=== PATIENT | male | born 1965 | race Caucasian/White ===

== ENCOUNTER → 2016-12-17 | Outpatient (CLI) | payer OTHER, SELFPAY | PROVIDERS: Visit Provider Nurse Practitioner Family | DX: E11.9 Type 2 diabetes mellitus without complications (principal); E66.3 Overweight | CPT/HCPCS: 80053; 80061; 83036; 84439; 84443; 85025 ==

== ENCOUNTER 2016-12-28 11:37 | Emergency (ER) | payer OTHER, SELFPAY | END 2016-12-28 12:24 | disposition home or self-care (01) | PROVIDERS: Emergency Provider Nurse Practitioner Family; Visit Provider Nurse Practitioner Family | DX: H57.8 Other specified disorders of eye and adnexa (principal); H57.12 Ocular pain, left eye; Z87.891 Personal history of nicotine dependence; I10 Essential (primary) hypertension; E78.5 Hyperlipidemia, unspecified; Z79.84 Long term (current) use of oral hypoglycemic drugs; Z79.02 Long term (current) use of antithrombotics/antiplatelets; Z79.82 Long term (current) use of aspirin; Z79.899 Other long term (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 therapy; K21.9 Gastro-esophageal reflux disease without esophagitis | CPT/HCPCS: 99201 ==

== ENCOUNTER 2016-12-30 14:53 | Outpatient (POV) | payer OTHER, SELFPAY | END 2016-12-30 17:11 | disposition home or self-care (01) | PROVIDERS: Visit Provider Podiatrist | DX: M72.2 Plantar fascial fibromatosis (principal); E11.42 Type 2 diabetes mellitus with diabetic polyneuropathy | CPT/HCPCS: 99202; G0127 ==

== ENCOUNTER 2017-03-14 09:24 | Outpatient (POV) | payer OTHER, SELFPAY | END 2017-03-14 16:24 | disposition home or self-care (01) | PROVIDERS: Visit Provider Podiatrist | DX: M72.2 Plantar fascial fibromatosis (principal); E11.42 Type 2 diabetes mellitus with diabetic polyneuropathy | CPT/HCPCS: 20550; 99213; G0127; J1100; J3301 ==

== ENCOUNTER 2017-06-03 11:09 | Emergency (ER) | payer OTHER, SELFPAY ==
[2017-06-03 11:31] VITALS: BP 123/77; PULSE 106; RESP 18; TEMP 36.9; O2SAT 96; BMI 31.4
--- NOTE | 2017-06-03 11:59 | HMH.EDUTC ---
[facility] [place] Clinical Impression: Acute bronchitis Qualifiers: Bronchitis organism: unspecified organism Qualified Code(s): J20.9 - Acute bronchitis, unspecified Disposition: Home, Self-Care Condition on Discharge: Good Instructions: DI for Acute Bronchitis Additional Instructions: * No sign of a bacterial infection. Most bronchitis is due to viruses. Viruses can take 7-14 days to run their course and with bronchitis, the cough can linger longer even though other symptoms should be gone. * Monitor Temp. Follow up if fever develops * humidifier/vaporizer/hot steamy shower * Rescue (albuterol) Inhaler every 4-6 hours as needed like we discussed. Should help open airways and improve cough, wheezing, shortness of breath. * Mucinex during the day for your cough and cough suppressant only at night. Be sure to drink lots of water. Insurance may not cover a prescription of mucinex. Might be cheaper to get 400mg tablets and take 2 tablets morning, midday and evening all with lots of water. * Tessalon Perles will not cause drowsiness but use at bedtime to help stop cough so that you can get some rest * no steroid today due to diabetes. if symptoms don't improve or get worse, be sure to follow up as you might have to start them. Prescriptions: Albuterol Sulfate [Albuterol HFA Inhaler] 1 - 2 puffs IH Q4-6H PRN #1 inh PRN Reason: Shortness Of Breath Or Wheezing Benzonatate [Benzonatate 200mg Cap] 200 mg PO HS PRN #14 cap PRN Reason: Cough guaiFENesin [Mucinex 600mg tablet] 600 mg PO BID PRN #28 tab.er.12h PRN Reason: Cough Referrals: Glenna Ayala APRN [Primary Care Provider] - ( Follow up IMMEDIATELY for new or worsening symptoms OR no noticeable improvement over the next 48-72 hours. 911 for difficulty breathing.) Time of Disposition: 13:32 Medical Decision Making Vital Signs: 06/03/17 11:31 06/03/17 12:36 Temperature 98.4 F Temperature Source Temporal Artery Scan Pulse Rate 108 H Pulse Rate [Radial] 106 H Respiratory Rate 18 Blood Pressure [Right Arm] 123/77 Blood Pressure Mean [Right Arm] 92 Blood Pressure Source [Right Arm] Automatic Cuff Blood Pressure Position [Right Arm] Sitting 02 Sat by Pulse Oximetry 96 Oxygen Delivery Method Room Air - Lab Data Lab results reviewed: Yes: I reviewed the patient's lab results. flu a neg flu b neg Orders (Tests/Meds): ED MEDICATIONS Discontinued Medications Generic Name Dose Route Start Last Admin Trade Name Verenice PRN Reason Stop Dose Admin Albuterol Sulfate 2.5 mg 06/03/17 12:03 06/03/17 12:34 Albuterol 0.083% 2.5mg/3ml Neb IH 06/03/17 12:04 2.5 mg ONCE ONE Administration ORDERS Category Date Time Status XR chest 2V Stat Exams 06/03/17 12:03 Taken - Radiology Data #1 Image(s): Chest Image Reviewed: Yes I reviewed the patient's radiology image w/the ED provider Preliminary Findings: Normal/NAD Rvwd by Dr. Johnson, ER - Juan Inquiry Pt receiving controlled substance: No - Reevaluation(s) Reevaluation #1: Cough and wheezing improved after albuterol treatment. Minimal cough since. Pt reports feeling better. [facility] [place] General Stated complaint: chills achey runny nose cough Time Seen by Provider: 06/03/17 11:59 Mode of Arrival: Ambulatory Source of Information: Patient Limitations: No Limitations Description of Symptoms (Recalled from Triage Doc. by RN): C/O COUGH, RUNNY NOSE, HEADACHE, CHILLS AND BODY ACHES X2 DAYS HEENT Symptoms (Recalled from RN notes): No Resp Symptoms (Recalled from RN notes): No Skin Symptoms (Recalled from RN notes): No MS Symptoms (Recalled from RN notes): No Functional Status (Recalled from RN notes): NA - History of Present Illness Provider Complaint: c/o nonprod cough, aches, chills, drainage x 2-3 days. Father w/ bronchitis. Hx of asthma and needed rescue inhaler this morning for a little shortness of breath . Denies wheezing, fever. Cough drops not helping.
--- NOTE | 2017-06-03 12:03 | ED_ITS ---
[facility] [place] Clinical Impression: Acute bronchitis Qualifiers: Bronchitis organism: unspecified organism Qualified Code(s): J20.9 - Acute bronchitis, unspecified Disposition: Home, Self-Care Condition on Discharge: Good Instructions: DI for Acute Bronchitis Additional Instructions: * No sign of a bacterial infection. Most bronchitis is due to viruses. Viruses can take 7-14 days to run their course and with bronchitis, the cough can linger longer even though other symptoms should be gone. * Monitor Temp. Follow up if fever develops * humidifier/vaporizer/hot steamy shower * Rescue (albuterol) Inhaler every 4-6 hours as needed like we discussed. Should help open airways and improve cough, wheezing, shortness of breath. * Mucinex during the day for your cough and cough suppressant only at night. Be sure to drink lots of water. Insurance may not cover a prescription of mucinex. Might be cheaper to get 400mg tablets and take 2 tablets morning, midday and evening all with lots of water. * Tessalon Perles will not cause drowsiness but use at bedtime to help stop cough so that you can get some rest * no steroid today due to diabetes. if symptoms don't improve or get worse, be sure to follow up as you might have to start them. Prescriptions: Albuterol Sulfate [Albuterol HFA Inhaler] 1 - 2 puffs IH Q4-6H PRN #1 inh PRN Reason: Shortness Of Breath Or Wheezing Benzonatate [Benzonatate 200mg Cap] 200 mg PO HS PRN #14 cap PRN Reason: Cough guaiFENesin [Mucinex 600mg tablet] 600 mg PO BID PRN #28 tab.er.12h PRN Reason: Cough Referrals: Glenna Ayala APRN [Primary Care Provider] - ( Follow up IMMEDIATELY for new or worsening symptoms OR no noticeable improvement over the next 48-72 hours. 911 for difficulty breathing.) Time of Disposition: 13:32 Medical Decision Making Vital Signs: 06/03/17 11:31 06/03/17 12:36 Temperature 98.4 F Temperature Source Temporal Artery Scan Pulse Rate 108 H Pulse Rate [Radial] 106 H Respiratory Rate 18 Blood Pressure [Right Arm] 123/77 Blood Pressure Mean [Right Arm] 92 Blood Pressure Source [Right Arm] Automatic Cuff Blood Pressure Position [Right Arm] Sitting 02 Sat by Pulse Oximetry 96 Oxygen Delivery Method Room Air - Lab Data Lab results reviewed: Yes: I reviewed the patient's lab results. flu a neg flu b neg Orders (Tests/Meds): ED MEDICATIONS Discontinued Medications Generic Name Dose Route Start Last Admin Trade Name Freq PRN Reason Stop Dose Admin Albuterol Sulfate 2.5 mg 06/03/17 12:03 06/03/17 12:34 Albuterol 0.083% 2.5mg/3ml Neb IH 06/03/17 12:04 2.5 mg ONCE ONE Administration ORDERS Category Date Time Status XR chest 2V Stat Exams 06/03/17 12:03 Taken - Radiology Data #1 Image(s): Chest Image Reviewed: Yes I reviewed the patient's radiology image w/the ED provider Preliminary Findings: Normal/NAD Rvwd by Dr. Johnson, ER - Juan Inquiry Pt receiving controlled substance: No - Reevaluation(s) Reevaluation #1: Cough and wheezing improved after albuterol treatment. Minimal cough since. Pt reports feeling better. [facility] [place] H[place] - General Stated complaint: chills achey runny nose cough Time Seen by Provider: 06/03/17 11:59 Mode of Arrival: Ambulatory Source of Information: Patient Limitations: No Li
--- NOTE | 2017-06-03 12:03 | XR_ITS ---
XR chest 2V HISTORY: ITS.REASON: cough, fatigue, wheezing, hx asthma, nonsmoker ORDERING PHYSICIAN: Kaveh Coles PATIENT AGE: 51 years COMPARISON: 04/16/2015 FINDINGS: The cardiomediastinal silhouette and pulmonary vascularity are within normal limits. The lungs are clear without infiltrates, suspicious nodules, or pleural effusions. There is calcified granuloma in the right lower lobe. Increased density is noted over the left heart border probably related to summation artifact and may be confirmed with follow-up. No acute bony abnormalities. IMPRESSION: No acute finding, see above for detail
[2017-06-03 12:36] VITALS: PULSE 105; PULSE 108
[2017-06-03 13:42] VITALS: BP 177/89; PULSE 77; RESP 20; TEMP 37.1; O2SAT 99
[2017-06-06 10:17] LABS: UTC Influenza A Antigen Negative (Negative); UTC Influenza B Antigen Negative (Negative)
== END 2017-06-03 13:45 | disposition home or self-care (01) ==
PROVIDERS: Emergency Provider Nurse Practitioner Family; PCP Nurse Practitioner Family
DX: J20.9 Acute bronchitis, unspecified (principal); J45.909 Unspecified asthma, uncomplicated; E11.9 Type 2 diabetes mellitus without complications; Z79.84 Long term (current) use of oral hypoglycemic drugs; K21.9 Gastro-esophageal reflux disease without esophagitis; E78.5 Hyperlipidemia, unspecified; I10 Essential (primary) hypertension; Z87.891 Personal history of nicotine dependence; Z79.899 Other long term (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 therapy
CPT/HCPCS: 71046; 87804; 99202

== ENCOUNTER → 2017-09-23 10:58 | Outpatient (CLI) | payer MEDICARE, SELFPAY ==
[2017-09-23 14:24] LABS: Chol/HDL Ratio 5.7 (1-3.5); Cholesterol 210 mg/dL (140-200); HDL Cholesterol 37 mg/dL (27-67)
[2017-09-23 14:28] LABS: Triglycerides 508 mg/dL (30-200)
[2017-09-23 16:28] LABS: Hemoglobin A1C 7.5 % (0.0-7.0)
== END ==
PROVIDERS: Visit Provider Nurse Practitioner Family
DX: R07.9 Chest pain, unspecified (principal); E11.69 Type 2 diabetes mellitus with other specified complication
CPT/HCPCS: 80061; 83036

== ENCOUNTER → 2017-12-28 10:37 | Outpatient (CLI) | payer MEDICARE, SELFPAY ==
[2017-12-28 12:46] LABS: Alanine Aminotransferase 26 U/L (12-78); Albumin Level 3.8 gm/dL (3.4-5.0); Alkaline Phosphatase 85 U/L (46-116); Aspartate Amino Transferase 14 U/L (15-37); Bilirubin,Direct 0.1 mg/dL (0.0-0.2); Bilirubin,Indirect 0.1 mg/dL (0.0-0.9); Bilirubin,Total 0.2 mg/dL (0.2-1.0); Chol/HDL Ratio 4.6 (1-3.5); Cholesterol 236 mg/dL (140-200); HDL Cholesterol 51 mg/dL (27-67); LDL Cholesterol 145 mg/dL (0-130); Total Protein,Serum 7.5 gm/dL (6.4-8.2); Triglycerides 198 mg/dL (30-200); VLDL Cholesterol 40 mg/dL (0-40)
== END ==
PROVIDERS: PCP Nurse Practitioner Family; Visit Provider Physician Assistant
DX: E11.69 Type 2 diabetes mellitus with other specified complication (principal); E78.5 Hyperlipidemia, unspecified; R07.9 Chest pain, unspecified
CPT/HCPCS: 36415; 80061; 80076

== ENCOUNTER → 2017-12-29 11:36 | Outpatient (CLI) | payer MEDICARE, SELFPAY ==
[2017-12-29 12:31] LABS: Hemoglobin A1C 7.7 % (0.0-7.0)
== END ==
PROVIDERS: PCP Nurse Practitioner Family; Visit Provider Nurse Practitioner Family
DX: E11.9 Type 2 diabetes mellitus without complications (principal)
CPT/HCPCS: 36415; 83036

== ENCOUNTER → 2018-01-27 10:49 | Outpatient (POV) | payer MEDICARE, SELFPAY | PROVIDERS: PCP Nurse Practitioner Family; Visit Provider Podiatrist | DX: Z00.00 Encounter for general adult medical examination without abnormal findings (principal) ==

== ENCOUNTER → 2018-03-22 13:16 | Outpatient (CLI) | payer MEDICARE, SELFPAY ==
[2018-03-22 13:28] LABS: Basophils # 0.1 K/mm3 (0-0.2); Basophils % 1.2 % (0.1-2.0); Eosinophils # 0.3 K/mm3 (0.0-0.4); Eosinophils % 6.6 % (0.1-12.0); Hematocrit 33.2 % (42.0-52.0); Hemoglobin 9.6 g/dL (14.1-18.0); Lymphocytes # 1.4 K/mm3 (0.7-4.5); Lymphocytes % 29.5 % (10-50); Mean Corpuscular HGB Conc 28.9 g/dL (31.8-35.4); Mean Corpuscular Hemoglobin 21.3 pg (27.0-31.2); Mean Corpuscular Volume 73.5 fl (80-94); Mean Platelet Volume 9.6 fl (7.4-10.4); Monocytes # 0.3 K/mm3 (0.1-1.0); Monocytes % 6.2 % (1.7-9.3); Neutrophils # 2.6 K/mm3 (1.8-7.8); Neutrophils % 56.5 % (37.0-80.0); Platelet Count 282 K/mm3 (142-424); Red Blood Count 4.52 M/mm3 (4.60-6.20); White Blood Count 4.6 K/mm3 (4.8-10.8)
[2018-03-22 14:50] LABS: Alanine Aminotransferase 28 U/L (12-78); Albumin Level 3.8 gm/dL (3.4-5.0); Alkaline Phosphatase 99 U/L (46-116); Anion Gap 17.8 mEq/L (5-15); Aspartate Amino Transferase 19 U/L (15-37); Bilirubin,Total 0.3 mg/dL (0.2-1.0); Blood Urea Nitrogen 9 mg/dL (7-18); Carbon Dioxide 23 mmol/L (21.0-32.0); Chloride 102 mmol/L (98-107); Chol/HDL Ratio 3.4 (1-3.5); Cholesterol 202 mg/dL (140-200); Creatinine,Serum 0.92 mg/dL (0.70-1.30); Estimated Glomerular Filt Rate 86 ml/min (>60); Free Thyroxine Index 1.6 ug/dL (5.93-13.13); GFR (African American) 104 ML/MIN (>60); Globulin 3.8 gm/dl (1.3-3.2); Glucose 126 mg/dL (74-106); HDL Cholesterol 59 mg/dL (27-67); LDL Cholesterol 108 mg/dL (0-130); Potassium 4.8 mmoL/L (3.5-5.1); Sodium 138 mmol/L (136-145); Thyroid Stimulating Hormone 1.18 uIU/ml (0.358-3.740); Total Protein,Serum 7.6 gm/dL (6.4-8.2); Triglycerides 177 mg/dL (30-200); Triiodothryronine (T3) Uptake 32 % (31-39); VLDL Cholesterol 35 mg/dL (0-40)
[2018-03-22 19:07] LABS: Hemoglobin A1C 7.2 % (0.0-7.0)
[2018-03-23 09:44] LABS: Vitamin D 25 Hydroxy 19.8 ng/mL (30.0-100.0)
[2018-03-24 06:55] LABS: Microalbumin, Urine 6.7 ug/mL (Not Estab.)
[2018-03-27 13:18] LABS: Barbiturates Screen,Urine Negative ng/mL (<200); Opiate Screen,Urine Positive ng/mL (<300)
[2018-03-27 13:19] LABS: Amphetamine/Metha Screen,Urine Negative ng/mL (<1000); Benzodiazepines Screen,Urine Negative ng/mL (<200); Cannabinoid Screen,Urine Negative ng/mL (<50); Cocaine Screen,Urine Negative ng/mL (<300); Methadone Screen,Urine Negative ng/mL (<300); Phencyclidine Screen,Urine Negative ng/mL (<25)
== END ==
PROVIDERS: Visit Provider Nurse Practitioner Family
DX: E11.9 Type 2 diabetes mellitus without complications (principal); E11.69 Type 2 diabetes mellitus with other specified complication; E78.5 Hyperlipidemia, unspecified; F11.90 Opioid use, unspecified, uncomplicated; Z79.899 Other long term (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 therapy; Z79.84 Long term (current) use of oral hypoglycemic drugs
CPT/HCPCS: 80053; 80061; 80305; 82043; 82652; 83036; 84436; 84443; 84479; 85025

== ENCOUNTER → 2018-03-24 13:20 | Outpatient (CLI) | payer MEDICARE, SELFPAY ==
[2018-03-24 13:55] LABS: Basophils # 0.1 K/mm3 (0-0.2); Basophils % 1.1 % (0.1-2.0); Eosinophils # 0.3 K/mm3 (0.0-0.4); Eosinophils % 7.3 % (0.1-12.0); Hematocrit 33.3 % (42.0-52.0); Hemoglobin 9.5 g/dL (14.1-18.0); Lymphocytes # 1.6 K/mm3 (0.7-4.5); Lymphocytes % 34.8 % (10-50); Mean Corpuscular HGB Conc 28.4 g/dL (31.8-35.4); Mean Corpuscular Hemoglobin 21.4 pg (27.0-31.2); Mean Corpuscular Volume 75.5 fl (80-94); Mean Platelet Volume 8.1 fl (7.4-10.4); Monocytes # 0.3 K/mm3 (0.1-1.0); Monocytes % 6.2 % (1.7-9.3); Neutrophils # 2.3 K/mm3 (1.8-7.8); Neutrophils % 50.7 % (37.0-80.0); Platelet Count 209 K/mm3 (142-424); Red Blood Count 4.41 M/mm3 (4.60-6.20); Red Cell Distribution Width 18.8 % (11.5-17.5); White Blood Count 4.6 K/mm3 (4.8-10.8)
== END ==
PROVIDERS: Visit Provider Nurse Practitioner Family
DX: J20.9 Acute bronchitis, unspecified (principal); R79.89 Other specified abnormal findings of blood chemistry
CPT/HCPCS: 85025

== ENCOUNTER → 2018-03-29 11:30 | Outpatient (CLI) | payer MEDICARE, SELFPAY ==
[2018-03-31 16:08] LABS: Occult Blood,Stool Negative (Negative)
== END ==
PROVIDERS: Visit Provider Nurse Practitioner Family
DX: D64.9 Anemia, unspecified (principal)
CPT/HCPCS: 82272; G0328

== ENCOUNTER → 2018-03-30 13:00 | Outpatient (CLI) | payer MEDICARE, SELFPAY ==
[2018-03-31 16:08] LABS: Occult Blood,Stool Negative (Negative)
== END ==
PROVIDERS: Visit Provider Nurse Practitioner Family
DX: D64.9 Anemia, unspecified (principal)
CPT/HCPCS: 82272; G0328

== ENCOUNTER → 2018-04-07 14:13 | Outpatient (CLI) | payer MEDICARE, SELFPAY ==
[2018-04-07 14:18] LABS: Adenovirus F 40/41, stool Not Detected (NotDetected); Astrovirus Not Detected (NotDetected); Campylobacter Not Detected (NotDetected); Clostridium Difficile A/B, PCR Not Detected (NotDetected); Cryptosporidium Not Detected (NotDetected); Cyclospora Cayetanesis Not Detected (NotDetected); Entamoeba histolytica Not Detected (NotDetected); Enteroaggregative E coli Not Detected (NotDetected); Enteropathogenic E coli Not Detected (NotDetected); Enterotoxigenic E coli Not Detected (NotDetected); Giardia lamblia Not Detected (NotDetected); Norovirus Not Detected (NotDetected); Plesimonas Shigalloides, PCR Not Detected (NotDetected); Rotavirus A Not Detected (NotDetected); Salmonella, PCR Not Detected (NotDetected); Sapovirus Not Detected (NotDetected); Shiga-like toxin E coli Not Detected (NotDetected); Shigella Enterovasive E coli Not Detected (NotDetected); Vibrio Cholerae Not Detected (NotDetected); Vibrio, PCR Not Detected (NotDetected); Yersinia Entercolitica, PCR Not Detected (NotDetected)
== END ==
PROVIDERS: PCP Nurse Practitioner Family; Visit Provider Nurse Practitioner Family
DX: R19.7 Diarrhea, unspecified (principal)
CPT/HCPCS: 87507

== ENCOUNTER → 2018-04-20 14:20 | Outpatient (CLI) | payer MEDICARE, SELFPAY ==
[2018-04-20 14:47] LABS: Basophils # 0.1 K/mm3 (0-0.2); Basophils % 0.8 % (0.1-2.0); Eosinophils # 0.4 K/mm3 (0.0-0.4); Eosinophils % 6.9 % (0.1-12.0); Hematocrit 34.6 % (42.0-52.0); Hemoglobin 9.8 g/dL (14.1-18.0); Lymphocytes # 1.5 K/mm3 (0.7-4.5); Lymphocytes % 27.3 % (10-50); Mean Corpuscular HGB Conc 28.4 g/dL (31.8-35.4); Mean Corpuscular Hemoglobin 21.7 pg (27.0-31.2); Mean Corpuscular Volume 76.3 fl (80-94); Mean Platelet Volume 10.5 fl (7.4-10.4); Monocytes # 0.3 K/mm3 (0.1-1.0); Monocytes % 6.2 % (1.7-9.3); Neutrophils # 3.3 K/mm3 (1.8-7.8); Neutrophils % 58.7 % (37.0-80.0); Platelet Count 283 K/mm3 (142-424); Red Blood Count 4.54 M/mm3 (4.60-6.20); Red Cell Distribution Width 18.7 % (11.5-17.5); White Blood Count 5.5 K/mm3 (4.8-10.8)
[2018-04-20 16:11] LABS: Alanine Aminotransferase 27 U/L (12-78); Albumin Level 3.6 gm/dL (3.4-5.0); Albumin/Globulin Ratio 1.1 (1.1-1.8); Alkaline Phosphatase 93 U/L (46-116); Anion Gap 12.4 mEq/L (5-15); Aspartate Amino Transferase 21 U/L (15-37); Bilirubin,Total 0.3 mg/dL (0.2-1.0); Blood Urea Nitrogen 12 mg/dL (7-18); Calcium 8.8 mg/dL (8.5-10.1); Carbon Dioxide 27 mmol/L (21.0-32.0); Chloride 105 mmol/L (98-107); Creatinine,Serum 1.13 mg/dL (0.70-1.30); Estimated Glomerular Filt Rate 68 ml/min (>60); Ferritin 15 ng/mL (8-388); GFR (African American) 82 ML/MIN (>60); Globulin 3.4 gm/dl (1.3-3.2); Glucose 150 mg/dL (74-106); Potassium 5.4 mmoL/L (3.5-5.1); Sodium 139 mmol/L (136-145); Thyroid Stimulating Hormone 1.05 uIU/ml (0.358-3.740)
[2018-04-22 08:25] LABS: Iron 20 ug/dL (38-169); Iron Saturation 4 % (15-55); UIBC 480 ug/dL (111-343)
[2018-04-22 14:14] LABS: Free Kappa Lt Chains 15.7 mg/L (3.3-19.4); Free Lambda Lt Chains 11.8 mg/L (5.7-26.3)
[2018-04-22 21:50] LABS: Haptoglobin 216 mg/dL (34-200)
[2018-04-24 13:14] LABS: Albumin 4.2 g/dL (2.9-4.4); Alpha-1-Globulin 0.2 g/dL (0.0-0.4); Alpha-2-Globulin 0.8 g/dL (0.4-1.0); Gamma Globulin 0.8 g/dL (0.4-1.8); Immunoglobulin A, Qn 172 mg/dL (90-386); Immunoglobulin G, Qn 871 mg/dL (700-1600); Protein, Total 7.1 g/dL (6.0-8.5)
[2018-04-24 15:31] LABS: Immunoglobulin M, Qn 69 mg/dL (20-172)
== END ==
PROVIDERS: Visit Provider Internal Medicine Medical Oncology
DX: D64.9 Anemia, unspecified (principal); E03.9 Hypothyroidism, unspecified
CPT/HCPCS: 36415; 80053; 82728; 82784; 83010; 83540; 83550; 83883; 84155; 84165; 84443; 85025; 86334

== ENCOUNTER → 2018-04-25 15:05 | Outpatient (CLI) | payer MEDICARE, SELFPAY ==
--- NOTE | 2018-04-25 15:11 | CT_ITS ---
CT lung screening EXAM: CT LUNG LOW DOSE WO CONTRAST HISTORY: 120 pack year smoking history asymptomatic for lung cancer ITS.REASON: H/O NICOTINE DEPENDENCE ORDERING PHYSICIAN: Vanda Griffith MD PATIENT AGE: 52 years COMPARISON: None TECHNIQUE: The exam was performed on a GE Light Speed [address] scanner using 2.90 mGy CTDI. A low dose helical CT CHEST was performed on a multi-detector scanner. All CT scans at the facility use one or more dose reduction, viz: automated exposure control, ma/kV adjustment per patient size (including targeted exams where dose is matched to indication, i.e. head), or iterative reconstruction technique. The LDCT was performed in a facility that meets the criteria for the screening program. Data regarding this exam was submitted to ACR which is an approved registry. The order for this exam indicates that it came as a result of a lung cancer screening counseling shard decision-making visit that included all the elements required of such a visit including smoking cessation. The radiologist interpreting this exam meets the CMS criteria for the LDCT lung cancer screening program. The exam is reported using the Lung-RADS classification scale and reported to the ACR registry. NOTE: This study was performed for the specific purposes of lung cancer screening and is not an alternative to diagnostic chest CT. RADIATION DOSE: CTDI vol(CT dose Index-volume) = 2.90mG DLP (Dose Length Product) = 96.27 mGcm FINDINGS: Nodules: 3 mm noncalcified nodule right middle lobe image #49. Calcified granuloma right lower lobe Incidental note made of coronary artery calcifications. Mild diffuse bronchial thickening. IMPRESSION: 1. Lung RADS Category: 2, benign 2. Other findings: Coronary artery calcifications RECOMMENDATIONS: 12 month LDCT follow-up
== END ==
PROVIDERS: PCP Nurse Practitioner Family; Visit Provider Internal Medicine Medical Oncology
DX: Z87.891 Personal history of nicotine dependence (principal); Z12.2 Encounter for screening for malignant neoplasm of respiratory organs

== ENCOUNTER → 2018-05-01 14:01 | Outpatient (CLI) | payer MEDICARE, SELFPAY ==
[2018-05-01 14:22] LABS: Occult Blood,Stool Positive (Negative)
== END ==
PROVIDERS: Visit Provider Nurse Practitioner Family
DX: K92.1 Melena (principal)
CPT/HCPCS: 82272; G0328

== ENCOUNTER → 2018-05-16 13:10 | Outpatient (CLI) | payer MEDICARE, SELFPAY ==
[2018-05-16 13:15] LABS: Adenovirus F 40/41, stool Not Detected (NotDetected); Astrovirus Not Detected (NotDetected); Campylobacter Not Detected (NotDetected); Clostridium Difficile A/B, PCR Not Detected (NotDetected); Cryptosporidium Not Detected (NotDetected); Cyclospora Cayetanesis Not Detected (NotDetected); Entamoeba histolytica Not Detected (NotDetected); Enteroaggregative E coli Not Detected (NotDetected); Enteropathogenic E coli Not Detected (NotDetected); Enterotoxigenic E coli Not Detected (NotDetected); Giardia lamblia Not Detected (NotDetected); Norovirus Not Detected (NotDetected); Plesimonas Shigalloides, PCR Not Detected (NotDetected); Rotavirus A Not Detected (NotDetected); Salmonella, PCR Not Detected (NotDetected); Sapovirus Not Detected (NotDetected); Shiga-like toxin E coli Not Detected (NotDetected); Shigella Enterovasive E coli Not Detected (NotDetected); Vibrio Cholerae Not Detected (NotDetected); Vibrio, PCR Not Detected (NotDetected); Yersinia Entercolitica, PCR Not Detected (NotDetected)
== END ==
PROVIDERS: Visit Provider Surgery
DX: R19.7 Diarrhea, unspecified (principal)
CPT/HCPCS: 87507

== ENCOUNTER → 2018-07-18 10:29 | Outpatient (CLI) | payer MEDICARE, SELFPAY ==
[2018-07-18 12:22] LABS: Alanine Aminotransferase 21 U/L (12-78); Albumin Level 3.7 gm/dL (3.4-5.0); Alkaline Phosphatase 85 U/L (46-116); Aspartate Amino Transferase 15 U/L (15-37); Bilirubin,Direct 0.1 mg/dL (0.0-0.2); Bilirubin,Indirect 0.2 mg/dL (0.0-0.9); Bilirubin,Total 0.3 mg/dL (0.2-1.0); Cholesterol 233 mg/dL (140-200); HDL Cholesterol 47 mg/dL (27-67); LDL Cholesterol 131 mg/dL (0-130); Total Protein,Serum 7.4 gm/dL (6.4-8.2); Triglycerides 274 mg/dL (30-200); VLDL Cholesterol 55 mg/dL (0-40)
== END ==
PROVIDERS: Visit Provider Physician Assistant
DX: E11.69 Type 2 diabetes mellitus with other specified complication (principal); E78.5 Hyperlipidemia, unspecified; I10 Essential (primary) hypertension; I25.10 Atherosclerotic heart disease of native coronary artery without angina pectoris; I73.9 Peripheral vascular disease, unspecified; R06.09 Other forms of dyspnea; Z79.84 Long term (current) use of oral hypoglycemic drugs
CPT/HCPCS: 36415; 80061; 80076

== ENCOUNTER → 2018-08-03 10:51 | Outpatient (CLI) | payer MEDICARE, SELFPAY ==
[2018-08-03 11:22] LABS: Basophils # 0.1 K/mm3 (0-0.2); Basophils % 0.8 % (0.1-2.0); Eosinophils # 0.3 K/mm3 (0.0-0.4); Eosinophils % 5.2 % (0.1-12.0); Hemoglobin 10.6 g/dL (14.1-18.0); Lymphocytes # 1.6 K/mm3 (0.7-4.5); Lymphocytes % 26.1 % (10-50); Mean Corpuscular HGB Conc 30.2 g/dL (31.8-35.4); Mean Corpuscular Hemoglobin 22.3 pg (27.0-31.2); Mean Corpuscular Volume 73.8 fl (80-94); Mean Platelet Volume 10.1 fl (7.4-10.4); Monocytes # 0.4 K/mm3 (0.1-1.0); Neutrophils # 3.8 K/mm3 (1.8-7.8); Neutrophils % 61.9 % (37.0-80.0); Platelet Count 267 K/mm3 (142-424); Red Blood Count 4.74 M/mm3 (4.60-6.20); Red Cell Distribution Width 18.9 % (11.5-17.5); White Blood Count 6.1 K/mm3 (4.8-10.8)
[2018-08-03 13:58] LABS: Alanine Aminotransferase 27 U/L (12-78); Albumin Level 3.9 gm/dL (3.4-5.0); Chloride 103 mmol/L (98-107); Potassium 4.5 mmoL/L (3.5-5.1)
[2018-08-03 14:48] LABS: Albumin/Globulin Ratio 1.1 (1.1-1.8); Alkaline Phosphatase 90 U/L (46-116); Anion Gap 16.5 mEq/L (5-15); Aspartate Amino Transferase 13 U/L (15-37); Bilirubin,Total 0.3 mg/dL (0.2-1.0); Blood Urea Nitrogen 11 mg/dL (7-18); Calcium 9.4 mg/dL (8.5-10.1); Carbon Dioxide 21 mmol/L (21.0-32.0); Chol/HDL Ratio 5.1 (1-3.5); Cholesterol 214 mg/dL (140-200); Creatinine,Serum 1.08 mg/dL (0.70-1.30); Estimated Glomerular Filt Rate 71 ml/min (>60); GFR (African American) 86 ML/MIN (>60); Globulin 3.7 gm/dl (1.3-3.2); Glucose 141 mg/dL (74-106); HDL Cholesterol 42 mg/dL (27-67); LDL Cholesterol 136 mg/dL (0-130); Sodium 136 mmol/L (136-145); T4 (Thyroxine) 4.5 ug/dl (4.7-13.3); Total Protein,Serum 7.6 gm/dL (6.4-8.2); Triglycerides 181 mg/dL (30-200); VLDL Cholesterol 36 mg/dL (0-40)
[2018-08-03 15:24] LABS: Hemoglobin A1C 7.1 % (0.0-7.0)
[2018-08-04 23:13] LABS: Microalbumin, Urine 15.2 ug/mL (Not Estab.); Vitamin D 25 Hydroxy 21.7 ng/mL (30.0-100.0)
== END ==
PROVIDERS: Visit Provider Nurse Practitioner Family
DX: E11.9 Type 2 diabetes mellitus without complications (principal); G62.9 Polyneuropathy, unspecified; R53.1 Weakness; E78.5 Hyperlipidemia, unspecified
CPT/HCPCS: 36415; 80053; 80061; 82043; 82652; 83036; 84436; 84443; 85025

== ENCOUNTER → 2018-08-17 07:33 | Outpatient (CLI) | payer MEDICARE, SELFPAY ==
--- NOTE | 2018-08-17 07:33 | US_ITS ---
US gallbladder HISTORY: ITS.REASON: abd pain ORDERING PHYSICIAN: Glenna Ayala APRN PATIENT AGE: 53 years Comparison: None FINDINGS: PANCREAS: Unremarkable. No obvious mass or abnormal fluid collection. No ductal dilatation LIVER: No focal liver lesions demonstrated. Homogeneous echogenicity. No intrahepatic biliary ductal dilatation evident RIGHT KIDNEY: Unremarkable. Normal size and echogenicity. No hydronephrosis GALLBLADDER: The gallbladder appears contracted with minimal thickening of the wall which may be due to the contracted state. No gallstones, pericholecystic fluid, or biliary dilatation is evident. IMPRESSION: Mildly thickened gallbladder with mild prominence of the gallbladder wall which may be due to the contracted state. No stones or other significant anomalies
== END ==
PROVIDERS: PCP Nurse Practitioner Family; Visit Provider Nurse Practitioner Family
DX: R10.9 Unspecified abdominal pain (principal)
CPT/HCPCS: 76705

== ENCOUNTER → 2018-08-30 12:06 | Outpatient (CLI) | payer MEDICARE, SELFPAY ==
--- NOTE | 2018-08-30 12:07 | NM_ITS ---
CARDIOLITE SPECT MYOCARDIAL PERFUSION LEXISCAN, REST AND STRESS: History: Coronary artery disease, hypertension, diabetes, hyperlipidemia, family history, chest pain, shortness of breath Procedure: Patient received a 0.4 mg of intravenous Lexiscan, resting heart rate was 65 bpm resting blood pressure 124/65, with Lexiscan maximum heart rate achieved was 95 bpm is less than 85% of the maximum predicted heart rate and a blood pressure was 98/49. With Lexiscan patient complained of shortness of breath and malaise. Chest pressure was also noted. Electrocardiogram: Resting electrocardiogram showed sinus rhythm, with Lexiscan there is less than 1.[address] segment depression from the baseline EKG. The EKG portion of the Lexiscan Myoview is nondiagnostic. Cardiac stress and resting SPECT images: Cardiac stress and resting SPECT images were obtained using technetium 99 Myoview 30.9 mCi stress and 10.2 mCi at rest. Gated SPECT further analysis of segmental wall motion and calculation of the ejection fraction also done. Cardiac stress and resting SPECT images show uniform myocardial activity without segmental perfusion abnormality, computer derived ejection fraction is over 65% with no regional wall motion abnormality, right ventricle is normal size and contractility. Conclusion: 1. The EKG portion of the Lexiscan Myoview is nondiagnostic. 2. No scintigraphic evidence of reversible ischemia seen, computer derived ejection fraction is over 65% with no regional wall motion abnormality, right ventricle is normal size and contractility. 3. Normal Lexiscan Myoview study.
--- NOTE | 2018-08-30 14:39 | HMH.ITSHM ---
Current Home Medications as stated by this patient Parish Hernandez or guest experience representative. []ATORVASTATIN NORCO NEURONTIN METFORMIN GEMFIBROZIL OMEPRAZOLE PIOGLITAZONE ATENOLOL ASPIRIN RANEXA lisinopril clopidogrel albuterol fluticasone
== END ==
PROVIDERS: PCP Nurse Practitioner Family; Visit Provider Urology
DX: I10 Essential (primary) hypertension (principal); I25.10 Atherosclerotic heart disease of native coronary artery without angina pectoris; R06.02 Shortness of breath; R07.9 Chest pain, unspecified
CPT/HCPCS: 78452; 93017; A9502; J2785

== ENCOUNTER → 2018-09-27 08:42 | Outpatient (CLI) | payer MEDICARE, SELFPAY ==
--- NOTE | 2018-09-27 08:45 | FL_ITS ---
FL upper GI small bowel HISTORY: Bloody diarrhea, anemia ITS.REASON: anemia ORDERING PHYSICIAN: Leonides Caballero MD PATIENT AGE: 53 years Comparison: None FINDINGS: External Auditor exam is unremarkable. Air contrast exam performed. The esophagus stomach and duodenum have an unremarkable appearance. No ulcer or mass. No hernia. Images obtained of the small bowel following the course of transit of contrast in the small bowel are unremarkable. No obstructing lesions. No mucosal abnormalities or masses. Spot views of the terminal ileum are unremarkable. The appendix was visualized. FLUOROSCOPY TIME : 1 minute and 55 seconds. IMPRESSION: Unremarkable upper GI with unremarkable small bowel follow-through
== END ==
PROVIDERS: PCP Nurse Practitioner Family; Visit Provider Surgery
DX: D64.9 Anemia, unspecified (principal)
CPT/HCPCS: 74245

== ENCOUNTER → 2018-10-26 13:45 | Outpatient (CLI) | payer MEDICARE, SELFPAY ==
[2018-10-27 11:18] LABS: Basophils # 0.1 K/mm3 (0-0.2); Basophils % 0.7 % (0.1-2.0); Eosinophils # 0.5 K/mm3 (0.0-0.4); Eosinophils % 7.6 % (0.1-12.0); Hematocrit 37.1 % (42.0-52.0); Hemoglobin 10.1 g/dL (14.1-18.0); Lymphocytes # 1.6 K/mm3 (0.7-4.5); Lymphocytes % 24.8 % (10-50); Mean Corpuscular HGB Conc 27.4 g/dL (31.8-35.4); Mean Corpuscular Hemoglobin 21.6 pg (27.0-31.2); Mean Platelet Volume 9.7 fl (7.4-10.4); Monocytes # 0.3 K/mm3 (0.1-1.0); Monocytes % 4.9 % (1.7-9.3); Platelet Count 326 K/mm3 (142-424); Red Blood Count 4.69 M/mm3 (4.60-6.20); Red Cell Distribution Width 18.7 % (11.5-17.5); White Blood Count 6.5 K/mm3 (4.8-10.8)
[2018-10-27 12:16] LABS: Alanine Aminotransferase 26 U/L (12-78); Albumin Level 3.7 gm/dL (3.4-5.0); Alkaline Phosphatase 103 U/L (46-116); Anion Gap 16.4 mEq/L (5-15); Aspartate Amino Transferase 17 U/L (15-37); Bilirubin,Total 0.4 mg/dL (0.2-1.0); Blood Urea Nitrogen 12 mg/dL (7-18); Calcium 9.5 mg/dL (8.5-10.1); Carbon Dioxide 24 mmol/L (21.0-32.0); Chloride 102 mmol/L (98-107); Chol/HDL Ratio 4.5 (1-3.5); Cholesterol 224 mg/dL (140-200); Creatinine,Serum 1.26 mg/dL (0.70-1.30); Estimated Glomerular Filt Rate 59 ml/min (>60); GFR (African American) 72 ML/MIN (>60); Globulin 3.8 gm/dl (1.3-3.2); Glucose 142 mg/dL (74-106); HDL Cholesterol 50 mg/dL (27-67); LDL Cholesterol 110 mg/dL (0-130); Potassium 5.4 mmoL/L (3.5-5.1); Sodium 137 mmol/L (136-145); Total Protein,Serum 7.5 gm/dL (6.4-8.2); Triglycerides 319 mg/dL (30-200); VLDL Cholesterol 64 mg/dL (0-40)
[2018-10-29 22:50] LABS: Microalbumin, Urine 11.7 ug/mL (Not Estab.); Vitamin D 25 Hydroxy 36.1 ng/mL (30.0-100.0)
== END ==
PROVIDERS: Visit Provider Nurse Practitioner Family
DX: E11.9 Type 2 diabetes mellitus without complications (principal); G62.9 Polyneuropathy, unspecified; Z79.84 Long term (current) use of oral hypoglycemic drugs
CPT/HCPCS: 80053; 80061; 82043; 82652; 83036; 85025

== ENCOUNTER → 2018-11-09 13:07 | Outpatient (CLI) | payer MEDICARE, SELFPAY ==
[2018-11-09 13:09] LABS: MANUAL DIFFERENTIAL MANUAL DIFFERENTIAL (MANUAL DIFF)
[2018-11-09 14:36] LABS: Basophils % 0.8 % (0.1-2.0); Eosinophils # 0.5 K/mm3 (0.0-0.4); Eosinophils % 9.8 % (0.1-12.0); Hematocrit 33.4 % (42.0-52.0); Hemoglobin 9.6 g/dL (14.1-18.0); Lymphocytes # 1.5 K/mm3 (0.7-4.5); Lymphocytes % 32.5 % (10-50); Mean Corpuscular HGB Conc 28.7 g/dL (31.8-35.4); Mean Corpuscular Hemoglobin 22.1 pg (27.0-31.2); Monocytes # 0.3 K/mm3 (0.1-1.0); Monocytes % 5.4 % (1.7-9.3); Neutrophils # 2.5 K/mm3 (1.8-7.8); Neutrophils % 51.5 % (37.0-80.0); Platelet Count 280 K/mm3 (142-424); Red Blood Count 4.33 M/mm3 (4.60-6.20); Red Cell Distribution Width 18.6 % (11.5-17.5); White Blood Count 4.8 K/mm3 (4.8-10.8)
[2018-11-09 15:01] LABS: Anion Gap 14.8 mEq/L (5-15); Blood Urea Nitrogen 12 mg/dL (7-18); Calcium 9.3 mg/dL (8.5-10.1); Carbon Dioxide 25 mmol/L (21.0-32.0); Chloride 103 mmol/L (98-107); Creatinine,Serum 1.08 mg/dL (0.70-1.30); Estimated Glomerular Filt Rate 71 ml/min (>60); GFR (African American) 86 ML/MIN (>60); Glucose 115 mg/dL (74-106); Potassium 5.8 mmoL/L (3.5-5.1); Sodium 137 mmol/L (136-145)
[2018-11-09 15:10] LABS: Ferritin 15 ng/mL (8-388)
[2018-11-09 16:15] LABS: Eosinophils % 6 % (0-3); Lymphocytes % 26 % (10-50); Monocytes % 5 % (2-9); Neutrophils % 61 % (42-76); Total Cells Counted 100
[2018-11-09 16:16] LABS: Anisocytosis 1+; Hypochromasia 2+; Microcytosis 2+; Platelet Estimate Normal; Poikilocytosis 1+; Tear Drop Cells 1+
[2018-11-09 16:19] LABS: Burr Cells 1+
[2018-11-10 08:13] LABS: Iron 31 ug/dL (38-169); UIBC 503 ug/dL (111-343)
[2018-11-10 15:04] LABS: Iron Saturation 6 % (15-55)
== END ==
PROVIDERS: Internal Medicine Hematology & Oncology; Visit Provider Nurse Practitioner Family
DX: D64.9 Anemia, unspecified (principal); E87.6 Hypokalemia
CPT/HCPCS: 36415; 80048; 82728; 83540; 83550; 85007; 85014; 85018; 85048; 85049

== ENCOUNTER → 2019-01-11 11:32 | Outpatient (CLI) | payer MEDICARE, SELFPAY ==
[2019-01-11 12:36] LABS: Basophils % 0.7 % (0.1-2.0); Eosinophils # 0.3 K/mm3 (0.0-0.4); Eosinophils % 5.9 % (0.1-12.0); Hematocrit 40.4 % (42.0-52.0); Hemoglobin 12.3 g/dL (14.1-18.0); Lymphocytes # 1.9 K/mm3 (0.7-4.5); Lymphocytes % 35.6 % (10-50); Mean Corpuscular HGB Conc 30.4 g/dL (31.8-35.4); Mean Corpuscular Hemoglobin 27.4 pg (27.0-31.2); Mean Corpuscular Volume 90.3 fl (80-94); Mean Platelet Volume 10.1 fl (7.4-10.4); Monocytes # 0.3 K/mm3 (0.1-1.0); Monocytes % 6.3 % (1.7-9.3); Neutrophils # 2.7 K/mm3 (1.8-7.8); Neutrophils % 51.5 % (37.0-80.0); Platelet Count 235 K/mm3 (142-424); Red Blood Count 4.47 M/mm3 (4.60-6.20); Red Cell Distribution Width 23.1 % (11.5-17.5); White Blood Count 5.3 K/mm3 (4.8-10.8)
[2019-01-11 15:25] LABS: Alanine Aminotransferase 24 U/L (12-78); Albumin Level 3.7 gm/dL (3.4-5.0); Albumin/Globulin Ratio 1.1 (1.1-1.8); Alkaline Phosphatase 76 U/L (46-116); Anion Gap 17.4 mEq/L (5-15); Aspartate Amino Transferase 14 U/L (15-37); Bilirubin,Total 0.3 mg/dL (0.2-1.0); Blood Urea Nitrogen 11 mg/dL (7-18); Calcium 9.5 mg/dL (8.5-10.1); Carbon Dioxide 24 mmol/L (21.0-32.0); Chloride 102 mmol/L (98-107); Creatinine,Serum 0.92 mg/dL (0.70-1.30); Estimated Glomerular Filt Rate 85 ml/min (>60); Ferritin 41 ng/mL (8-388); GFR (African American) 103 ML/MIN (>60); Globulin 3.3 gm/dl (1.3-3.2); Glucose 105 mg/dL (74-106); Potassium 5.4 mmoL/L (3.5-5.1); Sodium 138 mmol/L (136-145)
[2019-01-12 08:20] LABS: Iron 94 ug/dL (38-169); UIBC 301 ug/dL (111-343)
[2019-01-13 13:47] LABS: Iron Saturation 24 % (15-55)
== END ==
PROVIDERS: Visit Provider Internal Medicine Medical Oncology
DX: Z79.899 Other long term (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 therapy (principal); D64.9 Anemia, unspecified
CPT/HCPCS: 36415; 80053; 82728; 83540; 83550; 85025

== ENCOUNTER → 2019-03-20 14:19 | Outpatient (CLI) | payer MEDICARE, SELFPAY ==
--- NOTE | 2019-03-20 14:23 | XR_ITS ---
PROCEDURE: XR LUMBAR SPINE 2-3V CLINICAL INDICATION: pain Low back pain COMPARISON: No exams were available for comparison FINDINGS: There is degenerative disc disease at L5-S1. There is normal alignment with no acute fracture or dislocation. There is minimal lumbar curvature convex right. Left iliac artery stent is present with vascular calcification noted. No lytic or blastic change. IMPRESSION: Degenerative disc disease L5-S1 Dictated by: Reyes Wolf MD 03/20/2019 15:17 Electronically signed by Reyes Wolf MD in [place] 03/20/2019 15:17
--- NOTE | 2019-03-20 14:23 | XR_ITS ---
PROCEDURE: XR THORACIC SPINE 3V CLINICAL INDICATION: pain Back pain COMPARISON: No exams were available for comparison FINDINGS: There is mild degenerative disc disease in the midthoracic spine with minimal upper thoracic curvature convex right. No fracture or dislocation. No lytic or blastic change. IMPRESSION: Mild degenerative changes, no acute finding Dictated by: Reyes Wolf MD 03/20/2019 15:20 Electronically signed by Reyes Wolf MD in [place] 03/20/2019 15:20
--- NOTE | 2019-03-20 14:23 | XR_ITS ---
PROCEDURE: XR CERVICAL SPINE 3V CLINICAL INDICATION: pain Low back pain, pain throughout the COMPARISON: No exams were available for comparison FINDINGS: There is normal alignment. No fracture or dislocation. No lytic or blastic change. No significant degenerative change. No cervical rib. IMPRESSION: Negative cervical spine Dictated by: Reyes Wolf MD 03/20/2019 15:19 Electronically signed by Reyes Wolf MD in [place] 03/20/2019 15:19
== END ==
PROVIDERS: PCP Nurse Practitioner Family; Visit Provider Nurse Practitioner Family
DX: R69 Illness, unspecified (principal); M54.2 Cervicalgia; M54.6 Pain in thoracic spine; M54.5 Low back pain
CPT/HCPCS: 72040; 72072; 72100

== ENCOUNTER → 2019-03-30 10:44 | Outpatient (CLI) | payer MEDICARE, SELFPAY ==
--- NOTE | 2019-03-30 10:46 | US_ITS ---
APPROVED REPORT Exam Type: Lower Extremity Segmental Pressures Media Relations Specialist: Rachelle Daniel RVT Indications Claudication: Bilaterally Rest Pain: Bilaterally PAD CAD PT HAS HAD FEMORAL-FEMORAL BYPASS 2014 PT HAS ALSO HAD STENTS PUT IN LEGS UNSURE DATE Risk Factors Hypertension CAD Hyperlipidemia Cardiac Disease Pressures/Indices Right Indices Left Indices Brachial 121.00 mmHg Brachial 130.00 mmHg Low Thigh 107.00 mmHg 0.82 Low Thigh 110.00 mmHg 0.85 Calf 114.00 mmHg 0.88 Calf 109.00 mmHg 0.84 Ankle(PT) 109.00 mmHg 0.84 Ankle(PT) 121.00 mmHg 0.93 Ankle(DP) 92.00 mmHg 0.71 Ankle(DP) 115.00 mmHg 0.88 Digit 127.00 mmHg 0.98 Digit 93.00 mmHg 0.72 Findings RT MARY:0.84 LT MARY:0.93 RT TBI:0.98 LT TBI:0.72 NORMAL PULSES BILATERAL. NORMAL WAVEFORMS BILATERAL. Conclusion NORMAL PULSES BILATERAL. NORMAL WAVEFORMS BILATERAL. Slightly low right MARY suggesting mild arterial disease Electronically signed by : Reyes Wolf MD 03/30/2019 15:41:13
== END ==
PROVIDERS: PCP Nurse Practitioner Family; Visit Provider Physician Assistant
DX: I73.9 Peripheral vascular disease, unspecified (principal)
CPT/HCPCS: 93923

== ENCOUNTER → 2019-04-09 11:17 | Outpatient (CLI) | payer MEDICARE, SELFPAY | PROVIDERS: PCP Nurse Practitioner Family; Visit Provider Urology | DX: R00.2 Palpitations (principal) | CPT/HCPCS: 93270 ==

== ENCOUNTER → 2019-04-12 10:13 | Outpatient (CLI) | payer MEDICARE, SELFPAY | PROVIDERS: PCP Nurse Practitioner Family; Visit Provider Urology | DX: E11.69 Type 2 diabetes mellitus with other specified complication (principal); E78.2 Mixed hyperlipidemia; E78.5 Hyperlipidemia, unspecified; G62.9 Polyneuropathy, unspecified; I10 Essential (primary) hypertension; I25.10 Atherosclerotic heart disease of native coronary artery without angina pectoris; I73.9 Peripheral vascular disease, unspecified; M54.5 Low back pain; R00.2 Palpitations; R06.09 Other forms of dyspnea; R07.9 Chest pain, unspecified; Z79.84 Long term (current) use of oral hypoglycemic drugs | CPT/HCPCS: 93306 ==

== ENCOUNTER → 2019-05-02 11:33 | Outpatient (CLI) | payer MEDICARE, SELFPAY ==
[2019-05-02 12:07] LABS: Basophils % 0.5 % (0.1-2.0); Eosinophils # 0.3 K/mm3 (0.0-0.4); Hematocrit 42.7 % (42.0-52.0); Hemoglobin 13.9 g/dL (14.1-18.0); Lymphocytes # 1.6 K/mm3 (0.7-4.5); Lymphocytes % 25.6 % (10-50); Mean Corpuscular HGB Conc 32.5 g/dL (31.8-35.4); Mean Corpuscular Hemoglobin 32.1 pg (27.0-31.2); Mean Corpuscular Volume 98.6 fl (80-94); Monocytes # 0.4 K/mm3 (0.1-1.0); Monocytes % 6.1 % (1.7-9.3); Neutrophils # 3.9 K/mm3 (1.8-7.8); Neutrophils % 62.8 % (37.0-80.0); Platelet Count 248 K/mm3 (142-424); Red Blood Count 4.33 M/mm3 (4.60-6.20); Red Cell Distribution Width 13.4 % (11.5-17.5); White Blood Count 6.2 K/mm3 (4.8-10.8)
[2019-05-02 12:20] LABS: Alanine Aminotransferase 25 U/L (12-78); Albumin Level 3.3 gm/dL (3.4-5.0); Alkaline Phosphatase 81 U/L (46-116); Anion Gap 12.1 mEq/L (5-15); Aspartate Amino Transferase 15 U/L (15-37); Bilirubin,Total 0.2 mg/dL (0.2-1.0); Blood Urea Nitrogen 12 mg/dL (7-18); Carbon Dioxide 28 mmol/L (21.0-32.0); Chloride 107 mmol/L (98-107); Chol/HDL Ratio 2.3 (1-3.5); Cholesterol 118 mg/dL (140-200); Creatinine,Serum 1.01 mg/dL (0.70-1.30); Estimated Glomerular Filt Rate 77 ml/min (>60); GFR (African American) 93 ML/MIN (>60); Globulin 3.4 gm/dl (1.3-3.2); Glucose 125 mg/dL (74-106); HDL Cholesterol 51 mg/dL (27-67); LDL Cholesterol 26 mg/dL (0-130); Potassium 5.1 mmoL/L (3.5-5.1); Sodium 142 mmol/L (136-145); T4 (Thyroxine) 5.6 ug/dl (4.7-13.3); Thyroid Stimulating Hormone 1.41 uIU/ml (0.358-3.740); Total Protein,Serum 6.7 gm/dL (6.4-8.2); Triglycerides 203 mg/dL (30-200); VLDL Cholesterol 41 mg/dL (0-40)
[2019-05-02 12:24] LABS: Hemoglobin A1C 6.7 % (0.0-7.0)
[2019-05-03 15:41] LABS: Microalbumin, Urine 12.9 ug/mL (Not Estab.)
== END ==
PROVIDERS: Visit Provider Nurse Practitioner Family
DX: E78.5 Hyperlipidemia, unspecified; R00.2 Palpitations; I10 Essential (primary) hypertension; Z79.84 Long term (current) use of oral hypoglycemic drugs; E55.9 Vitamin D deficiency, unspecified; Z87.891 Personal history of nicotine dependence; E11.40 Type 2 diabetes mellitus with diabetic neuropathy, unspecified
CPT/HCPCS: 36415; 80053; 80061; 82043; 82652; 83036; 84436; 84443; 85025

== ENCOUNTER → 2019-11-13 12:29 | Outpatient (CLI) | payer MEDICARE, SELFPAY ==
[2019-11-13 12:54] LABS: Basophils # 0.1 K/mm3 (0-0.2); Eosinophils # 0.3 K/mm3 (0.0-0.4); Eosinophils % 5.5 % (0.1-12.0); Hematocrit 40.5 % (42.0-52.0); Hemoglobin 14.1 g/dL (14.1-18.0); Lymphocytes # 1.9 K/mm3 (0.7-4.5); Lymphocytes % 35.1 % (10-50); Mean Corpuscular HGB Conc 34.7 g/dL (31.8-35.4); Mean Corpuscular Hemoglobin 33.1 pg (27.0-31.2); Mean Corpuscular Volume 95.3 fl (80-94); Mean Platelet Volume 10.4 fl (7.4-10.4); Monocytes # 0.3 K/mm3 (0.1-1.0); Neutrophils # 2.8 K/mm3 (1.8-7.8); Neutrophils % 53.4 % (37.0-80.0); Platelet Count 199 K/mm3 (142-424); Red Blood Count 4.25 M/mm3 (4.60-6.20); Red Cell Distribution Width 13.4 % (11.5-17.5); White Blood Count 5.3 K/mm3 (4.8-10.8)
[2019-11-13 22:30] LABS: Iron 141 ug/dL (49-181)
[2019-11-13 23:30] LABS: Total Iron Binding Capacity 415 ug/dL (261-462)
[2019-11-13 23:57] LABS: Ferritin 73.5 ng/ml (17.9-464)
== END ==
PROVIDERS: Visit Provider Internal Medicine Medical Oncology
DX: D64.9 Anemia, unspecified (principal)
CPT/HCPCS: 36415; 82728; 83540; 83550; 85025

== ENCOUNTER → 2019-11-15 17:03 | Outpatient (CLI) | payer MEDICARE, SELFPAY ==
[2019-11-15 18:05] LABS: Chloride 102 mmol/L (98-107); Potassium 5.3 mmoL/L (3.5-5.1); Sodium 137 mmol/L (136-145)
[2019-11-15 18:08] LABS: Alanine Aminotransferase 36 U/L (12-78); Albumin Level 4.2 g/dl (3.5-5.0); Albumin/Globulin Ratio 1.7 (1.1-1.8); Alkaline Phosphatase 82 U/L (38-126); Anion Gap 18.3 mEq/L (5-15); Aspartate Amino Transferase 32 U/L (17-59); Bilirubin,Total 0.4 mg/dl (0.2-1.3); Blood Urea Nitrogen 15 mg/dl (9-20); Carbon Dioxide 22 mmol/L (22.0-30.0); Cholesterol 91 mg/dl (140-200); Estimated Glomerular Filt Rate 77 ml/min (>60); GFR (African American) 94 ML/MIN (>60); Globulin 2.5 g/dL (1.3-3.2); Total Protein,Serum 6.7 g/dl (6.3-8.2); Triglycerides 339 mg/dl (30-150); VLDL Cholesterol 68 mg/dL (0-40)
[2019-11-15 18:09] LABS: Calcium 9.4 mg/dl (8.4-10.2); Chol/HDL Ratio 2.1 (1-3.5); Glucose 158 mg/dl (74-100); HDL Cholesterol 43 mg/dl (40-60)
[2019-11-15 18:21] LABS: Direct LDL Cholesterol < 30.00 mg/dL (100-129)
[2019-11-15 19:34] LABS: Hemoglobin A1C 6.9 % (4.0-6.0)
== END ==
PROVIDERS: Visit Provider Nurse Practitioner Family
DX: E11.9 Type 2 diabetes mellitus without complications (principal); R53.83 Other fatigue; Z79.84 Long term (current) use of oral hypoglycemic drugs
CPT/HCPCS: 80053; 80061; 83036; 84436; 84443

== ENCOUNTER → 2019-11-20 11:33 | Outpatient (CLI) | payer MEDICARE, SELFPAY ==
[2019-11-20 12:25] LABS: Potassium 5.4 mmoL/L (3.5-5.1)
== END ==
PROVIDERS: Visit Provider Nurse Practitioner Family
DX: E87.5 Hyperkalemia (principal)
CPT/HCPCS: 36415; 84132

== ENCOUNTER → 2020-01-16 07:59 | Outpatient (CLI) | payer MEDICARE, SELFPAY ==
[2020-01-16 12:21] LABS: Chloride 100 mmol/L (98-107)
[2020-01-16 12:22] LABS: Potassium 5.4 mmoL/L (3.5-5.1); Sodium 140 mmol/L (136-145)
[2020-01-16 12:25] LABS: Anion Gap 13.4 mEq/L (5-15); Blood Urea Nitrogen 17 mg/dl (9-20); Carbon Dioxide 32 mmol/L (22.0-30.0); Estimated Glomerular Filt Rate 63 ml/min (>60); GFR (African American) 76 ML/MIN (>60); Glucose 141 mg/dl (74-100)
== END ==
PROVIDERS: Visit Provider Physician Assistant
DX: I10 Essential (primary) hypertension (principal)
CPT/HCPCS: 36415; 80048

== ENCOUNTER → 2020-02-14 15:30 | Outpatient (CLI) | payer MEDICARE, SELFPAY ==
[2020-02-14 18:27] LABS: Creatinine,Urine Random 75 mg/dL (Not Estab.); Microalbumin < 6.000 mg/L (0-16.7)
== END ==
PROVIDERS: Visit Provider Nurse Practitioner Family
DX: E11.9 Type 2 diabetes mellitus without complications (principal); Z79.84 Long term (current) use of oral hypoglycemic drugs
CPT/HCPCS: 82043; 82570

== ENCOUNTER → 2020-05-26 06:12 | Outpatient (CLI) | payer MEDICARE, SELFPAY ==
--- NOTE | 2020-05-26 06:14 | NM_ITS ---
APPROVED REPORT Exam: Nuclear Stress Test Indication: Chest pain, SOB, CAD, HTN, DM, High cholesterol, Family history Patient Location: Outpatient Stress Tech: Yolanda Colon [place] Tech:Juanis Pulido, ARRT, RT (R)(N) Ht: 5 ft 4 in Wt: 180 lbs HR: 64 bpm BP: 122/61 mmHg BSA: 1.87 m2 BMI: 30.8 History: Chest pain, SOB, CAD, HTN, DM, High cholesterol, Family history Procedure: Patient received a 0.4 mg of intravenous Lexiscan, resting heart rate 64 bpm, resting blood pressure 122/61 mmHg, with Lexiscan maximum heart rate achived was 93 bpm which is Less than 85 % of the maximum predicted heart rate and blood pressure was 113/72 mmHg. With Lexiscan, patient denied any complaint of chest pain. Electrocardiogram Resting electrocardiogram showed sinus rhythm, with Lexiscan there is less than 1.[address] segment depression noted from the baseline EKG. The EKG portion of the Lexiscan is nondiagnostic. Cardiac Stress and Resting SPECT Images: Cardiac Stress and Resting SPECT images were obtained using technetium 99m Myoview 30.9 mCi stress and 9.66 mCi at rest. Gated SPECT for analysis of segmental wall motion and calculation of the ejection fraction also done. Cardiac stress and rest SPECT images show uniform myocardial activity without segmental perfusion abnormality, computer derived ejection fraction is 65% with no regional wall motion abnormality, right ventricle is mildly enlarged with normal contractility. Conclusion: 1. The EKG portion of the Lexiscan is nondiagnostic. 2. No scintigraphic evidence of reversible ischemia seen, computer derived ejection fraction 65% with no regional wall motion abnormality, right ventricle is mildly enlarged with normal contractility. 3. Normal Lexiscan Myoview study. Electronically signed by : Jose Thurman, 05/26/2020 22:17:27
--- NOTE | 2020-05-26 06:14 | CA_ITS ---
APPROVED REPORT EXAM: Comprehensive 2D, Doppler, and color-flow Echocardiogram [place] Supervisor: Rachelle Daniel RVT Ht: 5 ft 4 in Wt: 186lbs BSA: 1.90 BP: 132/74 mmHg Indications: CP,CAD,HTN,HLD,SOA,BLANCHARD,DM TDS 2D Dimensions IVSd 1.60 cm M: 0.6-1.2 LVEF (Visual) 79.50 % PWd 1.30 cm M: 0.6 - 1.2 LVDd 3.40 cm M: 4.2 - 5.9 LVDs 1.80 cm M: 2.5 - 4.0 LVOT 1.80 cm (M/F) 1.5-2.5 M-Mode Dimensions LA Diam 3.30 cm (1.9-4.0) Ao Diam 2.60 cm (2.0-3.7) AV Cusp 1.40 cm (1.5-2.6) LV Diastology E/A Ratio 1.2 MED E' 6.82 (< 7 cm/sec) E'/MED E' Ratio 16.30 (>14) LAT E' 10.60 (<10 cm/sec) E/LAT E' Ratio 10.50 (>14) Mitral Valve MV E Max Toro. 111.00 (40-130 cm/s) MV A Velocity 94.80 (40-130 cm/s) E/A Ratio 1.20 Pulmonary Valve PV Peak Velocity 91.80 (50-150 cm/s) Left Ventricle Technically difficult study because of the patient factors and poor acoustic windows. Left atrium is normal size, left ventricle is normal size, there is preserved left ventricular systolic function, visually estimated ejection fraction 55% with no regional wall motion abnormality, diastolic parameters are inconclusive. Right Ventricle Right atrium and right ventricle are normal size and contractility. Aortic Valve Aortic valve is minimally thickened and fibrosed, there is no aortic stenosis or aortic insufficiency. Mitral Valve Mitral valve is grossly normal, there is trace mitral regurgitation. Tricuspid Valve Tricuspid valve is grossly normal, there is trace tricuspid regurgitation, tricuspid regurgitation jet velocity is inadequate for calculation of the right ventricular systolic pressure. Pulmonic Valve Pulmonic valve is poorly visualized. Great Vessels Aortic root is normal size. Pericardium No significant pericardial effusion noted. Conclusion 1. Normal left ventricular size, preserved left ventricular systolic function, visually estimated ejection fraction 55% with no regional wall motion abnormality, diastolic parameters are inconclusive. 2. Trace mitral and tricuspid regurgitation. 3. No significant pericardial effusion noted. Electronically signed by : Jose Thurman, 05/26/2020 21:41:35
--- NOTE | 2020-05-26 06:14 | CA_ITS ---
APPROVED REPORT Exam: Pharmacologic Technologist: Yolanda Colon Ht: 5 ft 4 in Wt: 186 lbs BSA: 1.90 m2 HR: 64 bpm BP: 122/61 mmHg Indications: Chest pain, Shortness of Air Medical History Medications: Lisinopril,,,,, Omeprazole,,,,, Aspirin,,,,, Atenolol,,,,, Metformin,,,,, Cephalexin,,,,, Gabapentin,,,,, Atorvastatin,,,,, HCTZ,,,,, Pioglitazone,,,,, Albuterol,,,,, MeLOXICAM,,,,, Stress Test Details Test: LEXISCAN HR Resting HR: 72 bpm Max Heart Rate (APMHR): 164 bpm Max HR Achieved: 95 bpm Target HR (85% APMHR): 139 bpm % of APMHR: 57 Recovery HR: 87 bpm BP Resting BP: 122.0/61.0 mmHg Max BP: 123.0/66.0 mmHg Recovery BP: 119.0/63.0 mmHg ECG Resting ECG: Sinus rhythm Clinical Exercise duration: 04:05 min Highest Stage Achieved: Exercise capacity: 1.0 METs Stress ECG Conclusion Lexiscan portion completed. Patient complained of shortness of breath during peak infusion. Symptoms: Shortness of breath during peak infusion, resolved in recovery. No chest pain. Arrhythmias/Ectopy: No ectopy ST-T Changes: Less than 1.[address] depression noted. Conclusion: Images to follow. Test Summary RECOVERY 03:00 . . 86 . 119/ 63 . . REST 40:11 . . 72 . 122/ 61 . . Stage 1 . . . . . . . Myoview Injected Stage 1 01:00 . . 93 . . . . Stage 2 01:00 . . 94 . 113/ 72 . . Stage 3 01:00 . . 88 . 123/ 66 . . Stage 4 01:00 . . 82 . 107/ 70 . . Stage 4 01:05 . . 85 . 107/ 70 . Stop exercise at 04:05 RECOVERY 01:00 . . 84 . 123/ 69 . . RECOVERY 02:00 . . 86 . 123/ 69 . . RECOVERY 03:00 . . 86 . 119/ 63 . . RECOVERY 03:31 . . 84 . 119/ 63 . . Electronically signed by : Jose Thurman, 05/26/2020 22:08:33
--- NOTE | 2020-05-26 08:44 | HMH.ITSHM ---
Current Home Medications as stated by this patient Parish Hernandez or petroleum products sales representative. []FLUTICASON EVOLOCUMAB VITAMIN D2 CLOPIDOGREL ATORVASTATIN RANOBIZINE PIOGLITAZONE OMEPRAZOLE MULTIVITAMIN METFORMIN MELOXICAM LISNOPRIL LEVOCETERIZINE HYDROCODONE HCTZ GEMFIBROZIL GABAPENTIN ASA ALBUTEROL
== END ==
PROVIDERS: PCP Nurse Practitioner Family; Visit Provider Nurse Practitioner Family
DX: R06.09 Other forms of dyspnea; I20.9 Angina pectoris, unspecified; E78.2 Mixed hyperlipidemia; I10 Essential (primary) hypertension
CPT/HCPCS: 78452; 93017; 93306; A9502; J2785

== ENCOUNTER → 2020-09-11 15:17 | Outpatient (CLI) | payer MEDICARE, MEDICAID, SELFPAY ==
[2020-09-11 15:31] LABS: Basophils # 0.1 K/mm3 (0-0.2); Basophils % 1.1 % (0.1-2.0); Eosinophils # 0.4 K/mm3 (0.0-0.4); Eosinophils % 7.9 % (0.1-12.0); Hematocrit 38.5 % (42.0-52.0); Hemoglobin 12.9 g/dL (14.1-18.0); Lymphocytes # 1.5 K/mm3 (0.7-4.5); Lymphocytes % 32.3 % (10-50); Mean Corpuscular HGB Conc 33.5 g/dL (31.8-35.4); Mean Corpuscular Hemoglobin 31.7 pg (27.0-31.2); Mean Corpuscular Volume 94.7 fl (80-94); Monocytes # 0.3 K/mm3 (0.1-1.0); Monocytes % 6.2 % (1.7-9.3); Neutrophils # 2.4 K/mm3 (1.8-7.8); Neutrophils % 52.5 % (37.0-80.0); Platelet Count 230 K/mm3 (142-424); Red Blood Count 4.06 M/mm3 (4.60-6.20); Red Cell Distribution Width 13.9 % (11.5-17.5); White Blood Count 4.6 K/mm3 (4.8-10.8)
[2020-09-11 15:36] LABS: Alanine Aminotransferase 25 U/L (12-78); Albumin Level 4.1 g/dl (3.5-5.0); Albumin/Globulin Ratio 1.7 (1.1-1.8); Alkaline Phosphatase 72 U/L (38-126); Anion Gap 13.3 mEq/L (5-15); Aspartate Amino Transferase 24 U/L (17-59); Bilirubin,Total 0.5 mg/dl (0.2-1.3); Blood Urea Nitrogen 17 mg/dl (9-20); Calcium 9.3 mg/dl (8.4-10.2); Carbon Dioxide 24 mmol/L (22.0-30.0); Chloride 106 mmol/L (98-107); Chol/HDL Ratio 2.6 (1-3.5); Cholesterol 113 mg/dl (140-200); Estimated Glomerular Filt Rate 77 ml/min (>60); GFR (African American) 93 ML/MIN (>60); Globulin 2.4 g/dL (1.3-3.2); Glucose 136 mg/dl (74-100); HDL Cholesterol 44 mg/dl (40-60); Potassium 5.3 mmoL/L (3.5-5.1); Sodium 138 mmol/L (136-145); Total Protein,Serum 6.5 g/dl (6.3-8.2); Triglycerides 373 mg/dl (30-150); VLDL Cholesterol 75 mg/dL (0-40)
[2020-09-11 15:41] LABS: Hemoglobin A1C 6.3 % (4.0-6.0)
[2020-09-11 15:51] LABS: Direct LDL Cholesterol < 30.00 mg/dL (100-129)
[2020-09-11 16:07] LABS: Prostate Specific Ag Screen 0.4 ng/ml (0.0-4.0); Thyroid Stimulating Hormone 2.32 uIU/mL (0.465-4.68)
== END ==
PROVIDERS: Visit Provider Nurse Practitioner Family
DX: E11.8 Type 2 diabetes mellitus with unspecified complications (principal); Z12.5 Encounter for screening for malignant neoplasm of prostate; L60.0 Ingrowing nail; I10 Essential (primary) hypertension; E78.5 Hyperlipidemia, unspecified; Z79.84 Long term (current) use of oral hypoglycemic drugs
CPT/HCPCS: 80053; 80061; 83036; 84436; 84443; 85025; G0103

== ENCOUNTER → 2020-09-19 16:59 | Outpatient (CLI) | payer MEDICARE, MEDICAID, SELFPAY ==
[2020-09-19 17:56] LABS: Chloride 102 mmol/L (98-107); Potassium 5.9 mmoL/L (3.5-5.1); Sodium 140 mmol/L (136-145)
[2020-09-19 17:59] LABS: Anion Gap 20.9 mEq/L (5-15); Blood Urea Nitrogen 23 mg/dl (9-20); Calcium 9.5 mg/dl (8.4-10.2); Carbon Dioxide 23 mmol/L (22.0-30.0); Estimated Glomerular Filt Rate 52 ml/min (>60); GFR (African American) 63 ML/MIN (>60); Glucose 107 mg/dl (74-100)
== END ==
PROVIDERS: Visit Provider Nurse Practitioner Family
DX: E87.5 Hyperkalemia (principal)
CPT/HCPCS: 80048

== ENCOUNTER → 2020-09-23 15:46 | Outpatient (CLI) | payer MEDICARE, MEDICAID, SELFPAY ==
[2020-09-23 15:56] LABS: Chloride 105 mmol/L (98-107); Potassium 5.6 mmoL/L (3.5-5.1)
[2020-09-23 15:57] LABS: Sodium 138 mmol/L (136-145)
[2020-09-23 15:59] LABS: Blood Urea Nitrogen 17 mg/dl (9-20); Estimated Glomerular Filt Rate 62 ml/min (>60); GFR (African American) 76 ML/MIN (>60)
[2020-09-23 16:00] LABS: Anion Gap 14.6 mEq/L (5-15); Calcium 9.7 mg/dl (8.4-10.2); Carbon Dioxide 24 mmol/L (22.0-30.0); Glucose 113 mg/dl (74-100)
== END ==
PROVIDERS: Visit Provider Nurse Practitioner Family
DX: E87.5 Hyperkalemia (principal)
CPT/HCPCS: 80048

== ENCOUNTER → 2020-09-29 11:15 | Outpatient (CLI) | payer MEDICARE, MEDICAID, SELFPAY ==
[2020-09-29 13:04] LABS: Chloride 100 mmol/L (98-107); Potassium 5.2 mmoL/L (3.5-5.1); Sodium 139 mmol/L (136-145)
[2020-09-29 13:07] LABS: Anion Gap 16.2 mEq/L (5-15); Blood Urea Nitrogen 19 mg/dl (9-20); Carbon Dioxide 28 mmol/L (22.0-30.0); Estimated Glomerular Filt Rate 62 ml/min (>60); GFR (African American) 76 ML/MIN (>60)
[2020-09-29 13:08] LABS: Calcium 9.5 mg/dl (8.4-10.2); Glucose 118 mg/dl (74-100)
== END ==
PROVIDERS: Visit Provider Nurse Practitioner Family
DX: E87.5 Hyperkalemia (principal)
CPT/HCPCS: 36415; 80048

== ENCOUNTER → 2020-10-03 11:11 | Outpatient (CLI) | payer MEDICARE, MEDICAID, SELFPAY ==
[2020-10-03 12:09] LABS: Chloride 100 mmol/L (98-107); Sodium 139 mmol/L (136-145)
[2020-10-03 12:10] LABS: Potassium 4.9 mmoL/L (3.5-5.1)
[2020-10-03 12:12] LABS: Blood Urea Nitrogen 15 mg/dl (9-20); Estimated Glomerular Filt Rate 77 ml/min (>60); GFR (African American) 93 ML/MIN (>60)
[2020-10-03 12:13] LABS: Anion Gap 16.9 mEq/L (5-15); Calcium 9.3 mg/dl (8.4-10.2); Carbon Dioxide 27 mmol/L (22.0-30.0); Glucose 121 mg/dl (74-100)
== END ==
PROVIDERS: Visit Provider Nurse Practitioner Family
DX: E87.5 Hyperkalemia (principal)
CPT/HCPCS: 36415; 80048

== ENCOUNTER → 2020-12-25 14:33 | Outpatient (CLI) | payer MEDICARE, MEDICAID, SELFPAY ==
[2020-12-25 14:39] LABS: Microscopic, Urine URINE MICROSCOPIC (MICROSCOPIC)
[2020-12-25 15:19] LABS: Basophils # 0.1 K/mm3 (0-0.2); Eosinophils # 0.4 K/mm3 (0.0-0.4); Eosinophils % 7.8 % (0.1-12.0); Hematocrit 38.1 % (42.0-52.0); Hemoglobin 12.5 g/dL (14.1-18.0); Lymphocytes # 1.2 K/mm3 (0.7-4.5); Lymphocytes % 26.1 % (10-50); Mean Corpuscular HGB Conc 32.9 g/dL (31.8-35.4); Mean Corpuscular Hemoglobin 32.3 pg (27.0-31.2); Mean Corpuscular Volume 98.2 fl (80-94); Mean Platelet Volume 10.5 fl (7.4-10.4); Monocytes # 0.3 K/mm3 (0.1-1.0); Monocytes % 6.4 % (1.7-9.3); Neutrophils # 2.8 K/mm3 (1.8-7.8); Neutrophils % 58.6 % (37.0-80.0); Platelet Count 226 K/mm3 (142-424); Red Blood Count 3.88 M/mm3 (4.60-6.20); Red Cell Distribution Width 13.6 % (11.5-17.5); White Blood Count 4.8 K/mm3 (4.8-10.8)
[2020-12-25 15:26] LABS: Creatinine,Urine Random 141 mg/dL (Not Estab.)
[2020-12-25 15:43] LABS: Albumin Level 3.8 g/dl (3.5-5.0); Anion Gap 13.5 mEq/L (5-15); Blood Urea Nitrogen 13 mg/dl (9-20); Calcium 8.7 mg/dl (8.4-10.2); Carbon Dioxide 29 mmol/L (22.0-30.0); Chloride 101 mmol/L (98-107); Estimated Glomerular Filt Rate 69 ml/min (>60); GFR (African American) 83 ML/MIN (>60); Glucose 194 mg/dl (74-100); Phosphorous 3.4 mg/dl (2.5-4.5); Potassium 4.5 mmoL/L (3.5-5.1); Sodium 139 mmol/L (136-145)
[2020-12-25 15:58] LABS: Intact Parathyroid Hormone 84.5 pg/mL (7.5-53.5)
[2020-12-25 16:00] LABS: 25-OH Vitamin D, Total 45.6 ng/mL (30-100)
[2020-12-25 17:23] LABS: Chloride 103 mmol/L (98-107)
[2020-12-25 17:24] LABS: Potassium 4.4 mmoL/L (3.5-5.1); Sodium 140 mmol/L (136-145)
[2020-12-25 17:27] LABS: Anion Gap 13.4 mEq/L (5-15); Blood Urea Nitrogen 13 mg/dl (9-20); Calcium 8.6 mg/dl (8.4-10.2); Carbon Dioxide 28 mmol/L (22.0-30.0); Estimated Glomerular Filt Rate 69 ml/min (>60); GFR (African American) 83 ML/MIN (>60); Glucose 198 mg/dl (74-100)
[2020-12-26 00:11] LABS: Appearance,Urine CLEAR (Clear); Blood, Urine Negative (Negative); Color,Urine YELLOW (Yellow); Glucose,Urine (UA) Negative (Negative); Ketones,Urine Negative (Negative); Leukocyte Esterase,Urine TRACE (Negative); Nitrate,Urine Negative (Negative); Protein,Urine Negative (Negative); Specific Gravity, Urine 1.025 (1.005-1.030); Urobilinogen,Urine 0.2 EU/dl (0.2)
[2020-12-26 00:17] LABS: Bilirubin,Urine 1+ (Negative)
[2020-12-26 00:19] LABS: Bacteria,Urine Trace /lpf; RBC,Urine Occasional #/hpf (0-3)
== END ==
PROVIDERS: Nurse Practitioner Family; Visit Provider Internal Medicine Nephrology
DX: E87.5 Hyperkalemia (principal); E55.9 Vitamin D deficiency, unspecified
CPT/HCPCS: 36415; 80048; 80069; 81001; 82306; 82570; 83970; 84155; 85025

== ENCOUNTER → 2020-12-29 14:21 | Outpatient (POV) | payer MEDICARE, MEDICAID, SELFPAY | PROVIDERS: Visit Provider Internal Medicine Nephrology | DX: Z00.00 Encounter for general adult medical examination without abnormal findings (principal) ==

== ENCOUNTER → 2021-02-11 10:46 | Outpatient (CLI) | payer MEDICARE, MEDICAID, SELFPAY ==
--- NOTE | 2021-02-11 10:49 | XR_ITS ---
PROCEDURE: XR HIP RT 2-3V W/PELVIS CLINICAL INDICATION: hip pain COMPARISON: No exams were available for comparison FINDINGS: No fracture or dislocation is evident. No significant degenerative change. No lytic or blastic change. Unremarkable soft tissues. Surgical clips are seen just inferior to the femoral head of both hips. The SI joints and symphysis pubis appear normal. IMPRESSION: No acute findings. Dictated by: Dr. Boy Pa MD 02/11/2021 12:22 Dr. Boy Pa MD in [place] 02/11/2021 12:22
== END ==
PROVIDERS: PCP Nurse Practitioner Family; Visit Provider Nurse Practitioner Family
DX: M25.551 Pain in right hip (principal)
CPT/HCPCS: 73502

== ENCOUNTER → 2021-02-17 13:28 | Outpatient (CLI) | payer MEDICARE, MEDICAID, SELFPAY ==
--- NOTE | 2021-02-17 13:32 | XR_ITS ---
PROCEDURE: XR LUMBAR SPINE 2-3V CLINICAL INDICATION: back pain COMPARISON: CR XR LUMBAR SPINE 2-3V from 03/20/2019 FINDINGS: Degenerative disc disease is present at L5-S1 with endplate osteophytes. There is normal alignment. No fracture or dislocation. Iliac artery stent is present on the left within the common iliac artery region. IMPRESSION: Degenerative disc disease L5-S1 Dictated by: Reyes Wolf MD 02/17/2021 16:56 Reyes Wolf MD in [place] 02/17/2021 16:56
== END ==
PROVIDERS: PCP Nurse Practitioner Family; Visit Provider Nurse Practitioner Family
DX: M54.9 Dorsalgia, unspecified (principal)
CPT/HCPCS: 72100

== ENCOUNTER → 2021-04-30 13:44 | Outpatient (CLI) | payer MEDICARE, MEDICAID, SELFPAY | PROVIDERS: PCP Nurse Practitioner Family; Visit Provider Nurse Practitioner | DX: U07.1 COVID-19 (principal) | CPT/HCPCS: C9803; U0003; U0005 ==

== ENCOUNTER → 2021-06-15 11:28 | Outpatient (CLI) | payer MEDICARE, MEDICAID, SELFPAY ==
[2021-06-15 11:52] LABS: Microscopic, Urine URINE MICROSCOPIC (MICROSCOPIC)
[2021-06-15 12:28] LABS: Basophils # 0.1 K/mm3 (0-0.2); Basophils % 1.3 % (0.1-2.0); Eosinophils # 0.3 K/mm3 (0.0-0.4); Eosinophils % 5.8 % (0.1-12.0); Hematocrit 41.4 % (42.0-52.0); Hemoglobin 14.1 g/dL (14.1-18.0); Lymphocytes # 1.8 K/mm3 (0.7-4.5); Lymphocytes % 31.9 % (10-50); Mean Corpuscular Hemoglobin 31.6 pg (27.0-31.2); Mean Corpuscular Volume 92.9 fl (80-94); Monocytes # 0.3 K/mm3 (0.1-1.0); Monocytes % 5.7 % (1.7-9.3); Neutrophils # 3.1 K/mm3 (1.8-7.8); Neutrophils % 55.2 % (37.0-80.0); Platelet Count 270 K/mm3 (142-424); Red Blood Count 4.46 M/mm3 (4.60-6.20); Red Cell Distribution Width 13.3 % (11.5-17.5); White Blood Count 5.6 K/mm3 (4.8-10.8)
[2021-06-15 13:05] LABS: Appearance,Urine CLEAR (Clear); Bilirubin,Urine Negative (Negative); Blood, Urine Negative (Negative); Color,Urine YELLOW (Yellow); Glucose,Urine (UA) Negative (Negative); Ketones,Urine Negative (Negative); Leukocyte Esterase,Urine Negative (Negative); Nitrate,Urine Negative (Negative); Protein,Urine Negative (Negative); Urobilinogen,Urine 0.2 EU/dl (0.2)
[2021-06-15 13:09] LABS: Hemoglobin A1C 6.5 % (4.0-6.0)
[2021-06-15 13:17] LABS: Chloride 97 mmol/L (98-107); Sodium 133 mmol/L (136-145)
[2021-06-15 13:18] LABS: Chloride 98 mmol/L (98-107); Potassium 5.3 mmoL/L (3.5-5.1); Sodium 134 mmol/L (136-145)
[2021-06-15 13:19] LABS: Blood Urea Nitrogen 10 mg/dl (9-20); Estimated Glomerular Filt Rate 69 ml/min (>60); GFR (African American) 83 ML/MIN (>60)
[2021-06-15 13:19] LABS: Albumin Level 4.3 g/dl (3.5-5.0); Bacteria,Urine Trace /lpf; Squamous Epithelial Cell,Urine Occasional #/hpf (0-5)
[2021-06-15 13:20] LABS: Alanine Aminotransferase 32 U/L (12-78); Albumin Level 4.2 g/dl (3.5-5.0); Albumin/Globulin Ratio 1.8 (1.1-1.8); Alkaline Phosphatase 92 U/L (38-126); Aspartate Amino Transferase 29 U/L (17-59); Bilirubin,Total 0.4 mg/dl (0.2-1.3); Calcium 9.2 mg/dl (8.4-10.2); Carbon Dioxide 29 mmol/L (22.0-30.0); Chol/HDL Ratio 2.2 (1-3.5); Cholesterol 74 mg/dl (140-200); Globulin 2.4 g/dL (1.3-3.2); Glucose 128 mg/dl (74-100); HDL Cholesterol 34 mg/dl (40-60); Total Protein,Serum 6.6 g/dl (6.3-8.2)
[2021-06-15 13:21] LABS: Anion Gap 13.3 mEq/L (5-15); Blood Urea Nitrogen 10 mg/dl (9-20); Carbon Dioxide 28 mmol/L (22.0-30.0); Estimated Glomerular Filt Rate 69 ml/min (>60); GFR (African American) 83 ML/MIN (>60); Phosphorous 4.3 mg/dl (2.5-4.5)
[2021-06-15 13:22] LABS: Calcium 9.2 mg/dl (8.4-10.2); Glucose 128 mg/dl (74-100)
[2021-06-15 13:23] LABS: Creatinine,Urine Random 61 mg/dL (Not Estab.)
[2021-06-15 13:26] LABS: Microalbumin < 6.000 mg/L (0-16.7)
[2021-06-15 13:27] LABS: Triglycerides 450 mg/dl (30-150)
[2021-06-15 13:33] LABS: Direct LDL Cholesterol < 30.00 mg/dL (100-129)
[2021-06-15 13:38] LABS: T4 (Thyroxine) 6.6 ug/dl (5.53-11.0)
== END ==
PROVIDERS: Nurse Practitioner Family; Visit Provider Internal Medicine Nephrology
DX: E11.9 Type 2 diabetes mellitus without complications (principal); N18.2 Chronic kidney disease, stage 2 (mild); Z79.84 Long term (current) use of oral hypoglycemic drugs
CPT/HCPCS: 36415; 80053; 80061; 80069; 81001; 82043; 82570; 83036; 84155; 84436; 84443; 85025

== ENCOUNTER → 2021-06-18 13:33 | Outpatient (POV) | payer MEDICARE, MEDICAID, SELFPAY | PROVIDERS: Visit Provider Internal Medicine Nephrology | DX: Z00.00 Encounter for general adult medical examination without abnormal findings (principal) ==

== ENCOUNTER → 2021-10-10 11:05 | Outpatient (CLI) | payer MEDICARE, MEDICAID, SELFPAY ==
--- NOTE | 2021-10-10 | XR_ITS ---
PROCEDURE INFORMATION: Exam: XR Thoracic Spine Exam date and time: 10/10/2021 11:18 AM Age: 56 years old Clinical indication: Pain in thoracic spine; With myelopathy; Additional info: Spondylosis TECHNIQUE: Imaging protocol: Radiologic exam of the thoracic spine. Views: 3 views. COMPARISON: CR XR THORACIC SPINE 3V 03/20/2019 2:27 PM FINDINGS: Bones/joints: Lumbar spondylosis most pronounced at T9-10. Multilevel disc degeneration. Findings not significantly changed. Soft tissues: Unremarkable. IMPRESSION: Lumbar spondylosis most pronounced at T9-10. Multilevel disc degeneration. Findings not significantly changed.
--- NOTE | 2021-10-10 | XR_ITS ---
PROCEDURE INFORMATION: Exam: XR Lumbosacral Spine Exam date and time: 10/10/2021 11:18 AM Age: 56 years old Clinical indication: Low back pain; Additional info: Lumbar pain TECHNIQUE: Imaging protocol: Radiologic exam of the lumbosacral spine. Views: 4 or 5 views. COMPARISON: CR XR LUMBAR SPINE 2-3V 02/17/2021 1:44 PM FINDINGS: Bones/joints: Lumbar spondylosis with moderate to marked changes of disc degeneration at L5-S1. Multilevel hypertrophic facet changes most pronounced at L5-S1. Soft tissues: Unremarkable. Vasculature: Aortoiliac stent again visualized. IMPRESSION: Advanced changes of disc degeneration at L5-S1. Findings accounting for differences in technique not significantly changed.
== END ==
PROVIDERS: PCP Nurse Practitioner Family; Visit Provider Pain Medicine Interventional Pain Medicine
DX: M47.816 Spondylosis without myelopathy or radiculopathy, lumbar region (principal); M47.814 Spondylosis without myelopathy or radiculopathy, thoracic region
CPT/HCPCS: 72072; 72110

== ENCOUNTER 2021-12-06 20:26 | Emergency (ER) | payer MEDICARE, MEDICAID, SELFPAY ==
[2021-12-06 20:26] VITALS: BP 192/108; PULSE 85; RESP 18; TEMP 36.7; O2SAT 98; BMI 30.9
--- NOTE | 2021-12-06 20:27 | XR_ITS ---
PROCEDURE INFORMATION: Exam: XR Chest Exam date and time: 12/06/2021 8:53 PM Age: 56 years old Clinical indication: Sternal or substernal pain; Additional info: Chest pain TECHNIQUE: Imaging protocol: Radiologic exam of the chest. Views: 2 views. COMPARISON: CR CXR2V XR chest 2V 08/23/2017 11:37 AM FINDINGS: Lungs: The lungs are adequately inflated. No focal consolidation. Pulmonary granulomas. Pleural spaces: No pneumothorax or pleural effusion. Heart/Mediastinum: The cardiomediastinal silhouette has normal size and contour. Bones/joints: No displaced fracture. Intraperitoneal space: The visualized abdomen is unremarkable. IMPRESSION: No acute cardiopulmonary disease.
--- NOTE | 2021-12-06 20:27 | ECG_ITS ---
APPROVED REPORT Exam: Resting ECG HR:81 bpm ECG Measurements Heart Rate 81 AXES DC 150 P 61 QRSd 90 QRS 65 QT 390 T 63 QTc 428 Conclusion SINUS RHYTHM NORMAL ECG UNCONFIRMED REPORT Electronically signed by : Dereck Beach MD 12/08/2021 21:29:37
[2021-12-06 20:41] LABS: Basophils # 0.1 K/mm3 (0-0.2); Basophils % 1.5 % (0.1-2.0); Eosinophils # 0.3 K/mm3 (0.0-0.4); Eosinophils % 4.2 % (0.1-12.0); Hematocrit 44.6 % (42.0-52.0); Lymphocytes # 1.9 K/mm3 (0.7-4.5); Lymphocytes % 31.9 % (10-50); Mean Corpuscular HGB Conc 31.5 g/dL (31.8-35.4); Mean Corpuscular Hemoglobin 31.5 pg (27.0-31.2); Mean Corpuscular Volume 99.8 fl (80-94); Mean Platelet Volume 9.6 fl (7.4-10.4); Monocytes # 0.4 K/mm3 (0.1-1.0); Monocytes % 6.1 % (1.7-9.3); Neutrophils # 3.3 K/mm3 (1.8-7.8); Neutrophils % 56.3 % (37.0-80.0); Platelet Count 268 K/mm3 (142-424); Red Blood Count 4.47 M/mm3 (4.60-6.20); Red Cell Distribution Width 13.6 % (11.5-17.5); White Blood Count 5.9 K/mm3 (4.8-10.8)
[2021-12-06 20:49] LABS: Alanine Aminotransferase 35 U/L (12-78); Albumin Level 4.3 g/dl (3.5-5.0); Alkaline Phosphatase 87 U/L (38-126); Anion Gap 14.4 mEq/L (5-15); Aspartate Amino Transferase 35 U/L (17-59); Bilirubin,Direct 0.2 mg/dl (0.0-0.4); Bilirubin,Total 0.2 mg/dl (0.2-1.3); Blood Urea Nitrogen 12 mg/dl (9-20); Calcium 9.2 mg/dl (8.4-10.2); Carbon Dioxide 29 mmol/L (22.0-30.0); Chloride 100 mmol/L (98-107); Creatinine Clearance Estimated 77 mL/min (50-200); Estimated Glomerular Filt Rate 62 ml/min (>60); GFR (African American) 75 ML/MIN (>60); Glucose 129 mg/dl (74-100); Potassium 4.4 mmoL/L (3.5-5.1); Sodium 139 mmol/L (136-145); Total Protein,Serum 6.9 g/dl (6.3-8.2)
[2021-12-06 21:05] VITALS: BP 144/84; PULSE 87; O2SAT 97
[2021-12-06 21:15] VITALS: BP 148/78; PULSE 82; O2SAT 98
[2021-12-06 21:18] VITALS: BP 141/81; BP 144/84; BP 148/78; PULSE 80; PULSE 82; PULSE 85
[2021-12-06 21:20] LABS: Troponin I < 0.01 ng/ml (0.00-0.034)
[2021-12-06 21:20] LABS: Coronavirus 19, PCR Not Detected (NotDetected); Influenza A, PCR Not Detected (NotDetected); Influenza B, PCR Not Detected (NotDetected)
--- NOTE | 2021-12-06 21:26 | HMH.EDCP ---
ED Disposition Clinical Impression: Chest pain due to coronary artery disease Disposition: Home, Self-Care Condition on Discharge: Good Instructions: DI for Chest Pain Additional Instructions: see pcp for follow up and card in am Referrals: Jose Mccarty MD [Primary Care Provider] - - Critical Care Critical Care Time: No Attestation: On 12/06/21, the high probability of a clinically significant, sudden or life threatening deterioration of the following system(s) required my full and direct attention, intervention and personal management. The time I documented below is in addition to time spent performing reported procedures but includes the following listed in this critical care notation. Medical Decision Making - Medical Records Medical records reviewed: Yes: I reviewed the patient's medical records. - Juan Inquiry Pt receiving controlled substance: No Vital Signs: 12/06/21 20:26 12/06/21 21:05 12/06/21 21:15 Temperature 98.0 F Temperature Source Oral Pulse Rate 87 82 Pulse Rate [Orthostatic Lying] Pulse Rate [Orthostatic Sitting] Pulse Rate [Orthostatic Standing] Pulse Rate [Right] 85 Respiratory Rate 18 Blood Pressure 144/84 H 148/78 H Blood Pressure [Orthostatic Lying] Blood Pressure [Orthostatic Sitting] Blood Pressure [Orthostatic Standing] Blood Pressure [Right Arm] 192/108 H Blood Pressure Mean Blood Pressure Mean [Right Arm] 136 02 Sat by Pulse Oximetry 98 97 98 Oxygen Delivery Method Room Air Room Air 12/06/21 21:18 12/06/21 21:30 12/06/21 23:32 Temperature 98 F Temperature Source Pulse Rate 79 72 Pulse Rate [Orthostatic Lying] 82 Pulse Rate [Orthostatic Sitting] 80 Pulse Rate [Orthostatic Standing] 85 Pulse Rate [Right] Respiratory Rate 18 Blood Pressure 139/82 145/78 H Blood Pressure [Orthostatic Lying] 144/84 H Blood Pressure [Orthostatic Sitting] 141/81 H Blood Pressure [Orthostatic Standing] 148/78 H Blood Pressure [Right Arm] Blood Pressure Mean 91 Blood Pressure Mean [Right Arm] 02 Sat by Pulse Oximetry 98 Oxygen Delivery Method Room Air - Lab Data Lab results reviewed: Yes: I reviewed the patient's lab results. Lab Results 12/06/21 20:30: WBC 5.9, RBC 4.47 L, Hgb 14.0 L, Hct 44.6, MCV 99.8 H, MCH 31.5 H, MCHC 31.5 L, RDW 13.6, Plt Count 268, MPV 9.6, Neut % (Auto) 56.3, Lymph % (Auto) 31.9, Young % (Auto) 6.1, Eos % (Auto) 4.2, Baso % (Auto) 1.5, Neut # (Auto) 3.3, Lymph # (Auto) 1.9, Young # (Auto) 0.4, Eos # (Auto) 0.3, Baso # (Auto) 0.1 12/06/21 20:30: Sodium 139, Potassium 4.4, Chloride 100, Carbon Dioxide 29, Anion Gap 14.4, BUN 12, Creatinine 1.20, Estimated Creat Clear 77, Estimated GFR 62, Est GFR ( Amer) 75, Glucose 129 H, Calcium 9.2, Total Bilirubin 0.2, Direct Bilirubin 0.2, Conjugated Bilirubin 0.0, Indirect Bilirubin 0.0, Unconjugated Bilirubin 0.0, AST 35, ALT 35, Alkaline Phosphatase 87, Troponin I < 0.01, Total Protein 6.9, Albumin 4.3 12/06/21 21:12: SARS-CoV-2 (PCR) Not detected, Influenza A Untype (PCR) Not detected, Influenza Type B (PCR) Not detected 12/06/21 22:55: Troponin I < 0.01 Result diagrams: 12/06/21 20:30 12/06/21 20:30 Orders (Tests/Meds): ED MEDICATIONS Generic Name Dose Route Start Last Admin Trade Name Freq PRN Reason Stop Dose Admin Sodium Chloride 1,000 mls @ 999 mls/hr 12/06/21 20:30 12/06/21 20:41 Sod Chlor 0.9% 1000ml Bag IV 12/06/21 21:30 999 mls/hr .Q1H1M ELIZABETH Administration Discontinued Medications Generic Name Dose Route Start Last Admin Trade Name Freq PRN Reason Stop Dose Admin Aspirin 324 mg 12/06/21 20:28 12/06/21 20:42 Aspirin 81mg Chewable Tablet PO 12/06/21 20:29 324 mg ONCE ONE Administration Nitroglycerin 0.4 mg 12/06/21 20:28 12/06/21 20:42 Nitroglycerin 0.4mg Sl Tablet SL 12/06/21 20:29 0.4 mg ONCE ONE Administration ORDERS Category Date Time Status Troponin I Q3H Lab 12/07
[2021-12-06 21:30] VITALS: BP 139/82; PULSE 79; O2SAT 98
[2021-12-06 23:23] LABS: Troponin I < 0.01 ng/ml (0.00-0.034)
[2021-12-06 23:32] VITALS: BP 145/78; PULSE 72; RESP 18; TEMP 36.6; O2SAT 97
== END 2021-12-06 23:49 | disposition home or self-care (01) ==
PROVIDERS: Emergency Provider Emergency Medicine; PCP Emergency Medicine
DX: I25.10 Atherosclerotic heart disease of native coronary artery without angina pectoris (principal); R07.9 Chest pain, unspecified; Z79.82 Long term (current) use of aspirin; Z79.899 Other long term (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 therapy; Z79.84 Long term (current) use of oral hypoglycemic drugs; E11.9 Type 2 diabetes mellitus without complications; E78.5 Hyperlipidemia, unspecified; I10 Essential (primary) hypertension; I73.9 Peripheral vascular disease, unspecified; J84.9 Interstitial pulmonary disease, unspecified; Z85.9 Personal history of malignant neoplasm, unspecified; Z86.14 Personal history of Methicillin resistant Staphylococcus aureus infection
CPT/HCPCS: 71046; 80048; 80076; 84484; 85025; 93005; 96365; 99284; C9803; U0003; U0005

== ENCOUNTER → 2021-12-16 06:54 | Outpatient (CLI) | payer MEDICARE, MEDICAID, SELFPAY ==
--- NOTE | 2021-12-16 06:55 | CA_ITS ---
APPROVED REPORT Exam: Pharmacologic Technologist: Yolanda Colon Ht: 5 ft 4 in Wt: 179 lbs BSA: 1.87 m2 HR: 72 bpm BP: 127/69 mmHg Indications: AP and Syncope (R55) Medical History Medications: Lisinopril,,,,, Omeprazole,,,,, Aspirin,,,,, Atenolol,,,,, Metformin,,,,, Gabapentin,,,,, HCTZ,,,,, Pioglitazone,,,,, Albuterol,,,,, Vitamin D2,,,,, Levocetirizine,,,,, AORVASTATIN,,,,, Stress Test Details Test: LEXISCAN HR Resting HR: 74 bpm Max Heart Rate (APMHR): 162.360543 bpm Max HR Achieved: 90 bpm Target HR (85% APMHR): 137.367537 bpm % of APMHR: 55.56 Recovery HR: 82 bpm BP Resting BP: 127.0/69.0 mmHg Max BP: 127.0/69.0 mmHg Recovery BP: 118.0/66.0 mmHg ECG Resting ECG: Normal sinus rhythm, NS ST abnormalities inferiorly Clinical Exercise duration: 04:00 min Highest Stage Achieved: Stress ECG Conclusion Symptoms: Shortness of air, head discomfort. Arrhythmias/Ectopy: None ST-T Changes: No significant changes. Conclusion: Unremarkable Lexiscan stress. Myoview images reported separately. Electronically signed by : Jose Thurman MD 12/16/2021 09:16:52
--- NOTE | 2021-12-16 06:55 | CA_ITS ---
APPROVED REPORT EXAM: Comprehensive 2D, Doppler, and color-flow Echocardiogram Tuckpointer: Jackie Flores CRT Ht: 5 ft 4 in Wt: 179lbs BSA: 1.87 BP: 136/72 mmHg Indications: Chest Pain, Shortness of Breath, Diabetes, CAD, Hyperlipidemia, Hypertension/HDD 2D Dimensions LVOT 1.94 cm (M/F) 1.5-2.5 LA Volume 18.00 mL LA Volume Index 9.60 mL/m2 (M/F) 16-34 M-Mode Dimensions RVDd 1.90 cm (0.9-2.6) LA Diam 3.40 cm (1.9-4.0) LVDd 3.66 cm (3.5-5.7) Ao Diam 3.45 cm (2.0-3.7) LVDs 2.44 cm (3.5-5.7) IVSd 1.97 cm (0.6-1.1) PWd 0.61 cm (0.6-1.1) EF (Teich) 62.90% FS 33.30% EDV (Teich) 56.60 mL TAPSE 1.82 (<1.7) ESV (Teich) 21.00 mL LV Diastology E Decel Time 170.00 (160-240 msec) E/A Ratio 1.28 MED E' 5.70 (< 7 cm/sec) MED A' 8.70 cm/s E'/MED E' Ratio 18.09 (>14) LAT E' 5.80 (<10 cm/sec) LAT A' 8.10 cm/s E/LAT E' Ratio 17.78 (>14) Aortic Valve AO Peak GR. 3.50 mmHg Mitral Valve MV A Velocity 80.00 (40-130 cm/s) E/A Ratio 1.28 MV Decel. Time 170.00 (160-240 ms) Pulmonary Valve PV Peak Velocity 106.00 (50-150 cm/s) Tricuspid Valve TR P. Velocity 150.00 cm/s RAP Estimate 10.00 mmHg RVSP 19.00 mmHg Left Ventricle Left atrium is mildly enlarged, left ventricle is normal size mild concentric left ventricular hypertrophy, estimated ejection fraction 55% with no regional wall motion abnormality, diastolic parameters are inconclusive. Right Ventricle Right atrium and right ventricle are normal size and contractility. Aortic Valve Aortic valve is minimally thickened and fibrosed there is no aortic stenosis or aortic insufficiency. Mitral Valve Mitral valve grossly normal, there is trace mitral regurgitation. Tricuspid Valve Tricuspid valve grossly normal, there is trace tricuspid regurgitation, tricuspid regurgitation request is inadequate for calculation right ventricular systolic pressure. Pulmonic Valve Pulmonic valve is poorly visualized. Great Vessels Aortic root is normal size. Inferior vena cava normal 7 normal inspiratory collapse. Pericardium No significant pericardial effusion noted. Conclusion 1. Normal left ventricular size preserved left ventricular systolic function, estimated ejection fraction 55% with no regional wall motion abnormality, diastolic parameters are inconclusive. 2. Trace mitral and tricuspid regurgitation. 3. No significant pericardial effusion noted. 4. Inferior vena cava is normal size with normal inspiratory collapse. Electronically signed by : Jose Thurman MD 12/17/2021 06:26:35
--- NOTE | 2021-12-16 06:55 | NM_ITS ---
APPROVED REPORT Exam: Nuclear Stress Test Indication: HTN, D.M., HYPERLIPIDEMIA, FM HX, C.P., SOB Patient Location: Outpatient Stress Tech: Yolanda Colon IN Tech:Jazmyne Wade ARRT RT (R)(N)(M) Ht: 5 ft 4 in Wt: 186 lbs HR: 72 bpm BP: 127/69 mmHg BSA: 1.90 m2 TID: 1.35 BMI: 31.9 History: HTN, D.M., HYPERLIPIDEMIA, FM HX, C.P., SOB Procedure: Patient received a 0.4 mg of intravenous Lexiscan, resting heart rate 72 bpm, resting blood pressure 127/69 mmHg, with Lexiscan maximum heart rate achived was 90 bpm which is Less than 85 % of the maximum predicted heart rate and blood pressure was 119/66 mmHg. With Lexiscan, patient denied any complaint of chest pain. Electrocardiogram Resting electrocardiogram showed sinus rhythm, with Lexiscan there is less than 1.[address] segment depression noted from the baseline EKG. The EKG portion of the Lexiscan is nondiagnostic. Cardiac Stress and Resting SPECT Images: Cardiac Stress and Resting SPECT images were obtained using technetium 99m Myoview 31.0 mCi stress and 10.78 mCi at rest. Gated SPECT analysis of segmental wall motion and calculation of the ejection fraction also done. Prone images were also obtained. Cardiac stress and rest SPECT images uniform myocardial activity without segmental perfusion abnormality, computer derived ejection fraction is 59% with no regional wall motion abnormality, right ventricle is normal size and contractility. Conclusion: 1. The EKG portion of the Lexiscan is nondiagnostic. 2. No scintigraphic evidence of reversible ischemia seen, computer derived ejection fraction 59% with no regional wall motion abnormality, right ventricle is normal size and contractility. 3. Normal Lexiscan Myoview study. Electronically signed by : Jose Thurman MD 12/16/2021 17:53:52
== END ==
PROVIDERS: PCP Emergency Medicine; Visit Provider Nurse Practitioner
DX: E78.2 Mixed hyperlipidemia (principal); I10 Essential (primary) hypertension; I25.118 Atherosclerotic heart disease of native coronary artery with other forms of angina pectoris; R06.09 Other forms of dyspnea; R55 Syncope and collapse
CPT/HCPCS: 78452; 93017; 93306; A9502; J2785

== ENCOUNTER → 2022-02-15 12:43 | Outpatient (CLI) | payer MEDICARE, MEDICAID, SELFPAY ==
--- NOTE | 2022-02-15 12:49 | XR_ITS ---
FINAL REPORT CLINICAL HISTORY: foot pain..pt had hang nails cut out wed and now has pain FINDINGS: LEFT FOOT: Three views of the left foot were obtained. There is no acute fracture or dislocation. The joint spaces are intact. There is no soft tissue abnormality. IMPRESSION: No acute bony abnormality. Reviewed, Interpreted and Dictated by Leonides Mccartney III, MD Transcribed by Toshia Ledesma Authenticated and [facility]
--- NOTE | 2022-02-15 12:49 | XR_ITS ---
FINAL REPORT CLINICAL HISTORY: foot pain..hang nail cut on tue, pt now has pain FINDINGS: RIGHT FOOT: Three views of the right foot were obtained. There is no acute fracture or dislocation. The joint spaces are intact. There are calcifications in the region of the posterior plantar aponeurosis. IMPRESSION: No acute bony abnormality. Reviewed, Interpreted and Dictated by Leonides Mccartney III, MD Transcribed by Toshia Ledesma Authenticated and [facility]
[2022-02-15 13:24] LABS: Basophils # 0.1 K/mm3 (0-0.2); Basophils % 1.2 % (0.1-2.0); Eosinophils # 0.3 K/mm3 (0.0-0.4); Eosinophils % 5.1 % (0.1-12.0); Hematocrit 39.4 % (42.0-52.0); Hemoglobin 13.1 g/dL (14.1-18.0); Lymphocytes # 1.7 K/mm3 (0.7-4.5); Lymphocytes % 33.1 % (10-50); Mean Corpuscular HGB Conc 33.1 g/dL (31.8-35.4); Mean Corpuscular Hemoglobin 32.4 pg (27.0-31.2); Mean Corpuscular Volume 97.8 fl (80-94); Mean Platelet Volume 9.9 fl (7.4-10.4); Monocytes # 0.4 K/mm3 (0.1-1.0); Monocytes % 7.1 % (1.7-9.3); Neutrophils # 2.7 K/mm3 (1.8-7.8); Neutrophils % 53.5 % (37.0-80.0); Platelet Count 290 K/mm3 (142-424); Red Blood Count 4.03 M/mm3 (4.60-6.20); Red Cell Distribution Width 13.9 % (11.5-17.5)
[2022-02-15 13:53] LABS: Erythrocyte Sedimentation Rate 21 mm/hr (0-20)
[2022-02-15 15:07] LABS: Alanine Aminotransferase 23 U/L (12-78); Albumin Level 4.2 g/dl (3.5-5.0); Albumin/Globulin Ratio 1.9 (1.1-1.8); Alkaline Phosphatase 94 U/L (38-126); Anion Gap 13.1 mEq/L (5-15); Aspartate Amino Transferase 22 U/L (17-59); Bilirubin,Total 0.4 mg/dl (0.2-1.3); Blood Urea Nitrogen 14 mg/dl (9-20); Carbon Dioxide 31 mmol/L (22.0-30.0); Chloride 96 mmol/L (98-107); Estimated Glomerular Filt Rate 69 ml/min (>60); GFR (African American) 83 ML/MIN (>60); Globulin 2.2 g/dL (1.3-3.2); Glucose 126 mg/dl (74-100); Potassium 5.1 mmoL/L (3.5-5.1); Sodium 135 mmol/L (136-145); Total Protein,Serum 6.4 g/dl (6.3-8.2)
[2022-02-15 16:11] LABS: C-Reactive Protein 6.8 mg/L (0-4)
== END ==
PROVIDERS: PCP Emergency Medicine; Visit Provider Nurse Practitioner Family
DX: L60.0 Ingrowing nail; M79.672 Pain in left foot; M79.671 Pain in right foot
CPT/HCPCS: 36415; 73630; 80053; 85025; 85651; 86140; 87070; 87077; 87186; 87205

== ENCOUNTER → 2022-07-31 10:28 | Outpatient (CLI) | payer MEDICARE, MEDICAID, SELFPAY ==
--- NOTE | 2022-07-31 10:29 | MR_ITS ---
PROCEDURE INFORMATION: Exam: MR Lumbar Spine Without Contrast Exam date and time: 07/31/2022 10:38 AM Age: 57 years old Clinical indication: Low back pain; Additional info: Low back pain x years. Pain down bilateral legs. TECHNIQUE: Imaging protocol: Magnetic resonance imaging of the lumbar spine without contrast. COMPARISON: CERTIFIED BREASTFEEDING EDUCATOR/O MRI-L-SPINE W/O 09/09/2015 7:52 AM FINDINGS: Bones/joints: There is preservation of vertebral alignment. There is preservation of vertebral body heights. No marrow replacing process. There is mild bilateral neural foraminal narrowing. Spinal cord: Conus medullaris and cauda equina nerve roots are unremarkable L1-L2: No significant spinal canal stenosis. There is no significant neural foraminal narrowing. L2-L3: No significant spinal canal stenosis. There is no significant neural foraminal narrowing. L3-L4: No significant spinal canal stenosis. There is no significant neural foraminal narrowing. L4-L5: Diffuse disc bulge noted. No significant spinal canal stenosis. There is no significant neural foraminal narrowing. L5-S1: Diffuse disc bulge and facet arthropathy noted. The bulging disc is in close proximity to traversing S1 nerve roots bilaterally. Thecal sac is tapered. Soft tissues: Unremarkable. IMPRESSION: At L5-S1, bulging disc in close proximity to traversing S1 nerve roots bilaterally. No significant spinal canal or neural foraminal narrowing at any level.
== END ==
PROVIDERS: PCP Emergency Medicine; Visit Provider Emergency Medicine
DX: M54.50 Low back pain, unspecified (principal)
CPT/HCPCS: 72148; 76376

== ENCOUNTER → 2022-08-18 11:19 | Outpatient (CLI) | payer MEDICARE, MEDICAID, SELFPAY ==
[2022-08-18 11:55] LABS: Basophils % 0.9 % (0.1-2.0); Eosinophils # 0.3 K/mm3 (0.0-0.4); Eosinophils % 6.4 % (0.1-12.0); Hematocrit 40.3 % (42.0-52.0); Hemoglobin 13.1 g/dL (14.1-18.0); Lymphocytes # 1.7 K/mm3 (0.7-4.5); Lymphocytes % 35.1 % (10-50); Mean Corpuscular HGB Conc 32.5 g/dL (31.8-35.4); Mean Corpuscular Hemoglobin 31.7 pg (27.0-31.2); Mean Corpuscular Volume 97.7 fl (80-94); Mean Platelet Volume 10.3 fl (7.4-10.4); Monocytes # 0.3 K/mm3 (0.1-1.0); Monocytes % 6.1 % (1.7-9.3); Neutrophils # 2.4 K/mm3 (1.8-7.8); Neutrophils % 51.5 % (37.0-80.0); Platelet Count 239 K/mm3 (142-424); Red Blood Count 4.13 M/mm3 (4.60-6.20); Red Cell Distribution Width 13.6 % (11.5-17.5); White Blood Count 4.7 K/mm3 (4.8-10.8)
[2022-08-18 12:25] LABS: Chloride 97 mmol/L (98-107); Potassium 4.8 mmoL/L (3.5-5.1); Sodium 137 mmol/L (136-145)
[2022-08-18 12:27] LABS: Alanine Aminotransferase 35 U/L (12-78); Albumin Level 3.7 g/dl (3.5-5.0); Alkaline Phosphatase 75 U/L (38-126); Aspartate Amino Transferase 27 U/L (17-59); Bilirubin,Direct 0.1 mg/dl (0.0-0.4); Bilirubin,Indirect 0.2 mg/dL (0.0-0.9); Bilirubin,Total 0.3 mg/dl (0.2-1.3); Bilirubin,Unconjugated 0.3 mg/dL (0.0-1.1); Chol/HDL Ratio 1.7 (1-3.5); Cholesterol 93 mg/dl (140-200); HDL Cholesterol 55 mg/dl (40-60); Total Protein,Serum 5.9 g/dl (6.3-8.2); Triglycerides 239 mg/dl (30-150); VLDL Cholesterol 48 mg/dL (0-40)
[2022-08-18 12:28] LABS: Anion Gap 15.8 mEq/L (5-15); Blood Urea Nitrogen 11 mg/dl (9-20); Carbon Dioxide 29 mmol/L (22.0-30.0); Estimated Glomerular Filt Rate 69 ml/min (>60); GFR (African American) 83 ML/MIN (>60)
[2022-08-18 12:29] LABS: Glucose 146 mg/dl (74-100)
[2022-08-18 12:41] LABS: Intact Parathyroid Hormone 78.7 pg/mL (7.5-53.5)
[2022-08-18 12:41] LABS: Direct LDL Cholesterol < 30.00 mg/dL (100-129)
[2022-08-18 12:45] LABS: 25-OH Vitamin D, Total 43.3 ng/mL (30-100)
[2022-08-18 13:31] LABS: Microscopic, Urine URINE MICROSCOPIC (MICROSCOPIC)
[2022-08-18 14:31] LABS: Appearance,Urine CLEAR (Clear); Bilirubin,Urine Negative (Negative); Blood, Urine Negative (Negative); Color,Urine YELLOW (Yellow); Glucose,Urine (UA) Negative (Negative); Ketones,Urine Negative (Negative); Leukocyte Esterase,Urine TRACE (Negative); Nitrate,Urine Negative (Negative); Protein,Urine Negative (Negative); Specific Gravity, Urine 1.025 (1.005-1.030); Urobilinogen,Urine 0.2 EU/dl (0.2)
[2022-08-18 14:44] LABS: Creatinine,Urine Random 69 mg/dL (Not Estab.)
[2022-08-18 14:47] LABS: Squamous Epithelial Cell,Urine Occasional #/hpf (0-5); WBC,Urine Occasional #/hpf (0-3)
== END ==
PROVIDERS: Nurse Practitioner; PCP Emergency Medicine; Visit Provider Internal Medicine Nephrology
DX: E11.9 Type 2 diabetes mellitus without complications (principal); E78.2 Mixed hyperlipidemia; I10 Essential (primary) hypertension; I25.118 Atherosclerotic heart disease of native coronary artery with other forms of angina pectoris; I73.9 Peripheral vascular disease, unspecified; R06.09 Other forms of dyspnea; R60.9 Edema, unspecified; E66.9 Obesity, unspecified; Z68.33 Body mass index [BMI] 33.0-33.9, adult; Z79.84 Long term (current) use of oral hypoglycemic drugs
CPT/HCPCS: 36415; 80048; 80061; 80069; 80076; 81001; 82306; 82570; 83970; 84100; 84155; 85025

== ENCOUNTER 2022-08-23 09:14 | Day surgery (SDC) | payer MEDICARE, MEDICAID, SELFPAY ==
[2022-08-23] VITALS (11 sets, daily range): BP systolic 87–137; BP diastolic 59–80; PULSE 67–75; RESP 14–18; TEMP 37; O2SAT 90–98; BMI 33.5; BMI 33.0
--- NOTE | 2022-08-23 07:07 | IR_ITS ---
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 COMPLICATIONS None Estimated Blood Loss: Less than 10 mls TECHNIQUE 1% lidocaine used anesthetize the right groin the right femoral artery was accessed via the Salinger technique and a wire was passed. Under fluoroscopy the wire was going through the femorofemoral graft therefore the wire was removed and pressure was held achieve good hemostasis. 1% lidocaine was then used to anesthetize the left groin and the left femoral artery was accessed via Salinger technique. Likewise the wire entered the femorofemoral graft therefore the wire was pulled and good hemostasis achieved using manual pressure. 1% lidocaine was used anesthetize the right anterior aspect of the right radial artery and the right radial was accessed via the Salinger technique. A 6 Barbadian hydrophilic sheath was placed in the right radial artery and an arterial cocktail using heparin lidocaine nitroglycerin and magnesium sulfate was administered. A PV multi curve was placed into the left external iliac artery under fluoroscopic guidance and antegrade angiography was performed with bilateral iliofemoral runoff. The catheter was then pulled back to the abdominal aorta where distal abdominal aortic gram was performed. The catheter was then advanced to the left common femoral artery and recorded where a 40 mm [place]m stenotic gradient through the common and external iliac arteries were identified. At this point therapeutic heparin was administered giving a therapeutic ACT and an exchange length wire was placed into the left common femoral artery. The short sheath was removed for a long 7 Barbadian sheath. A 8 mm x 57 mm balloon mounted stent was deployed at 12 harris reducing the left external iliac artery stenosis to 0%. An additional 9 mm x 57 mm balloon mounted stent was then placed proximal to this back into the left common iliac artery yet still overlapping the first stent and then deployed at 14 harris. Repeat angiography demonstrated wide patency of the left common internal and external iliac artery. At this point the apparatus was removed the sheath was removed and hemostasis was achieved using TR banding patient was transferred to the postop putting in stable condition ANGIOGRAPHIC RESULTS Distal abdominal aorta is mildly hypoplastic with diffuse 40% stenoses with no demonstrable gradient upon pullback from the left common iliac artery into the suprarenal abdominal aorta Right common and external iliac artery is 100% occluded Left common iliac artery has a stent which has a 30% stenosis followed by the distal 60% stenosis which extends into the left external iliac artery. There is an additional long tubular 40% stenosis. Left internal iliac artery is widely patent Bilateral common femoral arteries are widely patent Widely patent femorofemoral gr
[2022-08-23 09:51] LABS: Basophils % 0.8 % (0.1-2.0); Eosinophils # 0.3 K/mm3 (0.0-0.4); Eosinophils % 6.3 % (0.1-12.0); Hematocrit 40.2 % (42.0-52.0); Hemoglobin 13.1 g/dL (14.1-18.0); Lymphocytes # 1.7 K/mm3 (0.7-4.5); Mean Corpuscular HGB Conc 32.5 g/dL (31.8-35.4); Mean Corpuscular Hemoglobin 31.2 pg (27.0-31.2); Mean Corpuscular Volume 96.1 fl (80-94); Monocytes # 0.3 K/mm3 (0.1-1.0); Monocytes % 6.4 % (1.7-9.3); Neutrophils # 2.2 K/mm3 (1.8-7.8); Neutrophils % 49.5 % (37.0-80.0); Platelet Count 255 K/mm3 (142-424); Red Blood Count 4.19 M/mm3 (4.60-6.20); Red Cell Distribution Width 13.5 % (11.5-17.5); White Blood Count 4.5 K/mm3 (4.8-10.8)
[2022-08-23 09:52] LABS: Chloride 100 mmol/L (98-107); Potassium 4.4 mmoL/L (3.5-5.1); Sodium 138 mmol/L (136-145)
[2022-08-23 09:55] LABS: Anion Gap 15.4 mEq/L (5-15); Blood Urea Nitrogen 14 mg/dl (9-20); Calcium 8.6 mg/dl (8.4-10.2); Carbon Dioxide 27 mmol/L (22.0-30.0); Creatinine Clearance Estimated 98 mL/min (50-200); Estimated Glomerular Filt Rate 76 ml/min (>60); GFR (African American) 93 ML/MIN (>60); Glucose 150 mg/dl (74-100)
[2022-08-23 13:16] LABS: CATHL Activated Clotting Time 247 SEC (74-125)
--- NOTE | 2022-08-23 15:22 | HMH.PHACL ---
PHA District Manager Major Accounts Sales Discharge Med Crotch Breaker: Parish Hernandez has received discharge medication counseling on the following medications: PLAVIX 75 MG DAILY ASPIRIN 81 MG DAILY ATENOLOL 75 MG DAILY ATORVASTATIN 80 MG HS LISINOPRIL 2.5 MG DAILY
== END 2022-08-23 15:17 | disposition home or self-care (01) ==
PROVIDERS: PCP Emergency Medicine; Visit Provider Internal Medicine
DX: I70.213 Atherosclerosis of native arteries of extremities with intermittent claudication, bilateral legs (principal); I77.1 Stricture of artery; I74.5 Embolism and thrombosis of iliac artery; Z79.01 Long term (current) use of anticoagulants; Z79.899 Other long term (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 therapy; Z79.84 Long term (current) use of oral hypoglycemic drugs
CPT/HCPCS: 37221; 37223; 80048; 85025; 85347; 99152; 99153; C1725; C1769; C1876; C1894; J1644; Q9966

== ENCOUNTER → 2022-09-02 10:20 | Outpatient (CLI) | payer MEDICARE, MEDICAID, SELFPAY ==
[2022-09-02 11:01] LABS: Basophils # 0.1 K/mm3 (0-0.2); Eosinophils # 0.2 K/mm3 (0.0-0.4); Eosinophils % 4.8 % (0.1-12.0); Hematocrit 37.2 % (42.0-52.0); Hemoglobin 12.7 g/dL (14.1-18.0); Lymphocytes # 1.7 K/mm3 (0.7-4.5); Lymphocytes % 35.9 % (10-50); Mean Corpuscular HGB Conc 34.1 g/dL (31.8-35.4); Mean Corpuscular Hemoglobin 32.4 pg (27.0-31.2); Mean Corpuscular Volume 95.2 fl (80-94); Mean Platelet Volume 9.4 fl (7.4-10.4); Monocytes # 0.3 K/mm3 (0.1-1.0); Neutrophils # 2.4 K/mm3 (1.8-7.8); Neutrophils % 51.3 % (37.0-80.0); Platelet Count 254 K/mm3 (142-424); Red Cell Distribution Width 13.6 % (11.5-17.5); White Blood Count 4.7 K/mm3 (4.8-10.8)
[2022-09-02 11:38] LABS: Anion Gap 18.4 mEq/L (5-15); Blood Urea Nitrogen 10 mg/dl (9-20); Calcium 8.8 mg/dl (8.4-10.2); Carbon Dioxide 27 mmol/L (22.0-30.0); Chloride 96 mmol/L (98-107); Estimated Glomerular Filt Rate 76 ml/min (>60); GFR (African American) 93 ML/MIN (>60); Glucose 98 mg/dl (74-100); Potassium 4.4 mmoL/L (3.5-5.1); Sodium 137 mmol/L (136-145)
== END ==
PROVIDERS: PCP Emergency Medicine; Visit Provider Internal Medicine
DX: I77.9 Disorder of arteries and arterioles, unspecified (principal); Z48.89 Encounter for other specified surgical aftercare
CPT/HCPCS: 36415; 80048; 85025

== ENCOUNTER → 2022-11-29 15:41 | Outpatient (POV) | payer MEDICARE, MEDICAID, SELFPAY | PROVIDERS: Visit Provider Internal Medicine Nephrology | DX: Z00.00 Encounter for general adult medical examination without abnormal findings (principal) ==

== ENCOUNTER → 2022-12-07 13:18 | Outpatient (POV) | payer MEDICARE, MEDICAID, SELFPAY | PROVIDERS: Visit Provider Specialist/Technologist | DX: Z00.00 Encounter for general adult medical examination without abnormal findings (principal) ==

== ENCOUNTER → 2023-02-11 13:12 | Outpatient (CLI) | payer MEDICARE, MEDICAID, SELFPAY ==
[2023-02-11 16:18] LABS: Amphetamine/Metha Screen,Urine Negative ng/ml (<1000); Barbiturates Screen,Urine Negative ng/ml (<200)
[2023-02-11 16:19] LABS: Benzodiazepines Screen,Urine Negative ng/ml (<200)
[2023-02-11 16:20] LABS: Cannabinoid Screen,Urine Negative ng/ml (<50)
[2023-02-11 16:21] LABS: Cocaine Screen,Urine Negative ng/ml (<300)
[2023-02-11 16:22] LABS: Methadone Screen,Urine Negative ng/ml (<300); Opiate Screen,Urine Positive ng/ml (<300)
[2023-02-11 16:23] LABS: Phencyclidine Screen,Urine Negative ng/ml (<25)
== END ==
PROVIDERS: PCP Emergency Medicine; Visit Provider Emergency Medicine
DX: M51.36 Other intervertebral disc degeneration, lumbar region (principal)
CPT/HCPCS: 80305

== ENCOUNTER 2023-03-26 06:30 | Emergency (ER) | payer MEDICARE, MEDICAID, SELFPAY ==
[2023-03-26] VITALS (8 sets, daily range): BP systolic 113–195; BP diastolic 55–96; PULSE 81–96; RESP 14–18; TEMP 36.6–36.7; O2SAT 92–100; BMI 35.0
--- NOTE | 2023-03-26 06:26 | XR_ITS ---
PROCEDURE INFORMATION: Exam: XR Chest Exam date and time: 03/26/2023 6:57 AM Age: 57 years old Clinical indication: Pain; Chest pressure; Additional info: Cp TECHNIQUE: Imaging protocol: Radiologic exam of the chest. Views: 1 view. COMPARISON: CR XR CHEST 2V 12/06/2021 8:53 PM FINDINGS: Lungs: Unremarkable. No consolidation. Pleural spaces: Unremarkable. No pleural effusion. No pneumothorax. Heart/Mediastinum: Unremarkable. No cardiomegaly. Bones/joints: Unremarkable. IMPRESSION: No acute findings.
--- NOTE | 2023-03-26 06:31 | ECG_ITS ---
APPROVED REPORT Exam: Resting ECG HR:82 bpm ECG Measurements Heart Rate 82 AXES PA 150 P 56 QRSd 86 QRS 57 QT 374 T 58 QTc 413 Conclusion SINUS RHYTHM NORMAL ECG UNCONFIRMED REPORT Electronically signed by : Dereck Beach MD 03/27/2023 14:18:32
--- NOTE | 2023-03-26 06:31 | HMH.EDGENADL ---
Discharge Plan Disposition Patient Disposition: Home, Self-Care Condition: Good Prescriptions Prescriptions: New doxycycline monohydrate 100 mg capsule 100 mg PO BID 7 Days Qty: 14 0RF prednisone 20 mg tablet 20 mg PO BID 5 Days Qty: 10 0RF No Action multivitamin with iron [Daily Vitamin with Iron] Tablet 1 tab PO DAILY cetirizine [Allergy Relief (cetirizine)] 5 mg tablet 5 mg PO DAILY PRN hydrocodone-acetaminophen 7.5-325 mg tablet 1 tab PO BID PRN montelukast 10 mg tablet 10 mg PO DAILY Patient Comments: TAKE ONE TABLET BY MOUTH EVERY DAY IN THE EVENING hydrocortisone 1 % ointment topical Patient Comments: APPLY TOPICALLY TO THE AFFECTED AREA(S) THREE TIMES DAILY tobramycin-dexamethasone [TobraDex] 0.3-0.1 % drops,suspension 2 drp ophthalmic (eye) BID 10 Days Qty: 5 0RF Rx Instructions: Patient to use and right EAR (unable to change the route above from eye to ear) gabapentin 300 mg capsule 300 mg PO TID Qty: 90 2RF Repatha SureClick 140 mg/mL pen injector 140 mg SQ Q2W Patient Comments: INJECT 1 ML (140 MG) SUBCUTANEOUSLY EVERY two WEEKS budesonide-formoterol 160-4.5 mcg/actuation HFA aerosol inhaler inhalation BID hydrocortisone 1 % cream 1 applic topical TID Qty: 28.35 0RF furosemide 20 mg tablet See Rx Instructions .ROUTE .COMPLEX Qty: 30 5RF Dose Instruction: TAKE ONE TABLET BY MOUTH EVERY DAY NEEDED FOR EDEMA Rx Instructions: TAKE ONE TABLET BY MOUTH EVERY DAY NEEDED FOR EDEMA (DME) lancets [OneTouch Delica Plus Lancet] 30 gauge misc See Rx Instructions .ROUTE .COMPLEX Qty: 100 2RF Dose Instruction: USE TO test blood sugar THREE TIMES DAILY DIRECTED Rx Instructions: USE TO test blood sugar THREE TIMES DAILY DIRECTED Xarelto 2.5 mg tablet See Rx Instructions .ROUTE .COMPLEX Qty: 180 1RF Dose Instruction: TAKE ONE TABLET BY MOUTH TWICE DAILY Rx Instructions: TAKE ONE TABLET BY MOUTH TWICE DAILY albuterol sulfate 90 mcg/actuation HFA aerosol inhaler 2 puff IH Q6H Qty: 18 2RF Tradjenta 5 mg tablet See Rx Instructions .ROUTE .COMPLEX Qty: 90 1RF Dose Instruction: TAKE ONE TABLET BY MOUTH EVERY DAY Rx Instructions: TAKE ONE TABLET BY MOUTH EVERY DAY cholecalciferol (vitamin D3) 1,250 mcg (50,000 unit) capsule See Rx Instructions .ROUTE .COMPLEX Qty: 8 0RF Dose Instruction: Take 1 capsule by mouth once a week Rx Instructions: Take 1 capsule by mouth once a week fluticasone propionate 50 mcg/actuation spray,suspension See Rx Instructions .ROUTE .COMPLEX Qty: 16 12RF Dose Instruction: INSTILL ONE SPRAY IN EACH NOSTRIL TWICE DAILY DIRECTED Rx Instructions: INSTILL ONE SPRAY IN EACH NOSTRIL TWICE DAILY DIRECTED lisinopril 2.5 mg tablet 2.5 mg PO DAILY Qty: 90 3RF ranolazine 1,000 mg tablet extended release 12 hr 1,000 mg PO BID Qty: 60 5RF gemfibrozil 600 mg tablet 600 mg PO BID Qty: 180 3RF atenolol 50 mg tablet See Rx Instructions .ROUTE .COMPLEX Qty: 45 2RF Dose Instruction: TAKE 1 AND 1/2 TABLET BY MOUTH EVERY DAY Rx Instructions: TAKE 1 AND 1/2 TABLET BY MOUTH EVERY DAY metformin 500 mg tablet extended release 24 hr See Rx Instructions .ROUTE .COMPLEX Qty: 120 1RF Dose Instruction: TAKE TWO TABLETS BY MOUTH TWICE DAILY Rx Instructions: TAKE TWO TABLETS BY MOUTH TWICE DAILY omeprazole 20 mg capsule,delayed release(DR/EC) See Rx Instructions .ROUTE .COMPLEX Qty: 90 0RF Dose Instruction: TAKE ONE CAPSULE BY MOUTH EVERY DAY FOR gerd Rx Instructions: TAKE ONE CAPSULE BY MOUTH EVERY DAY FOR gerd atorvastatin 80 mg tablet See Rx Instructions .ROUTE .COMPLEX Qty: 90 0RF Dose Instruction: TAKE ONE TABLET BY MOUTH EVERY DAY Rx Instructions: TAKE ONE TABLET BY MOUTH EVERY DAY pioglitazone
[2023-03-26 06:54] LABS: Basophils % 0.7 % (0.1-2.0); Eosinophils # 0.3 K/mm3 (0.0-0.4); Eosinophils % 4.4 % (0.1-12.0); Hematocrit 38.1 % (42.0-52.0); Hemoglobin 12.5 g/dL (14.1-18.0); Lymphocytes # 1.9 K/mm3 (0.7-4.5); Lymphocytes % 31.2 % (10-50); Mean Corpuscular HGB Conc 32.8 g/dL (31.8-35.4); Mean Corpuscular Hemoglobin 32.5 pg (27.0-31.2); Mean Corpuscular Volume 99.1 fl (80-94); Mean Platelet Volume 9.6 fl (7.4-10.4); Monocytes # 0.5 K/mm3 (0.1-1.0); Monocytes % 7.8 % (1.7-9.3); Neutrophils # 3.4 K/mm3 (1.8-7.8); Neutrophils % 55.8 % (37.0-80.0); Platelet Count 203 K/mm3 (142-424); Red Blood Count 3.84 M/mm3 (4.60-6.20); Red Cell Distribution Width 13.2 % (11.5-17.5); White Blood Count 6.1 K/mm3 (4.8-10.8)
[2023-03-26 06:55] LABS: Chloride 100 mmol/L (98-107)
[2023-03-26 06:56] LABS: Sodium 134 mmol/L (136-145)
[2023-03-26 06:58] LABS: Alanine Aminotransferase 31 U/L (12-78); Aspartate Amino Transferase 28 U/L (17-59); Blood Urea Nitrogen 17 mg/dl (9-20); Creatinine Clearance Estimated 78 mL/min (50-200); Estimated Glomerular Filt Rate 57 ml/min (>60); GFR (African American) 68 ML/MIN (>60)
[2023-03-26 06:59] LABS: Albumin Level 4.2 g/dl (3.5-5.0); Albumin/Globulin Ratio 1.6 (1.1-1.8); Alkaline Phosphatase 81 U/L (38-126); Bilirubin,Total 0.4 mg/dl (0.2-1.3); Calcium 8.7 mg/dl (8.4-10.2); Carbon Dioxide 25 mmol/L (22.0-30.0); Globulin 2.7 g/dL (1.3-3.2); Glucose 123 mg/dl (74-100); Total Protein,Serum 6.9 g/dl (6.3-8.2)
[2023-03-26 06:59] LABS: VBG Base Excess -5.6 mmol/L (-2.4-2.3); VBG Oxygen Saturation 88.6 % (50-70); VBG PCO2 44.7 mmol/L (35-51); VBG PH 7.29 mmol/L (7.31-7.41); VBG Total CO2 22.4 mmol/L (23-27)
[2023-03-26 07:07] LABS: Coronavirus 19, PCR Not Detected (NotDetected); Influenza A, PCR Not Detected (NotDetected); Influenza B, PCR Not Detected (NotDetected)
[2023-03-26 07:08] LABS: NT Pro Brain Natriuretic Pep. 54.3 pg/mL (0-125)
[2023-03-26 07:14] LABS: Lactic Acid 2.3 mmol/L (0.7-2.1)
[2023-03-26 07:14] LABS: Troponin I < 0.01 ng/ml (0.00-0.034)
[2023-03-26 09:11] LABS: Troponin I < 0.01 ng/ml (0.00-0.034)
[2023-03-26 11:05] LABS: Reflex Lactic Add Lactic Reflex
== END 2023-03-26 09:27 | disposition home or self-care (01) ==
PROVIDERS: Emergency Medicine; Emergency Provider Emergency Medicine; PCP Physician Assistant
DX: J44.1 Chronic obstructive pulmonary disease with (acute) exacerbation (principal); R07.9 Chest pain, unspecified; R06.02 Shortness of breath; I11.9 Hypertensive heart disease without heart failure; I25.10 Atherosclerotic heart disease of native coronary artery without angina pectoris; E78.5 Hyperlipidemia, unspecified; I73.9 Peripheral vascular disease, unspecified; E11.40 Type 2 diabetes mellitus with diabetic neuropathy, unspecified; Z79.01 Long term (current) use of anticoagulants; Z79.84 Long term (current) use of oral hypoglycemic drugs; Z87.891 Personal history of nicotine dependence; Z95.5 Presence of coronary angioplasty implant and graft
CPT/HCPCS: 71045; 80053; 82803; 83605; 83880; 84484; 85025; 87636; 93005; 96361; 96374; 99285

== ENCOUNTER 2023-05-12 21:43 | Outpatient (CLI) | payer MEDICARE, MEDICAID, SELFPAY ==
[2023-05-12 18:56] LABS: Basophils % 0.6 % (0.1-2.0); Eosinophils # 0.2 K/mm3 (0.0-0.4); Eosinophils % 3.4 % (0.1-12.0); Hematocrit 40.7 % (42.0-52.0); Hemoglobin 13.6 g/dL (14.1-18.0); Lymphocytes # 1.4 K/mm3 (0.7-4.5); Lymphocytes % 24.6 % (10-50); Mean Corpuscular HGB Conc 33.5 g/dL (31.8-35.4); Mean Corpuscular Hemoglobin 32.9 pg (27.0-31.2); Mean Corpuscular Volume 98.4 fl (80-94); Mean Platelet Volume 11.7 fl (7.4-10.4); Monocytes # 0.4 K/mm3 (0.1-1.0); Monocytes % 7.1 % (1.7-9.3); Neutrophils # 3.7 K/mm3 (1.8-7.8); Neutrophils % 64.3 % (37.0-80.0); Platelet Count 236 K/mm3 (142-424); Red Blood Count 4.13 M/mm3 (4.60-6.20); Red Cell Distribution Width 13.4 % (11.5-17.5); White Blood Count 5.8 K/mm3 (4.8-10.8)
[2023-05-12 19:16] LABS: Chloride 100 mmol/L (98-107); Sodium 136 mmol/L (136-145)
[2023-05-12 19:19] LABS: Alanine Aminotransferase 40 U/L (12-78); Alkaline Phosphatase 91 U/L (38-126); Aspartate Amino Transferase 35 U/L (17-59); Bilirubin,Total 0.5 mg/dl (0.2-1.3); Blood Urea Nitrogen 13 mg/dl (9-20); Carbon Dioxide 28 mmol/L (22.0-30.0); Cholesterol 107 mg/dl (140-200); Estimated Glomerular Filt Rate 69 ml/min (>60); GFR (African American) 83 ML/MIN (>60); Triglycerides 294 mg/dl (30-150); VLDL Cholesterol 59 mg/dL (0-40)
[2023-05-12 19:20] LABS: Albumin/Globulin Ratio 1.7 (1.1-1.8); Calcium 9.4 mg/dl (8.4-10.2); Chol/HDL Ratio 2.6 (1-3.5); Globulin 2.4 g/dL (1.3-3.2); Glucose 122 mg/dl (74-100); HDL Cholesterol 41 mg/dl (40-60); Total Protein,Serum 6.4 g/dl (6.3-8.2)
[2023-05-12 19:31] LABS: Direct LDL Cholesterol 42.25 mg/dL (100-129)
[2023-05-12 19:51] LABS: Hemoglobin A1C 6.5 % (4.0-6.0)
[2023-05-12 19:54] LABS: Prostate Specific Ag Screen 0.7 ng/ml (0.0-4.0)
[2023-05-12 19:55] LABS: Thyroid Stimulating Hormone 1.81 uIU/mL (0.465-4.68)
[2023-05-12 23:00] LABS: Amphetamine/Metha Screen,Urine Negative ng/ml (<1000)
[2023-05-12 23:06] LABS: Barbiturates Screen,Urine Negative ng/ml (<200); Benzodiazepines Screen,Urine Negative ng/ml (<200)
[2023-05-12 23:07] LABS: Cannabinoid Screen,Urine Negative ng/ml (<50); Cocaine Screen,Urine Negative ng/ml (<300)
[2023-05-12 23:08] LABS: Methadone Screen,Urine Negative ng/ml (<300)
[2023-05-12 23:09] LABS: Opiate Screen,Urine Negative ng/ml (<300); Phencyclidine Screen,Urine Negative ng/ml (<25)
[2023-05-12 23:16] LABS: Creatinine,Urine Random 42 mg/dL (Not Estab.); Microalbumin < 6.000 mg/L (0-16.7)
== END 2023-05-12 23:59 ==
LOC: LAB.DROPOF 21:43
PROVIDERS: PCP Physician Assistant; Visit Provider Physician Assistant
DX: E11.9 Type 2 diabetes mellitus without complications (principal); E55.9 Vitamin D deficiency, unspecified; Z12.5 Encounter for screening for malignant neoplasm of prostate; Z79.899 Other long term (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 therapy; Z79.84 Long term (current) use of oral hypoglycemic drugs
CPT/HCPCS: 80053; 80061; 80307; 82043; 82306; 82570; 83036; 84443; 85025; G0103

== ENCOUNTER 2023-06-17 14:05 | Outpatient (CLI) | payer MEDICARE, MEDICAID, SELFPAY ==
--- NOTE | 2023-06-17 14:06 | CT_ITS ---
FINAL REPORT CLINICAL HISTORY: lung cancer screening former smoker, quit 10 years ago. 3 PPD, 40 years total COMPARISON: No prior FINDINGS: Axial images were obtained from the lung apex to the mid abdomen by computed tomography. Low-dose protocol was utilized. CTDl vol(mGy): 2.90 DLP (mGy-cm): 96.38 FINDINGS: There is no axillary adenopathy. There is no hilar or mediastinal adenopathy. Vascular calcifications are noted. The heart size is normal. There is no pericardial or pleural effusion. There is evidence of old calcified granulomatous disease. Lung window images demonstrate a 3 mm nodule in the right lower lobe. There are subcentimeter groundglass opacities in the right lung. Limited images of the upper abdomen demonstrate a left adrenal adenoma. IMPRESSION: Subcentimeter nodules and groundglass opacities. Lung RADS category 2. Recommend 12 month follow-up low-dose chest CT. Reviewed, Interpreted and Dictated by Manisha Stokes MD Transcribed by Sarah Wolff Authenticated and . [facility]
== END 2023-06-17 23:59 ==
LOC: RAD 14:06
PROVIDERS: PCP Physician Assistant; Visit Provider Physician Assistant
DX: Z87.891 Personal history of nicotine dependence (principal); Z12.2 Encounter for screening for malignant neoplasm of respiratory organs
CPT/HCPCS: 71271

== ENCOUNTER 2023-09-21 09:23 | Outpatient (CLI) | payer MEDICARE, MEDICAID, SELFPAY ==
[2023-09-21 18:26] LABS: Basophils # 0.1 K/mm3 (0-0.2); Basophils % 1.2 % (0.1-2.0); Eosinophils # 0.2 K/mm3 (0.0-0.4); Eosinophils % 4.2 % (0.1-12.0); Hemoglobin 13.1 g/dL (14.1-18.0); Lymphocytes # 1.5 K/mm3 (0.7-4.5); Lymphocytes % 33.3 % (10-50); Mean Corpuscular HGB Conc 32.8 g/dL (31.8-35.4); Mean Corpuscular Hemoglobin 32.4 pg (27.0-31.2); Mean Corpuscular Volume 98.9 fl (80-94); Mean Platelet Volume 9.2 fl (7.4-10.4); Monocytes # 0.3 K/mm3 (0.1-1.0); Neutrophils # 2.4 K/mm3 (1.8-7.8); Neutrophils % 54.2 % (37.0-80.0); Platelet Count 229 K/mm3 (142-424); Red Blood Count 4.04 M/mm3 (4.60-6.20); Red Cell Distribution Width 14.2 % (11.5-17.5); White Blood Count 4.3 K/mm3 (4.8-10.8)
[2023-09-21 19:14] LABS: Alanine Aminotransferase 24 U/L (12-78); Albumin Level 4.2 g/dl (3.5-5.0); Albumin/Globulin Ratio 1.6 (1.1-1.8); Alkaline Phosphatase 95 U/L (38-126); Anion Gap 14.2 mEq/L (5-15); Aspartate Amino Transferase 28 U/L (17-59); Bilirubin,Total 0.4 mg/dl (0.2-1.3); Blood Urea Nitrogen 22 mg/dl (9-20); Calcium 9.4 mg/dl (8.4-10.2); Carbon Dioxide 30 mmol/L (22.0-30.0); Chloride 98 mmol/L (98-107); Estimated Glomerular Filt Rate 39 ml/min (>60); GFR (African American) 47 ML/MIN (>60); Globulin 2.6 g/dL (1.3-3.2); Glucose 126 mg/dl (74-100); Potassium 5.2 mmoL/L (3.5-5.1); Sodium 137 mmol/L (136-145); Total Protein,Serum 6.8 g/dl (6.3-8.2)
[2023-09-21 20:06] LABS: Vitamin B12 165 pg/mL (239-931)
== END 2023-09-21 23:59 | disposition home or self-care (01) ==
LOC: LAB.DROPOF 09-22 09:24
PROVIDERS: Visit Provider Family Medicine
DX: I73.9 Peripheral vascular disease, unspecified (principal); E78.5 Hyperlipidemia, unspecified; Z68.34 Body mass index [BMI] 34.0-34.9, adult
CPT/HCPCS: 80053; 82607; 85025

== ENCOUNTER 2023-10-26 14:34 | Outpatient (CLI) | payer MEDICARE, MEDICAID, SELFPAY ==
[2023-10-26 15:31] LABS: Blood Urea Nitrogen 21 mg/dl (9-20); Estimated Glomerular Filt Rate 44 ml/min (>60); GFR (African American) 54 ML/MIN (>60)
[2023-10-28 18:11] LABS: PSA, Free 0.09 ng/mL; Prostate Specific Ag 0.5 ng/mL (0.0-4.0)
== END 2023-10-26 23:59 | disposition home or self-care (01) ==
LOC: LAB 14:36
PROVIDERS: PCP Physician Assistant; Visit Provider Urology
DX: N52.9 Male erectile dysfunction, unspecified (principal); N40.0 Benign prostatic hyperplasia without lower urinary tract symptoms
CPT/HCPCS: 36415; 82565; 84153; 84154; 84520

== ENCOUNTER 2023-11-06 14:41 | Emergency (ER) | payer MEDICARE, MEDICAID, SELFPAY ==
[2023-11-06] VITALS (8 sets, daily range): BP systolic 111–136; BP diastolic 57–72; PULSE 60–75; RESP 12–17; TEMP 36.6; O2SAT 97–98; BMI 34.3
--- NOTE | 2023-11-06 14:43 | ECG_ITS ---
APPROVED REPORT Exam: Resting ECG HR:73 bpm ECG Measurements Heart Rate 73 AXES IA 154 P 61 QRSd 85 QRS 58 QT 375 T 64 QTc 400 Conclusion SINUS RHYTHM NORMAL ECG UNCONFIRMED REPORT Electronically signed by : LESLIE MINOR, 11/07/2023 00:36:57
--- NOTE | 2023-11-06 14:45 | ED_ITS ---
<Statement entered by Ricky Reardon MD - 11/07/23 00:09> I was consulted by the MENG, and we discussed the complexity of the problems being addressed. I approved the treatment and management plan for this patient's care in the emergency department, thus performing a substantive portion of the medical decision making. Ricky Reardon MD Discharge Plan Disposition Patient Disposition: Home, Self-Care Condition: Good Prescriptions Prescriptions: No Action multivitamin with iron [Daily Vitamin with Iron] Tablet 1 tab PO DAILY hydrocodone-acetaminophen 7.5-325 mg tablet 1 tab PO BID PRN hydrocortisone 1 % ointment topical Patient Comments: APPLY TOPICALLY TO THE AFFECTED AREA(S) THREE TIMES DAILY pioglitazone [Actos] 30 mg tablet 30 mg PO DAILY Qty: 30 2RF albuterol sulfate 90 mcg/actuation HFA aerosol inhaler See Rx Instructions .ROUTE .COMPLEX Qty: 17 0RF Dose Instruction: INHALE TWO PUFFS BY MOUTH EVERY 6 HOURS NEEDED FOR breathing problems Rx Instructions: INHALE TWO PUFFS BY MOUTH EVERY 6 HOURS NEEDED FOR breathing problems oxybutynin chloride 10 mg tablet extended release 24hr 10 mg PO DAILY Qty: 90 3RF tamsulosin [Flomax] 0.4 mg capsule 0.4 mg PO DAILY Qty: 30 3RF budesonide-formoterol 160-4.5 mcg/actuation HFA aerosol inhaler inhalation BID Trelegy Ellipta 200-62.5-25 mcg blister with device 1 inh inhalation DAILY Patient Comments: INHALE 1 PUFF BY MOUTH EVERY DAY DIRECTED cholecalciferol (vitamin D3) 1,250 mcg (50,000 unit) capsule See Rx Instructions .ROUTE .COMPLEX Qty: 14 3RF Dose Instruction: Take 1 capsule by mouth once a week Rx Instructions: Take 1 capsule by mouth once a week gabapentin 400 mg capsule 400 mg PO TID Qty: 90 2RF fluticasone propionate 50 mcg/actuation spray,suspension See Rx Instructions .ROUTE .COMPLEX Qty: 16 12RF Dose Instruction: INSTILL ONE SPRAY IN EACH NOSTRIL TWICE DAILY DIRECTED Rx Instructions: INSTILL ONE SPRAY IN EACH NOSTRIL TWICE DAILY DIRECTED lisinopril 2.5 mg tablet 2.5 mg PO DAILY Qty: 90 3RF gemfibrozil 600 mg tablet 600 mg PO BID Qty: 180 3RF montelukast 10 mg tablet 10 mg PO DAILY Qty: 90 0RF econazole 1 % cream 1 applic topical BID PRN (Reason: Tinea Pedis) 28 Days Qty: 85 2RF Xarelto 2.5 mg tablet See Rx Instructions .ROUTE .COMPLEX Qty: 180 3RF Dose Instruction: TAKE ONE TABLET BY MOUTH TWICE DAILY Rx Instructions: TAKE ONE TABLET BY MOUTH TWICE DAILY Tradjenta 5 mg tablet See Rx Instructions .ROUTE .COMPLEX Qty: 90 1RF Dose Instruction: TAKE ONE TABLET BY MOUTH EVERY DAY Rx Instructions: TAKE ONE TABLET BY MOUTH EVERY DAY cetirizine 10 mg tablet See Rx Instructions .ROUTE .COMPLEX Qty: 90 1RF Dose Instruction: TAKE ONE TABLET BY MOUTH EVERY DAY Rx Instructions: TAKE ONE TABLET BY MOUTH EVERY DAY ranolazine 1,000 mg tablet extended release 12 hr See Rx Instructions .ROUTE .COMPLEX Qty: 60 5RF Dose Instruction: TAKE ONE TABLET BY MOUTH TWICE DAILY Rx Instructions: TAKE ONE TABLET BY MOUTH TWICE DAILY Repatha SureClick 140 mg/mL pen injector See Rx Instructions .ROUTE .COMPLEX Qty: 2 6RF Dose Instruction: INJECT 1 ML (140 MG) SUBCUTANEOUSLY EVERY two WEEKS Rx Instructions: INJECT 1 ML (140 MG) SUBCUTANEOUSLY EVERY two WEEKS omeprazole 20 mg capsule,delayed release(DR/EC) See Rx Instructions .ROUTE .COMPLEX Qty: 90 0RF Dose Instruction: TAKE ONE CAPSULE BY MOUTH EVERY DAY FOR gerd Rx Instructions: TAKE ONE CAPSULE BY MOUTH EVERY DAY FOR gerd atorvastatin 80 mg tablet See Rx Instructions .ROUTE .COMPLEX Qty: 90 0RF Dose Instruction: TAKE ONE TABLET BY MOUTH EVERY DAY Rx Instructions: TAKE ONE TABLET BY MOUTH EVERY DAY (DME) blood-glucose meter Kit See Rx Instructions .ROUTE .MEDSUPPLY Qty: 1 0RF Rx Instructions: As directed or bid One touch ultra 2 Meter ,test stripes and lancets furosemide 20 mg tablet See Rx Instructions .ROUTE .COMPLEX Qty: 30 5RF Dose Instruction: TAKE ONE TABLET BY MOUTH EVERY DAY NEEDED FOR EDEMA Rx Instructions: TAKE ONE TABLET BY MOUTH EVERY DAY NEEDED FOR EDEMA mecobalamin (vitamin B12) [B12 Active] 1,000 mcg tablet,chewable 1,000 mcg PO DAILY Qty: 90 2RF (DME) lancets [OneTouch Delica Plus Lancet] 30 gauge misc See Rx Instructions .ROUTE .COMPLEX Qty: 200 2RF Dose Instruction: USE TO test blood sugar THREE TIMES DAILY DIRECTED Rx Instructions: USE TO test blood sugar THREE TIMES DAILY DIRECTED (DME) OneTouch Ultra Test Strip See Rx Instructions .ROUTE .COMPLEX Qty: 100 9RF Dose Instruction: USE TO test blood sugar DIRECTED THREE TIMES DAILY Rx Instructions: USE TO test blood sugar DIRECTED THREE TIMES DAILY atenolol 50 mg tablet See Rx Instructions .ROUTE .COMPLEX Qty: 45 0RF Dose Instruction: TAKE 1 AND 1/2 TABLET BY MOUTH EVERY DAY Rx Instructions: TAKE 1 AND 1/2 TABLET BY MOUTH EVERY DAY levocetirizine 5 MG tablet See Rx Instructions .Route .COMPLEX Rx Instructions: TAKE ONE TABLET BY MOUTH EVERY DAY AT BEDTIME aspirin 81 mg tablet,delayed release (DR/EC) See Rx Instructions .ROUTE .COMPLEX Rx Instructions: TAKE ONE TABLET BY MOUTH EVERY DAY ergocalciferol (vitamin D2) 1,250 mcg (50,000 unit) capsule See Rx Instructions .ROUTE .COMPLEX MDD . Rx Instructions: TAKE ONE CAPSULE BY MOUTH WEEKLY Referrals Follow up/Referrals: Provider,Referral, MD [Primary Care Provider] - See instructions Activity Restrictions/Add. 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 Please call and schedule follow-up with your PCP to recheck your creatinine. Please keep your scheduled nephrology appointment. Return to ER for any worsening signs or symptoms as needed. Clinical Impressions Clinical Impression: Chest pressure, Hypotension Instructions Patient Instructions: DI for Atypical Chest Pain Discharge ED Provider: Ricky Reardon HPI <HIRA Diaz - Last Filed: 11/06/23 17:16> General Chief Complaint: Chest Pain Stated Complaint: chest pain Time Seen by Provider: 11/06/23 14:45 History of Present Illness HPI narrative: Patient presents for evaluation of chest pain. Patient states that he awoke this morning with chest pressure that is uncomfortable. It has persisted all day. Additionally patient reports that he is checked his blood pressure twice today and is both times been in the 80s systolic. Patient does have a past medical history of hypertension on, peripheral vascular disease, diabetic neuropathy hyperlipidemia.. Patient currently denies shortness of breath fever chills hemoptysis hematochezia melena nausea vomiting diarrhea. Atenolol, atorvastatin Lasix lisinopril, and a history of COPD GERD type 2 diabetes mellitus, ASCVD on Xarelto aspirin Related Data Home Medications Medication Instructions Recorded Confirmed multivitamin with iron (Daily 1 tab PO DAILY Supplement 12/12/18 11/04/23 Vitamin with Iron tablet) levocetirizine 5 mg tablet See Rx Instructions .Route 12/06/21 11/04/23 .COMPLEX . aspirin 81 mg tablet,delayed See Rx Instructions .Route 08/23/22 11/04/23 release .COMPLEX . ergocalciferol (vitamin D2) 1,250 See Rx Instructions .Route 08/23/22 11/04/23 mcg (50,000 unit) capsule .COMPLEX . hydrocodone 7.5 mg-acetaminophen 1 tab PO BID PRN 11/04/22 11/04/23 325 mg tablet budesonide-formoterol HFA 160 inhalation BID 02/02/23 11/04/23 mcg-4.5 mcg/actuation aerosol inhaler hydrocortisone 1 % topical ointment topical 02/24/23 11/04/23 fluticasone fur. 200 mcg-umeclid 1 inh inhalation DAILY 06/22/23 11/04/23 62.5 mcg-vilant 25 mcg inhalat.powder (Trelegy Ellipta) Previous Rx's Medication Instructions Recorded fluticasone propionate 50 See Rx Instructions .Route 01/03/23 mcg/actuation nasal .COMPLEX #16 grams spray,suspension lisinopril 2.5 mg tablet 2.5 mg PO DAILY High blood 01/26/23 pressure #90 tabs gemfibrozil 600 mg tablet 600 mg PO BID . #180 tabs 02/16/23 montelukast 10 mg tablet 10 mg PO DAILY #90 tabs 04/04/23 econazole 1 % topical cream 1 applic topical BID PRN Tinea 04/21/23 Pedis 4 weeks #85 grams rivaroxaban 2.5 mg tablet (Xarelto) See Rx Instructions .Route 05/23/23 .COMPLEX #180 tabs linagliptin 5 mg tablet (Tradjenta) See Rx Instructions .Route 06/27/23 .COMPLEX #90 tabs cetirizine 10 mg tablet See Rx Instructions .Route 07/05/23 .COMPLEX #90 tabs ranolazine 1,000 mg See Rx Instructions .Route 07/20/23 tablet,extended release,12 hr .COMPLEX #60 tabs evolocumab 140 mg/mL subcutaneous See Rx Instructions .Route 07/26/23 pen injector (Repatha SureClick) .COMPLEX #2 mL albuterol sulfate 90 mcg/actuation See Rx Instructions .Route 08/08/23 aerosol inhaler .COMPLEX #17 grams pioglitazone 30 mg tablet (Actos) 30 mg PO DAILY #30 tabs 08/08/23 atorvastatin 80 mg tablet See Rx Instructions .Route 08/19/23 .COMPLEX #90 tabs omeprazole 20 mg capsule,delayed See Rx Instructions .Route 08/19/23 release .COMPLEX #90 caps blood-glucose meter #1 ea 09/20/23 furosemide 20 mg tablet See Rx Instructions .Route 09/23/23 .COMPLEX #30 tabs blood sugar diagnostic (OneTouch #100 strips 09/26/23 Ultra Test strips) lancets 30 gauge (OneTouch Delica #200 ea 09/26/23 Plus Lancet) mecobalamin (vitamin B12) 1,000 1,000 mcg PO DAILY #90 tabs 09/26/23 mcg chewable tablet (B12 Active) atenolol 50 mg tablet See Rx Instructions .Route 10/24/23 .COMPLEX #45 tabs oxybutynin chloride 10 mg 10 mg PO DAILY #90 tabs 10/24/23 tablet,extended release 24 hr tamsulosin 0.4 mg capsule (Flomax) 0.4 mg PO DAILY #30 caps 10/24/23 cholecalciferol (vitamin D3) 1,250 See Rx Instructions .Route 11/04/23 mcg (50,000 unit) capsule .COMPLEX #14 caps gabapentin 400 mg capsule 400 mg PO TID #90 caps 11/04/23 Allergies Allergy/AdvReac Type Severity Reaction Status Date / Time No Known Allergies Allergy Verified 11/06/23 15:08 [facility] <HIRA Diaz - Last Filed: 11/06/23 17:16> [facility] Disclaimer: The information contained in this section may have been updated after the patient was seen, as this information can be updated by other users. Medical History (Updated 11/06/23 @ 17:15 by HIRA Diaz) Impacted cerumen Snoring Impacted cerumen, right ear Tympanosclerosis, right ear Bilateral impacted cerumen Otalgia, right ear Impacted cerumen of left ear Lesion of right external ear Right facial numbness Acute serous otitis media Otitis externa of right ear Hearing Loss Claudication PAD (peripheral artery disease) Palpitations SOB (shortness of breath) Neuropathy Stable angina Surgical History History of external ear surgery Social History Smoking Status: Former smoker tobacco type: cigarettes alcohol intake: never counseling provided: other substance use type: denies use current occupational status: employed Travel in the last 8 weeks: [employer] Organization States household members: spouse housing: house current occupation: [employer] current occupational exposures/hazards: No caffeine: Yes <HIRA Diaz - Last Filed: 11/06/23 17:16> ROS Obtained: Yes Systems reviewed as appropriate & no additional complaints except as documented Physical Exam <HIRA Diaz - Last Filed: 11/06/23 17:16> General General appearance: alert and in no apparent distress Eye Eye exam: Present normal appearance ENT ENT exam: Present normal exam Neck Neck exam: Present normal inspection Chest Chest inspection: Present normal inspection and symmetric chest wall rise; Absent tenderness Respiratory Respiratory exam: Present normal lung sounds bilaterally Cardiovascular Cardiovascular exam: Present regular rate and normal rhythm Neurological Exam Neurological exam: Present alert, oriented X3 and CN II-XII intact Skin Skin exam: Present warm, dry and normal color HEART Score <HIRA Diaz Last Filed: 11/06/23 17:16> HEART Score HEART Score assessment performed?: Yes History (anamnesis): Slightly suspicious ECG: Normal Age: 45-65 years Risk factors: Atherosclerosis history Troponin: </= normal limit HEART Score: 3 Critical Care <HIRA Diaz Last Filed: 11/06/23 17:16> Critical Care Time Critical Care Time: No Medical Decision Making <HIRA Diaz Last Filed: 11/06/23 17:16> Medical Records Medical records reviewed: Yes I reviewed the patient's medical records. Juan Inquiry Pt receiving controlled substance: No Vital Signs Vital Signs: 11/06/23 14:47 11/06/23 15:00 11/06/23 15:30 Temperature 98 F Temperature Source Oral Pulse Rate 72 71 Pulse Rate [Left] 75 Respiratory Rate 12 15 17 Blood Pressure 115/57 L 131/67 Blood Pressure [Right Arm] 111/57 L Blood Pressure Mean Blood Pressure Mean [Right Arm] 75 Blood Pressure Source [Right Arm] Automatic Cuff Blood Pressure Position [Right Arm] Sitting 02 Sat by Pulse Oximetry 98 97 97 Oxygen Delivery Method Room Air Room Air 11/06/23 16:01 11/06/23 16:10 11/06/23 16:31 Temperature Temperature Source Pulse Rate 68 61 62 Pulse Rate [Left] Respiratory Rate 14 14 Blood Pressure 113/60 136/72 112/62 Blood Pressure [Right Arm] Blood Pressure Mean 78 Blood Pressure Mean [Right Arm] Blood Pressure Source [Right Arm] Blood Pressure Position [Right Arm] 02 Sat by Pulse Oximetry 97 98 98 Oxygen Delivery Method Room Air Room Air Room Air 11/06/23 17:00 Temperature Temperature Source Pulse Rate 60 Pulse Rate [Left] Respiratory Rate 13 Blood Pressure 112/59 L Blood Pressure [Right Arm] Blood Pressure Mean Blood Pressure Mean [Right Arm] Blood Pressure Source [Right Arm] Blood Pressure Position [Right Arm] 02 Sat by Pulse Oximetry 97 Oxygen Delivery Method Room Air Lab Data Lab results reviewed: Yes I reviewed the patient's lab results. Labs: Lab Results 11/06/23 14:45: WBC 4.3 L, RBC 3.64 L, Hgb 11.9 L, Hct 35.3 L, MCV 97.0 H, MCH 32.6 H, MCHC 33.7, RDW 14.7, Plt Count 196, MPV 9.9, Neut % (Auto) 52.7, Lymph % (Auto) 35.7, Bucks % (Auto) 6.6, Eos % (Auto) 3.8, Baso % (Auto) 1.2, Neut # (Auto) 2.2, Lymph # (Auto) 1.5, Bucks # (Auto) 0.3, Eos # (Auto) 0.2, Baso # (Auto) 0.1, Sodium 135 L, Potassium 5.1, Chloride 105, Carbon Dioxide 26, BUN 22 H, Creatinine 2.00 H, Glucose 150 H, Calcium 9.1, Total Bilirubin 0.5, AST 28, ALT 26, Alkaline Phosphatase 88, Troponin I < 0.01, NT-Pro-B Natriuret Pep 335 H , Total Protein 6.3, Albumin 3.6 11/06/23 16:22: Troponin I < 0.01 11/06/23 14:45 11/06/23 14:45 Response Orders (Tests/Meds): ED MEDICATIONS Discontinued Medications Generic Name Dose Route Start Last Admin Trade Name Verenice PRN Reason Stop Dose Admin Acetaminophen 1,000 mg 11/06/23 14:46 11/06/23 15:24 Acetaminophen 1,000mg/100ml Vial IV 11/06/23 14:47 1,000 mg ONCE ONE Administration Belladonna Alkaloids 60 ml 11/06/23 15:29 11/06/23 16:11 Belladonna Alkaloids 60 Ml Ml PO 11/06/23 15:30 Not Given ONCE ONE Lactated Ringer's 1,000 mls @ 999 mls/hr 11/06/23 14:46 11/06/23 15:24 Lactated Ringer's 1000 Ml Bag IV 11/06/23 15:46 999 mls/hr .Q1H1M ONE Administration Ketorolac Tromethamine 15 mg 11/06/23 14:46 11/06/23 15:24 Ketorolac 30mg/Ml Vial IV 11/06/23 14:47 15 mg ONCE ONE Administration ORDERS Category Date Time Status Chest XR -- portable [XR chest portable] Stat Exams 11/06/23 14:46 Completed BNP [NT Pro Brain Natriuretic Pep.] Stat Lab 11/06/23 14:45 Results CBC w/Auto Diff [Complete Blood Count Auto Diff] Stat Lab 11/06/23 14:45 Completed CMP [Comprehensive Metabolic Panel] Stat Lab 11/06/23 14:45 Results Trop I [Troponin I] Stat Lab 11/06/23 14:45 Results Troponin I Q3H Lab 11/06/23 16:22 Completed Troponin I Q3H Lab 11/06/23 21:00 Ordered MDM Narrative Medical Decision Narrative: In summary patient is a 58-year-old male who presents to the emergency department for evaluation of low blood pressure and chest pressure. Patient is hemodynamically stable currently with a systolic of 111 at the time of my exam upon arrival, afebrile. Physical exam is unremarkable and nonfocal including normal breath sounds reproducible chest pressure on palpation normal heart sounds no epigastric pain no abdominal pain. Chest pressure is present at the time of my exam and is in the center of her chest and does not radiate and has not radiated.. Differential diagnosis includes ACS versus esophagitis versus GERD versus gastritis etc. Initial workup will be conducted with hematologic labs plain film chest x-ray twelve-lead EKG. Initial interventions include crystalloid bolus Toradol Tylenol GI cocktail. Initial workup reviewed by me and his troponins are undetectable x 2 however patient does have an elevated creatinine which he is aware of and is due to undergo renal ultrasound that is already scheduled. The remainder of his hematologic labs are nonactionable. Upon repeat evaluation patient has had resolution of his chest pressure after crystalloid bolus and acetaminophen. Given this patient is appropriate for discharge with instructions to set up a sooner follow-up appointment with cardiology to review his blood pressure regimen along with instructions to take blood pressure at least twice a day and take a log to the cardiology appointment. Patient to follow-up with his PCP this week as well for recheck of his creatinine. <Ricky Reardon MD - Last Filed: 11/06/23 15:30> Vital Signs Vital Signs: 11/06/23 14:47 11/06/23 15:00 11/06/23 15:30 Temperature 98 F Temperature Source Oral Pulse Rate 72 71 Pulse Rate [Left] 75 Respiratory Rate 12 15 17 Blood Pressure 115/57 L 131/67 Blood Pressure [Right Arm] 111/57 L Blood Pressure Mean Blood Pressure Mean [Right Arm] 75 Blood Pressure Source [Right Arm] Automatic Cuff Blood Pressure Position [Right Arm] Sitting 02 Sat by Pulse Oximetry 98 97 97 Oxygen Delivery Method Room Air Room Air 11/06/23 16:01 11/06/23 16:10 11/06/23 16:31 Temperature Temperature Source Pulse Rate 68 61 62 Pulse Rate [Left] Respiratory Rate 14 14 Blood Pressure 113/60 136/72 112/62 Blood Pressure [Right Arm] Blood Pressure Mean 78 Blood Pressure Mean [Right Arm] Blood Pressure Source [Right Arm] Blood Pressure Position [Right Arm] 02 Sat by Pulse Oximetry 97 98 98 Oxygen Delivery Method Room Air Room Air Room Air 11/06/23 17:00 Temperature Temperature Source Pulse Rate 60 Pulse Rate [Left] Respiratory Rate 13 Blood Pressure 112/59 L Blood Pressure [Right Arm] Blood Pressure Mean Blood Pressure Mean [Right Arm] Blood Pressure Source [Right Arm] Blood Pressure Position [Right Arm] 02 Sat by Pulse Oximetry 97 Oxygen Delivery Method Room Air Lab Data Labs: Lab Results 11/06/23 14:45: WBC 4.3 L, RBC 3.64 L, Hgb 11.9 L, Hct 35.3 L, MCV 97.0 H, MCH 32.6 H, MCHC 33.7, RDW 14.7, Plt Count 196, MPV 9.9, Neut % (Auto) 52.7, Lymph % (Auto) 35.7, Bucks % (Auto) 6.6, Eos % (Auto) 3.8, Baso % (Auto) 1.2, Neut # (Auto) 2.2, Lymph # (Auto) 1.5, Bucks # (Auto) 0.3, Eos # (Auto) 0.2, Baso # (Auto) 0.1, Sodium 135 L, Potassium 5.1, Chloride 105, Carbon Dioxide 26, BUN 22 H, Creatinine 2.00 H, Glucose 150 H, Calcium 9.1, Total Bilirubin 0.5, AST 28, ALT 26, Alkaline Phosphatase 88, Troponin I < 0.01, NT-Pro-B Natriuret Pep 335 H , Total Protein 6.3, Albumin 3.6 11/06/23 16:22: Troponin I < 0.01 Response Orders (Tests/Meds): ED MEDICATIONS Discontinued Medications Generic Name Dose Route Start Last Admin Trade Name Freq PRN Reason Stop Dose Admin Acetaminophen 1,000 mg 11/06/23 14:46 11/06/23 15:24 Acetaminophen 1,000mg/100ml Vial IV 11/06/23 14:47 1,000 mg ONCE ONE Administration Belladonna Alkaloids 60 ml 11/06/23 15:29 11/06/23 16:11 Belladonna Alkaloids 60 Ml Ml PO 11/06/23 15:30 Not Given ONCE ONE Lactated Ringer's 1,000 mls @ 999 mls/hr 11/06/23 14:46 11/06/23 15:24 Lactated Ringer's 1000 Ml Bag IV 11/06/23 15:46 999 mls/hr .Q1H1M ONE Administration Ketorolac Tromethamine 15 mg 11/06/23 14:46 11/06/23 15:24 Ketorolac 30mg/Ml Vial IV 11/06/23 14:47 15 mg ONCE ONE Administration ORDERS Category Date Time Status Chest XR -- portable [XR chest portable] Stat Exams 11/06/23 14:46 Completed BNP [NT Pro Brain Natriuretic Pep.] Stat Lab 11/06/23 14:45 Results CBC w/Auto Diff [Complete Blood Count Auto Diff] Stat Lab 11/06/23 14:45 Completed CMP [Comprehensive Metabolic Panel] Stat Lab 11/06/23 14:45 Results Trop I [Troponin I] Stat Lab 11/06/23 14:45 Results Troponin I Q3H Lab 11/06/23 16:22 Completed Troponin I Q3H Lab 11/06/23 21:00 Ordered ECG Data Tracing #1: ECG Narrative: Independently interpreted by me rate 73, rhythm is regular, axis is normal, no ST elevation in anatomical contiguous leads, QTc 400.
--- NOTE | 2023-11-06 14:46 | XR_ITS ---
PROCEDURE INFORMATION: Exam: XR Chest Exam date and time: 11/06/2023 2:49 PM Age: 58 years old Clinical indication: Pain; Chest pressure; Additional info: Chest pain TECHNIQUE: Imaging protocol: Radiologic exam of the chest. Views: 1 view. COMPARISON: CT LUNG SCREENING 06/17/2023 2:20 PM FINDINGS: Lungs: Stable right lower lobe granuloma. Pleural spaces: Unremarkable. No pleural effusion. No pneumothorax. Heart/Mediastinum: Unremarkable. No cardiomegaly. Bones/joints: Scattered degenerative change of the visualized osseous structures. IMPRESSION: No acute findings.
[2023-11-06 14:55] LABS: Basophils # 0.1 K/mm3 (0-0.2); Basophils % 1.2 % (0.1-2.0); Chloride 105 mmol/L (98-107); Eosinophils # 0.2 K/mm3 (0.0-0.4); Eosinophils % 3.8 % (0.1-12.0); Hematocrit 35.3 % (42.0-52.0); Hemoglobin 11.9 g/dL (14.1-18.0); Lymphocytes # 1.5 K/mm3 (0.7-4.5); Lymphocytes % 35.7 % (10-50); Mean Corpuscular HGB Conc 33.7 g/dL (31.8-35.4); Mean Corpuscular Hemoglobin 32.6 pg (27.0-31.2); Mean Platelet Volume 9.9 fl (7.4-10.4); Monocytes # 0.3 K/mm3 (0.1-1.0); Monocytes % 6.6 % (1.7-9.3); Neutrophils # 2.2 K/mm3 (1.8-7.8); Neutrophils % 52.7 % (37.0-80.0); Platelet Count 196 K/mm3 (142-424); Red Blood Count 3.64 M/mm3 (4.60-6.20); Red Cell Distribution Width 14.7 % (11.5-17.5); White Blood Count 4.3 K/mm3 (4.8-10.8)
[2023-11-06 14:56] LABS: Potassium 5.1 mmoL/L (3.5-5.1); Sodium 135 mmol/L (136-145)
[2023-11-06 14:58] LABS: Alanine Aminotransferase 26 U/L (12-78); Aspartate Amino Transferase 28 U/L (17-59); Blood Urea Nitrogen 22 mg/dl (9-20); Creatinine Clearance Estimated 50 mL/min (50-200); Estimated Glomerular Filt Rate 34 ml/min (>60); GFR (African American) 41 ML/MIN (>60)
[2023-11-06 14:59] LABS: Albumin Level 3.6 g/dl (3.5-5.0); Albumin/Globulin Ratio 1.3 (1.1-1.8); Alkaline Phosphatase 88 U/L (38-126); Anion Gap 9.1 mEq/L (5-15); Bilirubin,Total 0.5 mg/dl (0.2-1.3); Calcium 9.1 mg/dl (8.4-10.2); Carbon Dioxide 26 mmol/L (22.0-30.0); Globulin 2.7 g/dL (1.3-3.2); Glucose 150 mg/dl (74-100); Total Protein,Serum 6.3 g/dl (6.3-8.2)
[2023-11-06 15:08] LABS: NT Pro Brain Natriuretic Pep. 335 pg/mL (0-125)
[2023-11-06 15:22] LABS: Troponin I < 0.01 ng/ml (0.00-0.034)
[2023-11-06] MEDS: ACETAMINOPHEN 1,000MG/100ML VIAL 1000 MG IV (15:24)
[2023-11-06] MEDS: KETOROLAC 30MG/ML VIAL 15 MG IV (15:24)
[2023-11-06] MEDS: LACTATED RINGERS 1000ML 1,000 ML 999 ML IV (15:24)
--- NOTE | 2023-11-06 16:36 | PC.NURSE ---
rounded on pt no needs at this time and updated pt that we are waiting on second trop to come back before discharge
[2023-11-06 16:57] LABS: Troponin I < 0.01 ng/ml (0.00-0.034)
== END 2023-11-06 17:22 | disposition home or self-care (01) ==
PROVIDERS: Physician Assistant; Emergency Provider Emergency Medicine; PCP Family Medicine
DX: R07.89 Other chest pain (principal); I95.9 Hypotension, unspecified; I73.9 Peripheral vascular disease, unspecified; E11.40 Type 2 diabetes mellitus with diabetic neuropathy, unspecified; E78.5 Hyperlipidemia, unspecified; J44.9 Chronic obstructive pulmonary disease, unspecified; K21.9 Gastro-esophageal reflux disease without esophagitis; I11.9 Hypertensive heart disease without heart failure; I25.119 Atherosclerotic heart disease of native coronary artery with unspecified angina pectoris; Z79.01 Long term (current) use of anticoagulants; Z79.84 Long term (current) use of oral hypoglycemic drugs
CPT/HCPCS: 71045; 80053; 83880; 84484; 85025; 93005; 96361; 96374; 96375; 99284; J0131; J1885; J7120

== ENCOUNTER 2023-11-14 12:54 | Outpatient (CLI) | payer MEDICARE, MEDICAID, SELFPAY ==
--- NOTE | 2023-11-14 12:57 | US_ITS ---
FINAL REPORT CLINICAL HISTORY: Post void residual COMPARISON: None FINDINGS: ULTRASOUND BLADDER WITH POST VOID RESIDUAL Bladder volumes were estimated based on 3 dimensional measurements, pre- and postvoid. There are no filling defects. No wall thickness is seen. Prevoid bladder volume: 370 mls Postvoid bladder volume: 204 mls IMPRESSION: Moderate postvoid residual. Otherwise, unremarkable exam.. Reviewed, Interpreted and Dictated by Blanca Forbes MD Transcribed by Willa Daniels Authenticated and [facility]
--- NOTE | 2023-11-14 12:57 | US_ITS ---
FINAL REPORT CLINICAL HISTORY: abn kid function COMPARISON: None FINDINGS: RENAL ULTRASOUND Ultrasound images of the kidneys were obtained. The right kidney measures 11.3 cm in length. It is normal echogenicity. There is no hydronephrosis. The left kidney measures 10.7 cm in length. It is normal echogenicity. There is no hydronephrosis. IMPRESSION: Normal renal ultrasound. Reviewed, Interpreted and Dictated by Blanca Forbes MD Transcribed by Willa Daniels Authenticated and [facility]
== END 2023-11-14 23:59 | disposition home or self-care (01) ==
LOC: RAD 12:54
PROVIDERS: PCP Physician Assistant; Visit Provider Urology
DX: N31.9 Neuromuscular dysfunction of bladder, unspecified (principal); N40.0 Benign prostatic hyperplasia without lower urinary tract symptoms; N19 Unspecified kidney failure; N47.1 Phimosis
CPT/HCPCS: 76770; 76857

== ENCOUNTER 2023-11-15 18:09 | Outpatient (CLI) | payer MEDICARE, MEDICAID, SELFPAY ==
[2023-11-15 19:23] LABS: Anion Gap 14.5 mEq/L (5-15); Blood Urea Nitrogen 18 mg/dl (9-20); Calcium 9.3 mg/dl (8.4-10.2); Carbon Dioxide 24 mmol/L (22.0-30.0); Chloride 104 mmol/L (98-107); Estimated Glomerular Filt Rate 56 ml/min (>60); GFR (African American) 68 ML/MIN (>60); Glucose 121 mg/dl (74-100); Potassium 4.5 mmoL/L (3.5-5.1); Sodium 138 mmol/L (136-145)
== END 2023-11-15 23:59 | disposition home or self-care (01) ==
LOC: LAB.DROPOF 18:09
PROVIDERS: PCP Physician Assistant; Visit Provider Physician Assistant
DX: N19 Unspecified kidney failure (principal)
CPT/HCPCS: 80048

== ENCOUNTER 2023-12-20 12:07 | Outpatient (CLI) | payer MEDICARE, MEDICAID, SELFPAY ==
[2023-12-20 12:17] LABS: Microscopic, Urine URINE MICROSCOPIC (MICROSCOPIC)
[2023-12-20 12:59] LABS: Basophils % 1.2 % (0.1-2.0); Eosinophils # 0.2 K/mm3 (0.0-0.4); Eosinophils % 5.4 % (0.1-12.0); Hematocrit 39.1 % (42.0-52.0); Hemoglobin 12.2 g/dL (14.1-18.0); Lymphocytes # 1.3 K/mm3 (0.7-4.5); Lymphocytes % 35.2 % (10-50); Mean Corpuscular HGB Conc 31.2 g/dL (31.8-35.4); Mean Corpuscular Hemoglobin 32.6 pg (27.0-31.2); Mean Corpuscular Volume 104.5 fl (80-94); Mean Platelet Volume 10.1 fl (7.4-10.4); Monocytes # 0.3 K/mm3 (0.1-1.0); Monocytes % 7.3 % (1.7-9.3); Neutrophils # 1.8 K/mm3 (1.8-7.8); Neutrophils % 50.9 % (37.0-80.0); Platelet Count 197 K/mm3 (142-424); Red Blood Count 3.74 M/mm3 (4.60-6.20); Red Cell Distribution Width 14.7 % (11.5-17.5); White Blood Count 3.6 K/mm3 (4.8-10.8)
[2023-12-20 13:21] LABS: Chloride 107 mmol/L (98-107)
[2023-12-20 13:22] LABS: Potassium 5.2 mmoL/L (3.5-5.1); Sodium 136 mmol/L (136-145)
[2023-12-20 13:24] LABS: Blood Urea Nitrogen 16 mg/dl (9-20); Estimated Glomerular Filt Rate 68 ml/min (>60); GFR (African American) 83 ML/MIN (>60)
[2023-12-20 13:25] LABS: Anion Gap 9.2 mEq/L (5-15); Calcium 8.8 mg/dl (8.4-10.2); Carbon Dioxide 25 mmol/L (22.0-30.0); Glucose 141 mg/dl (74-100); Phosphorous 3.9 mg/dl (2.5-4.5)
[2023-12-20 13:32] LABS: 25-OH Vitamin D, Total 74.7 ng/mL (30-100)
[2023-12-20 13:37] LABS: Intact Parathyroid Hormone 84.7 pg/mL (7.5-53.5)
[2023-12-20 14:13] LABS: Appearance,Urine CLEAR (Clear); Bilirubin,Urine Negative (Negative); Blood, Urine Negative (Negative); Color,Urine YELLOW (Yellow); Glucose,Urine (UA) Negative (Negative); Ketones,Urine Negative (Negative); Leukocyte Esterase,Urine Negative (Negative); Nitrate,Urine Negative (Negative); Protein,Urine Negative (Negative); Urobilinogen,Urine 0.2 EU/dl (0.2)
[2023-12-20 14:21] LABS: Creatinine,Urine Random 44 mg/dL (Not Estab.)
[2023-12-20 14:29] LABS: Bacteria,Urine Trace /lpf; Squamous Epithelial Cell,Urine Occasional #/hpf (0-5)
== END 2023-12-20 23:59 | disposition home or self-care (01) ==
LOC: LAB 12:09
PROVIDERS: PCP Physician Assistant; Visit Provider Internal Medicine Nephrology
DX: N18.2 Chronic kidney disease, stage 2 (mild) (principal); E55.9 Vitamin D deficiency, unspecified
CPT/HCPCS: 36415; 80069; 81001; 82306; 82570; 83970; 84156; 85025

== ENCOUNTER 2023-12-23 13:38 | Outpatient (POV) | payer MEDICARE, MEDICAID, SELFPAY | END 2023-12-23 23:59 | disposition home or self-care (01) | LOC: SC 13:38 | PROVIDERS: Visit Provider Student in an Organized Health Care Education/Training Program | DX: Z00.00 Encounter for general adult medical examination without abnormal findings (principal) ==

== ENCOUNTER 2024-03-12 12:50 | Outpatient (CLI) | payer MEDICARE, MEDICAID, SELFPAY ==
--- OUTSIDE RECORDS SUMMARY | 2024-03-12 12:52 | XMS_ITS | Clinical Summary ---
Author Organization [facility] Address [address] [id number] Care Team Providers Care Manufacturing Baker Name Role Phone Glenna Ayala FRANCK Primary Care Provider [phone]- [phone] Allergies No known active allergies Medications Albuterol Sulfate 108 (90 Base) MCG/ACT aerosol powder Inhale. Activ e aspirin 81 MG EC tablet Take 1 tablet (81 mg) by mouth 1 (one) time each day. Active ATENOLOL PO Take by mouth. Take 1 and 1/2 tabs daily Active atorvastatin (Lipitor) 80 MG tablet Take 1 tablet (80 mg) by mouth 1 (one) time each day. Active clopidogrel (Plavix) 75 MG tablet Take by mouth 1 (one) time each day. Active ergocalciferol (Vitamin D-2) 1.25 MG (59158 UT) capsule Take 1 capsule (50,000 Units) by mouth 1 (one) time per week. Active Evolocumab 140 MG/ML solution auto-injector Inject under the skin. Active fluticasone (Flonase) 50 MCG/ACT nasal spray Administer 1 spray into each nostril 1 (one) time each day. Shake gently. Before first use, prime pump. After use, clean tip and replace cap. Active gabapentin (Neurontin) 300 MG capsule Take 1 capsule (300 mg) by mouth 2 (two) times a day. Active gemfibrozil (Lopid) 600 MG tablet Take 1 tablet (600 mg) by mouth 2 (two) times a day before meals. Active hydroCHLOROthia zide (HYDRODiuril) 12.5 MG tablet Take 1 tablet (12.5 mg) by mouth 1 (one) time each day. Active HYDROcodone-ngozi taminophen (Sunol) 7.5-325 MG tablet Active lisinopril 2.5 MG tablet Take 1 tablet (2.5 mg) by mouth 1 (one) time each day. Active Multiple Vitamin (multivitamin) capsule Take 1 capsule by mouth 1 (one) time each day. Active omeprazole (PriLOSEC) [address] capsule Take 1 capsule (20 mg) by mouth 1 (one) time each day. Do not crush or chew. Active PIOGLITAZONE HCL PO Take by mouth. Activ e ranolazine (Ranexa) 1000 MG 12 hr tablet Take 1,000 mg by mouth 2 (two) times a day. Do not crush, chew, or split. Active Tradjenta 5 MG tablet Take 1 tablet (5 mg) by mouth 1 (one) time each day. 1 Active FeroSul 325 (65 Fe) MG tablet Take 1 tablet (325 mg) by mouth 1 (one) time each day. 2 Active metFORMIN XR (Glucophage-XR) 500 MG 24 hr tablet Take 2 tablets (1,000 mg) by mouth 2 (two) times a day. 2 Active furosemide (Lasix) 20 MG tablet 3 Active montelukast (Singulair) 10 MG tablet Take 1 tablet (10 mg) by mouth 1 (one) time each day in the evening. 3 Active Xarelto 2.5 MG tablet 3 Active cetirizine (ZyrTEC) 10 MG tablet Take 1 tablet (10 mg) by mouth 1 (one) time each day. 3 Active Symbicort 80-4.5 MCG/ACT inhaler INHALE TWO PUFFS BY MOUTH TWICE DAILY DIRECTED --RINSE MOUTH AFTER USE-- 3 Active Active Problems Problem Noted Date Diagnosed Date Coronary artery disease invo lving gambell coronary artery of gambell heart without angina pectoris 12/23/2023 Hypertensive chronic kidney disease with stage 1 through stage 4 chronic kidney disease, or unspecified chronic kidney disease 12/23/2023 Chronic kidney disease-mineral and bone disorder (CKD-MBD) 12/23/2023 Obesity (BMI 30.0-34.9) 12/23/2023 Hypervolemia associated with renal insufficiency 12/23/2023 CKD stage 2 due to type 2 diabetes mellitus 06/2021 Hyperkalemia 06/18/2021 Diabetes mellitus type 2 12/25/2020 Overview (01/18/2022): Regulatory Update January 2022 Hypertension 12/25/2020 Encounters Date Type Department Care Team Description 12/23/2023 12:20 PM EDT Office Visit [facility] [address] [place] [address] Raymon Chin MD Coronary artery disease involving gambell coronary artery of gambell heart without angina pectoris (Primary Dx); CKD stage 2 due to type 2 diabetes mellitus (CMS/HCC); Hypertensive chronic kidney disease with stage 1 through stage 4 chronic kidney disease, or unspecified chronic kidney disease; Chronic kidney disease-mineral and bone disorder (CKD-MBD); Obesity (BMI 30.0-34.9); Hypervolemia associated with renal insufficiency 12/23/2023 Travel from Last 3 Months Immunizations Name Administration Dates Next Due Influenza, injectable, quadrivalent 01/25/2019 Influenza, injectable, quadr ivalent, preservative free 01/29/2022,02/04/2021,01/26/2017,01/27 Influenza, seasonal, injecta ble, preservative free 02/16/2018 Gurwinder COVID-19 Vaccine (Bl ue Cap) 18+ 06/25/2020 Pneumococcal Conjugate PCV 13 01/26/2017 Pneumococcal Polysaccharide PPV23 01/26/2017 Tdap 04/08/2020,08/17/2016 Family History Medical History Relation Name Comments Diabetes Father Hypertension Father Kidney disease Father Heart attack Mother Hypertension Mother Diabetes Sister Relation Name Status Comments Father Mother Sister Social History Tobacco Use Types Packs/Day Years Used Date Smoking Tobacco: Former Passive Smoke Exposure: Past Smokeless Tobacco: Never Tobacco Cessation:Counseling Given: Not Answered Sex and Gender Information Value Date Recorded Sex Assigned at Not on file Legal Sex Male 7:33 PM EDT Gender Identity Not on file Sexual Orientation Not on file Last Filed Vital Signs Vital Sign Reading Time Taken Comments Blood Pressure 109/54 12/23/2023 12:35 PM EDT Pulse 73 12/23/2023 12:34 PM EDT Temperature 35.6 ??C (96.1 ??F) 12/23/2023 12:34 PM E DT Respiratory Rate 16 11/29/2022 4:08 PM EDT Oxygen Saturation 96% 12/23/2023 12:34 PM EDT Inhaled Oxygen Concentration - - Weight 90.8 kg (200 lb 2 oz) 12/23/2023 12:34 PM EDT Height 162.6 cm (5' 4 ) 11/06/2015 2:43 PM EDT Body Mass Index 34.35 11/06/2015 2:43 PM EDT Plan of Treatment Upcoming Encounters Date Type Department Care Team (Late st Contact Info) Description 07/20/2024 11:40 AM EDT Office Visit [facility] [address] [place] [address] Raymon Chin MD [address] [place] [phone] Health Maintenance Due Date Last Done Comments [facility]-Depression Screening 1963 [facility]-Diabetes: Hemoglobin A1C 1963 [facility]-HIV Screening 1963 [facility]-Hepatitis C Screening 1965 [facility]-Medicare Annual Wellness (AWV) 1965 [facility]-Infant/Child/Adol SDOH Screenings 1963 Diabetes: Dental Exam 06/26/1973 [facility]- SDOH Screenings 06/26/1981 [facility]-Adult SDOH Screenings 06/26/1981 [facility]-Zoster Vaccines (1 of 2) 06/26/1982 CT Colonography 06/26/2008 Colonoscopy 06/26/2008 FIT-DNA 06/26/2008 FIT 06/26/2008 FOBT 06/26/2008 Sigmoidoscopy 06/26/2008 [facility]-Colorectal Cancer Screening 06/26/2008 [id number] Vaccine (2 - Gurwinder risk series) 07/23/2020 06/25/2020 [facility]-Pneumococcal Vaccine: Pediatrics (0 to 5 Years) and At-Risk Patients (6 to 64 Years) (3 of 3 - PPSV23 or PCV20) 01/26/2022 01/26/2017, 01/26/2017 [facility]-RSV Vaccine: 60+ Years or (1 - Risk 60-74 years 1-dose series) 2023 [facility]-Influenza Vaccine (#1) 12/18/202302/04, 01/29/2022, 02/04/2021, Additional history exists [facility]-DTaP,Tdap,and Td Vaccines (3 - Td or Tdap) 04/08/2030 04/08/2020, 08/17/2016 [facility]-Obesity Intervention Completed 12/23/2023 [facility]-HIB Vaccines Aged Out No longer e ligible based on patient's age to complete this topic [facility]-HPV Vaccines Aged Out No longer e ligible based on patient's age to complete this topic [facility]-Hepatitis A Vaccines Aged Out No longer eligible based on patient's age to complete this topic [facility]-IPV Vaccines Aged Out No longer e ligible based on patient's age to complete this topic [facility]-Rotavirus Vaccines Aged Out No lo nger eligible based on patient's age to complete this topic Additional Health Concerns Infection Onset Date Last Indicated MRSA 12/25/2020 12/25/2020 Insurance Care Teams Manufacturing Baker Relationship Specialty Start Date End Date Glenna Ayala APRN [address] [place] [address] PCP - General 08/29/20
--- OUTSIDE RECORDS SUMMARY | 2024-03-12 12:52 | XMS_ITS | Encounter Summary ---
Author Organization [facility] Address [address] [place] [address] Care Team Providers Care Billboard Poster Name Role Phone Glenna Ayala FRANCK Primary Care Provider [phone]- [phone] Reason for Visit * Reason Comments Consult Encounter Details Date Type Department Care Team (Late st Contact Info) Description 12/29/2020 1:40 PM EDT Consult [facility] [address] [place] [address] Edison Andino MD [address] [phone] Hyperkalemia (Primary Dx); CKD (chronic kidney disease) stage 2, GFR 60-89 ml/min; Essential hypertension; Diabetes mellitus type 2 (CMS/HCC); Anemia, unspecified type Social History Tobacco Use Types Packs/Day Years Used Date Smoking Tobacco: Former Smokeless Tobacco: Never Sex and Gender Information Value Date Recorded Sex Assigned at Not on file Legal Sex Male 7:33 PM EDT Gender Identity Not on file Sexual Orientation Not on file COVID-19 Exposure Response Date Recorded In the last month, have you been in contact with someone who was confirmed or suspected to have Coronavirus / COVID-19? No / Unsure 12/29/2020 1:48 PM EDT documented as of this encounter Last Filed Vital Signs Vital Sign Reading Time Taken Comments Blood Pressure 122/71 12/29/2020 2:01 PM EDT Pulse 86 12/29/2020 2:01 PM EDT Temperature - - Respiratory Rate - - Oxygen Saturation - - Inhaled Oxygen Concentration - - Weight 82.6 kg (182 lb) 12/29/2020 2:01 PM EDT Height - - Body Mass Index 31.24 11/06/2015 2:43 PM EDT documented in this encounter Miscellaneous Notes * Progress Notes - Edison Andino MD - 12/29/2020 1:40 PM EDT Patient identity has been confirmed using name and date of ? Yes Authorizations and Agreements/Telemedicine Consent sent and consent confirmed? Yes Patient confirms they are physically located in [place]? Yes SUBJECTIVE Parish Hernandez presents as a consult for hyperkalemia. HISTORY OF PRESENT ILLNESS 55 yo M with PMH of DM2, HTN, HLD, CAD s/p PCI who has been referred to renal clinic for evaluationof hyperkalemia. Potassium as high as 5.6 during September 2020. Reports feeling well today. Denies any major issues. At time of elevated potassium, pt denies any acute changes in medications. He did eat plenty of tomatoes, potatoes, etc during the summer. He doesnot take nsaids. BP controlled with lisinopril 2.5 mg daily, atenolol, hydrochlorothiazide 12.5 mg daily. Taking many oral medications for DM, not on insulin. Gabapentin for neuropathy. [place] for chronic pain as needed. Denies dysuria, hematuria, abd pain, SOA, CP, MARTINEZ, NVD, F/C. Past Medical History: Diagnosis Date ??? Cancer (CMS/HCC) ??? Coronary artery disease ??? GERD (gastroesophageal reflux disease) ??? Lung disease ??? MRSA (methicillin resistant Staphylococcus aureus) ??? Peripheral vascular disease (CMS/HCC) Family History Problem Relation Name Age of Onset ??? Heart attack Mother ??? Hypertension Mother ??? Diabetes Father ??? Kidney disease Father ??? Hypertension Father ??? Diabetes Sister Past Surgical History: Procedure Laterality Date ??? CORONARY STENT PLACEMENT - Reports stenting of arteries in legs x2 Social History Tobacco Use ??? Smoking status: Former Smoker ??? Smokeless tobacco: Never Used Substance Use Topics ??? Alcohol use: Not on file Current Outpatient Medications Medication Sig Dispense Refill ??? Albuterol Sulfate 108 (90 Base) MCG/ACT aerosol powder Inhale. ??? aspirin 81 MG EC tablet Take 81 mg by mouth 1 (one) time each day. ??? ATENOLOL PO Take by mouth. Take 1 and 1/2 tabs daily ??? atorvastatin (Lipitor) 80 MG tablet Take 80 mg by mouth 1 (one) time each day. ??? clopidogrel (Plavix) 75 MG tablet Take by mouth 1 (one) time each day. ??? ergocalciferol (Vitamin D-2) 1.25 MG (41470 UT) capsule Take 50,000 Units by mouth 1 (one) timeper week. ??? Evolocumab 140 MG/ML solution auto-injector Inject under the skin. ??? fluticasone (Flonase) 50 MCG/ACT nasal spray Administer 1 spray into each nostril 1 (one) time each day. Shake gently. Before first use, prime pump. After use, clean tip and replace cap. ??? gabapentin (Neurontin) 300 MG capsule Take 300 mg by mouth 2 (two) times a day. ??? gemfibrozil (Lopid) 600 MG tablet Take 600 mg by mouth 2 (two) times a day before meals. ??? hydroCHLOROthiazide (HYDRODiuril) 12.5 MG tablet Take 12.5 mg by mouth 1 (one) time each day. ??? HYDROcodone-acetaminophen ([place]) 7.5-325 MG tablet ??? levocetirizine (Xyzal) 2.5 mg split tablet 1 (one) time each day in the evening. ??? lisinopril 5 MG tablet Take 5 mg by mouth 1 (one) time each day. ??? METFORMIN HCL PO Take by mouth 2 (two) times a day. ??? Multiple Vitamin (multivitamin) capsule Take 1 capsule by mouth 1 (one) time each day. ??? omeprazole (PriLOSEC) [address] capsule Take 20 mg by mouth 1 (one) time each day. Do not crush or chew. ??? PIOGLITAZONE HCL PO Take by mouth. ??? ranolazine (Ranexa) 1000 MG 12 hr tablet Take 1,000 mg by mouth 2 (two) times a day. Do not crush, chew, or split. No current facility-administered medications for this visit. No Known Allergies All medications have been reviewed today. REVIEW OF SYSTEMS 14 point ROS conducted and is negative except for what is stated in HPI. OBJECTIVE There were no vitals filed for this visit. PHYSICAL EXAMINATION Gen: NAD, overweight HEENT: normocephalic-appearing, external structure of ears normal, anicteric sclera, wearing mask Neck: trachea midline Skin: no rash noted on arms CV: regular rate, limited due to telehealth Resp: symmetrical chest expansion, no increased work of breathing, good insp/exp effort MSK: ok ROM of upper extremities. Neuro: AOx3, cortical function grossly intact Psych: affect congruent with mood, judgement normal LAB RESULTS No results found for: PROT, ALBUMIN Lab Results Component Value Date GLUCOSE 121 10/03/2020 CALCIUM 9.3 10/03/2020 NA 139 10/03/2020 K 4.9 10/03/2020 CO2 27 10/03/2020 CL 100 10/03/2020 BUN 15 10/03/2020 CREATININE 1.00 10/03/2020 Lab Results Component Value Date CALCIUM 9.3 10/03/2020 No results found for: WBC, HGB, HCT, MCV, PLT Reviewed outside labs with pt for this month. ASSESSMENT/PLAN Assessment: - Hyperkalemia: likely combination of CKD 2, hyperglycemia with high potassium diet. Has since improved. Lisinopril only 2.5 mg and likely not having a major role. - CKD 2: likely due to DM 2, HTN. Baseline Cr 1.0-1.1, eGFR between 60-70 ml/min. No proteinuria. - HTN: BP controlled. - DM2: control unknown. - Anemia: mild. Hb 12.5 g/dL. - CKD-MBD: vit D and PTH wnl. Plan/ Recs: - at this time, no changes in medical mgmt. Pt given low potassium handout in the case his potassium should rise. - will monitor renal function over time - discussed importance of diabetic control and weight loss - continue current BP control RTC in 6 months Visit Type Telecare via online digital audio and video Patient Location [facility] Provider Location Provider's Home Total Time 50 minutes including precharting, lab review, pt interview, and documentation documented in this encounter Plan of Treatment Upcoming Encounters Date Type Department Care Team (Late st Contact Info) Description 07/20/2024 11:40 AM EDT Office Visit [facility] [address] [address] Raymon Chin MD [address] [place] [address] Scheduled Orders Name Type Priority Associated Diagnoses Orde r Schedule CBC W/O Differential Lab Routine CKD (chronic kidney disease) stage 2, GFR 60-89 ml/min Expected: 06/28/2021, Expires: 12/29/2021 documented as of this encounter Procedures Procedure Name Priority Date/Time Associated Diagnosis Comments BASIC METABOLIC PANEL, PLASMA Routine 10/03/2020 BASIC METABOLIC PANEL, PLASMA Routine 09/29/2020 BASIC METABOLIC PANEL, PLASMA Routine 09/23/2020 documented in this encounter Results * Basic Metabolic Panel, Plasma (10/03/2020) External Glucose 121 External BUN 15 External Creatinine Blood 1.00 mg/dL External Sodium (Na) 139 mEq/L External Potassium (K) 4.9 External Chloride (Cl) 100 External Carbon Dioxide (CO2) 27 External Calcium (Ca) 9.3 External Estimated GFR 77 Blood Venous blood specimen / Unknown 10/03/2020 Historical Provider LAB BLOOD ORDERABLES Shameka l Result * Basic Metabolic Panel, Plasma (09/29/2020) External Glucose 118 External BUN 19 External Creatinine Blood 1.20 mg/dL External Sodium (Na) 139 mEq/L External Potassium (K) 5.2 External Chloride (Cl) 100 External Carbon Dioxide (CO2) 28 External Calcium (Ca) 9.5 External Estimated GFR 62 Blood Venous blood specimen / Unknown 09/29/2020 Historical Provider LAB BLOOD ORDERABLES Shameka l Result * Basic Metabolic Panel, Plasma (09/23/2020) External Glucose 113 External BUN 17 External Creatinine Blood 1.20 mg/dL External Sodium (Na) 138 mEq/L External Potassium (K) 5.6 External Chloride (Cl) 105 External Carbon Dioxide (CO2) 24 External Calcium (Ca) 9.7 External Estimated GFR 62 Blood Venous blood specimen / Unknown 09/23/2020 Historical Provider LAB BLOOD ORDERABLES Shameka l Result documented in this encounter Visit Diagnoses Diagnosis Hyperkalemia- Primary Hyperpotassemia CKD (chronic kidney disease) stage 2, GFR 60-89 ml/min Chronic kidney disease, Stage II (mild) Essential hypertension Unspecified essential hypertension Diabetes mellitus type 2 Anemia, unspecified type documented in this encounter Additional Health Concerns Infection Onset Date Last Indicated Resolved Time MRSA 12/25/2020 12/25/2020 documented as of this encounter Care Teams Billboard Poster Relationship Specialty Start Date End Date Glenna Ayala APRN [address] [place] [address] PCP - General 08/29/20 documented as of this encounter
--- OUTSIDE RECORDS SUMMARY | 2024-03-12 12:52 | XMS_ITS | Encounter Summary ---
Author Organization [facility] Address [address] [id number] Care Team Providers Care Photographer Lithographic Name Role Phone Glenna Ayala APRN Primary Care Provider +1- [phone] Encounter Details Date Type Department Care Team (Latest Contact Info) Description 11/29/2022 Travel Social History Tobacco Use Types Packs/Day Years Used Date Smoking Tobacco: Former Passive Smoke Exposure: Past Smokeless Tobacco: Never Sex and Gender Information Value Date Recorded Sex Assigned at Not on file Legal Sex Male 7:33 PM EDT Gender Identity Not on file Sexual Orientation Not on file documented as of this encounter Plan of Treatment Upcoming Encounters Date Type Department Care Team (Late st Contact Info) Description 07/20/2024 11:40 AM EDT Office Visit [facility] [address] [place] [phone] Raymon hCin MD [address] [place] [phone] documented as of this encounter Visit Diagnoses Not on filedocumented in this encounter Additional Health Concerns Infection Onset Date Last Indicated Resolved Time MRSA 12/25/2020 12/25/2020 documented as of this encounter Care Teams Photographer Lithographic Relationship Specialty Start Date End Date Glenna Ayala APRN [address] [place] [address] PCP - General 08/29/20 documented as of this encounter
--- OUTSIDE RECORDS SUMMARY | 2024-03-12 12:52 | XMS_ITS | Encounter Summary ---
Author Organization [facility] Address [address] [place] [address] Care Team Providers Care Saw Boss Name Role Phone Glenna Ayala APRN Primary Care Provider +1- [phone] Reason for Visit * Reason Comments Follow-up Encounter Details Date Type Department Care Team (Late st Contact Info) Description 11/29/2022 3:40 PM EDT Office Visit [facility] [address] [place] [address] Edison Andino MD [address] [phone] CKD (chronic kidney disease) stage 2, GFR 60-89 ml/min (Primary Dx) Social History Tobacco Use Types Packs/Day Years Used Date Smoking Tobacco: Former Passive Smoke Exposure: Past Smokeless Tobacco: Never Tobacco Cessation:Counseling Given: Not Answered Sex and Gender Information Value Date Recorded Sex Assigned at Not on file Legal Sex Male 7:33 PM EDT Gender Identity Not on file Sexual Orientation Not on file documented as of this encounter Last Filed Vital Signs Vital Sign Reading Time Taken Comments Blood Pressure 94/56 11/29/2022 4:08 PM EDT Pulse 75 11/29/2022 4:08 PM EDT Temperature - - Respiratory Rate 16 11/29/2022 4:08 PM EDT Oxygen Saturation 97% 11/29/2022 4:08 PM EDT Inhaled Oxygen Concentration - - Weight 87.4 kg (192 lb 9.6 oz) 11/29/2022 4:08 P M EDT Height - - Body Mass Index 33.06 11/06/2015 2:43 PM EDT documented in this encounter Miscellaneous Notes * Progress Notes - Edison Andino MD - 11/29/2022 3:40 PM EDT Patient identity has been confirmed using name and date of ? Yes Authorizations and Agreements/Telemedicine Consent sent and consent confirmed? Yes Patient confirms they are physically located in [place]? Yes SUBJECTIVE Parish Hernandez is a 57 y.o. male who presents for follow-up of CKD 2. Feeling well. Denies any changes since last visit. Denies hematuria, dysuria, abd pain, SOA, CP. OBJECTIVE Vitals: 11/29/22 1608 BP: 94/56 Pulse: 75 Resp: 16 SpO2: 97% PHYSICAL EXAMINATION Gen: NAD, obese HEENT: AT/NC, EOMI CV: regular rate Pulm: symmetric chest expansion, no increased work of breathing LAB RESULTS Outside labs reviewed. ASSESSMENT/PLAN Assessment: - Hyperkalemia: likely combination of CKD 2, hyperglycemia with high potassium diet. Low dose lisinopril may have slight role. Hyperkalemia has remained < 5.5 mmol/L. Latest Cr wnl. - CKD 2: likely due to DM 2, HTN. Baseline Cr 1.0-1.1, eGFR between 60-70 ml/min. UPC 0.2 mg/mg. UAbland. - HTN: BP controlled. - DM2: last HbA1c 6.5%, excellent control. - Anemia: Hb 13.1 g/dL, very mild. - CKD-MBD: vit D 43 and PTH 79 Plan/ Recs: -continue to follow low K diet - will monitor renal function over time - work on any lifestyle modifications for weight loss, etc. - continue current BP control RTC in 1 year Visit Type Telecare via online digital audio and video Patient Location [facility] Provider Location Provider's Home Total Time 10 minutes Orders Placed This Encounter Procedures PTH Intact Total Standing Status: Future Standing Expiration Date: 11/30/2023 Order Specific Question: Release to patient in [facility] Answer: Immediate Vitamin D 25 Hydroxy Standing Status: Future Standing Expiration Date: 11/30/2023 Order Specific Question: Release to patient in [facility] Answer: Immediate Creatinine, Random, Urine Standing Status: Future Standing Expiration Date: 06/01/2023 Order Specific Question: Release to patient in MyChart Answer: Immediate Protein, Random, Urine with Creatinine Standing Status: Future Standing Expiration Date: 06/01/2023 Order Specific Question: Release to patient in MyChart Answer: Immediate Urinalysis with reflex microscopic Standing Status: Future Standing Expiration Date: 03/01/2023 Order Specific Question: Release to patient in MyChart Answer: Immediate CBC W/O Differential Standing Status: Future Standing Expiration Date: 11/30/2023 Order Specific Question: Release to patient in MyChart Answer: Immediate Renal Function Panel, Plasma Standing Status: Future Standing Expiration Date: 11/30/2023 Order Specific Question: Release to patient in MyChart Answer: Immediate documented in this encounter Plan of Treatment Upcoming Encounters Date Type Department Care Team (Late st Contact Info) Description 07/20/2024 11:40 AM EDT Office Visit [facility] [address] [place] [phone] Raymon Chin MD [address] [place] [phone] documented as of this encounter Visit Diagnoses Diagnosis CKD (chronic kidney disease) stage 2, GFR 60-89 ml/min- Primary Chronic kidney disease, Stage II (mild) documented in this encounter Additional Health Concerns Infection Onset Date Last Indicated Resolved Time MRSA 12/25/2020 12/25/2020 documented as of this encounter Care Teams Saw Boss Relationship Specialty Start Date End Date Glenna Ayala APRN [address] [facility] [place] [address] PCP - General 08/29/20 documented as of this encounter
--- OUTSIDE RECORDS SUMMARY | 2024-03-12 12:52 | XMS_ITS | Encounter Summary ---
Author Organization Healthcare Address [facility] [place] [id number] Care Team Providers Care Farm Owner Operator Name Role Phone Glenna Ayala APRN Primary Care Provider +1- [phone] Encounter Details Date Type Department Care Team (Latest Contact Info) Description 06/18/2021 Travel Social History Tobacco Use Types Packs/Day [...] have Coronavirus / COVID-19? No / Unsure 06/18/2021 1:32 PM EST documented as of this encounter Plan of Treatment Upcoming Encounters Date Type Department Care Team (Late st Contact Info) Description 07/20/2024 11:40 AM EDT Office Visit [facility] [address] [place] [phone] Raymon Chin MD [address] [place] [phone] documented as of this encounter Visit Diagnoses Not on filedocumented in this encounter Additional Health Concerns Infection Onset Date Last Indicated Resolved Time MRSA 12/25/2020 12/25/2020 documented as of this encounter Care Teams Farm Owner Operator Relationship Specialty Start Date End Date Glenna Ayala APRN [address] [place] [address] PCP - General 08/29/20 documented as of this encounter
--- OUTSIDE RECORDS SUMMARY | 2024-03-12 12:52 | XMS_ITS | Encounter Summary ---
Author Organization [facility] Address [address] [place], [place] [id number] Care Team Providers Care Supervisor Brew House Name Role Phone Glenna Ayala APRN Primary Care Provider +1- [phone] Encounter Details Date Type Department Care Team (Late st Contact Info) Description 12/03/2020 Orders Only [place] [id number] [place] [address] Elle Li Hyperkalemia (Primary Dx); Vitamin D deficiency Social History Tobacco Use Types Packs/Day Years Used Date Smoking Tobacco: Never Assessed Sex and Gender Information Value Date Recorded Sex Assigned at Not on file Legal Sex Male 7:33 PM EDT Gender Identity Not on file Sexual Orientation Not on file documented as of this encounter Plan of Treatment Upcoming Encounters Date Type Department Care Team (Late st Contact Info) Description 07/20/2024 11:40 AM EDT Office Visit [place] [phone] [place] [address] Raymon Chin MD [address] [place] [phone] Scheduled Orders Name Type Priority Associated Diagnoses Orde r Schedule PTH Intact Total Lab Routine Hyperkalemia 1 Occurrences starting 12/03/2020 until 12/03/2021 Vitamin D 25 Hydroxy Lab Routine Hyperkalemia Vitamin D deficiency 1 Occurrences starting 12/03/2020 until 12/03/2021 Urinalysis with reflex microscopic Lab Routine Hyperkalemia 1 Occurrences starting 12/03/2020 until 12/03/2021 Protein, Random, Urine Lab Routine Hyperkalemia 1 Occurrences starting 12/03/2020 until 12/03/2021 Creatinine, Random, Urine Lab Routine Hyperkalemia 1 Occurrences starting 12/03/2020 until 12/03/2021 CBC and Differential Lab Routine Hyperkalemia 1 Occurrences starting 12/03/2020 until 12/03/2021 Renal Function Panel, Plasma Lab Routine Hyperkalemia 1 Occurrences starting 12/03/2020 until 12/03/2021 documented as of this encounter Visit Diagnoses Diagnosis Hyperkalemia- Primary Hyperpotassemia Vitamin D deficiency documented in this encounter Care Teams Supervisor Brew House Relationship Specialty Start Date End Date Glenna Ayala APRN [address] [place] [address] PCP - General 08/29/20 documented as of this encounter
--- OUTSIDE RECORDS SUMMARY | 2024-03-12 12:52 | XMS_ITS | Encounter Summary ---
Author Organization [facility] Address [address] [place], [place] [address] Care Team Providers Care Fur Tanner Name Role Phone Glenna Ayala APRN Primary Care Provider +1- [phone] Encounter Details Date Type Department Care Team (Late st Contact Info) Description 06/02/2022 Orders Only [place] [id number] [place] [address] Elle Li CKD (chronic kidney disease) stage 2, GFR 60-89 ml/min (Primary Dx); Vitamin D deficiency Social History [...] Description 07/20/2024 11:40 AM EDT Office Visit [facility] [address] [place] [address] Raymon Chin MD [address] [place] [phone] documented as of this encounter Visit Diagnoses Diagnosis CKD (chronic kidney disease) stage 2, GFR 60-89 ml/min- Primary Chronic kidney disease, Stage II (mild) Vitamin D deficiency documented in this encounter Additional Health Concerns Infection Onset Date Last Indicated Resolved Time MRSA 12/25/2020 12/25/2020 documented as of this encounter Care Teams Fur Tanner Relationship Specialty Start Date End Date Glenna Ayala APRN [address] [facility] [place], [place] [phone] PCP - General 08/29/20 documented as of this encounter
--- OUTSIDE RECORDS SUMMARY | 2024-03-12 12:52 | XMS_ITS | Encounter Summary ---
Author Organization Healthcare Address [address] [place] [address] Care Team Providers Care Clay Caster Name Role Phone Glenna Ayala APRN Primary Care Provider +1- [phone] Reason for Visit * Reason Comments Follow-up Encounter Details Date Type Department Care Team (Late st Contact Info) Description 06/18/2021 1:40 PM EST Office Visit [facility] [address] [place] [address] Edison Andino MD [address] [phone] Hyperkalemia (Primary Dx); CKD (chronic kidney disease) stage 2, GFR 60-89 ml/min; Primary hypertension; Diabetes mellitus type 2 ([facility]/HCC) Social History Tobacco Use Types Packs/Day Years [...] PM EST documented as of this encounter Last Filed Vital Signs Vital Sign Reading Time Taken Comments Blood Pressure 132/77 06/18/2021 1:44 PM EST Pulse 82 06/18/2021 1:44 PM EST Temperature - - Respiratory Rate - - Oxygen Saturation - - Inhaled Oxygen Concentration - - Weight 80.7 kg (178 lb) 06/18/2021 1:44 PM EST Height - - Body Mass Index 30.55 11/06/2015 2:43 PM EDT documented in this encounter Miscellaneous Notes * Progress Notes - Jersey Andino MD - 06/18/2021 1:40 PM EST SUBJECTIVE Parish Hernandez is a 55 y.o. male who presents for follow-up of CKD 2 and hyperkalemia. Feeling well. Denies any major changes. He has not been adhering to low potassium diet. Denies hematuria, dysuria, abd pain, SOA, CP. OBJECTIVE Vitals: 06/18/21 1344 BP: 132/77 Pulse: 82 PHYSICAL EXAMINATION Gen: NAD, well-developed HEENT: AT/NC, EOMI, wearing mask Neck: trachea midline, supple Skin: warm, dry CV: RRR, no edema Pulm: no increased work of breathing, symmetric chest expansion, good inspiratory/expiratory effort GI: abd soft, ND Neuro: alert, interactive, cortical function grossly intact LAB RESULTS Outside labs reviewed. ASSESSMENT/PLAN Assessment: - Hyperkalemia: likely combination of CKD 2, hyperglycemia with high potassium diet. Low dose lisinopril may have slight role. Hyperkalemia has remained < 5.5 mmol/L. - CKD 2: likely due to DM 2, HTN. Baseline Cr 1.0-1.1, eGFR between 60-70 ml/min. UPC 0.19 mg/mg. UA bland. - HTN: BP controlled. - DM2: HbA1c 6.5%, excellent control. - Anemia: improved, Hb now wnl. 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 ?? Plan/ Recs: - recommend he follow low K diet. Continue lisinopril. If K remains < 5.5 mmol/L, no need to adjust medications. - will monitor renal function over time - work on any lifestyle modifications for weight loss, etc. - continue current BP control See back in 1 year documented in this encounter Plan of Treatment Upcoming Encounters Date Type Department Care Team (Late st Contact Info) Description 07/20/2024 11:40 AM EDT Office Visit [facility] [address] [place] [address] Raymon Chin MD [address] [place] [phone] Scheduled Orders Name Type Priority Associated Diagnoses Orde r Schedule Renal Function Panel, Plasma Lab Routine CKD (chronic kidney disease) stage 2, GFR 60-89 ml/min 1 Occurrences starting 06/18/2021 until 12/19/2022 CBC W/O Differential Lab Routine CKD (chronic kidney disease) stage 2, GFR 60-89 ml/min 1 Occurrences starting 06/18/2021 until 12/19/2022 Urinalysis with reflex microscopic Lab Routine CKD (chronic kidney disease) stage 2, GFR 60-89 ml/min 1 Occurrences starting 06/18/2021 until 12/19/2022 Protein, Random, Urine Lab Routine CKD (chronic kidney disease) stage 2, GFR 60-89 ml/min 1 Occurrences starting 06/18/2021 until 12/19/2022 Creatinine, Random, Urine Lab Routine CKD (chronic kidney disease) stage 2, GFR 60-89 ml/min 1 Occurrences starting 06/18/2021 until 12/19/2022 PTH Intact Total Lab Routine CKD (chronic kidney disease) stage 2, GFR 60-89 ml/min 1 Occurrences starting 06/18/2021 until 12/19/2022 documented as of this encounter Visit Diagnoses Diagnosis Hyperkalemia- Primary Hyperpotassemia CKD (chronic kidney disease) stage 2, GFR 60-89 ml/min Chronic kidney disease, Stage II (mild) Primary hypertension Unspecified essential hypertension Diabetes mellitus type 2 documented in this encounter Additional Health Concerns Infection Onset Date Last Indicated Resolved Time MRSA 12/25/2020 12/25/2020 documented as of this encounter Care Teams Clay Caster Relationship Specialty Start Date End Date Glenna Ayala APRN [address] [facility] [place] [address] PCP - General 08/29/20 documented as of this encounter
--- OUTSIDE RECORDS SUMMARY | 2024-03-12 12:52 | XMS_ITS | Encounter Summary ---
Author Organization Healthcare Address [address] [place] [id number] Care Team Providers Care Shear Helper Name Role Phone Glenna Ayala APRN Primary Care Provider +1- [phone] Encounter Details Date Type Department Care Team (Latest Contact Info) Description 12/23/2023 Travel Social History Tobacco Use Types Packs/Day [...] Description 07/20/2024 11:40 AM EDT Office Visit [address] [place] [address] Raymon Chin MD [address] [place] [phone] documented as of this encounter Visit Diagnoses Not on filedocumented in this encounter Additional Health Concerns Infection Onset Date Last Indicated Resolved Time MRSA 12/25/2020 12/25/2020 Assessment Noted Time A Body Mass Index follow-up plan has been documented for the patient 12/23/2023 1:04 PM EDT documented as of this encounter Care Teams Shear Helper Relationship Specialty Start Date End Date Glenna Ayala APRN [address] [place] [address] PCP - General 08/29/20 documented as of this encounter
--- OUTSIDE RECORDS SUMMARY | 2024-03-12 12:52 | XMS_ITS | Encounter Summary ---
Author Organization Healthcare Address [facility] [address] Care Team Providers Care Director Of Product Management Name Role Phone Unavailable Primary Care Provider Unavailabl e Encounter Details Date Type Department Care Team (Late st Contact Info) Description 11/06/2015 [facility] Vitals Encounter [facility] OUTPATIENT CONVERSIONS [address] [place] [address] ProviderZenaida MD [address] [place] [phone] Social History Tobacco Use Types Packs/Day Years Used Date Smoking Tobacco: Never Assessed Sex and Gender Information Value Date Recorded Sex Assigned at Not on file Legal Sex Male 7:33 PM EDT Gender Identity Not on file Sexual Orientation Not on file documented as of this encounter Last Filed Vital Signs Vital Sign Reading Time Taken Comments Blood Pressure - - Pulse - - Temperature - - Respiratory Rate - - Oxygen Saturation - - Inhaled Oxygen Concentration - - Weight 82.6 kg (182 lb 0.2 oz) 11/06/2015 2:43 P M EDT Height 162.6 cm (5' 4 ) 11/06/2015 2:43 PM EDT Body Mass Index 31.24 11/06/2015 2:43 PM EDT documented in this encounter Plan of Treatment Upcoming Encounters Date Type Department Care Team (Late st Contact Info) Description 07/20/2024 11:40 AM EDT Office Visit [facility] [address] [place] [address] Raymon Chin MD [address] [place] [address] documented as of this encounter Visit Diagnoses Not on filedocumented in this encounter
--- OUTSIDE RECORDS SUMMARY | 2024-03-12 12:52 | XMS_ITS | Encounter Summary ---
Author Organization [facility] Address [facility] [place] [address] Care Team Providers Care Weighmaster Name Role Phone Glenna Ayala FRANCK Primary Care Provider +1- [phone] Encounter Details Date Type Department Care Team (Late st Contact Info) Description 11/09/2023 Orders Only [place] [id number] [place] [address] Elle Li CKD (chronic kidney disease) stage 2, GFR 60-89 ml/min (Primary Dx); Vitamin D insufficiency Social History Tobacco Use Types Packs/Day Years [...] Encounters Date Type Department Care Team (Late Contact Info) Description 07/20/2024 11:40 AM EDT Office Visit [facility] [address] [place] [address] Raymon Chin MD [address] [place] [phone] Scheduled Orders Name Type Priority Associated Diagnoses Orde r Schedule Renal Function Panel, Plasma Lab Routine CKD (chronic kidney disease) stage 2, GFR 60-89 ml/min Expected: 11/09/2023 (Approximate), Expires: 05/11/2025 CBC and Differential Lab Routine CKD (chronic kidney disease) stage 2, GFR 60-89 ml/min Expected: 11/09/2023 (Approximate), Expires: 05/11/2025 Vitamin D 25 Hydroxy Lab Routine CKD (chronic kidney disease) stage 2, GFR 60-89 ml/min Vitamin D insufficiency Expected: 11/09/2023 (Approximate), Expires: 05/11/2025 PTH Intact Total Lab Routine CKD (chronic kidney disease) stage 2, GFR 60-89 ml/min Vitamin D insufficiency Expected: 11/09/2023 (Approximate), Expires: 05/11/2025 Urinalysis with reflex microscopic (Culture NOT Included) Lab Routine CKD (chronic kidney disease) stage 2, GFR 60-89 ml/min Expected: 11/09/2023 (Approximate), Expires: 05/11/2025 Protein, Random, Urine with Creatinine Lab Routine CKD (chronic kidney disease) stage 2, GFR 60-89 ml/min Expected: 11/09/2023 (Approximate), Expires: 05/11/2025 Creatinine, Random, Urine Lab Routine CKD (chronic kidney disease) stage 2, GFR 60-89 ml/min Expected: 11/09/2023 (Approximate), Expires: 05/11/2025 documented as of this encounter Visit Diagnoses Diagnosis CKD (chronic kidney disease) stage 2, GFR 60-89 ml/min- Primary Chronic kidney disease, Stage II (mild) Vitamin D insufficiency documented in this encounter Additional Health Concerns Infection Onset Date Last Indicated Resolved Time MRSA 12/25/2020 12/25/2020 documented as of this encounter Care Teams Weighmaster Relationship Specialty Start Date End Date Glenna Ayala APRN [address] [place] [address] PCP - General 08/29/20 documented as of this encounter
--- OUTSIDE RECORDS SUMMARY | 2024-03-12 12:52 | XMS_ITS | Encounter Summary ---
Author Organization Healthcare Address [facility] [place] [id number] Care Team Providers Care Military Technology Manager Name Role Phone Glenna Ayala APRN Primary Care Provider +1- [phone] Encounter Details Date Type Department Care Team (Latest Contact Info) Description 12/29/2020 Travel Social History Tobacco Use Types Packs/Day [...] PM EDT documented as of this encounter Plan of Treatment Upcoming Encounters Date Type Department Care Team (Late st Contact Info) Description 07/20/2024 11:40 AM EDT Office Visit [facility] [address] [place] [phone] Raymon Chin MD [address] [place] [phone] documented as of this encounter Visit Diagnoses Not on filedocumented in this encounter Additional Health Concerns Infection Onset Date Last Indicated Resolved Time MRSA 12/25/2020 12/25/2020 documented as of this encounter Care Teams Military Technology Manager Relationship Specialty Start Date End Date Glenna Ayala APRN [address] [place] [address] PCP - General 08/29/20 documented as of this encounter
--- OUTSIDE RECORDS SUMMARY | 2024-03-12 12:52 | XMS_ITS | Encounter Summary ---
Author Organization Healthcare Address [address] [place] [address] Care Team Providers Care Director Independent Name Role Phone Glenna Ayala APRN Primary Care Provider +1- [phone] Reason for Visit * Reason Comments Follow-up Chronic Kidney Disease Encounter Details Date Type Department Care Team (Latest Contact Info) Description 12/23/2023 12:20 PM EDT Office Visit [facility] [address] [place] [address] Raymon Chin MD [address] [place] [phone] Coronary artery disease involving cloverdale coronary artery of cloverdale heart without angina pectoris (Primary Dx); CKD stage 2 due to type 2 diabetes mellitus (CMS/HCC); Hypertensive chronic kidney disease with stage 1 through stage 4 chronic kidney disease, or unspecified chronic kidney disease; Chronic kidney disease-mineral and bone disorder (CKD-MBD); Obesity (BMI 30.0-34.9); Hypervolemia associated with renal insufficiency Social History Tobacco Use Types Packs/Day [...] 12/23/2023 12:34 PM E DT Respiratory Rate - - Oxygen Saturation 96% 12/23/2023 12:34 PM EDT Inhaled Oxygen Concentration - - Weight 90.8 kg (200 lb 2 oz) 12/23/2023 12:34 PM EDT Height - - Body Mass Index 34.35 11/06/2015 2:43 PM EDT documented in this encounter Miscellaneous Notes * Progress Notes - Raymon Chin MD - 12/23/2023 12:20 PM EDT Images from the original note were not included. Nephrology follow up visit SUBJECTIVE Parish Hernandez is a 58 y.o. male who presents for follow-up of CKD 2. Presents with today to visit. Since last visit, he had to visit the ER for low blood pressure ~80s/50s. He reduced furosemide to every other day and this has improved. He says stopping furosemide completely resulted in worsening swelling. No other acute complaints OBJECTIVE Vitals: 12/23/23 1235 BP: 109/54 Pulse: Temp: SpO2: Pulse 73 Temp 35.6 C PHYSICAL EXAMINATION Gen: NAD, obese HEENT: AT/NC, EOMI Lower extremities: mild 1+ pitting edema bilaterally CV: regular rate Pulm: symmetric chest expansion, no increased work of breathing LAB RESULTS Outside labs reviewed. A1c 6.5% ASSESSMENT/PLAN Assessment: #CKD stage 2 #Hypertensive CKD stage 2 #CKD bone and mineral disease #DM2 w/ CKD #Obesity/metabolic syndrome #CAD s/p PCI #Anemia in CKD - goal hgb >10 -Baseline cr: 1.1, most recent cr 1.1 w/ GFR 68 -UPCR <0.2 -No major issues with acid/base -Issues with HyperK in past, now controlled with diet -Chronic hypervolemia - controlled with furosemide every other day Risk factor reduction: Metabolic syndrome, DM2, Obesity, HTN -BP at goal <130/80 -Recommended low sodium diet -Weight loss will improve patient health -Not on SGLT2 inhibitor - may start in future for cardiac benefit -Not n ngozi-I/arb - will hold off due to low BP Summary of Plan/ Recs: -BP is low, but patient is tolerating well. Kidney function remains stable with cr 1.1 - No change to medications today - Discussed low sodium diet may improve swelling - will monitor renal function over time - work on any lifestyle modifications for weight loss, etc. - continue current BP control RTC in 6 months Problem List Items Addressed This Visit CKD stage 2 due to type 2 diabetes mellitus (CMS/HCC) Relevant Orders CBC W/O Differential Urinalysis with reflex microscopic (Culture NOT Included) Vitamin D 25 Hydroxy PTH Intact Total Albumin-creatinine ratio, urine, random Protein, Random, Urine with Creatinine Renal Function Panel, Plasma Coronary artery disease involving cloverdale coronary artery of cloverdale heart without angina pectoris - Primary Hypertensive chronic kidney disease with stage 1 through stage 4 chronic kidney disease, or unspecified chronic kidney disease Chronic kidney disease-mineral and bone disorder (CKD-MBD) Relevant Orders CBC W/O Differential Urinalysis with reflex microscopic (Culture NOT Included) Vitamin D 25 Hydroxy PTH Intact Total Albumin-creatinine ratio, urine, random Protein, Random, Urine with Creatinine Renal Function Panel, Plasma Obesity (BMI 30.0-34.9) Hypervolemia associated with renal insufficiency No orders of the defined types were placed in this encounter. documented in this encounter Plan of Treatment Upcoming Encounters Date Type Department Care Team (Late st Contact Info) Description 07/20/2024 11:40 AM EDT Office Visit [place] [id number] [facility] [address] [place] [address] Raymon Chin MD [address] [place] [address] Scheduled Orders Name Type Priority Associated Diagnoses Orde r Schedule CBC W/O Differential Lab Routine CKD stage 2 due to type 2 diabetes mellitus (CMS/HCC) Chronic kidney disease-mineral and bone disorder (CKD-MBD) Expected: 06/20/2024 (Approximate), Expires: 01/26/2025 Urinalysis with reflex microscopic (Culture NOT Included) Lab Routine CKD stage 2 due to type 2 diabetes mellitus (CMS/HCC) Chronic kidney disease-mineral and bone disorder (CKD-MBD) Expected: 06/20/2024 (Approximate), Expires: 01/26/2025 Vitamin D 25 Hydroxy Lab Routine CKD stage 2 due to type 2 diabetes mellitus (CMS/HCC) Chronic kidney disease-mineral and bone disorder (CKD-MBD) Expected: 06/20/2024 (Approximate), Expires: 01/26/2025 PTH Intact Total Lab Routine CKD stage 2 due to type 2 diabetes mellitus ([facility]/HCC) Chronic kidney disease-mineral and bone disorder (CKD-MBD) Expected: 06/20/2024 (Approximate), Expires: 01/26/2025 Albumin-creatinine ratio, urine, random Lab Routine CKD stage 2 due to type 2 diabetes mellitus ([facility]/HCC) Chronic kidney disease-mineral and bone disorder (CKD-MBD) Expected: 06/20/2024 (Approximate), Expires: 01/26/2025 Protein, Random, Urine with Creatinine Lab Routine CKD stage 2 due to type 2 diabetes mellitus ([facility]/HCC) Chronic kidney disease-mineral and bone disorder (CKD-MBD) Expected: 06/20/2024 (Approximate), Expires: 01/26/2025 Renal Function Panel, Plasma Lab Routine CKD stage 2 due to type 2 diabetes mellitus ([facility]) Chronic kidney disease-mineral and bone disorder (CKD-MBD) Expected: 06/20/2024 (Approximate), Expires: 01/26/2025 documented as of this encounter Visit Diagnoses Diagnosis Coronary artery disease involving cloverdale coronary artery of cloverdale heart without angina pectoris- Primary CKD stage 2 due to type 2 diabetes mellitus ([facility]) Hypertensive chronic kidney disease with stage 1 through stage 4 chronic kidney disease, or unspecified chronic kidney disease Chronic kidney disease-mineral and bone disorder (CKD-MBD) Obesity (BMI 30.0-34.9) Hypervolemia associated with renal insufficiency documented in this encounter Additional Health Concerns Infection Onset Date Last Indicated Resolved Time MRSA 12/25/2020 12/25/2020 Assessment Noted Time A Body Mass Index follow-up plan has been documented for the patient 12/23/2023 1:04 PM EDT documented as of this encounter Care Teams Director Independent Relationship Specialty Start Date End Date Glenna Ayala APRN [address] [place] [phone] PCP - General 08/29/20 documented as of this encounter
--- NOTE | 2024-03-12 13:01 | CA_ITS ---
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 COMPARISON: None FINDINGS: BILATERAL LOWER EXTREMITY DUPLEX DOPPLER Color Doppler and duplex Doppler of the bilateral lower extremity was performed. Spectral analysis was also performed. Velocities were measured at multiple levels. All velocities are in centimeters per second. RIGHT COOK SUPERVISOR: 115 Prof: 54 SFA Prox: 213 SFA Mid: 80 SFA Distal: 80 Pop Prox: 60 Pop Dist: 37 RECLAIMER Prox: 55 RECLAIMER Mid: 79 RECLAIMER Dist: 100 Per Prox: 40 Per Mid: 63 Per Dist: 52 No Waveforms are monophasic. Plaque is seen throughout the right lower extremity. No evidence of occlusion. LEFT COOK SUPERVISOR: 346 Prof: 131 SFA Prox: 120 SFA Mid: 103 SFA Distal: 104 Pop Prox: 63 Pop Dist: 65 RECLAIMER Prox: 74 RECLAIMER Mid: 109 RECLAIMER Dist: 83 Per Prox: 67 Per Mid: 53 Per Dist: 58 Waveforms are biphasic and monophasic throughout. Plaque is seen throughout the left lower extremity. No evidence of occlusion. IMPRESSION: Atherosclerotic disease bilateral lower extremities with no evidence of vessel occlusion but elevated velocities, particularly on the left. Reviewed, Interpreted and Dictated by Blanca Forbes MD Transcribed by Willa Daniels Authenticated and [facility]
== END 2024-03-12 23:59 | disposition home or self-care (01) ==
LOC: RT 12:50
PROVIDERS: PCP Internal Medicine; Visit Provider Internal Medicine
DX: I73.9 Peripheral vascular disease, unspecified (principal)
CPT/HCPCS: 93925

== ENCOUNTER 2024-04-13 13:07 | Outpatient (CLI) | payer MEDICARE, MEDICAID, SELFPAY ==
--- NOTE | 2024-04-13 13:10 | XR_ITS ---
FINAL REPORT CLINICAL HISTORY: Hip pain COMPARISON: 02/11/2021 FINDINGS: RIGHT HIP Two views of the right hip and an AP pelvis view were obtained. There is abnormal sclerosis and lucency in the right femoral head measuring 2.8 cm in transverse dimension. This is concerning for underlying avascular necrosis. There is a similar appearance on the left side. There are surgical clips noted in the inguinal regions, as well as a left iliac stent. IMPRESSION: Abnormal sclerosis and lucency in the femoral heads concerning for underlying AVN. MRI could better evaluate. Reviewed, Interpreted and Dictated by Renan Winn MD Transcribed by Keyla Malin Authenticated and [facility]
== END 2024-04-13 23:59 | disposition home or self-care (01) ==
LOC: RAD 13:08
PROVIDERS: PCP Internal Medicine; Visit Provider Internal Medicine
DX: M25.551 Pain in right hip (principal)
CPT/HCPCS: 73502

== ENCOUNTER 2024-04-16 11:42 | Emergency (ER) | payer MEDICARE, MEDICAID, SELFPAY ==
[2024-04-16 13:00] VITALS: BP 129/89; PULSE 85; RESP 19; TEMP 36.7; O2SAT 98; BMI 35.3
--- NOTE | 2024-04-16 13:26 | EXP.UTC ---
Discharge Plan Disposition Patient Disposition: Home, Self-Care Condition: Good Prescriptions Prescriptions: New cephalexin 500 mg capsule 500 mg PO TID 5 Days Qty: 15 0RF mupirocin 2 % ointment 1 applic topical TID 10 Days Qty: 22 0RF Rx Instructions: apply to wounds as directed No Action multivitamin with iron [Daily Vitamin with Iron] Tablet 1 tab PO DAILY hydrocodone-acetaminophen 7.5-325 mg tablet 1 tab PO BID PRN albuterol sulfate 90 mcg/actuation HFA aerosol inhaler See Rx Instructions .ROUTE .COMPLEX Qty: 17 0RF Dose Instruction: INHALE TWO PUFFS BY MOUTH EVERY 6 HOURS NEEDED FOR breathing problems Rx Instructions: INHALE TWO PUFFS BY MOUTH EVERY 6 HOURS NEEDED FOR breathing problems oxybutynin chloride 10 mg tablet extended release 24hr PO Patient Comments: TAKE ONE TABLET BY MOUTH EVERY DAY gabapentin 400 mg capsule 400 mg PO TID Qty: 90 2RF budesonide-formoterol 160-4.5 mcg/actuation HFA aerosol inhaler inhalation BID Trelegy Ellipta 200-62.5-25 mcg blister with device 1 inh inhalation DAILY Patient Comments: INHALE 1 PUFF BY MOUTH EVERY DAY DIRECTED cholecalciferol (vitamin D3) 1,250 mcg (50,000 unit) capsule See Rx Instructions .ROUTE .COMPLEX Qty: 14 3RF Dose Instruction: Take 1 capsule by mouth once a week Rx Instructions: Take 1 capsule by mouth once a week ipratropium bromide 42 mcg (0.06 %) spray,non-aerosol intranasal Patient Comments: instill 1-2 SPRAYS IN EACH NOSTRIL THREE TIMES DAILY NEEDED diclofenac sodium 1 % gel 4 g topical QID PRN (Reason: pain ) 30 Days Qty: 100 2RF Rx Instructions: apply to single, ankle, foot; for foot includes sole/toes/top of foot fluticasone propionate 50 mcg/actuation spray,suspension See Rx Instructions .ROUTE .COMPLEX Qty: 16 12RF Dose Instruction: INSTILL ONE SPRAY IN EACH NOSTRIL TWICE DAILY DIRECTED Rx Instructions: INSTILL ONE SPRAY IN EACH NOSTRIL TWICE DAILY DIRECTED montelukast 10 mg tablet 10 mg PO DAILY Qty: 90 0RF econazole 1 % cream 1 applic topical BID PRN (Reason: Tinea Pedis) 28 Days Qty: 85 2RF Xarelto 2.5 mg tablet See Rx Instructions .ROUTE .COMPLEX Qty: 180 3RF Dose Instruction: TAKE ONE TABLET BY MOUTH TWICE DAILY Rx Instructions: TAKE ONE TABLET BY MOUTH TWICE DAILY Repatha SureClick 140 mg/mL pen injector See Rx Instructions .ROUTE .COMPLEX Qty: 2 6RF Dose Instruction: INJECT 1 ML (140 MG) SUBCUTANEOUSLY EVERY two WEEKS Rx Instructions: INJECT 1 ML (140 MG) SUBCUTANEOUSLY EVERY two WEEKS (DME) blood-glucose meter Kit See Rx Instructions .ROUTE .MEDSUPPLY Qty: 1 0RF Rx Instructions: As directed or bid One touch ultra 2 Meter ,test stripes and lancets mecobalamin (vitamin B12) [B12 Active] 1,000 mcg tablet,chewable 1,000 mcg PO DAILY Qty: 90 2RF (DME) lancets [OneTouch Delica Plus Lancet] 30 gauge misc See Rx Instructions .ROUTE .COMPLEX Qty: 200 2RF Dose Instruction: USE TO test blood sugar THREE TIMES DAILY DIRECTED Rx Instructions: USE TO test blood sugar THREE TIMES DAILY DIRECTED (DME) OneTouch Ultra Test Strip See Rx Instructions .ROUTE .COMPLEX Qty: 100 9RF Dose Instruction: USE TO test blood sugar DIRECTED THREE TIMES DAILY Rx Instructions: USE TO test blood sugar DIRECTED THREE TIMES DAILY pioglitazone 30 mg tablet See Rx Instructions .ROUTE .COMPLEX Qty: 30 2RF Dose Instruction: TAKE ONE TABLET BY MOUTH EVERY DAY Rx Instructions: TAKE ONE TABLET BY MOUTH EVERY DAY cetirizine 10 mg tablet See Rx Instructions .ROUTE .COMPLEX Qty: 90 1RF Dose Instruction: TAKE ONE TABLET BY MOUTH EVERY DAY Rx Instructions: TAKE ONE TABLET BY MOUTH EVERY DAY ranolazine 1,000 mg tablet extended release 12 hr See Rx Instructions .ROUTE .COMPLEX Qty: 60 5RF Dose Instruction: TAKE ONE TABLET BY MOUTH TWICE DAILY Rx Instructions: TAKE ONE TABLET BY MOUTH TWICE DAILY lisinopril 2.5 mg tablet See Rx Instructions .ROUTE .COMPLEX Qty: 90 5RF Dose Instruction: TAKE ONE TABLET BY MOUTH EVERY DAY FOR HIGH BLOOD PRESSURE Rx Instructions: TAKE ONE TABLET BY MOUTH EVERY DAY FOR HIGH BLOOD PRESSURE gemfibrozil 600 mg tablet See Rx Instructions .ROUTE .COMPLEX Qty: 180 3RF Dose Instruction: TAKE ONE TABLET BY MOUTH TWICE DAILY Rx Instructions: TAKE ONE TABLET BY MOUTH TWICE DAILY atorvastatin 80 mg tablet See Rx Instructions .ROUTE .COMPLEX Qty: 90 0RF Dose Instruction: TAKE ONE TABLET BY MOUTH EVERY DAY Rx Instructions: TAKE ONE TABLET BY MOUTH EVERY DAY atenolol 50 mg tablet See Rx Instructions .ROUTE .COMPLEX Qty: 45 2RF Dose Instruction: TAKE 1 AND 1/2 TABLET BY MOUTH EVERY DAY Rx Instructions: TAKE 1 AND 1/2 TABLET BY MOUTH EVERY DAY omeprazole 20 mg capsule,delayed release(DR/EC) See Rx Instructions .ROUTE .COMPLEX Qty: 90 0RF Dose Instruction: TAKE ONE CAPSULE BY MOUTH EVERY DAY FOR gerd Rx Instructions: TAKE ONE CAPSULE BY MOUTH EVERY DAY FOR gerd tamsulosin [Flomax] 0.4 mg capsule 0.4 mg PO DAILY Qty: 30 3RF furosemide 20 mg tablet See Rx Instructions .ROUTE .COMPLEX Qty: 30 5RF Dose Instruction: TAKE ONE TABLET BY MOUTH EVERY DAY NEEDED FOR EDEMA Rx Instructions: TAKE ONE TABLET BY MOUTH EVERY DAY NEEDED FOR EDEMA Jardiance 25 mg tablet 25 mg PO DAILY Qty: 30 2RF mupirocin 2 % ointment 1 applic topical BID 14 Days Qty: 22 1RF Ozempic 1 mg/dose (4 mg/3 mL) pen injector 1 mg SQ WEEKLY Qty: 3 0RF levocetirizine 5 MG tablet See Rx Instructions .Route .COMPLEX Rx Instructions: TAKE ONE TABLET BY MOUTH EVERY DAY AT BEDTIME aspirin 81 mg tablet,delayed release (DR/EC) See Rx Instructions .ROUTE .COMPLEX Rx Instructions: TAKE ONE TABLET BY MOUTH EVERY DAY ergocalciferol (vitamin D2) 1,250 mcg (50,000 unit) capsule See Rx Instructions .ROUTE .COMPLEX MDD . Rx Instructions: TAKE ONE CAPSULE BY MOUTH WEEKLY Referrals Follow up/Referrals: Lamonte Jacinto DO [Primary Care Provider] - See instructions Activity Restrictions/Add. Instructions Additional Instructions/Restrictions: Gold bowman diabetics Ultra Hydrating lotion for dry skin on Diabetetics may help with dry skin Use topical ointment as prescribed Take oral antibiotics as prescribed Follow up with your Family Doctor if no improvement Clinical Impressions Clinical Impression: Infected abrasion Instructions Patient Instructions: Cephalexin, Mupirocin Print Language Print Language: Mohawk Discharge ED Provider: Diann Morrison [facility] [place] HPI General Stated complaint: diabetic abrasions to both hands Mode of Arrival: Ambulatory Source of Information: Patient Limitations: No Limitations Time Seen by Provider: 04/16/24 13:26 Description of Symptoms (Recalled from Triage Doc. by RN): PATIENT C/O CRACKED AND SORE FINGERS HEENT Symptoms (Recalled from RN notes): No Resp Symptoms (Recalled from RN notes): No Skin Symptoms (Recalled from RN notes): Yes MS Symptoms (Recalled from RN notes): No Functional Status (Recalled from RN notes): WNL History of Present Illness Provider Complaint: Patient states that he is a diabetic states he has an dry cracked area on his right index finger and a abrasion on his left index finger that he is worried is infected from falling States that he has been using triple antibiotic ointment on it and cleaning it will alcohol but it keeps getting dryer and not wanting to heal right States the one on his left index finger is a little red around it Related Data Home Medications ?Medication ?Instructions ?Recorded ?Confirmed multivitamin with iron (Daily 1 tab PO DAILY Supplement 12/12/18 03/05/24 Vitamin with Iron tablet) levocetirizine 5 mg tablet See Rx Instructions .Route 12/06/21 03/05/24 .COMPLEX . aspirin 81 mg tablet,delayed See Rx Instructions .Route 08/23/22 03/05/24 release .COMPLEX . ergocalciferol (vitamin D2) 1,250 See Rx Instructions .Route 08/23/22 03/05/24 mcg (50,000 unit) capsule .COMPLEX . hydrocodone 7.5 mg-acetaminophen 1 tab PO BID PRN 11/04/22 03/05/24 325 mg tablet budesonide-formoterol HFA 160 inhalation BID 02/02/23 03/05/24 mcg-4.5 mcg/actuation aerosol inhaler fluticasone fur. 200 mcg-umeclid 1 inh inhalation DAILY 06/22/23 03/05/24 62.5 mcg-vilant 25 mcg inhalat.powder (Trelegy Ellipta) ipratropium bromide 42 mcg (0.06 intranasal 01/03/24 03/05/24 %) nasal spray oxybutynin chloride 10 mg mg PO 02/02/24 03/05/24 tablet,extended release 24 hr Previous Rx's ?Medication ?Instructions ?Recorded fluticasone propionate 50 See Rx Instructions .Route 01/03/23 mcg/actuation nasal .COMPLEX #16 grams spray,suspension montelukast 10 mg tablet 10 mg PO DAILY #90 tabs 04/04/23 econazole 1 % topical cream 1 applic topical BID PRN Tinea 04/21/23 Pedis 4 weeks #85 grams rivaroxaban 2.5 mg tablet (Xarelto) See Rx Instructions .Route 05/23/23 .COMPLEX #180 tabs evolocumab 140 mg/mL subcutaneous See Rx Instructions .Route 07/26/23 pen injector (Repatha SureClick) .COMPLEX #2 mL albuterol sulfate 90 mcg/actuation See Rx Instructions .Route 08/08/23 aerosol inhaler .COMPLEX #17 grams blood-glucose meter #1 ea 09/20/23 blood sugar diagnostic (Royal PioneersTouch #100 strips 09/26/23 Ultra Test strips) lancets 30 gauge (OneTouch Delica #200 ea 09/26/23 Plus Lancet) mecobalamin (vitamin B12) 1,000 1,000 mcg PO DAILY #90 tabs 09/26/23 mcg chewable tablet (B12 Active) cholecalciferol (vitamin D3) 1,250 See Rx Instructions .Route 11/04/23 mcg (50,000 unit) capsule .COMPLEX #14 caps pioglitazone 30 mg tablet See Rx Instructions .Route 11/24/23 .COMPLEX #30 tabs diclofenac sodium 1 % topical gel 4 g topical QID PRN pain 30 days 12/06/23 #100 grams cetirizine 10 mg tablet See Rx Instructions .Route 12/28/23 .COMPLEX #90 tabs lisinopril 2.5 mg tablet See Rx Instructions .Route 01/23/24 .COMPLEX #90 tabs ranolazine 1,000 mg See Rx Instructions .Route 01/23/24 tablet,extended release,12 hr .COMPLEX #60 tabs gabapentin 400 mg capsule 400 mg PO TID #90 caps 02/02/24 gemfibrozil 600 mg tablet See Rx Instructions .Route 02/20/24 .COMPLEX #180 tabs atenolol 50 mg tablet See Rx Instructions .Route 02/21/24 .COMPLEX #45 tabs atorvastatin 80 mg tablet See Rx Instructions .Route 02/21/24 .COMPLEX #90 tabs omeprazole 20 mg capsule,delayed See Rx Instructions .Route 02/21/24 release .COMPLEX #90 caps tamsulosin 0.4 mg capsule (Flomax) 0.4 mg PO DAILY #30 caps 03/19/24 furosemide 20 mg tablet See Rx Instructions .Route 03/20/24 .COMPLEX #30 tabs empagliflozin 25 mg tablet 25 mg PO DAILY #30 tabs 03/21/24 (Jardiance) mupirocin 2 % topical ointment 1 applic topical BID infection 14 03/28/24 days #22 grams semaglutide 1 mg/dose (4 mg/3 mL) 1 mg (0.75 mL) SQ WEEKLY #3 mL 04/05/24 subcutaneous pen injector (Ozempic) cephalexin 500 mg capsule 500 mg PO TID 5 days #15 caps 04/16/24 mupirocin 2 % topical ointment 1 applic topical TID 10 days #22 04/16/24 grams Allergies Allergy/AdvReac Type Severity Reaction Status Date / Time No Known Allergies Allergy Verified 03/05/24 13:10 Worker's Comp Is this a Worker's Comp case?: No [facility] Disclaimer: The information contained in this section may have been updated after the patient was seen, as this information can be updated by other users. Medical History (Updated 04/16/24 @ 13:43 by Diann Morrison APRN) Congestion of both ears Tinnitus, bilateral Impacted cerumen Snoring Impacted cerumen, right ear Tympanosclerosis, right ear Bilateral impacted cerumen Otalgia, right ear Impacted cerumen of left ear Lesion of right external ear Right facial numbness Acute serous otitis media Otitis externa of right ear Hearing Loss Claudication PAD (peripheral artery disease) Palpitations SOB (shortness of breath) Neuropathy Stable angina Surgical History History of external ear surgery Social History Smoking Status: Former smoker tobacco type: cigarettes alcohol intake: never counseling provided: other substance use type: denies use current occupational status: employed Travel in the last 8 weeks: Inside the [place] household members: spouse housing: house current occupation: [email or web address] current occupational exposures/hazards: No caffeine: Yes Have you lived/traveled outside [place] in past 30 days?: No Contact w/someone who lives/traveled outside [place] past 30 days?: No Exposure to someone with infectious disease in past 14 days?: No Do you have a fever (greater than 100.4 F or 38 C)?: No Have you tested positive for COVID-19: No Exposed to someone with COVID-19 in past 14 days?: No Do you have a sore throat?: No Do you have a cough?: No Do you have any weakness?: No Do you have any diarrhea?: No Are you experiencing any unusual bleeding?: No Do you have any muscle aches/pain?: No Do you have any abdominal pain?: No Are you experiencing loss of taste or smell?: No ROS Obtained: Yes All systems reviewed & no additional complaints except as documented and Yes Systems reviewed as appropriate & no additional complaints except as documented Constitutional Constitutional: Reports system reviewed and no additional complaints, except as documented and Reports as per HPI ENT Ears, Nose, Mouth, and Throat: Reports system reviewed and no additional complaints, except as documented and Reports as per HPI Cardiovascular Cardiovascular: Reports system reviewed and no additional complaints, except as documented and Reports as per HPI Respiratory Respiratory: Reports system reviewed and no additional complaints, except as documented and Reports as per HPI Gastrointestinal Gastrointestingal: Reports system reviewed and no additional complaints, except as documented and as per HPI Integumentary/Breasts Skin/Breast: Reports system reviewed and no additional complaints, except as documented and Reports as per HPI Comments: infected abrasion on left index finger and cracked area on his right index finger Physical Exam General General appearance: alert and in no apparent distress Chest Chest inspection: Present normal inspection and symmetric chest wall rise Respiratory Respiratory exam: Present normal lung sounds bilaterally; Absent respiratory distress or wheezes Cardiovascular Cardiovascular exam: Present regular rate, normal rhythm and normal heart sounds Expanded Upper Extremity Exam Left: Hand L/R back image: 1. small abrasion noted with mild surrounding redness 2. dry cracked area noted no redness or drainage Neurological Exam Neurological exam: Present alert and normal gait Medical Decision Making Medical Records Screening: Per USPSTF and CDC recommendations, given the prevalence of disease in our region, it is our hospital?s policy to screen for HIV and viral Hepatitis for all patients aged 18 and over and those with ongoing risk factors. Juan Inquiry Pt receiving controlled substance: No Juan was queried for this patient: No Vital Signs: 04/16/24 13:00 Temperature 98.0 F Temperature Source Oral Pulse Rate [Left Brachial] 85 Respiratory Rate 19 Blood Pressure [Left Arm] 129/89 Blood Pressure Mean [Left Arm] 102 Blood Pressure Source [Left Arm] Automatic Cuff Blood Pressure Position [Left Arm] Sitting 02 Sat by Pulse Oximetry 98 Oxygen Delivery Method Room Air Medical Decision Narrative: medication discussed with pharmacy
[2024-04-16 13:33] VITALS: BP 129/89; PULSE 85; RESP 19; TEMP 36.7; O2SAT 98
== END 2024-04-16 13:56 | disposition home or self-care (01) ==
PROVIDERS: Emergency Provider Nurse Practitioner; PCP Internal Medicine
DX: T14.8XXA Other injury of unspecified body region, initial encounter (principal); E11.628 Type 2 diabetes mellitus with other skin complications
CPT/HCPCS: 99212; G0381

== ENCOUNTER 2024-04-23 14:09 | Outpatient (CLI) | payer MEDICARE, MEDICAID, SELFPAY ==
--- NOTE | 2024-04-23 14:09 | MR_ITS ---
FINAL REPORT CLINICAL HISTORY: XR findings concerning for AVN. RIGHT HIP PAIN. BACK PAIN FINDINGS: Multiplanar MR imaging of the right hip was performed without contrast. There is no evidence of fracture or dislocation. There is abnormal signal in the superior portions of the femoral heads bilaterally which appear to be related to AVN. Defect on the right measures up to 4.5 cm in maximum AP dimension. There is no collapse of the femoral head. There is moderate joint space narrowing. There are similar findings on the left but to a lesser extent are also consistent with AVN. There is moderate left joint space narrowing. No labral tear is identified. No significant joint effusion is seen. The tendons are intact. The musculature is intact. No soft tissue mass or cyst is identified. IMPRESSION: Bilateral AVN, right greater than left. Reviewed, Interpreted and Dictated by Renan Winn MD Transcribed by Tiffany Luong Authenticated and . [facility]
== END 2024-04-23 23:59 | disposition home or self-care (01) ==
LOC: RAD 14:09
PROVIDERS: PCP Internal Medicine; Visit Provider Internal Medicine
DX: M25.551 Pain in right hip (principal); M54.9 Dorsalgia, unspecified
CPT/HCPCS: 73721

== ENCOUNTER 2024-05-15 13:23 | Outpatient (CLI) | payer MEDICARE, MEDICAID, SELFPAY ==
[2024-05-15 12:58] LABS: Coronavirus 19, PCR Not Detected (NotDetected); Human Rhinovirus Not Detected (NotDetected); Influenza A, PCR Not Detected (NotDetected); Influenza B, PCR Not Detected (NotDetected); Respiratory Syncytial Virus Not Detected (NotDetected)
[2024-05-15 13:23] LABS: Basophils % 0.6 % (0.1-2.0); Eosinophils # 0.2 K/mm3 (0.0-0.4); Eosinophils % 3.1 % (0.1-12.0); Hematocrit 38.7 % (42.0-52.0); Hemoglobin 12.4 g/dL (14.1-18.0); Lymphocytes # 1.5 K/mm3 (0.7-4.5); Lymphocytes % 23.7 % (10-50); Mean Corpuscular Hemoglobin 32.6 pg (27.0-31.2); Mean Corpuscular Volume 101.8 fl (80-94); Monocytes # 0.5 K/mm3 (0.1-1.0); Monocytes % 8.4 % (1.7-9.3); Neutrophils # 3.9 K/mm3 (1.8-7.8); Neutrophils % 63.9 % (37.0-80.0); Platelet Count 246 K/mm3 (142-424); White Blood Count 6.2 K/mm3 (4.8-10.8)
[2024-05-15 13:58] LABS: Alanine Aminotransferase 21 U/L (12-78); Albumin/Globulin Ratio 1.7 (1.1-1.8); Alkaline Phosphatase 100 U/L (38-126); Anion Gap 15.3 mEq/L (5-15); Aspartate Amino Transferase 29 U/L (17-59); Bilirubin,Total 0.3 mg/dl (0.2-1.3); Blood Urea Nitrogen 20 mg/dl (9-20); Calcium 9.4 mg/dl (8.4-10.2); Carbon Dioxide 28 mmol/L (22.0-30.0); Chloride 99 mmol/L (98-107); Chol/HDL Ratio 1.9 (1-3.5); Cholesterol 116 mg/dl (140-200); Estimated Glomerular Filt Rate 62 ml/min (>60); GFR (African American) 75 ML/MIN (>60); Globulin 2.3 g/dL (1.3-3.2); Glucose 98 mg/dl (74-100); HDL Cholesterol 61 mg/dl (40-60); Potassium 5.3 mmoL/L (3.5-5.1); Sodium 137 mmol/L (136-145); Total Protein,Serum 6.3 g/dl (6.3-8.2); Triglycerides 105 mg/dl (30-150); VLDL Cholesterol 21 mg/dL (0-40)
[2024-05-15 14:11] LABS: Direct LDL Cholesterol < 30.00 mg/dL (100-129)
[2024-05-15 14:44] LABS: Hemoglobin A1C 6.1 % (4.0-6.0)
[2024-05-15 15:04] LABS: Folate 6.01 ng/mL; Vitamin B12 892 pg/mL (239-931)
== END 2024-05-15 23:59 | disposition home or self-care (01) ==
LOC: LAB.DROPOF 13:23
PROVIDERS: PCP Internal Medicine; Visit Provider Internal Medicine
DX: Z00.00 Encounter for general adult medical examination without abnormal findings (principal); E11.69 Type 2 diabetes mellitus with other specified complication; E78.2 Mixed hyperlipidemia; D53.9 Nutritional anemia, unspecified; R05.9 Cough, unspecified; R05.8 Other specified cough; J02.9 Acute pharyngitis, unspecified; R06.02 Shortness of breath
CPT/HCPCS: 80053; 80061; 82607; 82746; 83036; 85025; 87631

== ENCOUNTER 2024-06-19 00:15 | Emergency (ER) | payer MEDICARE, MEDICAID, SELFPAY ==
--- NOTE | 2024-06-19 00:13 | ECG_ITS ---
APPROVED REPORT Exam: Resting ECG HR:80 bpm ECG Measurements Heart Rate 80 AXES NH 152 P 49 QRSd 89 QRS 42 QT 358 T 47 QTc 395 Conclusion SINUS RHYTHM NORMAL ECG INTERPRETATION BASED ON A DEFAULT AGE OF 38 YEARS UNCONFIRMED REPORT Electronically signed by : LESLIE MINOR, 06/21/2024 06:49:42
[2024-06-19 00:16] VITALS: BP 103/67; PULSE 80; RESP 20; TEMP 36.7; O2SAT 100; BMI 25.7
--- NOTE | 2024-06-19 00:16 | XR_ITS ---
PROCEDURE INFORMATION: Exam: XR Chest Exam date and time: 06/19/2024 12:28 AM Age: 58 years old Clinical indication: Pain; Chest pressure; Additional info: Cp TECHNIQUE: Imaging protocol: Radiologic exam of the chest. Views: 1 view. COMPARISON: CR XR CHEST PORTABLE 11/06/2023 2:49 PM FINDINGS: Lungs: Unremarkable. No consolidation. Stable tiny granuloma right mid lung. Pleural spaces: Unremarkable. No pleural effusion. No pneumothorax. Heart/Mediastinum: Unremarkable. No cardiomegaly. Bones/joints: Unremarkable. IMPRESSION: No acute findings.
[2024-06-19 00:27] LABS: Basophils % 0.5 % (0.1-2.0); Eosinophils # 0.2 K/mm3 (0.0-0.4); Eosinophils % 2.6 % (0.1-12.0); Hematocrit 37.8 % (42.0-52.0); Hemoglobin 12.3 g/dL (14.1-18.0); Lymphocytes # 1.6 K/mm3 (0.7-4.5); Mean Corpuscular HGB Conc 32.5 g/dL (31.8-35.4); Mean Corpuscular Hemoglobin 32.5 pg (27.0-31.2); Mean Corpuscular Volume 99.7 fl (80-94); Mean Platelet Volume 11.6 fl (7.4-10.4); Monocytes # 0.5 K/mm3 (0.1-1.0); Monocytes % 8.3 % (1.7-9.3); Neutrophils # 4.2 K/mm3 (1.8-7.8); Neutrophils % 64.3 % (37.0-80.0); Platelet Count 211 K/mm3 (142-424); Red Blood Count 3.79 M/mm3 (4.60-6.20); Red Cell Distribution Width 13.6 % (11.5-17.5); White Blood Count 6.5 K/mm3 (4.8-10.8)
[2024-06-19 00:30] LABS: Chloride 98 mmol/L (98-107)
[2024-06-19 00:31] LABS: Albumin Level 4.4 g/dl (3.5-5.0); Potassium 4.2 mmoL/L (3.5-5.1); Sodium 133 mmol/L (136-145)
[2024-06-19 00:33] LABS: Blood Urea Nitrogen 20 mg/dl (9-20); Creatinine Clearance Estimated 44 mL/min (50-200); Estimated Glomerular Filt Rate 41 ml/min (>60); GFR (African American) 50 ML/MIN (>60)
[2024-06-19 00:34] LABS: Alanine Aminotransferase 21 U/L (12-78); Albumin/Globulin Ratio 1.7 (1.1-1.8); Alkaline Phosphatase 95 U/L (38-126); Anion Gap 11.2 mEq/L (5-15); Aspartate Amino Transferase 23 U/L (17-59); Bilirubin,Total 0.4 mg/dl (0.2-1.3); Calcium 9.3 mg/dl (8.4-10.2); Carbon Dioxide 28 mmol/L (22.0-30.0); Globulin 2.6 g/dL (1.3-3.2); Glucose 134 mg/dl (74-100)
[2024-06-19] MEDS: ASPIRIN 81MG CHEWABLE TABLET 324 MG PO (00:49)
[2024-06-19] MEDS: ACETAMINOPHEN 500MG TAB 1000 MG PO (00:50)
[2024-06-19 00:51] LABS: T4 (Thyroxine) 6.5 ug/dl (5.53-11.0)
[2024-06-19 01:03] LABS: D-Dimer < 0.25 ug/mL (0.0-0.5)
--- NOTE | 2024-06-19 01:17 | ED_ITS ---
Discharge Plan Disposition Patient Disposition: Left Against Medical Advice Prescriptions Prescriptions: No Action multivitamin with iron [Daily Vitamin with Iron] Tablet 1 tab PO DAILY albuterol sulfate 90 mcg/actuation HFA aerosol inhaler See Rx Instructions .ROUTE .COMPLEX Qty: 17 0RF Dose Instruction: INHALE TWO PUFFS BY MOUTH EVERY 6 HOURS NEEDED FOR breathing problems Rx Instructions: INHALE TWO PUFFS BY MOUTH EVERY 6 HOURS NEEDED FOR breathing problems oxybutynin chloride 10 mg tablet extended release 24hr PO Patient Comments: TAKE ONE TABLET BY MOUTH EVERY DAY dextromethorphan-guaifenesin 10-100 mg/5 mL liquid 10 ml PO Q4H PRN (Reason: cough) Qty: 500 1RF pseudoephedrine HCl 30 mg tablet 60 mg PO Q6H PRN (Reason: nasal congestion) Qty: 30 1RF Rx Instructions: Start with one tablet, increase to two tablets per dose if one not effective budesonide-formoterol 160-4.5 mcg/actuation HFA aerosol inhaler inhalation BID Trelegy Ellipta 200-62.5-25 mcg blister with device 1 inh inhalation DAILY Patient Comments: INHALE 1 PUFF BY MOUTH EVERY DAY DIRECTED cholecalciferol (vitamin D3) 1,250 mcg (50,000 unit) capsule See Rx Instructions .ROUTE .COMPLEX Qty: 14 3RF Dose Instruction: Take 1 capsule by mouth once a week Rx Instructions: Take 1 capsule by mouth once a week ipratropium bromide 42 mcg (0.06 %) spray,non-aerosol intranasal Patient Comments: instill 1-2 SPRAYS IN EACH NOSTRIL THREE TIMES DAILY NEEDED gabapentin 400 mg capsule 400 mg PO TID Qty: 90 2RF fluticasone propionate 50 mcg/actuation spray,suspension See Rx Instructions .ROUTE .COMPLEX Qty: 16 12RF Dose Instruction: INSTILL ONE SPRAY IN EACH NOSTRIL TWICE DAILY DIRECTED Rx Instructions: INSTILL ONE SPRAY IN EACH NOSTRIL TWICE DAILY DIRECTED montelukast 10 mg tablet 10 mg PO DAILY Qty: 90 0RF econazole nitrate 1 % cream 1 applic topical BID PRN (Reason: Tinea Pedis) 28 Days Qty: 85 2RF (DME) blood-glucose meter Kit See Rx Instructions .ROUTE .MEDSUPPLY Qty: 1 0RF Rx Instructions: As directed or bid One touch ultra 2 Meter ,test stripes and lancets mecobalamin (vitamin B12) [B12 Active] 1,000 mcg tablet,chewable 1,000 mcg PO DAILY Qty: 90 2RF (DME) OneTouch Ultra Test Strip See Rx Instructions .ROUTE .COMPLEX Qty: 100 9RF Dose Instruction: USE TO test blood sugar DIRECTED THREE TIMES DAILY Rx Instructions: USE TO test blood sugar DIRECTED THREE TIMES DAILY pioglitazone 30 mg tablet See Rx Instructions .ROUTE .COMPLEX Qty: 30 2RF Dose Instruction: TAKE ONE TABLET BY MOUTH EVERY DAY Rx Instructions: TAKE ONE TABLET BY MOUTH EVERY DAY cetirizine 10 mg tablet See Rx Instructions .ROUTE .COMPLEX Qty: 90 1RF Dose Instruction: TAKE ONE TABLET BY MOUTH EVERY DAY Rx Instructions: TAKE ONE TABLET BY MOUTH EVERY DAY ranolazine 1,000 mg tablet extended release 12 hr See Rx Instructions .ROUTE .COMPLEX Qty: 60 5RF Dose Instruction: TAKE ONE TABLET BY MOUTH TWICE DAILY Rx Instructions: TAKE ONE TABLET BY MOUTH TWICE DAILY lisinopril 2.5 mg tablet See Rx Instructions .ROUTE .COMPLEX Qty: 90 5RF Dose Instruction: TAKE ONE TABLET BY MOUTH EVERY DAY FOR HIGH BLOOD PRESSURE Rx Instructions: TAKE ONE TABLET BY MOUTH EVERY DAY FOR HIGH BLOOD PRESSURE gemfibrozil 600 mg tablet See Rx Instructions .ROUTE .COMPLEX Qty: 180 3RF Dose Instruction: TAKE ONE TABLET BY MOUTH TWICE DAILY Rx Instructions: TAKE ONE TABLET BY MOUTH TWICE DAILY tamsulosin [Flomax] 0.4 mg capsule 0.4 mg PO DAILY Qty: 30 3RF furosemide 20 mg tablet See Rx Instructions .ROUTE .COMPLEX Qty: 30 5RF Dose Instruction: TAKE ONE TABLET BY MOUTH EVERY DAY NEEDED FOR EDEMA Rx Instructions: TAKE ONE TABLET BY MOUTH EVERY DAY NEEDED FOR EDEMA mupirocin 2 % ointment 1 applic topical BID 14 Days Qty: 22 1RF diclofenac sodium 1 % gel See Rx Instructions .ROUTE .COMPLEX Qty: 100 2RF Dose Instruction: apply 4 grams topically 4 times daily as needed FOR pain. apply TO single ankle, foot. FOR foot includes sole/toes/top of foot Rx Instructions: apply 4 grams topically 4 times daily as needed FOR pain. apply TO single ankle, foot. FOR foot includes sole/toes/top of foot omeprazole 20 mg capsule,delayed release(DR/EC) See Rx Instructions .ROUTE .COMPLEX Qty: 90 0RF Dose Instruction: TAKE ONE CAPSULE BY MOUTH EVERY DAY FOR gerd Rx Instructions: TAKE ONE CAPSULE BY MOUTH EVERY DAY FOR gerd atenolol 50 mg tablet See Rx Instructions .ROUTE .COMPLEX Qty: 45 0RF Dose Instruction: TAKE 1 AND 1/2 TABLET BY MOUTH EVERY DAY Rx Instructions: TAKE 1 AND 1/2 TABLET BY MOUTH EVERY DAY Repatha SureClick 140 mg/mL pen injector See Rx Instructions .ROUTE .COMPLEX Qty: 2 6RF Dose Instruction: INJECT 1 ML (140 MG) SUBCUTANEOUSLY EVERY two WEEKS Rx Instructions: INJECT 1 ML (140 MG) SUBCUTANEOUSLY EVERY two WEEKS Xarelto 2.5 mg tablet See Rx Instructions .ROUTE .COMPLEX Qty: 180 3RF Dose Instruction: TAKE ONE TABLET BY MOUTH TWICE DAILY Rx Instructions: TAKE ONE TABLET BY MOUTH TWICE DAILY atorvastatin 80 mg tablet See Rx Instructions .ROUTE .COMPLEX Qty: 90 0RF Dose Instruction: TAKE ONE TABLET BY MOUTH EVERY DAY Rx Instructions: TAKE ONE TABLET BY MOUTH EVERY DAY Ozempic 1 mg/dose (4 mg/3 mL) pen injector See Rx Instructions .ROUTE .COMPLEX Qty: 3 0RF Dose Instruction: Inject 1mg (0.75ml) subcutaneously ONCE WEEKLY Rx Instructions: Inject 1mg (0.75ml) subcutaneously ONCE WEEKLY Jardiance 25 mg tablet See Rx Instructions .ROUTE .COMPLEX Qty: 30 2RF Dose Instruction: TAKE ONE TABLET BY MOUTH EVERY DAY Rx Instructions: TAKE ONE TABLET BY MOUTH EVERY DAY (DME) lancets [OneTouch Delica Plus Lancet] 30 gauge misc See Rx Instructions .ROUTE .COMPLEX Qty: 200 2RF Dose Instruction: USE TO test blood sugar THREE TIMES DAILY DIRECTED Rx Instructions: USE TO test blood sugar THREE TIMES DAILY DIRECTED hydrocodone-acetaminophen 10-325 mg tablet 1 tab PO BID PRN (Reason: pain) Qty: 60 0RF levocetirizine 5 MG tablet See Rx Instructions .Route .COMPLEX Rx Instructions: TAKE ONE TABLET BY MOUTH EVERY DAY AT BEDTIME aspirin 81 mg tablet,delayed release (DR/EC) See Rx Instructions .ROUTE .COMPLEX Rx Instructions: TAKE ONE TABLET BY MOUTH EVERY DAY Referrals Follow up/Referrals: Provider,Referral, MD [Primary Care Provider] - See instructions Activity Restrictions/Add. Instructions Additional Instructions/Restrictions: Please follow-up with your primary care provider. Please return to the emergency department if you develop any new or worsening symptoms or become concerned for your health. Clinical Impressions Clinical Impression: Chest pain Print Language Print Language: Kinyarwanda Discharge ED Provider: Adolfo Trivedi General Adult HPI General Chief complaint: Chest Pain Stated complaint: Chest pain Time Seen by Provider: 06/19/24 00:16 Mode of Arrival: Ambulatory Source of Information: Patient Description of Symptoms (Recalled from ER Triage Doc. by RN): pt to ED with c/o 6/10, intermittent, substernal CP that started approx 1 hour ago. pt states pain radiates to his upper abdomen. History of Present Illness HPI narrative: 58-year-old male with history of coronary artery disease COPD and hypertension presents for chest pain and low blood pressure. He reports his blood pressure is normally between 110 and 170 but over the last couple of days it has been lower, around the 100. It was 90 systolic at home and that is part of why he was concerned. He is also had some central chest pain for the last hour or 2. Denies any shortness of breath. Denies any back pain belly pain recent flulike illness or other associated symptoms. Related Data Home Medications ?Medication ?Instructions ?Recorded ?Confirmed multivitamin with iron (Daily 1 tab PO DAILY Supplement 12/12/18 05/29/24 Vitamin with Iron tablet) levocetirizine 5 mg tablet See Rx Instructions .Route 12/06/21 05/29/24 .COMPLEX . aspirin 81 mg tablet,delayed See Rx Instructions .Route 08/23/22 05/29/24 release .COMPLEX . budesonide-formoterol HFA 160 inhalation BID 02/02/23 05/29/24 mcg-4.5 mcg/actuation aerosol inhaler fluticasone fur. 200 mcg-umeclid 1 inh inhalation DAILY 06/22/23 05/29/24 62.5 mcg-vilant 25 mcg inhalat.powder (Trelegy Ellipta) ipratropium bromide 42 mcg (0.06 intranasal 01/03/24 05/29/24 %) nasal spray oxybutynin chloride 10 mg mg PO 02/02/24 05/29/24 tablet,extended release 24 hr Previous Rx's ?Medication ?Instructions ?Recorded fluticasone propionate 50 See Rx Instructions .Route 01/03/23 mcg/actuation nasal .COMPLEX #16 grams spray,suspension montelukast 10 mg tablet 10 mg PO DAILY #90 tabs 04/04/23 econazole nitrate 1 % topical cream 1 applic topical BID PRN Tinea 04/21/23 Pedis 4 weeks #85 grams albuterol sulfate 90 mcg/actuation See Rx Instructions .Route 08/08/23 aerosol inhaler .COMPLEX #17 grams blood-glucose meter #1 ea 09/20/23 blood sugar diagnostic (OneTouch #100 strips 09/26/23 Ultra Test strips) mecobalamin (vitamin B12) 1,000 1,000 mcg PO DAILY #90 tabs 09/26/23 mcg chewable tablet (B12 Active) cholecalciferol (vitamin D3) 1,250 See Rx Instructions .Route 11/04/23 mcg (50,000 unit) capsule .COMPLEX #14 caps pioglitazone 30 mg tablet See Rx Instructions .Route 11/24/23 .COMPLEX #30 tabs cetirizine 10 mg tablet See Rx Instructions .Route 12/28/23 .COMPLEX #90 tabs lisinopril 2.5 mg tablet See Rx Instructions .Route 01/23/24 .COMPLEX #90 tabs ranolazine 1,000 mg See Rx Instructions .Route 01/23/24 tablet,extended release,12 hr .COMPLEX #60 tabs gemfibrozil 600 mg tablet See Rx Instructions .Route 02/20/24 .COMPLEX #180 tabs tamsulosin 0.4 mg capsule (Flomax) 0.4 mg PO DAILY #30 caps 03/19/24 furosemide 20 mg tablet See Rx Instructions .Route 03/20/24 .COMPLEX #30 tabs mupirocin 2 % topical ointment 1 applic topical BID infection 14 03/28/24 days #22 grams gabapentin 400 mg capsule 400 mg PO TID #90 caps 05/01/24 dextromethorphan-guaifenesin 10 10 ml PO Q4H PRN cough #500 mL 05/15/24 mg-100 mg/5 mL oral liquid pseudoephedrine HCl 30 mg tablet 60 mg (2 x 30 mg) PO Q6H PRN nasal 05/15/24 congestion #30 tabs diclofenac sodium 1 % topical gel See Rx Instructions .Route 05/16/24 .COMPLEX #100 grams atenolol 50 mg tablet See Rx Instructions .Route 05/17/24 .COMPLEX #45 tabs evolocumab 140 mg/mL subcutaneous See Rx Instructions .Route 05/17/24 pen injector (Repatha SureClick) .COMPLEX #2 mL omeprazole 20 mg capsule,delayed See Rx Instructions .Route 05/17/24 release .COMPLEX #90 caps rivaroxaban 2.5 mg tablet (Xarelto) See Rx Instructions .Route 05/17/24 .COMPLEX #180 tabs atorvastatin 80 mg tablet See Rx Instructions .Route 05/24/24 .COMPLEX #90 tabs semaglutide 1 mg/dose (4 mg/3 mL) See Rx Instructions .Route 06/05/24 subcutaneous pen injector (Ozempic) .COMPLEX #3 mL empagliflozin 25 mg tablet See Rx Instructions .Route 06/14/24 (Jardiance) .COMPLEX #30 tabs hydrocodone 10 mg-acetaminophen 1 tab PO BID PRN pain #60 tabs 06/15/24 325 mg tablet lancets 30 gauge (OneTouch Delica #200 ea 06/15/24 Plus Lancet) Allergies Allergy/AdvReac Type Severity Reaction Status Date / Time No Known Allergies Allergy Verified 06/01/24 13:09 [facility] Disclaimer: The information contained in this section may have been updated after the patient was seen, as this information can be updated by other users. Medical History (Updated 06/19/24 @ 02:01 by Adolfo Trivedi MD) Ear lesion Congestion of both ears Tinnitus, bilateral Impacted cerumen Snoring Impacted cerumen, right ear Tympanosclerosis, right ear Bilateral impacted cerumen Otalgia, right ear Impacted cerumen of left ear Lesion of right external ear Right facial numbness Acute serous otitis media Otitis externa of right ear Hearing Loss Claudication PAD (peripheral artery disease) Palpitations SOB (shortness of breath) Neuropathy Stable angina Surgical History History of external ear surgery Social History Smoking Status: Never smoker alcohol intake: never counseling provided: other substance use type: denies use current occupational status: employed Travel in the last 8 weeks: Inside the [place] household members: spouse housing: house current occupation: [employer] current occupational exposures/hazards: No caffeine: Yes Other Medical History Have you received the Flu Vaccine for this season: No Have you received the Pneumonia Vaccine: Yes ROS Obtained: Yes All systems reviewed & no additional complaints except as documented Physical Exam General General appearance: alert and in no apparent distress Head Head exam: atraumatic and normocephalic Eye Eye exam: Present normal appearance, PERRL and EOMI ENT ENT exam: Present normal oropharynx and normal external ear exam Neck Neck exam: Present normal inspection and full ROM Chest Chest inspection: Present normal inspection and symmetric chest wall rise; Absent tenderness Respiratory Respiratory exam: Present normal lung sounds bilaterally; Absent respiratory distress Cardiovascular Cardiovascular exam: Present regular rate and normal rhythm Abdominal Exam Abdominal exam: Present soft; Absent distention, tenderness or guarding Extremities Exam Extremities exam: Present normal inspection; Absent edema or joint swelling Back Exam Back exam: Present normal inspection; Absent tenderness Neurological Exam Neurological exam: Present alert and oriented X3; Absent motor sensory deficit Psychiatric Psychiatric exam: Present normal affect and normal mood Skin Skin exam: Present warm, dry and normal color Lymphatic Lymphatic Findings: no adenopathy Medical Decision Making Medical Records Medical records reviewed: Yes I reviewed the patient's medical records. Screening: Per USPSTF and CDC recommendations, given the prevalence of disease in our region, it is our hospital?s policy to screen for HIV and viral Hepatitis for all patients aged 18 and over and those with ongoing risk factors. Juan Inquiry Pt receiving controlled substance: No Juan was queried for this patient: No Vital Signs: 06/19/24 00:16 06/19/24 02:09 Temperature 98.0 F 98.1 F Temperature Source Oral Pulse Rate 89 Pulse Rate [Apical] 80 Respiratory Rate 20 20 Blood Pressure 119/73 Blood Pressure [Right Arm] 103/67 L Blood Pressure Mean [Right Arm] 79 Blood Pressure Source [Right Arm] Automatic Cuff Blood Pressure Position [Right Arm] Sitting 02 Sat by Pulse Oximetry 100 Oxygen Delivery Method Room Air Room Air Lab Data Lab results reviewed: Yes I reviewed the patient's lab results. Lab Results 06/19/24 00:17: WBC 6.5, RBC 3.79 L, Hgb 12.3 L, Hct 37.8 L, MCV 99.7 H, MCH 32.5 H, MCHC 32.5, RDW 13.6, Plt Count 211, MPV 11.6 H, Neut % (Auto) 64.3, Lymph % (Auto) 24.0, [place] % (Auto) 8.3, Eos % (Auto) 2.6, Baso % (Auto) 0.5, Neut # (Auto) 4.2, Lymph # (Auto) 1.6, [place] # (Auto) 0.5, Eos # (Auto) 0.2, Baso # (Auto) 0.0, D-Dimer < 0.25, Sodium 133 L, Potassium 4.2, Chloride 98, Carbon Dioxide 28, Anion Gap 11.2, BUN 20, Creatinine 1.70 H, Estimated Creat Clear 44, Estimated GFR 41 L, Est GFR ( Amer) 50 L, Glucose 134 H, Calcium 9.3, Total Bilirubin 0.4, AST 23, ALT 21, Alkaline Phosphatase 95, Total Protein 7.0, Albumin 4.4, Globulin 2.6, Albumin/Globulin Ratio 1.7, Thyroxine (T4) 6.5 06/19/24 00:17 06/19/24 00:17 Orders (Tests/Meds): ED MEDICATIONS Discontinued Medications Generic Name Dose Route Start Last Admin Trade Name Freq PRN Reason Stop Dose Admin Acetaminophen 1,000 mg 06/19/24 00:16 06/19/24 00:50 Acetaminophen 500mg Tab PO 06/19/24 00:17 1,000 mg ONCE ONE Administration Aspirin 324 mg 06/19/24 00:16 06/19/24 00:49 Aspirin 81mg Chewable Tablet PO 06/19/24 00:17 324 mg ONCE ONE Administration ORDERS Category Date Time Status CXR --portable [XR chest portable] Stat Exams 06/19/24 00:16 Completed CBC w/Auto Diff [Complete Blood Count Auto Diff] Stat Lab 06/19/24 00:17 Completed CMP [Comprehensive Metabolic Panel] Stat Lab 06/19/24 00:17 Completed D-Dimer Stat Lab 06/19/24 00:17 Completed T4 (Thyroxine) Stat Lab 06/19/24 00:17 Completed ECG Data Tracing #1: I reviewed this ECG and interpreted as documented below: Sinus rhythm, no significant ST or T wave changes, no evidence of arrhythmia ECG initial impression date: 06/19/24 ECG initial impression time: 00:13 HEART Score History (anamnesis): Moderately suspicious ECG: Normal Age: 45-65 years Risk factors: Atherosclerosis history Troponin: </= normal limit HEART Score: 4 Medical Decision Narrative: 58-year-old male with history of coronary artery disease type 2 diabetes COPD hypertension presents for chest pain and concern for low blood pressure at home. History was obtained via interactive discussion with patient. On arrival, patient is [afebrile, hemodynamically stable, satting appropriately, alert, oriented x4, GCS 15], moving all extremities spontaneously. Full physical exam performed and significant for no significant physical exam abnormalities, clear lungs bilaterally Differential includes but is not limited to ACS, PE, GERD, musculoskeletal chest pain. Patient was given full dose aspirin, Tylenol for symptomatic management and correction of underlying abnormalities. Workup initiated including CBC CMP troponin EKG D-dimer chest x-ray. On re-evaluation, patient [remains afebrile, HD stable.] Laboratory workup independently interpreted by me and significant for mild elevation in creatinine at 1.7, no significant electrolyte derangement, negative D-dimer, negative initial troponin.. Imaging independently interpreted by me and significant for clear lungs bilaterally without focal opacity. See radiology read for full review of final results. Patient was placed in ED observation status for serial cardiac enzymes and continued cardiac monitoring to assess need for admission. On reassessment, patient reports that he has complete symptomatic resolution and does not wish to stay for the second troponin. I explained to him that we cannot satisfactorily exclude TN without performing a second troponin, patient reports understanding and request to be discharged regardless. Patient was discharged AMA in stable condition. Return precautions given. Procedures Risk/Benefits of Procedure(s) Were Explained: Yes Critical Care Critical Care Time Critical Care Time: No
[2024-06-19 02:09] VITALS: BP 119/73; PULSE 89; RESP 20; TEMP 36.7; O2SAT 96
== END 2024-06-19 02:10 | disposition left against medical advice (07) ==
PROVIDERS: Emergency Provider Emergency Medicine
DX: R07.9 Chest pain, unspecified (principal); I95.9 Hypotension, unspecified
CPT/HCPCS: 71045; 80053; 84436; 85025; 85378; 93005; 99284

== ENCOUNTER 2024-08-17 14:44 | Outpatient (CLI) | payer MEDICARE, MEDICAID, SELFPAY ==
--- OUTSIDE RECORDS SUMMARY | 2024-08-17 14:48 | XMS_ITS | Clinical Summary ---
Author Organization [facility] , [facility] Address [address] [place] [address] Phone Care Team Providers Care Bread Room Hand Name Role Phone Glenna Ayala APRN Primary Care Provider [phone] Kye LAKE, Manny Roberson Unavailable [phone] Reason for Visit and Chief Complaint [facility] Problems Includes: Problems addressed during this encounter and other active Problems All Visits Onset Date Resolved Date Provider Condition S tatus Joint Pain in the Right Hip 06/14/2024 Madi ackerman MD Active Last Documented On 5 2:19PM ; [facility] Joint Pain in Both Hips 05/30/2024 Jose lara PA-C Active Last Documented On 5 10:50AM ; [facility] Left Elbow Joint Pain 10/27/2015 Manny Fishman MD Active Last Documented On 6 11:01AM ; [facility], [facility] Plan of Treatment Future Appointments Date Time Location Provi lilo Post Op 09/24/2024 11:00AM [facility] Ebla Chang PA-C Last Documented On 5 11:41AM ; [facility], [facility] Assessments Includes: Assessments from this encounter No Assessments Recorded Medical Equipment - Implanted Devices Includes: Current Devices No Medical Equipment Recorded Medications Includes: Medications discussed during this encounter and other current Medications Current Medications (continue as prescribed) Vitamin D 3 Oral Capsule 06/14/2024 Provider: Diagnosis: Last Documented On 5 2:29PM By Daylin Kim ; [facility] Lisinopril 2.5 MG Oral Tablet 05/30/2024 Provider: Diagnosis: Last Documented On 5 11:25AM By Fortunato Clarke ; [facility], [facility] Adult Aspirin Regimen 81 MG Oral Tablet Delayed Releas e 05/30/2024 Provider: Diagnosis: Last Documented On 5 11:27AM By Fortunato Clarke ; [facility], [facility] Gabapentin 400 MG Oral Capsule 05/30/2024 Provider: Diagnosis: Last Documented On 5 11:33AM By Fortunato Clarke ; [facility], [facility] Symbicort 160-4.5 MCG/ACT Inhalation Aerosol Provider: Diagnosis: Last Documented On 5 11:32AM By Fortunato Clarke ; [facility], [facility] Vitamin B12 1000 MCG Oral Tablet 05/30/2024 Prov ider: Diagnosis: Last Documented On 5 11:31AM By Fortunato Clarke ; [facility], [facility] Cetirizine HCl 10 MG Oral Tablet 05/30/2024 Provider : Diagnosis: Last Documented On 5 11:31AM By Fortunato Clarke ; [facility], [facility] Furosemide 20 MG Oral Tablet 05/30/2024 Provider: Diagnosis: Last Documented On 5 11:30AM By Fortunato Clarke ; [facility], [facility] Montelukast Sodium 10 MG Oral Tablet 05/30/2024 Prov ider: Diagnosis: Last Documented On 5 11:29AM By Fortunato Clarke ; [facility], [facility] Ferrous Sulfate 325 (65 Fe) MG Oral Tablet 05/30/2024 Provider: Diagnosis: Last Documented On 5 11:28AM By Fortunato Clarke ; [facility], [facility] Omeprazole 20 MG Oral Ta blet Delayed Release Disintegrating 05/30/2024 Provider: Diagnosis: Last Documented On 5 11:26AM By Fortunato Clarke ; [facility], [facility] HYDROcodone-Acetaminophen 7. 5-325 MG Oral Tablet 05/26/2024 Provider: Mike Vitale MD Diagnosis: Last Documented On 5 10:51AM By Fortunato Clarke ; [facility], [facility] Ipratropium Collbran 0.06% Nasal Solution 05/18/2024 Provider: Diagnosis: Last Documented On 5 10:51AM By Fortunato Clarke ; [facility], [facility] Trelegy Ellipta 200-62.5-25 MCG/ACT Inhalation Aerosol Powder Breath Activated 05/18/2024 Provider: Diagnosis: Last Documented On 5 10:52AM By Fortunato Clarke ; [facility], [facility] Gemfibrozil 600 MG Oral Tablet 05/18/2024 Provider: Diagnosis: Last Documented On 10:51AM By Fortunato Clarke ; [facility], [facility] OneTouch Delica Plus [id number] Miscellaneous Provider: Abdirahman Gibson APRN Diagnosis: Last Documented On 5 10:51AM By Fortunato Clarke ; [facility], [facility] Jardiance 25 MG Oral Tablet 05/18/2024 Provider: Diagnosis: Last Documented On 5 10:51AM By Fortunato Clarke ; [facility], [facility] Tamsulosin HCl 0.4 MG Oral Capsule 05/18/2024 Provid er: Diagnosis: Last Documented On 5 10:51AM By Fortunato Clarke ; [facility], [facility] Ranolazine ER 1000 MG Oral Tablet Extended Release 12 Hour 05/18/2024 Provider: Diagnosis: Last Documented On 5 10:51AM By Fortunato Clarke ; [facility], [facility] Pioglitazone HCl 30 MG Oral Tablet 05/18/2024 Provid er: Diagnosis: Last Documented On 5 10:51AM By Fortunato Clarke ; [facility], [facility] Xarelto 2.5 MG Oral Tablet 05/17/2024 Provider: Diagnosis: Last Documented On 5 10:52AM By Fortunato Clarke ; [facility], [facility] Repatha SureClick 140 MG/ML Subcutaneous Solution Auto-injector 05/17/2024 Provider: Diagnosis: Last Documented On 5 10:52AM By Fortunato Clarke ; [facility], [facility] Atenolol 50 MG Oral Tablet 05/17/2024 Provider: Diagnosis: Last Documented On 5 10:52AM By Fortunato Clarke ; [facility], [facility] GN Diclofenac Sodium 1% External Gel 05/16/2024 Pro vider: Diagnosis: Last Documented On 5 10:52AM By Fortunato Clarke ; [facility] Ozempic (1 MG/DOSE) 4 MG/3ML Subcutaneous Solution Pen-injector 05/08/2024 Provider: Diagnosis: Last Documented On 5 10:52AM By Fortunato Clarke ; [facility], [facility] oxyBUTYnin Chloride ER 10 MG Oral Tablet Extended Release 24 Hour 04/17/2024 Provider: Diagnosis: Last Documented On 5 10:52AM By Fortunato Clarke ; [facility], [facility] Atorvastatin Calcium 10 MG Tablet 10/27/2015 Provide r: Diagnosis: Last Documented On 6 12:08PM By Hyun Perera ; [facility], [facility] Albuterol Sulfate (2.5 MG/3ML) 0.083% Nebulizati on solution 10/27/2015 Provider: Diagnosis: Last Documented On 6 12:09PM By Hyun Perera ; [facility] MetFORMIN HCl 500 MG Tablet 10/27/2015 Provider: Diagnosis: Last Documented On 6 12:08PM By Hyun Perera ; [facility] PriLOSEC 2.5 MG Powder, packet 10/27/2015 Provider: Diagnosis: Last Documented On 6 12:08PM By Hyun Perera ; [facility], [facility] Medications Administered Includes: Administered Medications from this encounter No Administered Medications Recorded Results Includes: Results discussed during this encounter No Results Recorded For Specified Dates History of Present Illness Includes: History of Present Illness from this encounter No History of Present Illness Recorded Social History No Social History Recorded - Smoking Status Unknown Procedures and Surgical History Includes: Procedures from this encounter Procedures Code Diagnosis Performing Provider Service Location Service Date TOTAL HIP ARTHROPLASTY (RIGHT) 73484 Idiopathic aseptic necrosis of right femur Madi Scott MD [facility] Surgical [facility] 07/03/2024 Last Documented On 5 8:06AM ; [facility] Medical History Includes: Medical History addressed during this encounter No Medical History Recorded Family History Includes: Family History addressed during this encounter No Family History Recorded Review of Systems Includes: Review of Systems from this encounter No Review of Systems Recorded Mental Status Includes: Mental Status from this encounter No Mental Status Recorded Functional Status Includes: Functional Status from this encounter No Functional Status Recorded Physical Exam Includes: Physical Exam from this encounter No Physical Exam Recorded Allergies Includes: Active Allergies No Known Allergies Encounters Encounter Provider Location Date Check-In Time Check-Out Time Diagnosis [facility] Madi Scott MD [facility] Surgical Division 07/04/19 25 8:03AM 11:59PM Insurance Includes: Active Insurance Policies Plan Name Member ID Group # Subscriber Relationship Effect vika Dates - O [id number] Parish Martin Clinical Notes Includes: Clinical Notes from this encounter No Clinical Notes Recorded
--- OUTSIDE RECORDS SUMMARY | 2024-08-17 14:48 | XMS_ITS ---
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 Role Phone Glenna Ayala APRN Primary Care Provider [phone] [place]ye [place], Manny Roberson Unavailable [phone] Problems Includes: Active, inactive, and resolved Problems All Visits Onset Date Resolved Date Provider Condition S tatus Joint Pain in the Right Hip 06/14/2024 Madi ackerman MD Active Last Documented On 5 2:19PM ; [facility] Joint Pain in Both Hips 05/30/2024 Jose lara PA-C Active Last Documented On 5 10:50AM ; [facility] Left Elbow Joint Pain 10/27/2015 Manny Fishman MD Active Last Documented On 6 11:01AM ; [facility] Plan of Treatment Pending Tests Order Diagnosis Results Due Ordering P rovider Lab Hemoglobin A1c 06/14/24 Meghana INIGUEZ Last Documented On 5 2:40PM ; [facility] Lab CBC With Differential/Platelet 06/14 Meghana INIGUEZ Last Documented On 5 2:40PM ; [facility] Lab Prothrombin Time (PT) 06/14/24 Veronica Marks Last Documented On 5 2:40PM ; [facility] Lab PTT, Activated 06/14/24 Meghana stockton PA Last Documented On 5 2:40PM ; [facility] Lab Prealbumin 06/14/24 Meghana Melissa P A Last Documented On 5 2:40PM ; [facility] Lab Nicotine and Metabolite, Quant 06/14 Meghana INIGUEZ Last Documented On 5 2:40PM ; [facility] Lab Vitamin D, 25-Hydroxy 06/14/24 Veronica tawana INIGUEZ Last Documented On 5 2:40PM ; [facility] Lab Fructosamine 06/14/24 Meghana INIGUEZ Last Documented On 5 2:40PM ; [facility] Lab MRSA by EVAN 06/14/24 Meghana INIGUEZ Last Documented On 5 2:40PM ; [facility] Lab Comp. Metabolic Panel (14) 06/14/24 Meghana INIGUEZ Last Documented On 5 2:40PM ; [facility] Lab Potassium 06/18/24 Meghana Kern A Last Documented On 5 1:03PM ; [facility] Future Appointments Date Time Location Provi lilo Post Op 09/24/2024 11:00AM [facility] Elba Chang PA-C Last Documented On 5 11:41AM ; [facility] Instructions to patient Lose weight Last Documented On 5 11:29AM ; [facility] Instructions for patient See PCP for slightly elevated B/P Last Documented On 5 1:17PM ; [facility] Lose weight Last Documented On 5 1:29PM ; [facility] Instructions for patient See PCP for slightly elevated B/P Last Documented On 5 10:53AM ; [facility] Instructions for patient See PCP for slightly elevated B/P Last Documented On 7 12:59PM ; [facility] Instructions for patient See PCP for slightly elevated B/P Last Documented On 7 12:57PM ; [facility] Instructions for patient See PCP for slightly elevated B/P Last Documented On 6 1:31PM ; [facility] Instructions for patient See PCP for slightly elevated B/P Last Documented On 6 2:15PM ; [facility] Instructions for patient See PCP for slightly elevated B/P Last Documented On 6 3:41PM ; [facility] Instructions for patient See PCP for slightly elevated B/P Last Documented On 6 3:44PM ; [facility] Instructions for patient See PCP for slightly elevated B/P Last Documented On 6 9:55AM ; [facility] Instructions for patient See PCP for slightly elevated B/P Last Documented On 6 11:05AM ; [facility] Assessments Includes: Assessments for all patient encounters Findings Encounter Date Overweight Post Op with Elba Ledesma 08/09/2024 Last Documented On 5 1:02PM ; [facility] Overweight IN HOUSE REFERRAL with Madi causey MD 06/14/2024 Last Documented On 5 1:10PM ; [facility] Instructions Includes: Instructions for all patient encounters Instructions to patient Lose weight Last Documented On 5 11:29AM ; [facility] Instructions for patient See PCP for slightly elevated B/P Last Documented On 5 1:17PM ; [facility] Lose weight Last Documented On 5 1:29PM ; [facility] Instructions for patient See PCP for slightly elevated B/P Last Documented On 5 10:53AM ; [facility] Instructions for patient See PCP for slightly elevated B/P Last Documented On 7 12:59PM ; [facility] Instructions for patient See PCP for slightly elevated B/P Last Documented On 7 12:57PM ; [facility] Instructions for patient See PCP for slightly elevated B/P Last Documented On 6 1:31PM ; [facility] Instructions for patient See PCP for slightly elevated B/P Last Documented On 6 2:15PM ; [facility] Instructions for patient See PCP for slightly elevated B/P Last Documented On 6 3:41PM ; [facility] Instructions for patient See PCP for slightly elevated B/P Last Documented On 6 3:44PM ; [facility] Instructions for patient See PCP for slightly elevated B/P Last Documented On 6 9:55AM ; [facility] Instructions for patient See PCP for slightly elevated B/P Last Documented On 6 11:05AM ; [facility] Medical Equipment - Implanted Devices Includes: Current and historical Devices No Medical Equipment Recorded Medications Includes: Current and historical Medications Current Medications (continue as prescribed) Vitamin D 3 Oral Capsule 06/14/2024 Provider: Diagnosis: Last Documented On 5 2:29PM By Daylin Kim ; [facility] Lisinopril 2.5 MG Oral Tablet 05/30/2024 Provider: Diagnosis: Last Documented On 5 11:25AM By Fortunato Clarke ; [facility] Adult Aspirin Regimen 81 MG Oral Tablet Delayed Releas e 05/30/2024 Provider: Diagnosis: Last Documented On 5 11:27AM By Fortunato Clarke ; [facility] Gabapentin 400 MG Oral Capsule 05/30/2024 Provider: Diagnosis: Last Documented On 5 11:33AM By Fortunato Clarke ; [facility] Symbicort 160-4.5 MCG/ACT Inhalation Aerosol 5 Provider: Diagnosis: Last Documented On 5 11:32AM By Fortunato Clarke ; [facility] CVS Vitamin B12 1000 MCG Oral Tablet 05/30/2024 Prov ider: Diagnosis: Last Documented On 5 11:31AM By Fortunato Clarke ; [facility] Cetirizine HCl 10 MG Oral Tablet 05/30/2024 Provider : Diagnosis: Last Documented On 5 11:31AM By Fortunato Clarke ; [facility] Furosemide 20 MG Oral Tablet 05/30/2024 Provider: Diagnosis: Last Documented On 5 11:30AM By Fortunato Clarke ; [facility] Montelukast Sodium 10 MG Oral Tablet 05/30/2024 Prov ider: Diagnosis: Last Documented On 5 11:29AM By Fortunato Clarke ; [facility] Ferrous Sulfate 325 (65 Fe) MG Oral Tablet 05/30/2024 Provider: Diagnosis: Last Documented On 5 11:28AM By Fortunato Clarke ; [facility] Omeprazole 20 MG Oral Ta blet Delayed Release Disintegrating 05/30/2024 Provider: Diagnosis: Last Documented On 5 11:26AM By Fortunato Clarke ; [facility] HYDROcodone-Acetaminophen 7. 5-325 MG Oral Tablet 05/26/2024 Provider: Mike Vitale MD Diagnosis: Last Documented On 5 10:51AM By Fortunato Clarke ; [facility] Ipratropium [place] 0.06% Nasal Solution 05/18/2024 Provider: Diagnosis: Last Documented On 5 10:51AM By Fortunato Clarke ; [facility] Trelegy Ellipta 200-62.5-25 MCG/ACT Inhalation Aerosol Powder Breath Activated 05/18/2024 Provider: Diagnosis: Last Documented On 5 10:52AM By Fortunato Clarke ; [facility] Gemfibrozil 600 MG Oral Tablet 05/18/2024 Provider: Diagnosis: Last Documented On 5 10:51AM By Fortunato Clarke ; [facility] OneTouch Delica Plus [id number] Miscellaneous Provider: Abdirahman Gibson APRN Diagnosis: Last Documented On 5 10:51AM By Fortunato Clarke ; [facility] Jardiance 25 MG Oral Tablet 05/18/2024 Provider: Diagnosis: Last Documented On 5 10:51AM By Fortunato Clarke ; [facility] Tamsulosin HCl 0.4 MG Oral Capsule 05/18/2024 Provid er: Diagnosis: Last Documented On 5 10:51AM By Fortunato Clarke ; [facility] Ranolazine ER 1000 MG Oral Tablet Extended Release 12 Hour 05/18/2024 Provider: Diagnosis: Last Documented On 5 10:51AM By Fortunaot Clarke ; [facility] Pioglitazone HCl 30 MG Oral Tablet 05/18/2024 Provid er: Diagnosis: Last Documented On 5 10:51AM By Fortunato Clarke ; [facility] Xarelto 2.5 MG Oral Tablet 05/17/2024 Provider: Diagnosis: Last Documented On 5 10:52AM By Fortunato Clarke ; [facility] Repatha SureClick 140 MG/ML Subcutaneous Solution Auto-injector 05/17/2024 Provider: Diagnosis: Last Documented On 5 10:52AM By Fortunato Clarke ; [facility] Atenolol 50 MG Oral Tablet 05/17/2024 Provider: Diagnosis: Last Documented On 5 10:52AM By Fortunato Clarke ; [facility] GNP Diclofenac Sodium 1% External Gel 05/16/2024 Pro vider: Diagnosis: Last Documented On 5 10:52AM By Fortunato Clarke ; [facility] Ozempic (1 MG/DOSE) 4 MG/3ML Subcutaneous Solution Pen-injector 05/08/2024 Provider: Diagnosis: Last Documented On 5 10:52AM By Fortunato Clarke ; [facility] oxyBUTYnin Chloride ER 10 MG Oral Tablet Extended Release 24 Hour 04/17/2024 Provider: Diagnosis: Last Documented On 5 10:52AM By Fortunato Clarke ; [facility] Atorvastatin Calcium 10 MG Tablet 10/27/2015 Provide r: Diagnosis: Last Documented On 6 12:08PM By Hyun Perera ; [facility] Albuterol Sulfate (2.5 MG/3ML) 0.083% Nebulizati on solution 10/27/2015 Provider: Diagnosis: Last Documented On 6 12:09PM By Hyun Perera ; [facility] MetFORMIN HCl 500 MG Tablet 10/27/2015 Provider: Diagnosis: Last Documented On 6 12:08PM By Hyun Perera ; [facility] PriLOSEC 2.5 MG Powder, packet 10/27/2015 Provider: Diagnosis: Last Documented On 6 12:08PM By Hyun Perera ; [facility] Past Medications on file Eliquis 2.5 MG Oral Tablet 07/03/2024 - 08/14/2024 Pro vider: Madi Scott MD Diagnosis: twice a day Last Documented On 8:46AM By Sneha Piña ; [facility] Meloxicam 15 MG Oral Tablet 07/02/2024 - 07/16/2024 Pr ovider: Madi Scott MD Diagnosis: once a day TAKE ONE P/O ONE TIME A DAY UNTIL FIN ISHED Last Documented On 1:08PM By Madi Scott ; [facility] Colace 100 MG Oral Capsule 07/02/2024 - 08/01/2024 Pro vider: Madi Scott MD Diagnosis: 1-2 tabs daily Last Documented On 1:08PM By Madi Scott ; [facility] Cefadroxil 500 MG Oral Capsule 07/02/2024 - 07/05/2024 Provider: Madi Scott MD Diagnosis: 1 tablet twice a day for 3 days Last Documented On 1:08PM By Madi Scott ; [facility] Acetaminophen 500 MG Oral Tablet 07/02/2024 - 08/02/19 Provider: Madi Scott MD Diagnosis: Take 2 tablets by mouth every 8 hours Last Documented On 1:08PM By Madi Scott ; [facility] oxyCODONE HCl 5 MG Oral Tablet 07/02/2024 - 07/06/2024 Provider: Madi Scott MD Diagnosis: [id number] TABLET PO Q 4-6H FOR POST OP PAIN Last Documented On 1:08PM By Madi Scott ; [facility] Ondansetron HCl 4 MG Oral Tablet 07/02/2024 - 07/10/19 Provider: Madi Scott MD Diagnosis: 1-2 po q 4-6h PRN Nausea Last Documented On 03/17/202 5 1:08PM By Madi Scott ; [facility] SudoGest 30 MG Oral Tablet 05/15/2024 - 06/14/2024 Pro vider: Diagnosis: Last Documented On 5 2:26PM By Daylin Kim ; [facility] Cephalexin 500 MG Oral Capsule 04/16/2024 - 06/14/2024 Provider: Diagnosis: Last Documented On 5 2:27PM By Daylin Kim ; [facility] Naprosyn 500 MG Tablet 04/01/2016 - 05/01/2016 Provide r: Manny Fishman MD Diagnosis: twice a day Last Documented On 6 2:12PM By Willa Small ; [facility] Aspirin 81 MG Tablet, enteric coated 10/27/2015 - 05/20 Provider: Diagnosis: Last Documented On 5 2:27PM By Daylin Kim ; [facility] Plavix 75 MG Tablet 10/27/2015 - 06/14/2024 Provider: Diagnosis: Last Documented On 5 2:28PM By Daylin Kim ; [facility] Ashburn 5-325 MG Tablet 10/27/2015 - 06/14/2024 Provider : Diagnosis: Last Documented On 5 2:28PM By Daylin Kim ; [facility] Naprosyn 500 MG Tablet 10/27/2015 - 11/26/2015 Provide r: Manny Fishman MD Diagnosis: twice a day Last Documented On 6 11:56AM By Stephanie Patterson ; [facility] Medications Administered Includes: Administered Medications in patient's chart No Administered Medications Recorded Vital Signs Includes: Vital Signs from 08/18/2023 through 08/17/2024 Vital Name 08/09/2024 11:28A 08/09/2024 10:36A 06/14/2024 02:29P 06/14/2024 01:27P 05/30/2024 11:05A Height (in) 64 64 64 64 64 Weight (lb) 184 184 184 183 Body Mass Index 31.6 31.6 31.6 31.4 Body Surface Area 1.9 1.9 1.9 1.9 Pain Level 1 6 Blood Pressure Sitting (mmHg) 127/79 Pulse Rate-Sitting (bpm) 68 Oxygen Saturation (%) 98 Note: clw tm Last Documented: On 08/09/2024 11:28AM ; [facility] On 08/09/2024 10:37AM ; [facility] On 06/14/2024 2:37PM ; [facility] On 06/14/2024 1:28PM ; [facility] On 05/30/2024 11:06AM ; [facility] Results Includes: Results from 08/18/2023 through 08/17/2024 CBC With Differential/Platelet [facility] Ordered by Meghana INIGUEZ on 06/14/2024 Collected: 06/14/2024 Reported: 06/22/19 25 10:07 Last Documented On 12:28PM ; [facility] All test results are final unless otherw ise noted. WBC 5.8 x10E3/uL (3.4-10.8) None Last Documented On 12:28PM ; [facility] RBC 4.02 x10E6/uL (4.14-5.80) L (Low) Last Documented On 12:28PM ; [facility] Hemoglobin 13.3 g/dL (13.0-17.7) None Last Documented On 12:28PM ; [facility] Hematocrit 39.7 % (37.5-51.0) None Last Documented On 12:28PM ; [facility] MCV 99 fL (79-97) H (High) Last Documented On 12:28PM ; [facility] MCH 33.1 pg (26.6-33.0) H (High) Last Documented On 12:28PM ; [facility] MCHC 33.5 g/dL (31.5-35.7) None Last Documented On 12:28PM ; [facility] Neutrophils 55 % (Not Estab.) None Last Documented On 03/06/202 5 12:28PM ; [facility] Immature Granulocytes 0 % (Not Estab.) None Last Documented On 5 12:28PM ; [facility] Lymphs 31 % (Not Estab.) None Last Documented On 5 12:28PM ; [facility] Monocytes 10 % (Not Estab.) None Last Documented On 5 12:28PM ; [facility] Eos 3 % (Not Estab.) None Last Documented On 5 12:28PM ; [facility] Basos 1 % (Not Estab.) None Last Documented On 5 12:28PM ; [facility] Platelets 195 x10E3/uL (150-450) None Last Documented On 5 12:28PM ; [facility] Neutrophils (Absolute) 3.2 x10E3/uL (1.4-7.0) None Last Documented On 5 12:28PM ; [facility] Immature Grans (Abs) 0.0 x10E3/uL (0.0-0.1) None Last Documented On 5 12:28PM ; [facility] Lymphs (Absolute) 1.8 x10E3/uL (0.7-3.1) None Last Documented On 5 12:28PM ; [facility] Monocytes(Absolute) 0.6 x10E3/uL (0.1-0.9) None Last Documented On 5 12:28PM ; [facility] Eos (Absolute) 0.2 x10E3/uL (0.0-0.4) None Last Documented On 5 12:28PM ; [facility] Baso (Absolute) 0.0 x10E3/uL (0.0-0.2) None Last Documented On 5 12:28PM ; [facility] RDW 13.0 % (11.6-15.4) None Last Documented On 5 12:28PM ; [facility] Comp. Metabolic Panel (14) [facility] [place] [facility] Ordered by Meghaan INIGUEZ on 06/14/2024 Collected: 06/14/2024 Reported: 06/22/19 25 10:07 Last Documented On 12:28PM ; [facility] All test results are final unless otherw ise noted. Calcium 10.1 mg/dL (8.6-10.2) None Last Documented On 12:28PM ; [facility] Glucose 131 mg/dL (70-99) H (High) Last Documented On 12:28PM ; [facility] BUN 15 mg/dL (8-27) None Last Documented On 12:28PM ; [facility] Protein, Total 6.5 g/dL (6.0-8.5) None Last Documented On 12:28PM ; [facility] Albumin 4.4 g/dL (3.8-4.9) None Last Documented On 12:28PM ; [facility] Bilirubin, Total 0.3 mg/dL (0.0-1.2) None Last Documented On 12:28PM ; [facility] Alkaline Phosphatase 97 IU/L (44-121) None Last Documented On 12:28PM ; [facility] AST (SGOT) 17 IU/L (0-40) None Last Documented On 12:28PM ; [facility] Potassium 5.5 mmol/L (3.5-5.2) H (High) Last Documented On 12:28PM ; [facility] Sodium 142 mmol/L (134-144) None Last Documented On 12:28PM ; [facility] Chloride 101 mmol/L (96-106) None Last Documented On 12:28PM ; [facility] Creatinine 1.42 mg/dL (0.76-1.27) H (High) Last Documented On 12:28PM ; [facility] ALT (SGPT) 14 IU/L (0-44) None Last Documented On 5 12:28PM ; [facility] Carbon Dioxide, Total 25 mmol/L (20-29) None Last Documented On 5 12:28PM ; [facility] BUN/Creatinine Ratio 11 (10-24) None Last Documented On 5 12:28PM ; [facility] Globulin, Total 2.1 g/dL (1.5-4.5) None Last Documented On 5 12:28PM ; [facility] eGFR 57 mL/min/1.73 (>59) L (Low) Last Documented On 12:28PM ; [facility] Ordered by Meghana INIGUEZ on 06/14/2024 Collected: 06/14/2024 Reported: 06/22/19 10:07 Last Documented On 12:28PM ; [facility] All test results are final unless otherw ise noted. Prothrombin Time 11.1 sec (9.1-12.0) None Last Documented On 12:28PM ; [facility] INR 1.0 (0.9-1.2) None Last Documented On 12:28PM ; [facility] Note: Reference interval is for non-anti coagulated patients. . Suggested INR therapeutic range for Vitamin K antagonist therapy: Standard Dose (moderate intensity therapeutic range): 2.0 - 3.0 Higher intensity therapeutic range 2.5 - 3.5 Nicotine and Metabolite, Quant [facility] Ordered by Meghana INIGUEZ on 06/14/2024 Collected: 06/14/2024 Reported: 06/22/19 10:07 Last Documented On 12:28PM ; [facility] All test results are final unless otherw ise noted. Nicotine <1.0 ng/mL None Last Documented On 06/21/2024 12:28PM ; [facility] Note: This test was developed and its performance characteristicsdetermined by [facility]. It has not been cleared orapproved by the Food and Drug Administration.Nicotine levels greater than 2.0 are consistent with theuse of tobacco or tobacco cessation products. Cotinine <1.0 ng/mL None Last Documented On 06/21/2024 12:28PM ; [facility] Note: This test was developed and its performance characteristicsdetermined by [facility]. It has not been cleared orapproved by the Food and Drug Administration.Cotinine levels greater than 20.0 are consistent with theuse of tobacco or tobacco cessation products. Hemoglobin A1c [facility] Ordered by Meghana INIGUEZ on 06/14/2024 Collected: 06/14/2024 Reported: 06/22/19 10:07 Last Documented On 12:28PM ; [facility] All test results are final unless otherw ise noted. Hemoglobin A1c 6.2 % (4.8-5.6) H (High) Last Documented On 12:28PM ; [facility] Note: . . Prediabetes: 5.7 - 6.4 Diabete s: >6.4 Glycemic control for adults with diabetes: <7.0 PTT, Activated [facility] Ordered by Meghana INIGUEZ on 06/14/2024 Collected: 06/14/2024 Reported: 06/22/19 10:07 Last Documented On 12:28PM ; [facility] All test results are final unless otherw ise noted. aPTT 33 sec (24-33) None Last Documented On 12:28PM ; [facility] Note: This test has not been validated f or monitoringunfractionated heparin therapy. aPTT-based therapeuticranges for unfractionated heparin therapy have not beenestablished. For general guidelines on Heparin monitoring,refer to the [facility] Directory of Services. Vitamin D, 25-Hydroxy [facility] Ordered by Meghana INIGUEZ on 06/14/2024 Collected: 06/14/2024 Reported: 06/22/19 25 10:07 Last Documented On 5 12:28PM ; [facility] All test results are final unless otherw ise noted. Vitamin D, 25-Hydroxy 71.4 ng/mL (30.0-100.0) None Last Documented On 5 12:28PM ; [facility] Note: Vitamin D deficiency has been defi tiffany by the [place] [employer] and an Endocrine Society practice guideline as alevel of serum 25-OH vitamin D less than 20 ng/mL (1,2).The Endocrine Society went on to further define vitamin Dinsufficiency as a level between 21 and 29 ng/mL (2).1. IOM ([place] [employer]). 2010. Dietary reference intakes for calcium and D. [place]: The National Academies Press.2. Gaston COLE, Hugo FERNANDEZ, Kaylan MARTINEZ, et al. Evaluation, treatment, and prevention of vitamin D deficiency: an Endocrine Society clinical practice guideline. JCEM. 2010; 96(3):1911-30. Fructosamine [facility] Ordered by Meghana INIGUEZ on 06/14/2024 Collected: 06/14/2024 Reported: 06/22/19 10:07 Last Documented On 12:28PM ; [facility], [facility] All test results are final unless otherw ise noted. Fructosamine 233 umol/L (0-285) None Last Documented On 12:28PM ; [facility], [facility] Note: Published reference interval for a pparently healthysubjects between age 20 and 60 is 205 - 285 umol/L and in apoorly controlled diabetic population is 228 - 563 umol/Lwith a mean of 396 umol/L. MRSA by EVAN [facility] Ordered by Meghana INIGUEZ on 06/14/2024 Collected: 06/14/2024 Reported: 06/22/19 25 10:07 Last Documented On 5 12:28PM ; [facility] All test results are final unless otherw ise noted. MRSA by EVAN Negative (Negative) None Last Documented On 5 12:28PM ; [facility] Prealbumin [facility] Ordered by Meghana INIGUEZ on 06/14/2024 Collected: 06/14/2024 Reported: 06/22/19 25 10:07 Last Documented On 5 12:28PM ; [facility] All test results are final unless otherw ise noted. Prealbumin 28 mg/dL (10-36) None Last Documented On 5 12:28PM ; [facility] Reported Physicians [facility] Ordered by Meghana INIGUEZ on 06/14/2024 Collected: 06/14/2024 Reported: 06/22/19 25 10:07 Last Documented On 5 12:28PM ; [facility] All test results are final unless otherw ise noted. Reported Physicians See Note None Last Documented On 06/21/2024 12:28PM ; [facility] Note: Reported Physicians:Ordering: MEGHANA HELTON History of Present Illness History of Present Illness not supported for this document type No History of Present Illness Recorded Social History Description Last Updated No recent change in diet 06/14/2024 Last Documented On 5 1:43PM ; [facility] Not a current smoker. 06/14/2024 Last Documented On 5 1:43PM ; [facility] Caffeine use 05/30/2024 Last Documented On 5 11:49AM ; [facility] No recent change in diet 06/10/2016 Last Documented On 7 11:53AM ; [facility] No tobacco use 06/10/2016 Last Documented On 7 11:53AM ; [facility] Not a current smoker 06/10/2016 Last Documented On 7 11:53AM ; [facility] Not exercising regularly 06/10/2016 Last Documented On 7 11:53AM ; [facility] Not using alcohol 06/10/2016 Last Documented On 7 11:53AM ; [facility] Not using drugs 06/10/2016 Last Documented On 7 11:53AM ; [facility] Smoking status : Former smoker 7 Last Documented On 7 11:53AM ; [facility] Procedures and Surgical History Includes: Procedures from 08/18/2023 through 08/17/2024 Procedures Code Diagnosis Performing Provider Service Location Service Date PELVIS w/ 2-3 VIEW HIP (RIGHT) 88605 Unilateral primary osteoarthritis, right hip, Presence of right artificial hip joint Elba Chang PA-C [facility] 08/09/2024 Last Documented On 5 11:01AM ; [facility] [employer] (Purchase of New Equipment) E0143 Unilateral primary osteoarthritis, right hip, Presence of right artificial hip joint Madi Scott MD [facility] 07/03/2024 Last Documented On 5 1:27PM ; [facility] PT Eval -Low Complexity (GP) 06674 Unilateral primary osteoarthritis, right hip, Presence of right artificial hip joint Shefali Keenoy PT [facility] PT Surgery Center Office 07/03/2024 Last Documented On 5 1:25PM ; [facility] GAIT TRAINING THERAPY (GP, Distinct procedure) 77546 Unilateral primary osteoarthritis, right hip, Presence of right artificial hip joint Shefali Keenoy PT [facility] PT Surgery Center Office 07/03/2024 Last Documented On 5 1:25PM ; [facility] THERAPEUTIC ACTIVITIES (GP) 28259 Unilateral primary osteoarthritis, right hip, Presence of right artificial hip joint Shefali Keenoy PT [facility] PT Surgery Center Office 07/03/2024 Last Documented On 5 1:25PM ; [facility] TOTAL HIP ARTHROPLASTY (RIGHT) 87743 Idiopathic aseptic necrosis of right femur Madi Scott MD [facility] Surgical Division 07/03/2024 Last Documented On 5 8:06AM ; [facility] Medical History Includes: Medical History in patient's chart Description Last Updated Arthritic joint problems 05/30/2024 Last Documented On 5 11:49AM ; [facility] History of asthma 05/30/2024 Last Documented On 5 11:49AM ; [facility] History of heart disease 05/30/2024 Last Documented On 5 11:49AM ; [facility] Past medical history non-contributory ~h igh cholesterol ~acid reflux 05/30/2024 Last Documented On 5 11:49AM ; [facility] History of diabetes mellitus 06/10/2016 Last Documented On 7 11:53AM ; [facility] Intermittent hypertension 06/10/2016 Last Documented On 7 11:53AM ; [facility] Family History Includes: Family History in patient's chart Description Last Updated Family history of diabetes mellitus 05/19 Last Documented On 5 11:49AM ; [facility] Family history of heart disease 05/30/19 25 Last Documented On 5 11:49AM ; [facility] Family history of systemic hypertension 05/30/2024 Last Documented On 5 11:49AM ; [facility] stroke/seizure, mother, father 7 Last Documented On 7 11:53AM ; [facility] Maternal history of family history of he art disease 06/10/2016 Last Documented On 7 11:53AM ; [facility] Maternal history of thromboembolic disea se 06/10/2016 Last Documented On 7 11:53AM ; [facility] Paternal history of hypertension 017 Last Documented On 7 11:53AM ; [facility] Sororal history of diabetes mellitus Last Documented On 7 11:53AM ; [facility] Review of Systems Review of Systems not supported for this document type No Review of Systems Recorded Mental Status No Mental Status Recorded Functional Status No Functional Status Recorded Physical Exam Physical Exam not supported for this document type No Physical Exam Recorded Allergies Includes: Active, inactive, and resolved Allergies No Known Allergies Encounters Includes: Encounters from 08/18/2023 through 08/17/2024 Encounter Provider Location Date Check-In Time Check-Out Time Diagnosis Post Op Elba Chang PA-C [facility] 025 10:22AM 11:39AM Overweight BR[facility] [employer]TING Madi Scott MD [facility] 025 07/04/2024 11:45AM 06/14/2024 11:59PM [facility] Madi Scott MD Surgery 025 07/04/2024 8:03AM 06/14/2024 11:59PM [facility] Madi Scott MD [facility] Surgical Division 07/04/2024 8:03AM 06/14/2024 11:59PM Outside Test Meghana INIGUEZ 025 2:14PM 11:59PM IN HOUSE REFERRAL Madi Scott MD [facility] 025 1:16PM 2:14PM Overweight Pre Admission Testing Meghana INIGUEZ [facility] 025 2:17PM 2:37PM Non Physician Specified Jose Ledesma PA-C [facility] 11:01AM 11:23AM Insurance Includes: Active Insurance Policies Plan Name Member ID Group # Subscriber Relationship Effect vika Dates 1 - HUMANA O [id number] Parish Hernandez Self Clinical Notes Includes: Signed Clinical Notes starting from 04/01/2022 * Progress note Date Encounter Last Documented by 08/09/2024 Post Op Last documented on 08/09/2024; 1:02 PM, Elba Schroeder; [facility] Active Problems & Conditions - Joint Pain in Both Hips - Joint Pain in the Right Hip - Left Elbow Joint Pain Chief Complaint The Chief Complaint is: PO R LADARIUS on 07/03/2024. Referred Here Referred by self. History of Present Illness Parish Hernandez is a 59 year old male. - Allergy list reviewed - Problem list reviewed - Medication list reviewed - - Review of medications documented Patient is here today for 6 week postoperative follow up s/p right LADARIUS that took place on 07/03/2024. Patient states he is doing very well at this time and reports minimal pain in the hip. 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 He was prescribed Eliquis 2.5 mg b.i.d. for DVT prophylaxis which he has been taking as prescribed. He is currently transitioning to outpatient physical therapy and starts that the 1st week of August. Patient says he has had intermittent lower extremity swelling bilaterally but this was occurring prior to his surgery treatment and always resolves with elevation and compression sleeve. 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 Patient denies any fevers, night sweats, chest pain, shortness of breath, calf pain. Current Medication - Adult Aspirin Regimen 81 MG Oral Tablet Delayed Release take as directed 0 days, 0 refills - Albuterol Sulfate (2.5 MG/3ML) 0.083% Nebulization solution once a day 0 days, 0 refills - Atenolol 50 MG Oral Tablet 30 days, 0 refills - Atorvastatin Calcium 10 MG Tablet once a day 0 days, 0 refills - Cetirizine HCl 10 MG Oral Tablet take as directed 0 days, 0 refills - [facility] Omeprazole 20 MG Oral Tablet Delayed Release Disintegrating take as directed 0 days, 0 refills - [facility] Vitamin B12 1000 MCG Oral Tablet take as directed 0 days, 0 refills - Eliquis 2.5 MG Oral Tablet twice a day, 42 days, 0 refills - Ferrous Sulfate 325 (65 Fe) MG Oral Tablet take as directed 0 days, 0 refills - Furosemide 20 MG Oral Tablet take as directed 0 days, 0 refills - Gabapentin 400 MG Oral Capsule take as directed 0 days, 0 refills - Gemfibrozil 600 MG Oral Tablet 30 days, 0 refills - GNP Diclofenac Sodium 1% External Gel 9 days, 0 refills - HYDROcodone-Acetaminophen 7.5-325 MG Oral Tablet 28 days, 0 refills - Ipratropium [place] 0.06% Nasal Solution 41 days, 0 refills - Jardiance 25 MG Oral Tablet 30 days, 0 refills - Lisinopril 2.5 MG Oral Tablet take as directed 0 days, 0 refills - MetFORMIN HCl 500 MG Tablet once a day 0 days, 0 refills - Montelukast Sodium 10 MG Oral Tablet take as directed 0 days, 0 refills - OneTouch Delica Plus [id number] Miscellaneous 33 days, 0 refills - oxyBUTYnin Chloride ER 10 MG Oral Tablet Extended Release 24 Hour 90 days, 0 refills - Ozempic (1 MG/DOSE) 4 MG/3ML Subcutaneous Solution Pen-injector 28 days, 0 refills - Pioglitazone HCl 30 MG Oral Tablet 30 days, 0 refills - PriLOSEC 2.5 MG Powder, packet Packet once a day 0 days, 0 refills - Ranolazine ER 1000 MG Oral Tablet Extended Release 12 Hour 30 days, 0 refills - Repatha SureClick 140 MG/ML Subcutaneous Solution Auto-injector 28 days, 0 refills - Symbicort 160-4.5 MCG/ACT Inhalation Aerosol take as directed 0 days, 0 refills - Tamsulosin HCl 0.4 MG Oral Capsule 30 days, 0 refills - Trelegy Ellipta 200-62.5-25 MCG/ACT Inhalation Aerosol Powder Breath Activated 30 days, 0 refills - Vitamin D 3 Oral Capsule take as directed 0 days, 0 refills - Xarelto 2.5 MG Oral Tablet 30 days, 0 refills Past Medical/Surgical History Reported: Medical: Arthritic joint problems. Intermittent hypertension. Diagnoses: Heart disease. Asthma. Diabetes mellitus Past medical history non-contributory high cholesterol acid reflux. Social History Not a current smoker. Current diet: No recent change in diet. No recent change in diet. Caffeine use: Caffeine use. Tobacco use: No tobacco use, not a current smoker, and smoking status: Former smoker. Alcohol: Not using alcohol. Drug Use: Not using drugs. Habits: Not exercising regularly. Allergies - No Known Allergies Family History Heart disease Stroke/seizure, mother, father Systemic hypertension Diabetes mellitus Paternal: Systemic hypertension Maternal: Heart disease Thromboembolic disease Sororal: Diabetes mellitus Physical Findings - Vitals taken 08/09/2024 10:36 am Height 64 in - Vitals taken 08/09/2024 11:28 am clw Height 64 in Weight 184 lbs Body Mass Index 31.6 kg/m2 Body Surface Area 1.9 m2 Pain Level 1 The patient is well-dressed well-groomed. They have normal mood and affect. They are ambulating without any assistive device at today's follow-up appointment. Right hip exam: The hip has normal alignment. The incision is intact and well healed. There is no induration, fluctuance, or drainage. There is no increased redness or heat. There is no effusion. Patient has pain-free motion with gentle internal external rotation of the right hip. Patient has a small amount of bilateral lower extremity swelling. Normal sensation. Normal neurovascular status. No calf tenderness. Negative Homans sign. Tests X-rays performed today AP pelvis and AP lateral of the right hip show implant in good position no signs of loosening or osteolysis leg length and offset appear symmetric Assessment - Overweight Counseling/Education - Tobacco non-user - Use of tobacco assessment performed - Lose weight Notes This dictation was done with voice recognition software and may contain errors and omissions. Care Team - Glenna Ayala APRN Health Reminders - Assess BMI satisfied 08/09/2024. - Assess Tobacco Use satisfied 06/10/2016. - Follow Up Plan BMI Management satisfied 08/09/2024. User Defined 5 Patient is here today for 6 week postoperative follow up s/p right LADARIUS that took place on 07/03/2024. Patient is progressing well postoperatively. X-rays today show no signs of implant complication. Incision is well-healed. Continue PT and HEP. Counseled on lifetime antibiotic prophylaxis prior to dental procedures. Continue to progress activities as tolerated. We will have patient follow-up at three-month postop. No new x-rays needed unless significant pain or new trauma. Patient expressed verbal understanding of this plan. They are to call with any concerns in the meantime. * Progress note Date Encounter Last Documented by 06/14/2024 IN HOUSE REFERRAL Last documente d on 06/20/2024; 1:10 PM, Madi Scott MD; [facility] Active Problems & Conditions - Joint Pain in Both Hips - Joint Pain in the Right Hip - Left Elbow Joint Pain Chief Complaint The Chief Complaint is: Will Hip pain. Referred Here Referred by PCP. History of Present Illness Parish Hernandez is a 58 year old male. - Symptoms pain better: NA pain worse: always there. - Allergy list reviewed - Problem list reviewed - Medication list reviewed - Medication list reviewed with patient - Sharp pain Symptoms - Stabbing - Pain is constant (100% of the time) - Pain is throbbing - Pain is dull, aching - - Review of medications documented Previous Treatment: Family Doctor - Dr. Lamonte Jacinto Please rate pain on scale of 1 - 10: 6 Presents for evaluation right hip pain. This has been going on now for many months. Located in the groin side of the hip. Described as aching stabbing throbbing sharp and constant. He feels his hip gave way. He has tried jgix-ebl-[id number] anti-inflammatories and now has to take hydrocodone. He has tried to exercise but his hip hurts too much. He gave up smoking a while ago. Current Medication - Adult Aspirin Regimen 81 MG Oral Tablet Delayed Release take as directed 0 days, 0 refills - Albuterol Sulfate (2.5 MG/3ML) 0.083% Nebulization solution once a day 0 days, 0 refills - Atenolol 50 MG Oral Tablet 30 days, 0 refills - Atorvastatin Calcium 10 MG Tablet once a day 0 days, 0 refills - Cetirizine HCl 10 MG Oral Tablet take as directed 0 days, 0 refills - [facility] Omeprazole 20 MG Oral Tablet Delayed Release Disintegrating take as directed 0 days, 0 refills - [facility] Vitamin B12 1000 MCG Oral Tablet take as directed 0 days, 0 refills - Ferrous Sulfate 325 (65 Fe) MG Oral Tablet take as directed 0 days, 0 refills - Furosemide 20 MG Oral Tablet take as directed 0 days, 0 refills - Gabapentin 400 MG Oral Capsule take as directed 0 days, 0 refills - Gemfibrozil 600 MG Oral Tablet 30 days, 0 refills - GNP Diclofenac Sodium 1% External Gel 9 days, 0 refills - HYDROcodone-Acetaminophen 7.5-325 MG Oral Tablet 28 days, 0 refills - Ipratropium [place] 0.06% Nasal Solution 41 days, 0 refills - Jardiance 25 MG Oral Tablet 30 days, 0 refills - Lisinopril 2.5 MG Oral Tablet take as directed 0 days, 0 refills - MetFORMIN HCl 500 MG Tablet once a day 0 days, 0 refills - Montelukast Sodium 10 MG Oral Tablet take as directed 0 days, 0 refills - OneTouch Delica Plus [id number] Miscellaneous 33 days, 0 refills - oxyBUTYnin Chloride ER 10 MG Oral Tablet Extended Release 24 Hour 90 days, 0 refills - Ozempic (1 MG/DOSE) 4 MG/3ML Subcutaneous Solution Pen-injector 28 days, 0 refills - Pioglitazone HCl 30 MG Oral Tablet 30 days, 0 refills - PriLOSEC 2.5 MG Powder, packet Packet once a day 0 days, 0 refills - Ranolazine ER 1000 MG Oral Tablet Extended Release 12 Hour 30 days, 0 refills - Repatha SureClick 140 MG/ML Subcutaneous Solution Auto-injector 28 days, 0 refills - Symbicort 160-4.5 MCG/ACT Inhalation Aerosol take as directed 0 days, 0 refills - Tamsulosin HCl 0.4 MG Oral Capsule 30 days, 0 refills - Trelegy Ellipta 200-62.5-25 MCG/ACT Inhalation Aerosol Powder Breath Activated 30 days, 0 refills - Vitamin D 3 Oral Capsule take as directed 0 days, 0 refills - Xarelto 2.5 MG Oral Tablet 30 days, 0 refills Past Medical/Surgical History Reported: Medical: Arthritic joint problems. Intermittent hypertension. Diagnoses: Heart disease. Asthma. Diabetes mellitus Past medical history non-contributory high cholesterol acid reflux. Social History Not a current smoker. Current diet: No recent change in diet. No recent change in diet. Caffeine use: Caffeine use. Tobacco use: No tobacco use, not a current smoker, and smoking status: Former smoker. Alcohol: Not using alcohol. Drug Use: Not using drugs. Habits: Not exercising regularly. Allergies - No Known Allergies Family History Heart disease Stroke/seizure, mother, father Systemic hypertension Diabetes mellitus Paternal: Systemic hypertension Maternal: Heart disease Thromboembolic disease Sororal: Diabetes mellitus Review Of Systems Systemic: Not feeling tired and no recent weight loss. Recent weight gain. No edema. Head: No headache. Sinus pain. No sinus pain. Eyes: No vision problems. Vision problems glasses/contacts. No glaucomatous visual field defect. No Cataracts, no Glasses/Contacts, and no Glaucoma. Otolaryngeal: Hearing loss. No hearing loss. Tinnitus. No nasal symptoms. Cardiovascular: No chest pain or discomfort, no palpitations, no Hypertension, and no High Cholesterol. Pulmonary: No daytime asthma symptoms, no cough, and no chronic cough. Wheezing. Gastrointestinal: No heartburn and no abdominal pain. No Indigestion, no Peptic Ulcer, no GI Stomach Bleed, no Ulcers, and no Acid Reflux. Endocrine: No hot flashes. Muscle weakness. No Diabetes, no Hypothyroid, and no Hyperthyroid. Hematologic: Easy bleeding and a tendency for easy bruising. No Anemia. Musculoskeletal: No Arthritis. Lower back pain. No soft tissue swelling. Pain localized to one or more joints. Neurological: No dizziness, no convulsions, and no numbness. Psychological: No anxiety, no emotional lability, no depression, and no insomnia. Not crying for no reason. Skin: No dry skin. No Ulcers, no Scars, no rash, and no ulcers. Allergic and Immunologic: No complaint of seasonal allergic reaction. Physical Findings - Vitals taken 06/14/2024 01:27 pm tm Height 64 in Weight 184 lbs Body Mass Index 31.6 kg/m2 Body Surface Area 1.9 m2 - Vitals taken 06/14/2024 02:29 pm BP-Sitting 127/79 mmHg Pulse Rate-Sitting 68 bpm Height 64 in Weight 184 lbs Body Mass Index 31.6 kg/m2 Body Surface Area 1.9 m2 Oxygen Saturation 98 % General: The patient is alert and oriented in no distress. Respiratory: Nonlabored breathing in the exam room Cardiac: Extremities are warm and well-perfused. Skin: Skin appears clean dry and intact. Musculoskeletal exam: Patient walks with an antalgic gait with a cane Exam of the BILATERAL KNEES shows painless range of motion from 0-120 degrees. No tenderness to palpation along the medial/lateral joint lines. Exam of the right hip demonstrates recreation of his severe right hip and groin pain with hip flexion internal rotation. Negative straight leg raise. Nontender to palpation over the greater trochanter. Neurovascular exam of the bilateral lower extremities demonstrates strength to be 5/5 in hip flexion, knee flexion and extension, ankle dorsiflexion/plantarflexion, and great toe dorsiflexion/plantarflexion. Pulses are palpable dorsalis pedis bilaterally I reviewed his AP pelvis two-view of the right hip from prior visit demonstrating bilateral ecjsi-dktgtuj-xjol-left hip avascular necrosis with very subtle collapse. I reviewed his MRI of the right hip demonstrating avascular necrosis of the femoral head. Assessment - Overweight Previous Tests Imaging: X-Ray: X-ray 05/12, [facility]. MRI Scan: An MRI was performed 05/12 [facility]. Available previous imaging studies were reviewed Available previous history reviewed Therapy - Clinical summary provided to patient. Counseling/Education - Tobacco non-user - Use of tobacco assessment performed - Instructions for patient See PCP for slightly elevated B/P - Lose weight Notes This dictation was done with voice recognition software and may contain errors and omissions. Care Team - Glenna Ayala APRN User Defined 5 Right hip avascular necrosis We discussed the treatment for hip arthritis in detail with the patient today. We recommended evzy-lti-dlrlnqn pain medication such as Tylenol or NSAIDS if approved by their PCP. We also discussed the benefits of weight loss, exercise, and lower extremity strengthening via physical therapy. Activity modification and ambulatory aids were also discussed. They have clearly failed conservative treatment and so therefore we discussed a total hip arthroplasty. We discussed the indications, risks, benefits, alternatives, and recovery associated with a total hip replacement today in detail. Specific risks discussed include but are not limited to: Bleeding, infection, pain, scarring, nerve and/or blood vessel injury, tendon/ligament damage, fracture, dislocation, reaction to or failure of prosthetic implants, limb length discrepancy, blood clots, as well as the medical and anesthetic risks of surgery. The patient acknowledged these risks and would like to proceed with a right total hip arthroplasty. * Progress note Date Encounter Last Documented by 06/14/2024 Pre Admission Testing Last docum ented on 07/02/2024; 1:43 PM, Meghana INIGUEZ; [facility] Chief Complaint The Chief Complaint is: Will Hip pain. History of Present Illness This patient is a pleasant 58 yo WM who presents with right hip pain. The pain has been going on for 6 months but has gotten progressively worse. He describes it as a sharp pain. It is now to the point that it is affecting his ADLs. He has tried NSAIDs without relief of his pain. He has not fallen. He has used a cane an assistive device. He was seen at Dr Scott's office and evaluated and it was determined that he has severe DJD affecting the right hip. Pt was offered a Right Anterior vs Posterior Total Hip Arthroplasty and agreed to the procedure. Pt denies a h/o DVT/PE. No trouble with anesthesia in the past. Pt has a h/o COPD but no PEDRO or asthma. Current Medication - Adult Aspirin Regimen 81 MG Oral Tablet Delayed Release take as directed 0 days, 0 refills - Albuterol Sulfate (2.5 MG/3ML) 0.083% Nebulization solution once a day 0 days, 0 refills - Atenolol 50 MG Oral Tablet 30 days, 0 refills - Atorvastatin Calcium 10 MG Tablet once a day 0 days, 0 refills - Cetirizine HCl 10 MG Oral Tablet take as directed 0 days, 0 refills - [facility] Omeprazole 20 MG Oral Tablet Delayed Release Disintegrating take as directed 0 days, 0 refills - [facility] Vitamin B12 1000 MCG Oral Tablet take as directed 0 days, 0 refills - Ferrous Sulfate 325 (65 Fe) MG Oral Tablet take as directed 0 days, 0 refills - Furosemide 20 MG Oral Tablet take as directed 0 days, 0 refills - Gabapentin 400 MG Oral Capsule take as directed 0 days, 0 refills - Gemfibrozil 600 MG Oral Tablet 30 days, 0 refills - GNP Diclofenac Sodium 1% External Gel 9 days, 0 refills - HYDROcodone-Acetaminophen 7.5-325 MG Oral Tablet 28 days, 0 refills - Ipratropium [place] 0.06% Nasal Solution 41 days, 0 refills - Jardiance 25 MG Oral Tablet 30 days, 0 refills - Lisinopril 2.5 MG Oral Tablet take as directed 0 days, 0 refills - MetFORMIN HCl 500 MG Tablet once a day 0 days, 0 refills - Montelukast Sodium 10 MG Oral Tablet take as directed 0 days, 0 refills - OneTouch Delica Plus [id number] Miscellaneous 33 days, 0 refills - oxyBUTYnin Chloride ER 10 MG Oral Tablet Extended Release 24 Hour 90 days, 0 refills - Ozempic (1 MG/DOSE) 4 MG/3ML Subcutaneous Solution Pen-injector 28 days, 0 refills - Pioglitazone HCl 30 MG Oral Tablet 30 days, 0 refills - PriLOSEC 2.5 MG Powder, packet Packet once a day 0 days, 0 refills - Ranolazine ER 1000 MG Oral Tablet Extended Release 12 Hour 30 days, 0 refills - Repatha SureClick 140 MG/ML Subcutaneous Solution Auto-injector 28 days, 0 refills - Symbicort 160-4.5 MCG/ACT Inhalation Aerosol take as directed 0 days, 0 refills - Tamsulosin HCl 0.4 MG Oral Capsule 30 days, 0 refills - Trelegy Ellipta 200-62.5-25 MCG/ACT Inhalation Aerosol Powder Breath Activated 30 days, 0 refills - Vitamin D 3 Oral Capsule take as directed 0 days, 0 refills - Xarelto 2.5 MG Oral Tablet 30 days, 0 refills Past Medical/Surgical History Reported: Medical: Arthritic joint problems. Intermittent hypertension. Diagnoses: Heart disease. Asthma. Diabetes mellitus Past medical history non-contributory high cholesterol acid reflux. Social History Not a current smoker. Current diet: No recent change in diet. No recent change in diet. Caffeine use: Caffeine use. Tobacco use: No tobacco use, not a current smoker, and smoking status: Former smoker. Alcohol: Not using alcohol. Drug Use: Not using drugs. Habits: Not exercising regularly. Allergies - No Known Allergies Family History Heart disease Stroke/seizure, mother, father Systemic hypertension Diabetes mellitus Paternal: Systemic hypertension Maternal: Heart disease Thromboembolic disease Sororal: Diabetes mellitus Review Of Systems Constitutional: Neg for fevers or chills. Eyes: Neg for blurry vision or change in vision. ENT: Neg for sore throat, ear pain, or dizziness. Cardiac: Neg for chest pain or dyspnea on exertion. Respiratory: Neg for shortness of breath. Gastrointestinal: Neg for nausea, vomiting, diarrhea, or constipation. Musculoskeletal: Pos for right hip pain. Neurologic: Neg for headaches or seizures. Psychiatric: Neg for anxiety and depression. Integumentary: Neg for rash. Physical Findings Constitutional: This is a pleasant 58 yo WM in no acute distress. HEENT: Normocephalic, atraumatic. PEERLA. Extraocular muscles intact. Conjunctiva pink without exudate. Oropharynx pink and moist. Neck supple. No JVD. Cardiac: SI, S2. RRR. No M/R/G. Respiratory: Lungs CTA bilaterally. No wheezes, rales, or rhonchi. Abdomen: Soft, nontender, nondistended. Active bowel sounds. No visible masses. Musculoskeletal: Bilateral LE without clubbing, cyanosis or edema. Integumentary: Skin is pink, warm and dry. No rashes. Neurologic: CN II-XII grossly intact. Psychiatric: Judgment and affect appropriate. Tests - Test: CBC With Differential/Platelet Report Date: 06/21/2024 WBC 5.8 x10E3/uL RBC 4.02 x10E6/uL Low Hemoglobin 13.3 g/dL Hematocrit 39.7 % MCV 99 fL High MCH 33.1 pg High MCHC 33.5 g/dL Neutrophils 55 % Immature Granulocytes 0 % Lymphs 31 % Monocytes 10 % Eos 3 % Basos 1 % Platelets 195 x10E3/uL Neutrophils (Absolute) 3.2 x10E3/uL Immature Grans (Abs) 0.0 x10E3/uL Lymphs (Absolute) 1.8 x10E3/uL Monocytes(Absolute) 0.6 x10E3/uL Eos (Absolute) 0.2 x10E3/uL Baso (Absolute) 0.0 x10E3/uL RDW 13.0 % - Test: Comp. Metabolic Panel (14) Report Date: 06/21/2024 Calcium 10.1 mg/dL Glucose 131 mg/dL High BUN 15 mg/dL Protein, Total 6.5 g/dL Albumin 4.4 g/dL Bilirubin, Total 0.3 mg/dL Alkaline Phosphatase 97 IU/L AST (SGOT) 17 IU/L Potassium 5.5 mmol/L High Sodium 142 mmol/L Chloride 101 mmol/L Creatinine 1.42 mg/dL High ALT (SGPT) 14 IU/L Carbon Dioxide, Total 25 mmol/L BUN/Creatinine Ratio 11 Globulin, Total 2.1 g/dL eGFR 57 mL/min/1.73 Low - Test: Prothrombin Time (PT) Report Date: 06/21/2024 Prothrombin Time 11.1 sec INR 1.0 - Test: Nicotine and Metabolite, Quant Report Date: 06/21/2024 Nicotine <1.0 ng/mL Cotinine <1.0 ng/mL - Test: Hemoglobin A1c Report Date: 06/21/2024 Hemoglobin A1c 6.2 % High - Test: PTT, Activated Report Date: 06/21/2024 aPTT 33 sec - Test: Vitamin D, 25-Hydroxy Report Date: 06/21/2024 Vitamin D, 25-Hydroxy 71.4 ng/mL - Test: Fructosamine Report Date: 06/21/2024 Fructosamine 233 umol/L - Test: MRSA by EVAN Report Date: 06/21/2024 MRSA by EVAN Negative - Test: Prealbumin Report Date: 06/21/2024 Prealbumin 28 mg/dL EKG- NSR, 67 Repeat K- 4.2 06/19/24 Plan StartCited - Encounter for preprocedural laboratory examination Lab: Hemoglobin A1c Lab: CBC With Differential/Platelet Lab: Prothrombin Time (PT) Lab: PTT, Activated Lab: Prealbumin Lab: Nicotine and Metabolite, Quant Lab: Vitamin D, 25-Hydroxy Lab: Fructosamine Lab: MRSA by EVAN Lab: Comp. Metabolic Panel (14) Lab: Potassium EndCited User Defined 5 1. Preoperative Exam- Pt underwent preoperative laboratory workup and diagnostic studies. 2. HTN- Continue Furosemide, Lisinopril, and Atenolol. 3. GERD- Continue Omeprazole. 4. HL- Continue Gemfibrozil and Atorvastatin. 5. DM- Jardiance on hold 3 days prior to surgery. Continue Pioglitazone and Metformin. Ozempic on hold 2 weeks prior to surgery. 6. BPH- Continue Flomax. 7. CAD- S/p Cardiac Stent x 1 approx 3 years ago. Cardiac clearance from Dr Kee. 8. PAD- S/p Bilateral LE stents. Xarelto on hold 3 days prior to surgery. 9. COPD- Nebs/Inhalers prn. 10. Acute on Chronic Renal Insufficiency- Avoid nephrotoxic medications. 11. Right Hip Pain secondary to DJD- Proceed with surgery as scheduled with Dr Scott on 07/03/24. I discussed this case with Dr Chavez who was okay to proceed with surgery but wants him to be an early case. This was relayed to Jose. ASC Questions Does the patient have any additional hardware in their body? Left Elbow HW Is the patient a Diabetic? Yes Is the patient on a Semaglutide? yes Has the patient ever been treated for MRSA? No Has the patient ever smoked? Quit 14 years ago Does the patient drink daily ETOH? 3 drinks daily Do you have a h/o GIB following NSAIDs use? No Have you ever had to hospitalized after a surgery that was supposed to be outpatient? No In the last 6 weeks, have you had any respiratory illnesses including, but not limited to Flu, COVID or Pneumonia? URI- 05/15: surgery moved to 07/03 Does the patient have a clear discharge plan that includes having someone drop them off for surgery, pick them up, and stay with them 72 hrs. This person will have to be able to cook meals, assist in getting the patient to and from the restroom and give medications. Yes, * Progress note Date Encounter Last Documented by 05/30/2024 Non Physician Specified Last doc umented on 06/08/2024; 11:49 AM, Jose Ledesma PA-C; [facility], [facility] Active Problems & Conditions - Joint Pain in Both Hips - Left Elbow Joint Pain Chief Complaint The Chief Complaint is: Will Hip pain. Referred Here Referred by PCP. History of Present Illness Parish Hernandez is a 58 year old male. - Symptoms pain better: NA pain worse: always there. - Allergy list reviewed - Problem list reviewed - Medication list reviewed - Medication list reviewed with patient - Sharp pain Symptoms - Stabbing - Pain is constant (100% of the time) - Pain is throbbing - Pain is dull, aching Previous Treatment: Family Doctor - Dr. Lamonte Jacinto Please rate pain on scale of 1 - 10: 6 Patient is here today complaints of bilateral hip pain right greater than left this has been ongoing for about 6 months. No significant injury to the the hip that he can recall. He is diabetic states his A1c is controlled it is around 6. He also takes Ashburn 7.5 for chronic back pain as well as gabapentin and is on Xarelto due to having previous heart stents. He says this bothers him when he is trying to walk pain seems to be in the groin area. It will radiate to the knee. Does have a history of chronic back pain. He states he can not get shoes on it has to have his do that for him. Current Medication - Adult Aspirin Regimen 81 MG Oral Tablet Delayed Release take as directed 0 days, 0 refills - Albuterol Sulfate (2.5 MG/3ML) 0.083% Nebulization solution once a day 0 days, 0 refills - Aspirin 81 MG Tablet, enteric coated Tablet Delayed Release once a day 0 days, 0 refills - Atenolol 50 MG Oral Tablet 30 days, 0 refills - Atorvastatin Calcium 10 MG Tablet once a day 0 days, 0 refills - Cephalexin 500 MG Oral Capsule 5 days, 0 refills - Cetirizine HCl 10 MG Oral Tablet take as directed 0 days, 0 refills - CVS Omeprazole 20 MG Oral Tablet Delayed Release Disintegrating take as directed 0 days, 0 refills - CVS Vitamin B12 1000 MCG Oral Tablet take as directed 0 days, 0 refills - Ferrous Sulfate 325 (65 Fe) MG Oral Tablet take as directed 0 days, 0 refills - Furosemide 20 MG Oral Tablet take as directed 0 days, 0 refills - Gabapentin 400 MG Oral Capsule take as directed 0 days, 0 refills - Gemfibrozil 600 MG Oral Tablet 30 days, 0 refills - GNP Diclofenac Sodium 1% External Gel 9 days, 0 refills - HYDROcodone-Acetaminophen 7.5-325 MG Oral Tablet 28 days, 0 refills - Ipratropium [place] 0.06% Nasal Solution 41 days, 0 refills - Jardiance 25 MG Oral Tablet 30 days, 0 refills - Lisinopril 2.5 MG Oral Tablet take as directed 0 days, 0 refills - MetFORMIN HCl 500 MG Tablet once a day 0 days, 0 refills - Montelukast Sodium 10 MG Oral Tablet take as directed 0 days, 0 refills - Ashburn 5-325 MG Tablet once a day 0 days, 0 refills - OneTouch Delica Plus [id number] Miscellaneous 33 days, 0 refills - oxyBUTYnin Chloride ER 10 MG Oral Tablet Extended Release 24 Hour 90 days, 0 refills - Ozempic (1 MG/DOSE) 4 MG/3ML Subcutaneous Solution Pen-injector 28 days, 0 refills - Pioglitazone HCl 30 MG Oral Tablet 30 days, 0 refills - Plavix 75 MG Tablet once a day 0 days, 0 refills - PriLOSEC 2.5 MG Powder, packet Packet once a day 0 days, 0 refills - Ranolazine ER 1000 MG Oral Tablet Extended Release 12 Hour 30 days, 0 refills - Repatha SureClick 140 MG/ML Subcutaneous Solution Auto-injector 28 days, 0 refills - SudoGest 30 MG Oral Tablet 8 days, 0 refills - Symbicort 160-4.5 MCG/ACT Inhalation Aerosol take as directed 0 days, 0 refills - Tamsulosin HCl 0.4 MG Oral Capsule 30 days, 0 refills - Trelegy Ellipta 200-62.5-25 MCG/ACT Inhalation Aerosol Powder Breath Activated 30 days, 0 refills - Xarelto 2.5 MG Oral Tablet 30 days, 0 refills Past Medical/Surgical History Reported: Medical: Arthritic joint problems. Intermittent hypertension. Diagnoses: Heart disease. Asthma. Diabetes mellitus Bypass on legs plastic surgery on right ear. Past medical history non-contributory high cholesterol acid reflux. Social History Current diet: No recent change in diet. Caffeine use: Caffeine use. Tobacco use: No tobacco use, not a current smoker, and smoking status: Former smoker. Alcohol: Not using alcohol. Drug Use: Not using drugs. Habits: Not exercising regularly. Allergies - No Known Allergies Family History Heart disease Stroke/seizure, mother, father Systemic hypertension Diabetes mellitus Paternal: Systemic hypertension Maternal: Heart disease Thromboembolic disease Sororal: Diabetes mellitus Review Of Systems Systemic: Not feeling tired and no recent weight loss. Recent weight gain. No edema. Head: No headache. Sinus pain. No sinus pain. Eyes: No vision problems. Vision problems glasses/contacts. No glaucomatous visual field defect. Otolaryngeal: Hearing loss. No hearing loss. Tinnitus. No nasal symptoms. Cardiovascular: No chest pain or discomfort and no palpitations. Pulmonary: No daytime asthma symptoms, no cough, and no chronic cough. Wheezing. Gastrointestinal: No heartburn and no abdominal pain. Endocrine: No hot flashes. Muscle weakness. Hematologic: Easy bleeding and a tendency for easy bruising. Musculoskeletal: Lower back pain. No soft tissue swelling. Pain localized to one or more joints. Neurological: No dizziness, no convulsions, and no numbness. Psychological: No anxiety, no emotional lability, no depression, and no insomnia. Not crying for no reason. Skin: No dry skin, no rash, and no ulcers. Allergic and Immunologic: No complaint of seasonal allergic reaction. Physical Findings - Vitals taken 05/30/2024 11:05 am Height 64 in Weight 183 lbs Body Mass Index 31.4 kg/m2 Body Surface Area 1.9 m2 Pain Level 6 Patient walks with antalgic gait Sometimes he states he uses a cane He has pain bilateral hip range motion reproducible groin with hip flexion internal and external rotation right greater than left Positive Stinchfield bilaterally 4+ out of 5 strength both lower extremities for EHL gastrocs tibialis anterior bilaterally Tests Bilateral hip x-rays outside facility show some degenerative changes in some abnormal area in the femoral heads both hips MRI of the right hip shows degenerative changes along with a AVN and there is AVN on the left side also Assessment Bilateral hip AVN Previous Tests Imaging: X-Ray: X-ray 05/12, [facility]. MRI Scan: An MRI was performed 05/12 [facility]. Available previous imaging studies were reviewed Available previous history reviewed Therapy - Clinical summary provided to patient. Counseling/Education - Instructions for patient See PCP for slightly elevated B/P Plan Patient was seen by myself Jose Ledesma PA-C. Patient will follow up me as needed I am going to refer him to Dr. Slade to discuss hip replacement surgery. Notes This dictation was done with voice recognition software and may contain errors and omissions. Care Team - Glenna Ayala APRN
--- OUTSIDE RECORDS SUMMARY | 2024-08-17 14:48 | XMS_ITS | Clinical Summary ---
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 Name Role Phone Glenna Ayala APRN Primary Care Provider [phone] [place], Manny Roberson Unavailable [phone] Reason for Visit and Chief Complaint BRACE FITTING Problems Includes: Problems addressed during this encounter and other active Problems All Visits Onset Date Resolved Date Provider Condition S tatus Joint Pain in the Right Hip 06/14/2024 Madi ackerman MD Active Last Documented On 5 2:19PM ; [facility], [facility] Joint Pain in Both Hips 05/30/2024 Jose lara PA-C Active Last Documented On 5 10:50AM ; [facility], [facility] Left Elbow Joint Pain 10/27/2015 Manny Fishman MD Active Last Documented On 6 11:01AM ; [facility], [facility] Plan of Treatment Future Appointments Date Time Location Provi lilo Post Op 09/24/2024 11:00AM [facility] Elba Chang PA-C Last Documented On 5 11:41AM ; [facility], [facility] Assessments Includes: Assessments from this encounter No Assessments Recorded Medical Equipment - Implanted Devices Includes: Current Devices No Medical Equipment Recorded Medications Includes: Medications discussed during this encounter and other current Medications Current Medications (continue as prescribed) Vitamin D 3 Oral Capsule 06/14/2024 Provider: Diagnosis: Last Documented On 5 2:29PM By Daylin Kim ; [facility] Lisinopril 2.5 MG Oral Tablet 05/30/2024 Provider: Diagnosis: Last Documented On 5 11:25AM By Fortunato Clarke ; [facility] Adult Aspirin Regimen 81 MG Oral Tablet Delayed Releas e 05/30/2024 Provider: Diagnosis: Last Documented On 5 11:27AM By Fortunato Clarke ; [facility] Gabapentin 400 MG Oral Capsule 05/30/2024 Provider: Diagnosis: Last Documented On 5 11:33AM By oFrtunato Clarke ; [facility] Symbicort 160-4.5 MCG/ACT Inhalation Aerosol Provider: Diagnosis: Last Documented On 5 11:32AM By Fortunato Clarke ; [facility]S Vitamin B12 1000 MCG Oral Tablet 05/30/2024 Prov ider: Diagnosis: Last Documented On 5 11:31AM By Fortunato Clarke ; [facility] Cetirizine HCl 10 MG Oral Tablet 05/30/2024 Provider : Diagnosis: Last Documented On 5 11:31AM By Fortunato Clarke ; [facility] Furosemide 20 MG Oral Tablet 05/30/2024 Provider: Diagnosis: Last Documented On 5 11:30AM By Fortunato Clarke ; [facility] Montelukast Sodium 10 MG Oral Tablet 05/30/2024 Prov ider: Diagnosis: Last Documented On 5 11:29AM By Fortunato Clarke ; [facility] Ferrous Sulfate 325 (65 Fe) MG Oral Tablet 05/30/2024 Provider: Diagnosis: Last Documented On 5 11:28AM By Fortunato Clarke ; [facility], [facility]S Omeprazole 20 MG Oral Ta blet Delayed Release Disintegrating 05/30/2024 Provider: Diagnosis: Last Documented On 5 11:26AM By Fortunato Clarke ; [facility], [facility] HYDROcodone-Acetaminophen 7. 5-325 MG Oral Tablet 05/26/2024 Provider: Mike Vitale MD Diagnosis: Last Documented On 5 10:51AM By Fortunato Clarke ; [facility], [facility] Ipratropium [place] 0.06% Nasal Solution 05/18/2024 Provider: Diagnosis: Last Documented On 5 10:51AM By Fortunato Clarke ; [facility], [facility] Trelegy Ellipta 200-62.5-25 MCG/ACT Inhalation Aerosol Powder Breath Activated 05/18/2024 Provider: Diagnosis: Last Documented On 5 10:52AM By Fortunato Clarke ; [facility], [facility] Gemfibrozil 600 MG Oral Tablet 05/18/2024 Provider: Diagnosis: Last Documented On 5 10:51AM By Fortunato Clarke ; [facility], [facility] OneTouch Delica Plus [id number] Miscellaneous Provider: Abdirahman Gibson APRN Diagnosis: Last Documented On 5 10:51AM By Fortunato Clarke ; [facility], [facility] Jardiance 25 MG Oral Tablet 05/18/2024 Provider: Diagnosis: Last Documented On 5 10:51AM By Fortunato Clarke ; [facility], [facility] Tamsulosin HCl 0.4 MG Oral Capsule 05/18/2024 Provid er: Diagnosis: Last Documented On 5 10:51AM By Fortunato Clarke ; [facility], [facility] Ranolazine ER 1000 MG Oral Tablet Extended Release 12 Hour 05/18/2024 Provider: Diagnosis: Last Documented On 5 10:51AM By Fortunato Clarke ; [facility], [facility] Pioglitazone HCl 30 MG Oral Tablet 05/18/2024 Provid er: Diagnosis: Last Documented On 5 10:51AM By Fortunato Clarke ; [facility], [facility] Xarelto 2.5 MG Oral Tablet 05/17/2024 Provider: Diagnosis: Last Documented On 5 10:52AM By Fortunato Clarke ; [facility], [facility] Repatha SureClick 140 MG/ML Subcutaneous Solution Auto-injector 05/17/2024 Provider: Diagnosis: Last Documented On 5 10:52AM By Fortunato Clarke ; [facility], [facility] Atenolol 50 MG Oral Tablet 05/17/2024 Provider: Diagnosis: Last Documented On 5 10:52AM By Fortunato Clarke ; [facility] GN Diclofenac Sodium 1% External Gel 05/16/2024 Pro vider: Diagnosis: Last Documented On 5 10:52AM By Fortunato Clarke ; [facility] Ozempic (1 MG/DOSE) 4 MG/3ML Subcutaneous Solution Pen-injector 05/08/2024 Provider: Diagnosis: Last Documented On 5 10:52AM By Fortunato Clarke ; [facility] oxyBUTYnin Chloride ER 10 MG Oral Tablet Extended Release 24 Hour 04/17/2024 Provider: Diagnosis: Last Documented On 5 10:52AM By Fortunato Clarke ; [facility] Atorvastatin Calcium 10 MG Tablet 10/27/2015 Provide r: Diagnosis: Last Documented On 6 12:08PM By Hyun Perera ; [facility] Albuterol Sulfate (2.5 MG/3ML) 0.083% Nebulizati on solution 10/27/2015 Provider: Diagnosis: Last Documented On 6 12:09PM By Hyun Perera ; [facility] MetFORMIN HCl 500 MG Tablet 10/27/2015 Provider: Diagnosis: Last Documented On 6 12:08PM By Hyun Perera ; [facility] PriLOSEC 2.5 MG Powder, packet 10/27/2015 Provider: Diagnosis: Last Documented On 6 12:08PM By Hyun Perera ; [facility], [facility] Medications Administered Includes: Administered Medications from this [...] Diagnosis Performing Provider Service Location Service Date [facility] [employer] (Purchase of New Equipment) [id number] Unilateral primary osteoarthritis, right hip, Presence of right artificial hip joint Madi Scott MD [facility] 07/03/2024 Last Documented On 5 1:27PM ; [facility], [facility] Medical History Includes: Medical History addressed during [...] Location Date Check-In Time Check-Out Time Diagnosis BRACE FITTING Madi Scott MD [facility] 07/03/2024 11:45AM 11:59PM Insurance Includes: Active Insurance Policies Plan Name Member ID Group # Subscriber Relationship Effect vika Dates 1 - HUMANA O [id number] Parish Martin Clinical Notes Includes: Clinical Notes from this encounter No Clinical Notes Recorded
--- OUTSIDE RECORDS SUMMARY | 2024-08-17 14:48 | XMS_ITS | Clinical Summary ---
Author Organization [facility] Address [address] [place] [address] Phone Care Team Providers Care Medical Information Specialist Name Role Phone Glenna Ayala APRN Primary Care Provider [phone] Kye LAKE, Manny Roberson Unavailable [phone] Reason for Visit and Chief Complaint The Chief Complaint is: PO R LADARIUS on 07/03/2024 Problems Includes: Problems addressed during this encounter and other active Problems All Visits Onset Date Resolved Date Provider Condition S tatus Joint Pain in the Right Hip 06/14/2024 Madi ackerman MD Active Last Documented On 5 2:19PM ; [facility], [facility] Joint Pain in Both Hips 05/30/2024 Jose lara PA-C Active Last Documented On 5 10:50AM ; [facility] Left Elbow Joint Pain 10/27/2015 Manny Fishman MD Active Last Documented On 6 11:01AM ; [facility] Plan of Treatment Future Appointments Date Time Location Provi lilo Post Op 09/24/2024 11:00AM [facility] Elba Chang PA-C Last Documented On 5 11:41AM ; [facility] Instructions to patient Lose weight Last Documented On 5 11:29AM ; [facility] Assessments Includes: Assessments from this encounter Findings - Overweight - Last Documented On 08/09/2024 1:02PM ; [facility] Instructions Includes: Instructions from this encounter Instructions to patient Lose weight Last Documented On 5 11:29AM ; [facility] Medical Equipment - Implanted Devices Includes: Current Devices No Medical Equipment Recorded Medications Includes: Medications discussed during this encounter and other current Medications Current Medications (continue as prescribed) Vitamin D 3 Oral Capsule 06/14/2024 Provider: Diagnosis: Last Documented On 5 2:29PM By Daylin Kim ; [facility] Lisinopril 2.5 MG Oral Tablet 05/30/2024 Provider: Diagnosis: Last Documented On 5 11:25AM By Fortunato Clarke ; [facility] Adult Aspirin Regimen 81 MG Oral Tablet Delayed Releas e 05/30/2024 Provider: Diagnosis: Last Documented On 5 11:27AM By Fortunato Clarke ; [facility] Gabapentin 400 MG Oral Capsule 05/30/2024 Provider: Diagnosis: Last Documented On 5 11:33AM By Fortunato Clarke ; [facility] Symbicort 160-4.5 MCG/ACT Inhalation Aerosol Provider: Diagnosis: Last Documented On 5 11:32AM By Fortunato Clarke ; [facility] Vitamin B12 1000 MCG Oral Tablet 05/30/2024 Prov ider: Diagnosis: Last Documented On 5 11:31AM By Fortunato Clarke ; [facility] Cetirizine HCl 10 MG Oral Tablet 05/30/2024 Provider : Diagnosis: Last Documented On 5 11:31AM By Fortunato Clarke ; [facility] Furosemide 20 MG Oral Tablet 05/30/2024 Provider: Diagnosis: Last Documented On 5 11:30AM By Fortunato Clarke ; [facility] Montelukast Sodium 10 MG Oral Tablet 05/30/2024 Prov ider: Diagnosis: Last Documented On 5 11:29AM By Fortunato Clarke ; [facility] Ferrous Sulfate 325 (65 Fe) MG Oral Tablet 05/30/2024 Provider: Diagnosis: Last Documented On 5 11:28AM By Fortunato Clarke ; [facility] Omeprazole 20 MG Oral Ta blet Delayed Release Disintegrating 05/30/2024 Provider: Diagnosis: Last Documented On 5 11:26AM By Fortunato Clarke ; [facility] HYDROcodone-Acetaminophen 7. 5-325 MG Oral Tablet 05/26/2024 Provider: Mike Vitale MD Diagnosis: Last Documented On 5 10:51AM By Fortunato Clarke ; [facility] Ipratropium [place] 0.06% Nasal Solution 05/18/2024 Provider: Diagnosis: Last Documented On 5 10:51AM By Fortunato Clarke ; [facility] Trelegy Ellipta 200-62.5-25 MCG/ACT Inhalation Aerosol Powder Breath Activated 05/18/2024 Provider: Diagnosis: Last Documented On 5 10:52AM By Fortunato Clarke ; [facility] Gemfibrozil 600 MG Oral Tablet 05/18/2024 Provider: Diagnosis: Last Documented On 5 10:51AM By Fortunato Clarke ; [facility] OneTouch Delica Plus [id number] Miscellaneous Provider: Abdirahman Gibson APRN Diagnosis: Last Documented On 5 10:51AM By Frotunato Clarke ; [facility] Jardiance 25 MG Oral Tablet 05/18/2024 Provider: Diagnosis: Last Documented On 5 10:51AM By Fortunato Clarke ; [facility] Tamsulosin HCl 0.4 MG Oral Capsule 05/18/2024 Provid er: Diagnosis: Last Documented On 5 10:51AM By Fortunato Clarke ; [facility] Ranolazine ER 1000 MG Oral Tablet Extended Release 12 Hour 05/18/2024 Provider: Diagnosis: Last Documented On 5 10:51AM By Fortunato Clarke ; [facility] Pioglitazone HCl 30 MG Oral Tablet 05/18/2024 Provid er: Diagnosis: Last Documented On 5 10:51AM By Fortunato Clarke ; [facility] Xarelto 2.5 MG Oral Tablet 05/17/2024 Provider: Diagnosis: Last Documented On 5 10:52AM By Fortunato Clarke ; [facility] Repatha SureClick 140 MG/ML Subcutaneous Solution Auto-injector 05/17/2024 Provider: Diagnosis: Last Documented On 5 10:52AM By Fortunato Clarke ; [facility] Atenolol 50 MG Oral Tablet 05/17/2024 Provider: Diagnosis: Last Documented On 5 10:52AM By Fortunato Clarke ; [facility] GNP Diclofenac Sodium 1% External Gel 05/16/2024 Pro vider: Diagnosis: Last Documented On 5 10:52AM By Fortunato Clarke ; [facility] Ozempic (1 MG/DOSE) 4 MG/3ML Subcutaneous Solution Pen-injector 05/08/2024 Provider: Diagnosis: Last Documented On 5 10:52AM By Fortunato Clarke ; [facility] oxyBUTYnin Chloride ER 10 MG Oral Tablet Extended Release 24 Hour 04/17/2024 Provider: Diagnosis: Last Documented On 5 10:52AM By Fortunato Clakre ; [facility] Atorvastatin Calcium 10 MG Tablet 10/27/2015 Provide r: Diagnosis: Last Documented On 6 12:08PM By Hyun Perera ; [facility] Albuterol Sulfate (2.5 MG/3ML) 0.083% Nebulizati on solution 10/27/2015 Provider: Diagnosis: Last Documented On 6 12:09PM By Hyun Perera ; [facility] MetFORMIN HCl 500 MG Tablet 10/27/2015 Provider: Diagnosis: Last Documented On 6 12:08PM By Hyun Perera ; [facility] PriLOSEC 2.5 MG Powder, packet 10/27/2015 Provider: Diagnosis: Last Documented On 6 12:08PM By Hyun Perera ; [facility] Past Medications on file Eliquis 2.5 MG Oral Tablet 07/03/2024 - 08/14/2024 Pro vider: Madi Scott MD Diagnosis: twice a day Last Documented On 5 8:46AM By Sneha Piña ; [facility] Meloxicam 15 MG Oral Tablet 07/02/2024 - 07/16/2024 Pr ovider: Madi Scott MD Diagnosis: once a day TAKE ONE P/O ONE TIME A DAY UNTIL FIN ISHED Last Documented On 5 1:08PM By Madi Scott ; [facility] Colace 100 MG Oral Capsule 07/02/2024 - 08/01/2024 Pro vider: Madi Scott MD Diagnosis: 1-2 tabs daily Last Documented On 5 1:08PM By Madi Scott ; [facility] Cefadroxil 500 MG Oral Capsule 07/02/2024 - 07/05/2024 Provider: Madi Scott MD Diagnosis: 1 tablet twice a day for 3 days Last Documented On 5 1:08PM By Madi Scott ; [facility] Acetaminophen 500 MG Oral Tablet 07/02/2024 - 08/02/19 Provider: Madi Scott MD Diagnosis: Take 2 tablets by mouth every 8 hours Last Documented On 5 1:08PM By Madi Scott ; [facility] oxyCODONE HCl 5 MG Oral Tablet 07/02/2024 - 07/06/2024 Provider: Madi Scott MD Diagnosis: 1hyp2-7x ONE TABLET PO Q 4-6H FOR POST OP PAIN Last Documented On 5 1:08PM By Madi Scott ; [facility] Ondansetron HCl 4 MG Oral Tablet 07/02/2024 - 07/10/19 Provider: Madi Scott MD Diagnosis: 1-2 po q 4-6h PRN Nausea Last Documented On 5 1:08PM By Madi Scott ; [facility] Naprosyn 500 MG Tablet 04/01/2016 - 05/01/2016 Provide r: Manny Fishman MD Diagnosis: twice a day Last Documented On 6 2:12PM By Willa Small ; [facility] Naprosyn 500 MG Tablet 10/27/2015 - 11/26/2015 Provide r: Manny Fishman MD Diagnosis: twice a day Last Documented On 6 11:56AM By Stephanie Patterson ; [facility] Medications Administered Includes: Administered Medications from this encounter No Administered Medications Recorded Vital Signs Includes: Vital Signs from this encounter Vital Name 08/09/2024 11:28A 08/09/2024 10: 36A Height (in) 64 64 Weight (lb) 184 Body Mass Index 31.6 Body Surface Area 1.9 Pain Level 1 Note: clw Last Documented: On 08/09/2024 11:28A M ; [facility] On 08/09/2024 10:37AM ; [facility] Results Includes: Results discussed during this encounter No Results Recorded For Specified Dates History of Present Illness Includes: History of Present Illness from this encounter ZULLY Hernandez is a 59 year old male. [...] pain that was made managed by his cloth painter. He was prescribed Eliquis 2.5 mg b.i.d. 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 Patient denies any fevers, night sweats, chest pain, shortness of breath, calf pain. Social History Description Last Updated No recent change in diet 06/14/2024 Last Documented On 5 10:36AM ; [facility] Not a current smoker. 06/14/2024 Last Documented On 5 10:36AM ; [facility] Caffeine use 05/30/2024 Last Documented On 5 10:36AM ; [facility] No recent change in diet 06/10/2016 Last Documented On 5 10:36AM ; [facility] No tobacco use 06/10/2016 Last Documented On 5 10:36AM ; [facility] Not a current smoker 06/10/2016 Last Documented On 5 10:36AM ; [facility] Not exercising regularly 06/10/2016 Last Documented On 5 10:36AM ; [facility] Not using alcohol 06/10/2016 Last Documented On 5 10:36AM ; [facility] Not using drugs 06/10/2016 Last Documented On 5 10:36AM ; [facility] Smoking status : Former smoker 7 Last Documented On 5 10:36AM ; [facility] Procedures and Surgical History Includes: Procedures from this encounter Procedures Code Diagnosis Performing Provider Service Location Service Date PELVIS w/ 2-3 VIEW HIP (RIGHT) 41487 Unilateral primary osteoarthritis, right hip, Presence of right artificial hip joint Elba Chang PA-C [facility] [place] 08/09/2024 Last Documented On 5 11:01AM ; [facility] Medical History Includes: Medical History addressed during this encounter Description Last Updated Arthritic joint problems 05/30/2024 Last Documented On 5 10:36AM ; [facility] History of asthma 05/30/2024 Last Documented On 5 10:36AM ; [facility] History of heart disease 05/30/2024 Last Documented On 5 10:36AM ; [facility] Past medical history non-contributory ~h igh cholesterol ~acid reflux 05/30/2024 Last Documented On 5 10:36AM ; [facility] History of diabetes mellitus 06/10/2016 Last Documented On 5 10:36AM ; [facility] Intermittent hypertension 06/10/2016 Last Documented On 5 10:36AM ; [facility] Family History Includes: Family History addressed during this encounter Description Last Updated Family history of diabetes mellitus 05/19 Last Documented On 5 10:36AM ; [facility] Family history of heart disease 05/30/19 25 Last Documented On 5 10:36AM ; [facility] Family history of systemic hypertension 05/30/2024 Last Documented On 5 10:36AM ; [facility] stroke/seizure, mother, father 7 Last Documented On 5 10:36AM ; [facility] Maternal history of family history of he art disease 06/10/2016 Last Documented On 5 10:36AM ; [facility] Maternal history of thromboembolic disea se 06/10/2016 Last Documented On 5 10:36AM ; [facility] Paternal history of hypertension 017 Last Documented On 5 10:36AM ; [facility] Sororal history of diabetes mellitus Last Documented On 5 10:36AM ; [facility] Review of Systems Includes: Review of Systems from this encounter No Review of Systems Recorded Mental Status Includes: Mental Status from this encounter No Mental Status Recorded Functional Status Includes: Functional Status from this encounter No Functional Status Recorded Physical Exam Includes: Physical Exam from this encounter Allergies Includes: Active Allergies No Known Allergies Encounters Encounter Provider Location Date Check-In Time Check-Out Time Diagnosis Post Op Elba Chang PA-C [facility] 5 10:22AM 11:39AM Overweight Insurance Includes: Active Insurance Policies Plan Name Member ID Group # Subscriber Relationship Effect vika Dates - [employer] O [id number] Parish Hernandez Self Clinical Notes Includes: Clinical Notes from this encounter * Progress note Date Encounter Last Documented by 08/09/2024 Post Op Last documented on 08/09/2024; 1:02 PM, Elba Schroeder; [facility] Active Problems & Conditions - Joint [...] pain that was made managed by his cloth painter. He was prescribed Eliquis 2.5 mg b.i.d. 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 Patient denies any fevers, night sweats, chest [...] Tablet 28 days, 0 refills - Ipratropium [place] 0.06% Nasal Solution 41 days, 0 refills - Jardiance 25 MG Oral Tablet 30 days, 0 refills - Lisinopril 2.5 MG Oral Tablet take as directed 0 days, 0 refills - MetFORMIN HCl 500 MG Tablet once a day 0 days, 0 refills - Montelukast Sodium 10 MG Oral Tablet take as directed 0 days, 0 refills - OneTouch Delica Plus [id number] Miscellaneous 33 days, 0 refills - oxyBUTYnin [...]
--- OUTSIDE RECORDS SUMMARY | 2024-08-17 14:48 | XMS_ITS ---
Care Plan - [facility] Created on: August 17, 2024 Parish Hernandez : 1965 Sex: Male Author Organization [facility] Address [address] [place] [address] Phone Care Team Providers Care Evaporator Helper Name Role Phone Glenna Ayala APRN Primary Care Provider [phone] Kye [place], Manny Roberson Unavailable [phone]
--- OUTSIDE RECORDS SUMMARY | 2024-08-17 14:48 | XMS_ITS | Clinical Summary ---
Author Organization [facility] Address [address] [place] [address] Phone Care Team Providers Care Franchise Sales Director Name Role Phone Glenna Ayala APRN Primary Care Provider [phone] Kye [place], Manny Roberson Unavailable [phone] Reason for Visit and Chief Complaint [facility] Problems Includes: Problems addressed during this encounter and other active Problems All Visits Onset Date Resolved Date Provider Condition S tatus Joint Pain in the Right Hip 06/14/2024 Madi ackerman MD Active Last Documented On 5 2:19PM ; [facility] Joint Pain in Both Hips 05/30/2024 Jose lara PA-C Active Last Documented On 5 10:50AM ; [facility] Left Elbow Joint Pain 10/27/2015 Manny Fishman MD Active Last Documented On 6 11:01AM ; [facility] Plan of Treatment Future Appointments Date Time Location Provi lilo Post Op 09/24/2024 11:00AM [facility] Elba Chang PA-C Last Documented On 5 11:41AM ; [facility] Assessments Includes: Assessments from this encounter No Assessments Recorded Medical Equipment - Implanted Devices Includes: Current Devices No Medical Equipment Recorded Medications Includes: Medications discussed during this encounter and other current Medications New / Renewed during this visit Madi Scott MD on 07/03/2024 Eliquis 2.5 MG Oral Tablet Provider: Jude Scott MD 42 day supply: 84 tablet, 0 refills Diagnosis: twice a day Pharmacy: [facility] - [address] [place] [address], [facility] - Last Documented On 5 8:46AM By Sneha Piña ; [facility] Current Medications (continue as prescribed) Vitamin D 3 Oral Capsule 06/14/2024 Provider: Diagnosis: Last Documented On 5 2:29PM By Daylin Kim ; [facility] Lisinopril 2.5 MG Oral Tablet 05/30/2024 Provider: Diagnosis: Last Documented On 5 11:25AM By Fortunato Clarke ; [facility] Adult Aspirin Regimen 81 MG Oral Tablet Delayed Releas e 05/30/2024 Provider: Diagnosis: Last Documented On 5 11:27AM By Fortunato Clarke ; [facility] Gabapentin 400 MG Oral Capsule 05/30/2024 Provider: Diagnosis: Last Documented On 5 11:33AM By Fortunato Clarke ; [facility] Symbicort 160-4.5 MCG/ACT Inhalation Aerosol Provider: Diagnosis: Last Documented On 5 11:32AM By Fortunato Clarke ; [facility] Vitamin B12 1000 MCG Oral Tablet 05/30/2024 Prov ider: Diagnosis: Last Documented On 5 11:31AM By Fortunato Clarke ; [facility] Cetirizine HCl 10 MG Oral Tablet 05/30/2024 Provider : Diagnosis: Last Documented On 5 11:31AM By Fortunato Clarke ; [facility] Furosemide 20 MG Oral Tablet 05/30/2024 Provider: Diagnosis: Last Documented On 5 11:30AM By Fortunato Clarke ; [facility] Montelukast Sodium 10 MG Oral Tablet 05/30/2024 Prov ider: Diagnosis: Last Documented On 5 11:29AM By Fortunato Clarke ; [facility] Ferrous Sulfate 325 (65 Fe) MG Oral Tablet 05/30/2024 Provider: Diagnosis: Last Documented On 5 11:28AM By Fortunato Clarke ; [facility] Omeprazole 20 MG Oral Ta blet Delayed Release Disintegrating 05/30/2024 Provider: Diagnosis: Last Documented On 5 11:26AM By Fortunato Clarke ; [facility] HYDROcodone-Acetaminophen 7. 5-325 MG Oral Tablet 05/26/2024 Provider: Mike Vitale MD Diagnosis: Last Documented On 5 10:51AM By Fortunato Clarke ; [facility] Ipratropium [place] 0.06% Nasal Solution 05/18/2024 Provider: Diagnosis: Last Documented On 5 10:51AM By Fortunato Clarke ; [facility] Trelegy Ellipta 200-62.5-25 MCG/ACT Inhalation Aerosol Powder Breath Activated 05/18/2024 Provider: Diagnosis: Last Documented On 5 10:52AM By Fortunato Clarke ; [facility] Gemfibrozil 600 MG Oral Tablet 05/18/2024 Provider: Diagnosis: Last Documented On 5 10:51AM By Fortunato Clarke ; [facility] OneTouch Delica Plus [id number] Miscellaneous Provider: Abdirahman Gibson APRN Diagnosis: Last Documented On 5 10:51AM By Fortunato Clarke ; [facility] Jardiance 25 MG Oral Tablet 05/18/2024 Provider: Diagnosis: Last Documented On 5 10:51AM By Fortunato Clarke ; [facility] Tamsulosin HCl 0.4 MG Oral Capsule 05/18/2024 Provid er: Diagnosis: Last Documented On 5 10:51AM By Fortunato Clarke ; [facility] Ranolazine ER 1000 MG Oral Tablet Extended Release 12 Hour 05/18/2024 Provider: Diagnosis: Last Documented On 5 10:51AM By Fortunato Clarke ; [facility] Pioglitazone HCl 30 MG Oral Tablet 05/18/2024 Provid er: Diagnosis: Last Documented On 5 10:51AM By Fortunato Clarke ; [facility] Xarelto 2.5 MG Oral Tablet 05/17/2024 Provider: Diagnosis: Last Documented On 5 10:52AM By Fortunato Clarke ; [facility] Repatha SureClick 140 MG/ML Subcutaneous Solution Auto-injector 05/17/2024 Provider: Diagnosis: Last Documented On 5 10:52AM By Fortunato Clarke ; [facility] Atenolol 50 MG Oral Tablet 05/17/2024 Provider: Diagnosis: Last Documented On 5 10:52AM By Fortunato Clarke ; [facility] GNP Diclofenac Sodium 1% External Gel 05/16/2024 Pro vider: Diagnosis: Last Documented On 5 10:52AM By Fortunato Clarke ; [facility] Ozempic (1 MG/DOSE) 4 MG/3ML Subcutaneous Solution Pen-injector 05/08/2024 Provider: Diagnosis: Last Documented On 5 10:52AM By Fortunato Clarke ; [facility] oxyBUTYnin Chloride ER 10 MG Oral Tablet Extended Release 24 Hour 04/17/2024 Provider: Diagnosis: Last Documented On 5 10:52AM By Fortunato Clarke ; [facility] Atorvastatin Calcium 10 MG Tablet 10/27/2015 Provide r: Diagnosis: Last Documented On 6 12:08PM By Hyun Perera ; [facility] Albuterol Sulfate (2.5 MG/3ML) 0.083% Nebulizati on solution 10/27/2015 Provider: Diagnosis: Last Documented On 6 12:09PM By Hyun Perera ; [facility] MetFORMIN HCl 500 MG Tablet 10/27/2015 Provider: Diagnosis: Last Documented On 6 12:08PM By Hyun Perera ; [facility] PriLOSEC 2.5 MG Powder, packet 10/27/2015 Provider: Diagnosis: Last Documented On 6 12:08PM By Hyun Perera ; [facility] Medications Administered Includes: Administered Medications from this encounter No Administered Medications Recorded Results Includes: Results discussed during this encounter No Results Recorded For Specified Dates History of Present Illness Includes: History of Present Illness from this encounter No History of Present Illness Recorded Social History No Social History Recorded - Smoking Status Unknown Medical History Includes: Medical History addressed during [...] Location Date Check-In Time Check-Out Time Diagnosis [facility] Madi Scott MD Surgery 5 07/04/2024 8:03AM 11:59PM Insurance Includes: Active Insurance Policies Plan Name Member ID Group # Subscriber Relationship Effect vika Dates 1 - [employer] HMO [id number] Parish Martin Clinical Notes Includes: Clinical Notes from this encounter No Clinical Notes Recorded
--- OUTSIDE RECORDS SUMMARY | 2024-08-17 14:48 | XMS_ITS | Clinical Summary ---
Author Organization [facility] Address [address] [place] [address] Phone Care Team Providers Care Cupola Patcher Helper Name Role Phone Glenna Ayala APRN Primary Care Provider [phone] Kye [place], Manny Roberson Unavailable [phone] Reason for Visit and Chief Complaint Outside Test Problems Includes: Problems addressed during this encounter and other active Problems All Visits Onset Date Resolved Date Provider Condition S tatus Joint Pain in the Right Hip 06/14/2024 Madi ackerman MD Active Last Documented On 5 2:19PM ; [facility] Joint Pain in Both Hips 05/30/2024 Jose lara PA-C Active Last Documented On 5 10:50AM ; [facility] Left Elbow Joint Pain 10/27/2015 Manny Fishman MD Active Last Documented On 6 11:01AM ; [facility] Plan of Treatment Pending Tests Order Diagnosis Results Due Ordering P rovider Lab Hemoglobin A1c 06/14/24 Meghana INIGUEZ Last Documented On 5 2:40PM ; [facility] Lab CBC With Differential/Platelet 06/14 Meghana INIGUEZ Last Documented On 5 2:40PM ; [facility] Lab Prothrombin Time (PT) 06/14/24 Veronica Marks Last Documented On 5 2:40PM ; [facility] Lab PTT, Activated 06/14/24 Meghana stockton PA Last Documented On 5 2:40PM ; [facility] Lab Prealbumin 06/14/24 Meghana Torres P A Last Documented On 5 2:40PM ; [facility] Lab Nicotine and Metabolite, Quant 06/14 Meghana INIGUEZ Last Documented On 5 2:40PM ; [facility] Lab Vitamin D, 25-Hydroxy 06/14/24 Veronica tawana INIGUEZ Last Documented On 5 2:40PM ; [facility] Lab Fructosamine 06/14/24 Meghana INIGUEZ Last Documented On 5 2:40PM ; [facility] Lab MRSA by EVAN 06/14/24 Meghana INIGUEZ Last Documented On 5 2:40PM ; [facility] Lab Comp. Metabolic Panel (14) 06/14/24 Meghana INIGUEZ Last Documented On 5 2:40PM ; [facility] Lab Potassium 06/18/24 Meghana Kern A Last Documented On 5 1:03PM ; [facility] Future Appointments Date Time Location Provi lilo Post Op 09/24/2024 11:00AM [facility] Elba Chang PA-C Last Documented On 5 11:41AM ; [facility] Assessments Includes: Assessments from this encounter No Assessments Recorded Medical Equipment - Implanted Devices Includes: Current Devices No Medical Equipment Recorded Medications Includes: Medications discussed during this encounter and other current Medications Discontinued / Stopped on this date on 05/15/2024 SudoGest 30 MG Oral Tablet Provider: Diagnosis: Last Documented On 5 2:26PM By Daylin Kim ; [facility] Cephalexin 500 MG Oral Capsule Provider: Diagnosis: Last Documented On 5 2:27PM By Daylin Kim ; [facility] Aspirin 81 MG Tablet, enteric coated Prov ider: Diagnosis: Last Documented On 5 2:27PM By Daylin Kim ; [facility] Plavix 75 MG Tablet Provider: Diagnosis: Last Documented On 5 2:28PM By Daylin Kim ; [facility], [facility] [place] 5-325 MG Tablet Provider: Diagnosis: Last Documented On 5 2:28PM By Daylin Kim ; [facility], [facility] Current Medications (continue as prescribed) Vitamin D 3 Oral Capsule 06/14/2024 Provider: Diagnosis: Last Documented On 5 2:29PM By Daylin Kim ; [facility], [facility] Lisinopril 2.5 MG Oral Tablet 05/30/2024 Provider: Diagnosis: Last Documented On 5 11:25AM By Fortunato Clarke ; [facility], [facility] Adult Aspirin Regimen 81 MG Oral Tablet Delayed Releas e 05/30/2024 Provider: Diagnosis: Last Documented On 5 11:27AM By Fortunato Clarke ; [facility], [facility] Gabapentin 400 MG Oral Capsule 05/30/2024 Provider: Diagnosis: Last Documented On 5 11:33AM By Fortunato Clarke ; [facility], [facility] Symbicort 160-4.5 MCG/ACT Inhalation Aerosol Provider: Diagnosis: Last Documented On 5 11:32AM By Fortunato Clarke ; [facility], [facility] Vitamin B12 1000 MCG Oral Tablet 05/30/2024 Prov ider: Diagnosis: Last Documented On 5 11:31AM By Fortunato Clarke ; [facility], [facility] Cetirizine HCl 10 MG Oral Tablet 05/30/2024 Provider : Diagnosis: Last Documented On 5 11:31AM By Fortunato Clarke ; [facility], [facility] Furosemide 20 MG Oral Tablet 05/30/2024 Provider: Diagnosis: Last Documented On 5 11:30AM By Fortunato Clarke ; [facility], [facility] Montelukast Sodium 10 MG Oral Tablet 05/30/2024 Prov ider: Diagnosis: Last Documented On 5 11:29AM By Fortunato Clarke ; [facility], [facility] Ferrous Sulfate 325 (65 Fe) MG Oral Tablet 05/30/2024 Provider: Diagnosis: Last Documented On 5 11:28AM By Fortunato Clarke ; [facility], [facility] Omeprazole 20 MG Oral Ta blet Delayed Release Disintegrating 05/30/2024 Provider: Diagnosis: Last Documented On 5 11:26AM By Fortunato Clarke ; [facility], [facility] HYDROcodone-Acetaminophen 7. 5-325 MG Oral Tablet 05/26/2024 Provider: Mike Vitale MD Diagnosis: Last Documented On 5 10:51AM By Fortunato Clarke ; [facility], [facility] Ipratropium [place] 0.06% Nasal Solution 05/18/2024 Provider: Diagnosis: Last Documented On 5 10:51AM By Fortunato Clarke ; [facility], [facility] Trelegy Ellipta 200-62.5-25 MCG/ACT Inhalation Aerosol Powder Breath Activated 05/18/2024 Provider: Diagnosis: Last Documented On 5 10:52AM By Fortunato Clarke ; [facility], [facility] Gemfibrozil 600 MG Oral Tablet 05/18/2024 Provider: Diagnosis: Last Documented On 5 10:51AM By Fortunato Clarke ; [facility], [facility] OneTouch Delica Plus [id number] Miscellaneous Provider: Abdirahman Gibson APRN Diagnosis: Last Documented On 5 10:51AM By Fortunato Clarke ; [facility], [facility] Jardiance 25 MG Oral Tablet 05/18/2024 Provider: Diagnosis: Last Documented On 5 10:51AM By Fortunato Clarke ; [facility], [facility] Tamsulosin HCl 0.4 MG Oral Capsule 05/18/2024 Provid er: Diagnosis: Last Documented On 5 10:51AM By Fortunato Clarke ; [facility], [facility] Ranolazine ER 1000 MG Oral Tablet Extended Release 12 Hour 05/18/2024 Provider: Diagnosis: Last Documented On 5 10:51AM By Fortunato Clarke ; [facility], [facility] Pioglitazone HCl 30 MG Oral Tablet 05/18/2024 Provid er: Diagnosis: Last Documented On 5 10:51AM By Fortunato Clarke ; [facility], [facility] Xarelto 2.5 MG Oral Tablet 05/17/2024 Provider: Diagnosis: Last Documented On 5 10:52AM By Fortunato Clarke ; [facility], [facility] Repatha SureClick 140 MG/ML Subcutaneous Solution Auto-injector 05/17/2024 Provider: Diagnosis: Last Documented On 5 10:52AM By Fortunato Clarke ; [facility], [facility] Atenolol 50 MG Oral Tablet 05/17/2024 Provider: Diagnosis: Last Documented On 5 10:52AM By Fortunato Clarke ; [facility], [facility] GNP Diclofenac Sodium 1% External Gel 05/16/2024 Pro vider: Diagnosis: Last Documented On 5 10:52AM By Fortunato Clarke ; [facility], [facility] Ozempic (1 MG/DOSE) 4 MG/3ML Subcutaneous Solution Pen-injector 05/08/2024 Provider: Diagnosis: Last Documented On 5 10:52AM By Fortunato Clarke ; [facility], [facility] oxyBUTYnin Chloride ER 10 MG Oral Tablet Extended Release 24 Hour 04/17/2024 Provider: Diagnosis: Last Documented On 5 10:52AM By Fortunato Clarke ; [facility], [facility] Atorvastatin Calcium 10 MG Tablet 10/27/2015 Provide r: Diagnosis: Last Documented On 6 12:08PM By Hyun Perera ; [facility], [facility] Albuterol Sulfate (2.5 MG/3ML) 0.083% Nebulizati on solution 10/27/2015 Provider: Diagnosis: Last Documented On 6 12:09PM By Hyun Perera ; [facility], [facility] MetFORMIN HCl 500 MG Tablet 10/27/2015 Provider: Diagnosis: Last Documented On 6 12:08PM By Hyun Perera ; [facility], [facility] PriLOSEC 2.5 MG Powder, packet 10/27/2015 Provider: Diagnosis: Last Documented On 6 12:08PM By Hyun Perera ; [facility], [facility] Medications Administered Includes: Administered Medications from [...] Location Date Check-In Time Check-Out Time Diagnosis Outside Test Meghana INIGUEZ 06/14/2024 2:14PM 11:59PM Insurance Includes: Active Insurance Policies Plan Name Member ID Group # Subscriber Relationship Effect vika Dates - O [id number] Parihs Martin Clinical Notes Includes: Clinical Notes from this encounter No Clinical Notes Recorded
[2024-08-17 14:58] LABS: Albumin Level 4.2 g/dl (3.5-5.0); Chloride 102 mmol/L (98-107)
[2024-08-17 14:59] LABS: Potassium 5.1 mmoL/L (3.5-5.1); Sodium 139 mmol/L (136-145)
[2024-08-17 15:01] LABS: Alanine Aminotransferase 15 U/L (12-78); Anion Gap 13.1 mEq/L (5-15); Aspartate Amino Transferase 23 U/L (17-59); Blood Urea Nitrogen 18 mg/dl (9-20); Carbon Dioxide 29 mmol/L (22.0-30.0); Estimated Glomerular Filt Rate 68 ml/min (>60); GFR (African American) 82 ML/MIN (>60)
[2024-08-17 15:02] LABS: Albumin/Globulin Ratio 1.8 (1.1-1.8); Alkaline Phosphatase 114 U/L (38-126); Bilirubin,Total 0.3 mg/dl (0.2-1.3); Calcium 9.4 mg/dl (8.4-10.2); Globulin 2.3 g/dL (1.3-3.2); Glucose 101 mg/dl (74-100); Total Protein,Serum 6.5 g/dl (6.3-8.2)
== END 2024-08-17 23:59 | disposition home or self-care (01) ==
LOC: LAB.DROPOF 14:46
PROVIDERS: PCP Internal Medicine; Visit Provider Internal Medicine
DX: N17.9 Acute kidney failure, unspecified (principal)
CPT/HCPCS: 80053

== ENCOUNTER 2024-09-06 13:00 | Outpatient (RCR) | payer MEDICARE, MEDICAID, SELFPAY | END 2024-09-06 23:59 | disposition home or self-care (01) | LOC: PT 13:00 | PROVIDERS: Visit Provider Orthopaedic Surgery | DX: Z47.89 Encounter for other orthopedic aftercare (principal); Z96.641 Presence of right artificial hip joint | CPT/HCPCS: 97110; 97163; 97530 ==

== ENCOUNTER 2024-09-12 12:13 | Outpatient (CLI) | payer MEDICARE, MEDICAID, SELFPAY ==
--- NOTE | 2024-09-12 12:16 | XR_ITS ---
FINAL REPORT CLINICAL HISTORY: Right knee pain, fall at home COMPARISON: None FINDINGS: RIGHT KNEE: 2 views of the right knee were obtained. There is no acute fracture or dislocation. The joint spaces are intact. There is no soft tissue abnormality. IMPRESSION: No acute fracture Reviewed, Interpreted and Dictated by Renan Winn MD Transcribed by Beverley Huang Authenticated and [facility]
--- NOTE | 2024-09-12 12:16 | XR_ITS ---
FINAL REPORT CLINICAL HISTORY: Hip pain/fall COMPARISON: None FINDINGS: RIGHT HIP 3 views of the right hip demonstrate the presence of a right total hip arthroplasty, which is anatomically aligned. There is moderate heterotopic bone formation noted. A left iliac vascular stent is noted. Note is made of sclerosis of the left femoral head, which has an appearance worrisome for avascular necrosis. The visualized bony structures are well aligned. No soft tissue abnormality is seen. IMPRESSION: Right total hip arthroplasty, anatomically aligned. There is sclerosis of the left femoral head, which has an appearance worrisome for avascular necrosis. MRI may be helpful for further evaluation. Reviewed, Interpreted and Dictated by Renan Winn MD Transcribed by Beverley Huang Authenticated and [facility]
== END 2024-09-12 23:59 | disposition home or self-care (01) ==
LOC: RAD 12:14
PROVIDERS: PCP Internal Medicine; Visit Provider Internal Medicine
DX: M89.8X5 Other specified disorders of bone, thigh (principal); M25.561 Pain in right knee; M25.559 Pain in unspecified hip; Z96.641 Presence of right artificial hip joint; W19.XXXA Unspecified fall, initial encounter; Y92.008 Other place in unspecified non-institutional (private) residence as the place of occurrence of the external cause
CPT/HCPCS: 73502; 73560

== ENCOUNTER 2024-09-27 09:29 | Outpatient (CLI) | payer MEDICARE, MEDICAID, SELFPAY ==
--- OUTSIDE RECORDS SUMMARY | 2024-04-25 06:15 | XMS_ITS ---
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 Name Role Phone Kye LAKE -Heide LAKE, Manny Primary Care Provi lilo Unavailable Timworth IIMike Unavailable [phone] Redd Sommer APRN, Memondguerrero Unavailable Unavailable ALLERGIES No Known Allergies RESULTS Component Value Reference Range Notes Urine Test ANALYZER Reviewed date:04/25/2024 02:22:33 PM Interpretation:+HYD+OPI Performing Lab: Notes/Report: +HYD+OPI Heroin Metabolite (6AM) NEG Amphetamine (AMP) NEG Benzodiazepine (DEX) NEG Buprenorphine NEG Cocaine (MICHAEL) NEG Hydrocodone (HYD) POS Methadone (MTD) NEG Opiate (OPI) POS Oxycodone (OXY) NEG REASON FOR VISIT Neck pain, Low back pain, DAVID leg pain, DAVID Shoulder pain, RT HIP MEDICATIONS Medication SIG (Take, Route, Frequency, Duration) Notes Start Date End Date Status Acetaminophen-Hydroc odone Bitartrate 325 mg-7.5 mg 1 tab(s) orally two times a day for 28 days MARCH 2024 RX, DO NOT FILL SOONER THAN 28 DAYS, (OK TO FILL EARLY IF CLOSED) Active Acetaminophen-Hydroc odone Bitartrate 325 mg-7.5 mg 1 tab(s) orally two times a day for 28 days FEBRUARY 2024 RX, DO NOT FILL SOONER THAN 28 DAYS, (OK TO FILL EARLY IF CLOSED) Active Jardiance 10 mg TAKE ONE TABLET BY MOUTH EVERY DAY for 30 Active Plavix 75 mg 1 tablet orally QD Active oxyBUTYnin 10 mg/24 hr 1 tab(s) orally once a day for 30 day(s) 02/23/2024 Active Trelegy Ellipta 200 mcg-62.5 mcg-25 mcg/inh 1 INH inhaled once a day 02/23/2024 Active Furosemide 20 mg 1 tab qd for 30 days 05/17/2023 Active Ozempic 4 mg/3 mL as directed subcutaneously once a week 02/23/2024 Active metFORMIN 500 mg 1 tab(s) orally 2 times a day for 30 day(s) 05/17/2023 Active tamsulosin 0.4 mg 1 cap(s) orally once a day for 30 day(s) 02/23/2024 Active Atenolol 50 mg 1 tab PO qd for 30 days 05/17/2023 Active Flovent 110 mcg 2 puffs As directed bid for 30 days 05/31/2022 Active Symbicort 160 mcg-4.5 mcg/inh 2 puff(s) inhaled 2 times a day for 30 day(s) 05/17/2023 Active lisinopril 2.5 mg 1 tab(s) orally once a day for 30 day(s) 05/31/2022 Active ranolazine 1000 mg 1 tab(s) orally 2 times a day for 30 day(s) 05/31/2022 Active omeprazole 20 mg 1 cap(s) orally once a day for 30 day(s) 05/31/2022 Active pioglitazone 15 mg 1 tab(s) orally once a day for 30 day(s) 05/31/2022 Active gemfibrozil 600 mg 1 tab(s) orally 2 times a day for 30 day(s) 05/31/2022 Active atorvastatin 80 mg 1 tab(s) orally once a day for 30 day(s) 05/31/2022 Active Xarelto 2.5 mg 1 tab(s) orally 2 times a day 05/31/2022 Active montelukast 10 mg 1 tab(s) orally once a day for 30 day(s) 03/25/2022 Active cetirizine 10 mg 1 tab(s) orally once a day 03/25/2022 Active gabapentin 400 mg 1 cap(s) orally 3 times a day 03/25/2022 Active furosemide 20 mg 1 tab(s) orally once a day for 30 day(s) 03/25/2022 Active VITAL SIGNS Blood pressure systolic 106 mm Hg 04/25/19 25 Blood pressure diastolic 65 mm Hg 025 Heart Rate 78 /min 04/25/2024 Height 64.5 in 04/25/2024 Weight 195 lbs 04/25/2024 BMI 32.95 kg/m2 04/25/2024 Encounters Encounter Location Date Provider Diagnosis 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 Refill Waco 7.5/325mg BID 2. Continue back brace prn 3. Follow up 2 months 4. Continue GBP (pcp) 04/25/2024 The patient presents to the [facility] office in [place], [place] for an audio telemedicine visit. The patient was evaluated by the emergency medical tech and a urine drug screen was obtained as well as vital signs. Portions of the physical examination were assisted by the emergency medical tech as instructed during the audio telemedicine visit. Patient consented to telemed visit. Mr Hernandez is here for a follow up visit. Last NCS/EMG of his BLE revealed that he has a right Galvan's nerve compression and possible right tarsal tunnel syndrome. No evidence of peripheral polyneuropathy or myopathy or radiculopathy. Today he reports low back and bilateral lower extremity pain. He rates his pain 6/10. Denies any changes to the character or intensity of his pain. Patient reports having increased right hip pain and is seeing an Ortho in [place]. He reports that he may need to have hip surgery for replacement. He reports good pain control with his current analgesic regimen and no side effeccts. He is able to work and be active at home. Recent UDS and DARCY reviewed and appropriate. Will continue current treatment. He is not interested in further injection treatment. Continue gabapentin 300 mg 60 tablets (prescribed by outside provider) and also Waco 7.5/325. Denies side effects to medication. Denies other changes, UDS and Darcy review. Refills and F/U in 2 months. 04/25/2024 Spondylosis without myelopathy or radiculopathy, lumbar region (ICD-10 - M47.816) 04/25/2024 The patient presents to the [facility] office in [place], [place] for an audio telemedicine visit. The patient was evaluated by the emergency medical tech and a urine drug screen was obtained as well as vital signs. Portions of the physical examination were assisted by the emergency medical tech as instructed during the audio telemedicine visit. Patient consented to telemed visit. Mr Hernandez is here for a follow up visit. Last NCS/EMG of his BLE revealed that he has a right Galvan's nerve compression and possible right tarsal tunnel syndrome. No evidence of peripheral polyneuropathy or myopathy or radiculopathy. Today he reports low back and bilateral lower extremity pain. He rates his pain 6/10. Denies any changes to the character or intensity of his pain. Patient reports having increased right hip pain and is seeing an Ortho in [place]. He reports that he may need to have hip surgery for replacement. He reports good pain control with his current analgesic regimen and no side effeccts. He is able to work and be active at home. Recent UDS and DARCY reviewed and appropriate. Will continue current treatment. He is not interested in further injection treatment. Continue gabapentin 300 mg 60 tablets (prescribed by outside provider) and also Waco 7.5/325. Denies side effects to medication. Denies other changes, UDS and Darcy review. Refills and F/U in 2 months. 04/25/2024 Low back pain (ICD-10 - M54.5) 04/25/2024 The patient presents to the [facility] office in [place], [place] for an audio telemedicine visit. The patient was evaluated by the emergency medical tech and a urine drug screen was obtained as well as vital signs. Portions of the physical examination were assisted by the emergency medical tech as instructed during the audio telemedicine visit. Patient consented to telemed visit. Mr Hernandez is here for a follow up visit. Last NCS/EMG of his BLE revealed that he has a right Galvan's nerve compression and possible right tarsal tunnel syndrome. No evidence of peripheral polyneuropathy or myopathy or radiculopathy. Today he reports low back and bilateral lower extremity pain. He rates his pain 6/10. Denies any changes to the character or intensity of his pain. Patient reports having increased right hip pain and is seeing an Ortho in [place]. He reports that he may need to have hip surgery for replacement. He reports good pain control with his current analgesic regimen and no side effeccts. He is able to work and be active at home. Recent UDS and DARCY reviewed and appropriate. Will continue current treatment. He is not interested in further injection treatment. Continue gabapentin 300 mg 60 tablets (prescribed by outside provider) and also Waco 7.5/325. Denies side effects to medication. Denies other changes, UDS and Darcy review. Refills and F/U in 2 months. 04/25/2024 Other specified diabetes mellitus with diabetic neuropathy, unspecified (ICD-10 - E13.40) 04/25/2024 The patient presents to the [facility] office in [place], [place] for an audio telemedicine visit. The patient was evaluated by the emergency medical tech and a urine drug screen was obtained as well as vital signs. Portions of the physical examination were assisted by the emergency medical tech as instructed during the audio telemedicine visit. Patient consented to telemed visit. Mr Hernandez is here for a follow up visit. Last NCS/EMG of his BLE revealed that he has a right Gavlan's nerve compression and possible right tarsal tunnel syndrome. No evidence of peripheral polyneuropathy or myopathy or radiculopathy. Today he reports low back and bilateral lower extremity pain. He rates his pain 6/10. Denies any changes to the character or intensity of his pain. Patient reports having increased right hip pain and is seeing an Ortho in [place]. He reports that he may need to have hip surgery for replacement. He reports good pain control with his current analgesic regimen and no side effeccts. He is able to work and be active at home. Recent UDS and DARCY reviewed and appropriate. Will continue current treatment. He is not interested in further injection treatment. Continue gabapentin 300 mg 60 tablets (prescribed by outside provider) and also Waco 7.5/325. Denies side effects to medication. Denies other changes, UDS and Darcy review. Refills and F/U in 2 months. 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 Refill Waco 7.5/325mg BID 2. Continue back brace prn 3. Follow up 2 months 4. Continue GBP (pcp) Next Appt Details Follow Up: 2 Months, Reason: Procedure Notes * Category Sub-Category Detail Notes PROVIDER ENCOUNTER AND OVERSIGHT Consult Performed By: Ishan-Nidia ALLAN 04/25 10:32:48 AM > collaborated treatment plan with Mike dickson M.D., supervising physician who was present in office during consultation Progress Notes * Examination Category Sub-Category Detail Notes Category Not es General Examination HEENT: unremarkable Neck, Thyroid : supple Extremities: no clubbing, no marine a General Appearance: well-nourished indiv idual in no acute distress. The patient is alert and oriented and cooperative for evaluation Skin normal, no rash Neurologic Exam: Patient ambulates wi th an antalgic gait, pitched forward Nurse/Dipper Clock And Watch Hands: Emeka Mosqueda ( MA-Lex) 04/25/2024 10:31:28 AM > Lumbar Spine/Lower Back Straight leg raising test: neg ative bilaterally Motor system: motor strength 5/5 i n all muscle groups bilaterally Sensory exam: sensation intact to light touch throughout bilateral lower extremities, no edema or discoloration noted Range of motion: ROM moderately limit ed, moderate pain induced. Hyperextension - Pain with Facet loading, Flexion: 45 degrees, with pain, Extension: 10 degrees, pain with 10 degree DAVID side bending Inspection: Spinal alignment no abnormal curvature noted Palpation: LT < RT, paraspinal tenderness History and Physical Notes * HPI (History of Present Illness) Category Sub-Category Detail Notes Category Not es PAIN MANAGEMENT TREATMENT HISTORY SUMMARY OF INITIAL EVALUATION: 12/10/2019 new patient consult referred by Dr. Membreno for chronic low back pain. onset 1988 with incident. Most severe pain is Low back pain with pain radiating down BLE to toes. 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 Secondary pain in neck with pain radiating down into BUE. Former pt of Dr. Feliciano Pavon. Denies bowel or bladder incontinence. Denies saddle anesthesia. IMAGING HISTORY: 09/09/2015 MRI LUMBAR:L5-S1 degenerative disc space narrowing & changes are most evident at this level. Small right paracentral disc protusion/extrusion extends cephalad to the disc. Slightly indents right anterior corner of thecal sac & slight displaces right S1 nerve root. Central bulge & minor central protusion again noted. Slightly more evident just to lefft of midline where abuts & minimally impinges left S1 nerve root sleeve. L4/5 only scant disc bulge. Mild facet hypertrophy & mild foraminal encroachment. 03/20/2019 XR LUMBAR:Degenerative Disc disease L5-S1 12/10/2021 EMG:The patient appears to have a right Galvan's nerve compression and possible right tarsal tunnel syndrome. Otherwise there was no evidence of peripheral polyneuropathy or myopathy or radiculopathy. I recommend clinical correlation in this patient. PHYSICAL/AQUA THERAPY/DME/OT HER HISTORY: No therapies reported Back Brace dispensed 08/29/2020 PERTINENT SURGICAL EVALUATIONS/SPECIALIST CONSULTS No prior surgical consult PREVIOUS INJECTION\PROCEDURE HISTORY: 01/08/2020 #1 DAVID LMBB L3 L4 L5 80% relief for 1 day 01/22/2020 #2 DAVID LMBB L3 L4 L5 80% relief for 1 day 03/04/2020 #1 RFA DAVID L3 L4 L5 0% relief PREVIOUS PAIN CLINIC CARE: 2019 - Dr Feliciano Pavon, discharged due to abnormal UDS 4-[address] Leroy COMPLIANCE RISK ASSESSMENT AND STRATIFICATI ON: RISK GROUP: MODERATE RISK Due to: membrane stabilizer URINE DRUG TESTIN05/23/2023 Screen Expected 07/15/2023 Screen Expected Definitive Expected 09/09/2023 Screen Expected 03/02/2024 Screen Expected ; Definitive Expected 04/25/2024 Screen Expected MONITORING: Morphine Equivalent (MME): 15 DARCY reviewed today and appropriate TESTING/RISK ASSESSMENTS ORT Score/Result: 0 TODAYS PAIN EVALUATION MEDICATION FOLLOW UP: The patient is currently prescribed Waco 7.5/325 BID & Gabapentin 300mg TID (with PCP), which provides 60% relief of pain symptoms for 1-2 hours. The last dose was taken 04/25/2024 The patient denies any side effects or adverse reactions to the current medications prescribed. CURRENT PAIN SYMPTOMS: Location of Worst Pain:: Neck, Low Back, Leg(s), Shoulder(s) Pain Frequency:: constant, always, usual ly Pain Description:: aching, b urning, cramping, sharp, stabbing, numb, tingling Average Pain Score VAS:: 6.5 Pain Exacerbation:: Everything Pain Alleviation:: medications ADL/Quality of Life Interference:: walki ng,standing,sitting,bending,lifting etc PERTINENT INFORMATION: Patient may have rt hip surgery soon. follow up with doctor 05/01/2024
--- OUTSIDE RECORDS SUMMARY | 2024-04-25 06:34 | XMS_ITS ---
Author Organization [facility] Address [address] [place] [address] Care Team Providers Care Barber Name Role Phone Kye LAKE -OrthoSebas LAKE, Manny Primary Care Provi lilo Mike Rivas II Unavailable [phone] Glenna Sommer APRN, Mem Unavailable Unavailable REASON FOR VISIT 04/26/2024 erx MEDICATIONS Medication SIG (Take, Route, Frequency, Duration) Notes Start Date End Date Status Acetaminophen-Hydroc odone Bitartrate 325 mg-7.5 mg 1 tab(s) orally two times a day for 28 days APRIL 2024 RX, DO NOT FILL SOONER THAN 28 DAYS, (OK TO FILL EARLY, ONLY IF CLOSED) 04/25/2024 Active Acetaminophen-Hydroc odone Bitartrate 325 mg-7.5 mg 1 tab(s) orally two times a day for 28 days MAY 2024 RX, DO NOT FILL SOONER THAN 28 DAYS, (OK TO FILL EARLY, ONLY IF CLOSED) 04/25/2024 Active Encounters Encounter Location Date Provider Diagnosis [facility] [address] [place] [address] 04/25/2024 Mike Vitale 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 ASSESSMENTS Encounter Date Diagnosis Assessment Notes Treatment Notes Treatment Clinical Notes Section Notes 04/25/2024 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
--- OUTSIDE RECORDS SUMMARY | 2024-06-20 06:30 | XMS_ITS ---
Author Organization [facility] Address [address] [place] [address] Care Team Providers Care Animal Warden Name Role Phone Kye LAKE -OrthoSebas LAKE, Manny Primary Care Provi lilo Unavailable Mike Vitale II Unavailable Glenna Sommer APRN, Mem Unavailable Unavailable ALLERGIES No Known Allergies REASON FOR VISIT Neck pain, Low back pain, DAVID leg pain, DAVID Shoulder pain, RT HIP MEDICATIONS Medication SIG (Take, Route, Frequency, Duration) Notes Start Date End Date Status Xarelto 2.5 mg 1 tab(s) orally 2 times a day 05/31/2022 Active ranolazine 1000 mg 1 tab(s) orally 2 times a day for 30 day(s) 05/31/2022 Active furosemide 20 mg 1 tab(s) orally once a day for 30 day(s) 03/25/2022 Active atorvastatin 80 mg 1 tab(s) orally once a day for 30 day(s) 05/31/2022 Active omeprazole 20 mg 1 cap(s) orally once a day for 30 day(s) 05/31/2022 Active Acetaminophen-Hydroc odone Bitartrate [...] BY MOUTH EVERY DAY for 30 Active metFORMIN 500 mg 1 tab(s) orally 2 times a day for 30 day(s) 05/17/2023 Active tamsulosin 0.4 mg 1 cap(s) orally once a day for 30 day(s) 02/23/2024 Active oxyBUTYnin 10 mg/24 hr 1 tab(s) orally once a day for 30 day(s) 02/23/2024 Active Ozempic 4 mg/3 mL as directed subcutaneously once a week 02/23/2024 Active Trelegy Ellipta 200 mcg-62.5 mcg-25 mcg/inh 1 INH inhaled once a day 02/23/2024 Active Symbicort 160 mcg-4.5 mcg/inh 2 puff(s) inhaled 2 times a day for 30 day(s) 05/17/2023 Active Encounters Encounter Location Date Provider Diagnosis [facility] [address] [place] [address] 06/20/2024 Mike Vitale Other jail (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 therapy Z79.899 ; Spondylosis without myelopathy or radiculopathy, lumbar region M47.816 ; Low back pain M54.5 and Other specified diabetes mellitus with diabetic neuropathy, unspecified E13.40 ASSESSMENTS Encounter Date Diagnosis Assessment Notes Treatment Notes Treatment Clinical Notes Section Notes 06/20/2024 Other jail (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 therapy (ICD-10 - Z79.899) 04/25/2024 1. Refill [place] 7.5/325mg BID 2. Continue back brace prn 3. Follow up 2 months 4. Continue GBP (pcp) 04/25/2024 The patient presents to the [facility] office in [place], [place] for an audio telemedicine visit. The patient was evaluated by the certified medical dosimetrist and a urine drug screen was obtained as well as vital signs. Portions of the physical examination were assisted by the certified medical dosimetrist as instructed during the audio telemedicine visit. [...] pain and is seeing an Ortho in [place]. He reports that he may need to [...] tablets (prescribed by outside provider) and also [place] 7.5/325. Denies side effects to medication. Denies other changes, UDS and Darcy review. Refills and F/U in 2 months. 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 The patient was evaluated by the certified medical dosimetrist and a urine drug screen was obtained as well as vital signs. Portions of the physical examination were assisted by the certified medical dosimetrist as instructed during the audio telemedicine visit. [...] pain and is seeing an Ortho in [place]. He reports that he may need to [...] tablets (prescribed by outside provider) and also [place] 7.5/325. Denies side effects to medication. Denies other changes, UDS and Darcy review. Refills and F/U in 2 months. 06/20/2024 Low back pain (ICD-10 - M54.5) 04/25/2024 The patient presents to the [facility] office in [place], [place] for an audio telemedicine visit. The patient was evaluated by the certified medical dosimetrist and a urine drug screen was obtained as well as vital signs. Portions of the physical examination were assisted by the certified medical dosimetrist as instructed during the audio telemedicine visit. [...] pain and is seeing an Ortho in [place]. He reports that he may need to [...] tablets (prescribed by outside provider) and also [place] 7.5/325. Denies side effects to medication. Denies other changes, UDS and Darcy review. Refills and F/U in 2 months. 06/20/2024 Other specified diabetes mellitus with diabetic neuropathy, unspecified (ICD-10 - E13.40) 04/25/2024 The patient presents to the [facility] office in [place], [place] for an audio telemedicine visit. The patient was evaluated by the certified medical dosimetrist and a urine drug screen was obtained as well as vital signs. Portions of the physical examination were assisted by the certified medical dosimetrist as instructed during the audio telemedicine visit. [...] pain and is seeing an Ortho in [place]. He reports that he may need to [...] tablets (prescribed by outside provider) and also [place] 7.5/325. Denies side effects to medication. Denies [...] IF CLOSED) Treatment Notes Assessment Notes Other jail (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 therapy 04/25/2024 1. Refill [place] 7.5/325mg BID 2. Continue back brace prn 3. Follow up 2 months 4. Continue GBP (pcp) Pending Test Test Name Order Date Urine Test ANALYZER 06/20/2024 Next Appt Details Follow Up: 2 Months, Reason: Procedure Notes * Category Sub-Category Detail Notes PROVIDER ENCOUNTER AND OVERSIGHT Consult Performed By: Nidia Holm (ARNP-LEX) 04/25 10:32:48 AM > collaborated treatment plan [...] wi th an antalgic gait, pitched forward Nurse/Concrete Pourer: Emeka Mosqueda ( MA-Lex) 04/25/2024 10:31:28 AM [...] FOLLOW UP: The patient is currently prescribed [place] 7.5/325 BID & Gabapentin 300mg TID (with [...]
--- OUTSIDE RECORDS SUMMARY | 2024-09-27 09:39 | XMS_ITS | Clinical Summary ---
Author Organization [facility] Address [address] [place] [address] Care Team Providers Care Hat [employer] Cap Parts Cutter Hand Name Role Phone Glenna Ayala FRANCK Primary Care Provider [phone] Allergies No known active allergies Medications Albuterol [...] day. Active ergocalciferol (Vitamin D-2) 1.25 MG (21513 UT) capsule Take 1 capsule (50,000 Units) [...] (one) time each day. Active HYDROcodone-ngozi taminophen ([place]) 7.5-325 MG tablet Active lisinopril 2.5 MG [...] Diagnosed Date Coronary artery disease invo lving [place] coronary artery of [place] heart without angina pectoris 12/23/2023 Hypertensive chronic [...] (01/18/2022): Regulatory Update January 2022 Hypertension 12/25/2020 Immunizations Immunization Administration Dates Next Due Influenza, injectable, quadrivalent [...] 73 12/23/2023 12:34 PM EDT Temperature 35.6 C (96.1 F) 12/23/2023 12:34 PM EDT Respiratory Rate 16 11/29/2022 4:08 PM EDT Oxygen Saturation 96% 12/23/2023 12:34 PM EDT Inhaled Oxygen Concentration - - Weight 90.8 kg (200 lb 2 oz) 12/23/2023 12:34 PM EDT Height 162.6 cm (5' 4 ) 11/06/2015 2:43 PM EDT Body Mass Index 34.35 11/06/2015 2:43 PM EDT Plan of Treatment Upcoming Encounters Date Type Department Care Team (Late st Contact Info) Description 11/02/2024 11:20 AM EDT Office Visit [facility] [address] [place] [phone] Raymon Chin MD [address] [place] [id number] Health Maintenance Due Date Last Done Comments [facility]-Depression Screening 1965 [facility]-Diabetes: Hemoglobin A1C 1963 [facility]-HIV Screening 1965 [facility]-Hepatitis C Screening 1965 [facility]-Medicare Annual Wellness (AWV) 1965 [facility]-/Child/Adol SDOH Screenings 1965 Diabetes: Dental Exam 06/26/1973 [facility]- SDOH Screenings 06/26/1981 [facility]-Adult SDOH Screenings 06/26/1981 CT Colonography 06/26/2008 Colonoscopy 06/26/2008 FIT-DNA 06/26/2008 FIT 06/26/2008 FOBT 06/26/2008 Sigmoidoscopy 06/26/2008 [facility]-Colorectal Cancer Screening 06/26/2008 [facility]-Zoster Vaccines (1 of 2) 06/26/2013 [facility]-Pneumococcal Vaccine: 50+ Years (3 of 3 - PCV20 or PCV21) 01/26/2022 01/26/2017, 01/26/2017 [facility]-RSV Vaccine: 60+ Years or (1 - Risk 60-74 years 1-dose series) 2023 [id number] Vaccine (2 - season) 2023 06/25/2020 [facility]-DTaP,Tdap,and Td Vaccines (3 - Td or Tdap) 04/08/2030 04/08/2020, 08/17/2016 [facility]-Obesity Intervention Completed 12/23/2023 [facility]-Influenza Vaccine Completed 02/02/2024 , 02/04/2023, 01/29/2022, Additional history exists HPV Vaccines Aged Out No longer eligi ble based on patient's age to complete this topic [facility]-HIB Vaccines Aged Out No longer e [...] Date Last Indicated MRSA 12/25/2020 12/25/2020 Insurance [facility] MEDICARE Care Teams [employer] Cutter Hand Relationship Specialty Start Date End Date Glenna Ayala APRN [address] [place] [id number] PCP - General 08/29/20
--- OUTSIDE RECORDS SUMMARY | 2024-09-27 09:40 | XMS_ITS | Patient Health Record ---
Author Organization [facility] Address [address] [place] [address] Care Team Providers Care Camera Operator Name Role Phone Kye LAKE -OrthoSebas LAKE, Manny Primary Care Provi lilo Unavailable Bosomworth II, Mike Unavailable Lucy Soto Mem, Eugonda Unavailable Unavailable ALLERGIES No Known Allergies RESULTS Component Value Reference Range Notes Urine Test ANALYZER Reviewed date:11/07/2023 09:51:52 AM Interpretation:+HYD+OPI Performing Lab: Notes/Report: +HYD+OPI Heroin Metabolite (6AM) NEG Amphetamine (AMP) NEG Benzodiazepine (DEX) NEG Buprenorphine NEG Cocaine (MICHAEL) NEG Hydrocodone (HYD) POS Methadone (MTD) NEG Opiate (OPI) POS Oxycodone (OXY) NEG Urine Test ANALYZER Reviewed date:03/06/2024 08:00:52 AM Interpretation:+HYD+OPI Performing Lab: Notes/Report: +HYD+OPI Heroin Metabolite (6AM) NEG Amphetamine (AMP) NEG Benzodiazepine (DEX) NEG Buprenorphine NEG Cocaine (MICHAEL) NEG Hydrocodone (HYD) POS Methadone (MTD) NEG Opiate (OPI) POS Oxycodone (OXY) NEG Urine Test ANALYZER Reviewed date:01/02/2024 10:51:48 AM Interpretation:+HYD+OPI Performing Lab: Notes/Report: +HYD+OPI Heroin Metabolite (6AM) NEG Amphetamine (AMP) NEG Benzodiazepine (DEX) NEG Buprenorphine NEG Cocaine (MICHAEL) NEG Hydrocodone (HYD) POS Methadone (MTD) NEG Opiate (OPI) POS Oxycodone (OXY) NEG Urine Test ANALYZER Reviewed date:04/25/2024 02:22:33 PM Interpretation:+HYD+OPI Performing Lab: Notes/Report: +HYD+OPI Heroin Metabolite (6AM) NEG Amphetamine (AMP) NEG Benzodiazepine (DEX) NEG Buprenorphine NEG Cocaine (MICHAEL) NEG Hydrocodone (HYD) POS Methadone (MTD) NEG Opiate (OPI) POS Oxycodone (OXY) NEG Urine Test LCMS Definitive Reviewed date:04/03/2024 06:20:30 AM Interpretation:+gbp+hyd 2/3 Performing Lab: Notes/Report: +gbp+hyd 2/3 Report Attached REASON FOR REFERRAL No Information MEDICATIONS Medication SIG (Take, Route, Frequency, Duration) Notes Start Date End Date Status pioglitazone 15 mg 1 tab(s) orally once a day for 30 day(s) 05/31/2022 Active gemfibrozil 600 mg 1 tab(s) orally 2 times a day for 30 day(s) 05/31/2022 Active Furosemide 20 mg 1 tab qd for 30 days 05/17/2023 Active montelukast 10 mg 1 tab(s) orally once a day for 30 day(s) 03/25/2022 Active Atenolol 50 mg 1 tab PO qd for 30 days 05/17/2023 Active cetirizine 10 mg 1 tab(s) orally once a day 03/25/2022 Active Flovent 110 mcg 2 puffs As directed bid for 30 days 05/31/2022 Active lisinopril 2.5 mg 1 tab(s) orally once a day for 30 day(s) 05/31/2022 Active omeprazole 20 mg 1 cap(s) orally once a day for 30 day(s) 05/31/2022 Active Acetaminophen-Hydroc odone Bitartrate 325 mg-7.5 mg 1 tab(s) orally two times a day for 28 days MARCH 2024 RX, DO NOT FILL SOONER THAN 28 DAYS, (OK TO FILL EARLY IF CLOSED) Active Symbicort 160 mcg-4.5 mcg/inh 2 puff(s) inhaled 2 times a day for 30 day(s) 05/17/2023 Active metFORMIN 500 mg 1 tab(s) orally 2 times a day for 30 day(s) 05/17/2023 Active Xarelto 2.5 mg 1 tab(s) orally 2 times a day 05/31/2022 Active Acetaminophen-Hydroc odone Bitartrate 325 mg-7.5 mg 1 tab(s) orally two times a day for 28 days FEBRUARY 2024 RX, DO NOT FILL SOONER THAN 28 DAYS, (OK TO FILL EARLY IF CLOSED) Active ranolazine 1000 mg 1 tab(s) orally 2 times a day for 30 day(s) 05/31/2022 Active Plavix 75 mg 1 tablet orally QD Active tamsulosin 0.4 mg 1 cap(s) orally once a day for 30 day(s) 02/23/2024 Active gabapentin 400 mg 1 cap(s) orally 3 times a day 03/25/2022 Active oxyBUTYnin 10 mg/24 hr 1 tab(s) orally once a day for 30 day(s) 02/23/2024 Active Ozempic 4 mg/3 mL as directed subcutaneously once a week 02/23/2024 Active Trelegy Ellipta 200 mcg-62.5 mcg-25 mcg/inh 1 INH inhaled once a day 02/23/2024 Active furosemide 20 mg 1 tab(s) orally once a day for 30 day(s) 03/25/2022 Active Jardiance 10 mg TAKE ONE TABLET BY MOUTH EVERY DAY for 30 Active atorvastatin 80 mg 1 tab(s) orally once a day for 30 day(s) 05/31/2022 Active PROBLEMS Problem Type ICD Code Onset Dates Problem Status W/U Status Risk SNOMED Code Notes Problem Other specified diabetes mellitus with diabetic neuropathy, unspecified (E13.40) Active confirmed Diabetic neuropathy (663007693) Problem Spondylosis without myelopathy or radiculopathy, 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) Active confirmed Thoracic spondylosis without myelopathy (430617969) Problem Spondylosis without myelopathy or radiculopathy, lumbar region (M47.816) Active confirmed Lumbosacral spondylosis without myelopathy (68525293) Problem Low back pain (M54.5) Active confirmed Low back pain (982984346) Problem Other correction (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 therapy (Z79.899) Active confirmed Long-term current use of drug therapy (975979355) Problem lumbar spondylosis (M47.816) Active confirmed Lumbar spondylosis (629969689) VITAL SIGNS Heart Rate 78 /min 04/25/2024 Blood pressure diastolic 65 mm Hg 04/25/2024 Height 64.5 in 04/25/2024 Blood pressure systolic 106 mm Hg 04/25/2024 Weight 195 lbs 04/25/2024 BMI 32.95 kg/m2 04/25/2024 Encounters Encounter Location Date Provider Diagnosis [facility] [address] [place] [address] 11/07/2023 Mike Vitale 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 (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 therapy Z79.899 ; Spondylosis without myelopathy or radiculopathy, lumbar region M47.816 ; Low back pain M54.5 and Other specified diabetes mellitus with diabetic neuropathy, unspecified E13.40 [facility] [address] [place] [address] 11/07/2023 Mike Vitale Other correction (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 therapy Z79.899 [facility] [address] [place] [address] 01/02/2024 Mike Vitale Other correction (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 therapy Z79.899 ; Spondylosis without myelopathy or radiculopathy, lumbar region M47.816 ; Low back pain M54.5 and Other specified diabetes mellitus with diabetic neuropathy, unspecified E13.40 [facility] [address] [place] [address] 01/02/2024 Mike Vitale 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 helper (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 therapy Z79.899 [facility] [address] [place] [address] 03/02/2024 Mike Vitale Other correction (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 therapy Z79.899 ; Spondylosis without myelopathy or radiculopathy, lumbar region M47.816 ; Low back pain M54.5 and Other specified diabetes mellitus with diabetic neuropathy, unspecified E13.40 [facility] [address] [place] [address] 03/02/2024 Mike Vitale Other correction (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 therapy Z79.899 [facility] [address] [place] [address] 04/25/2024 Mike Vitale Other correction (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 therapy Z79.899 ; Spondylosis without myelopathy or radiculopathy, lumbar region M47.816 ; Low back pain M54.5 and Other specified diabetes mellitus with diabetic neuropathy, unspecified E13.40 [facility] [address] [place] [address] 04/25/2024 Mike Watkinsshilpi 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 helper (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 therapy Z79.899 [facility] [address] [place] [address] 06/20/2024 Mike Vitale 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 helper (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 therapy Z79.899 ; Spondylosis without myelopathy or radiculopathy, lumbar region M47.816 ; Low back pain M54.5 and Other specified diabetes mellitus with diabetic neuropathy, unspecified E13.40 ASSESSMENTS Encounter Date Diagnosis Assessment Notes Treatment Notes Treatment Clinical Notes Section Notes 04/25/2024 Other correction (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 therapy (ICD-10 - Z79.899) 06/20/2024 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 helper (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 therapy (ICD-10 - Z79.899) 04/25/2024 1. Refill Reading 7.5/325mg BID 2. Continue back brace prn 3. Follow up 2 months 4. Continue GBP (pcp) 04/25/2024 The patient presents to the [facility] office in [place], [place] for an audio telemedicine visit. The patient was evaluated by the medical safety director and a urine drug screen was obtained as well as vital signs. Portions of the physical examination were assisted by the medical safety director as instructed during the audio telemedicine visit. [...] pain and is seeing an Ortho in [place]. He reports that he may need to [...] tablets (prescribed by outside provider) and also Reading 7.5/325. Denies side effects to medication. Denies other changes, UDS and Darcy review. Refills and F/U in 2 months. 03/02/2024 Spondylosis without myelopathy or radiculopathy, lumbar region (ICD-10 - M47.816) 03/02/2024 Mr Hernandez is here for a follow [...] the character or intensity of his pain. He reports good pain control with his current analgesic regimen and no side effeccts. He is able to work and be active at home. Recent UDS and DARCY reviewed and appropriate. Will continue current treatment. He is not interested in further injection treatment. Continue gabapentin 300 mg 60 tablets (prescribed by outside provider) and also Reading 7.5/325. Denies side effects to medication. Denies other changes, UDS and Darcy review. Refills and F/U in 2 months. 03/02/2024 Other correction (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 therapy (ICD-10 - Z79.899) 03/02/2024 1. Refill Reading 7.5/325mg BID 2. Continue back brace prn 3. Follow up 2 months 4. Continue GBP (pcp) 03/02/2024 Mr Hernandez is here for a follow [...] the character or intensity of his pain. He reports good pain control with his current analgesic regimen and no side effeccts. He is able to work and be active at home. Recent UDS and DARCY reviewed and appropriate. Will continue current treatment. He is not interested in further injection treatment. Continue gabapentin 300 mg 60 tablets (prescribed by outside provider) and also Reading 7.5/325. Denies side effects to medication. Denies other changes, UDS and Darcy review. Refills and F/U in 2 months. 01/02/2024 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 helper (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 therapy (ICD-10 - Z79.899) 01/02/2024 Spondylosis without myelopathy or radiculopathy, lumbar region (ICD-10 - M47.816) 09/09/23 Mr Hernandez is here for a follow up visit. Last NCS/EMG of his BLE revealed that he has a right Galvan's nerve compression and possible right tarsal tunnel syndrome. No evidence of peripheral polyneuropathy or myopathy or radiculopathy. He mentions his PCP order a new MRI and he has bulging disc but per pt it was not really changed from previous. Requested results from Dr Mccarty at [facility] but not recieved. He reports good pain control with his current analgesic regimen and no side effeccts. He is able to work and be active at home. Recent UDS and DARCY reviewed and appropriate. Will continue current treatment. He is not interested in further injection treatment. Continue gabapentin 300 mg 60 tablets (prescribed by outside provider) and also Reading 7.5/325. Denies side effects to medication. Denies other changes, UDS and Darcy review. Refills and F/U in 2 months. [id number] - Patient reports CLBP stable with current treatment and is able to work with his medication treatment. He indicates past use of TENS unit, and lidoderm patches provided no benefit. He is not very compliant with his HEP, occasionally doing stretching. He was recommended to be more compliant with his HEP. Most recent DARCY and UDS reviewed, no reported side effects with her medications, she reports decent pain control with her current analgesic regimen. He is to follow up in two months, will continue with his current analgesic regimen. We discussed injection treatment for his LBP but he declines. 01/02/2024 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 helper (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 therapy (ICD-10 - Z79.899) 01/02/2024 1. Refill Reading 7.5/325mg BID - ERX 2. Continue back brace prn 3. Follow up 2 months 4. Request MRI from PCP- not recieved 5. Continue GBP (pcp) 09/09/23 Mr Hernandez is here for a follow up visit. Last NCS/EMG of his BLE revealed that he has a right Galvan's nerve compression and possible right tarsal tunnel syndrome. No evidence of peripheral polyneuropathy or myopathy or radiculopathy. He mentions his PCP order a new MRI and he has bulging disc but per pt it was not really changed from previous. Requested results from Dr Mccarty at [facility] but not recieved. He reports good pain control with his current analgesic regimen and no side effeccts. He is able to work and be active at home. Recent UDS and DARCY reviewed and appropriate. Will continue current treatment. He is not interested in further injection treatment. Continue gabapentin 300 mg 60 tablets (prescribed by outside provider) and also Reading 7.5/325. Denies side effects to medication. Denies other changes, UDS and Darcy review. Refills and F/U in 2 months. [id number] - Patient reports CLBP stable with current treatment and is able to work with his medication treatment. He indicates past use of TENS unit, and lidoderm patches provided no benefit. He is not very compliant with his HEP, occasionally doing stretching. He was recommended to be more compliant with his HEP. Most recent DARCY and UDS reviewed, no reported side effects with her medications, she reports decent pain control with her current analgesic regimen. He is to follow up in two months, will continue with his current analgesic regimen. We discussed injection treatment for his LBP but he declines. 11/07/2023 Other correction (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 therapy (ICD-10 - Z79.899) 11/07/2023 Spondylosis without myelopathy or radiculopathy, lumbar region (ICD-10 - M47.816) 11/07/23 Mr Hernandez is here for a follow up visit. Last NCS/EMG of his BLE revealed that he has a right Galvan's nerve compression and possible right tarsal tunnel syndrome. No evidence of peripheral polyneuropathy or myopathy or radiculopathy. He denies any changes to the character or intensity of his pain. He reports good pain control with his current analgesic regimen and no side effeccts. He is able to work and be active at home. Recent UDS and DARCY reviewed and appropriate. Will continue current treatment. He is not interested in further injection treatment. Continue gabapentin 400 mg 60 tablets (prescribed by outside provider) and also Reading 7.5/325. Denies side effects to medication. Denies other changes, UDS and Darcy review. Refills and F/U in 2 months. 11/07/2023 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 helper (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 therapy (ICD-10 - Z79.899) 11/07/23 1. Refill Reading 7.5/325mg BID - ERX 2. Continue back brace prn 3. Follow up 2 months 4. Request MRI from PCP- not recieved 11/07/23 Mr Hernandez is here for a follow up visit. Last NCS/EMG of his BLE revealed that he has a right Galvan's nerve compression and possible right tarsal tunnel syndrome. No evidence of peripheral polyneuropathy or myopathy or radiculopathy. He denies any changes to the character or intensity of his pain. He reports good pain control with his current analgesic regimen and no side effeccts. He is able to work and be active at home. Recent UDS and DARCY reviewed and appropriate. Will continue current treatment. He is not interested in further injection treatment. Continue gabapentin 400 mg 60 tablets (prescribed by outside provider) and also Reading 7.5/325. Denies side effects to medication. Denies other changes, UDS and Darcy review. Refills and F/U in 2 months. 04/25/2024 Spondylosis without myelopathy or radiculopathy, lumbar region (ICD-10 - M47.816) 04/25/2024 The patient presents to the [facility] office in [place], [place] for an audio telemedicine visit. The patient was evaluated by the medical safety director and a urine drug screen was obtained as well as vital signs. Portions of the physical examination were assisted by the medical safety director as instructed during the audio telemedicine visit. [...] pain and is seeing an Ortho in [place]. He reports that he may need to [...] tablets (prescribed by outside provider) and also Reading 7.5/325. Denies side effects to medication. Denies other changes, UDS and Darcy review. Refills and F/U in 2 months. 04/25/2024 Other correction (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 therapy (ICD-10 - Z79.899) 04/25/2024 1. Refill Reading 7.5/325mg BID 2. Continue back brace prn 3. Follow up 2 months 4. Continue GBP (pcp) 04/25/2024 The patient presents to the [facility] office in [place], [place] for an audio telemedicine visit. The patient was evaluated by the medical safety director and a urine drug screen was obtained as well as vital signs. Portions of the physical examination were assisted by the medical safety director as instructed during the audio telemedicine visit. [...] pain and is seeing an Ortho in [place]. He reports that he may need to [...] tablets (prescribed by outside provider) and also Reading 7.5/325. Denies side effects to medication. Denies other changes, UDS and Dracy review. Refills and F/U in 2 months. 03/02/2024 Other correction (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 therapy (ICD-10 - Z79.899) 04/25/2024 Low back pain (ICD-10 - M54.5) 04/25/2024 The patient presents to the [facility] office in [place], [place] for an audio telemedicine visit. The patient was evaluated by the medical safety director and a urine drug screen was obtained as well as vital signs. Portions of the physical examination were assisted by the medical safety director as instructed during the audio telemedicine visit. [...] pain and is seeing an Ortho in [place]. He reports that he may need to [...] tablets (prescribed by outside provider) and also Reading 7.5/325. Denies side effects to medication. Denies other changes, UDS and Darcy review. Refills and F/U in 2 months. 11/07/2023 Low back pain (ICD-10 - M54.5) 11/07/23 Mr Hernandez is here for a follow up visit. Last NCS/EMG of his BLE revealed that he has a right Galvan's nerve compression and possible right tarsal tunnel syndrome. No evidence of peripheral polyneuropathy or myopathy or radiculopathy. He denies any changes to the character or intensity of his pain. He reports good pain control with his current analgesic regimen and no side effeccts. He is able to work and be active at home. Recent UDS and DARCY reviewed and appropriate. Will continue current treatment. He is not interested in further injection treatment. Continue gabapentin 400 mg 60 tablets (prescribed by outside provider) and also Reading 7.5/325. Denies side effects to medication. Denies other changes, UDS and Darcy review. Refills and F/U in 2 months. 01/02/2024 Low back pain (ICD-10 - M54.5) 09/09/23 Mr Hernandez is here for a follow up visit. Last NCS/EMG of his BLE revealed that he has a right Galvan's nerve compression and possible right tarsal tunnel syndrome. No evidence of peripheral polyneuropathy or myopathy or radiculopathy. He mentions his PCP order a new MRI and he has bulging disc but per pt it was not really changed from previous. Requested results from Dr Mccarty at [facility] but not recieved. He reports good pain control with his current analgesic regimen and no side effeccts. He is able to work and be active at home. Recent UDS and DARCY reviewed and appropriate. Will continue current treatment. He is not interested in further injection treatment. Continue gabapentin 300 mg 60 tablets (prescribed by outside provider) and also Reading 7.5/325. Denies side effects to medication. Denies other changes, UDS and Darcy review. Refills and F/U in 2 months. [id number] - Patient reports CLBP stable with current treatment and is able to work with his medication treatment. He indicates past use of TENS unit, and lidoderm patches provided no benefit. He is not very compliant with his HEP, occasionally doing stretching. He was recommended to be more compliant with his HEP. Most recent DARCY and UDS reviewed, no reported side effects with her medications, she reports decent pain control with her current analgesic regimen. He is to follow up in two months, will continue with his current analgesic regimen. We discussed injection treatment for his LBP but he declines. 03/02/2024 Low back pain (ICD-10 - M54.5) 03/02/2024 Mr Hernandez is here for a follow [...] the character or intensity of his pain. He reports good pain control with his current analgesic regimen and no side effeccts. He is able to work and be active at home. Recent UDS and DARCY reviewed and appropriate. Will continue current treatment. He is not interested in further injection treatment. Continue gabapentin 300 mg 60 tablets (prescribed by outside provider) and also Reading 7.5/325. Denies side effects to medication. Denies other changes, UDS and Darcy review. Refills and F/U in 2 months. 06/20/2024 Spondylosis without myelopathy or radiculopathy, lumbar region (ICD-10 - M47.816) 04/25/2024 The patient presents to the [facility] office in [place], [place] for an audio telemedicine visit. The patient was evaluated by the medical safety director and a urine drug screen was obtained as well as vital signs. Portions of the physical examination were assisted by the medical safety director as instructed during the audio telemedicine visit. [...] pain and is seeing an Ortho in [place]. He reports that he may need to [...] tablets (prescribed by outside provider) and also Reading 7.5/325. Denies side effects to medication. Denies other changes, UDS and Darcy review. Refills and F/U in 2 months. 06/20/2024 Low back pain (ICD-10 - M54.5) 04/25/2024 The patient presents to the [facility] office in [place], [place] for an audio telemedicine visit. The patient was evaluated by the medical safety director and a urine drug screen was obtained as well as vital signs. Portions of the physical examination were assisted by the medical safety director as instructed during the audio telemedicine visit. [...] pain and is seeing an Ortho in [place]. He reports that he may need to [...] tablets (prescribed by outside provider) and also Reading 7.5/325. Denies side effects to medication. Denies other changes, UDS and Darcy review. Refills and F/U in 2 months. 03/02/2024 Other specified diabetes mellitus with diabetic neuropathy, unspecified (ICD-10 - E13.40) 03/02/2024 Mr Hernandez is here for a follow [...] the character or intensity of his pain. He reports good pain control with his current analgesic regimen and no side effeccts. He is able to work and be active at home. Recent UDS and DARCY reviewed and appropriate. Will continue current treatment. He is not interested in further injection treatment. Continue gabapentin 300 mg 60 tablets (prescribed by outside provider) and also Reading 7.5/325. Denies side effects to medication. Denies other changes, UDS and Darcy review. Refills and F/U in 2 months. 01/02/2024 Other specified diabetes mellitus with diabetic neuropathy, unspecified (ICD-10 - E13.40) 09/09/23 Mr Hernandez is here for a follow up visit. Last NCS/EMG of his BLE revealed that he has a right Galvan's nerve compression and possible right tarsal tunnel syndrome. No evidence of peripheral polyneuropathy or myopathy or radiculopathy. He mentions his PCP order a new MRI and he has bulging disc but per pt it was not really changed from previous. Requested results from Dr Mccarty at [facility] but not recieved. He reports good pain control with his current analgesic regimen and no side effeccts. He is able to work and be active at home. Recent UDS and DARCY reviewed and appropriate. Will continue current treatment. He is not interested in further injection treatment. Continue gabapentin 300 mg 60 tablets (prescribed by outside provider) and also Reading 7.5/325. Denies side effects to medication. Denies other changes, UDS and Darcy review. Refills and F/U in 2 months. [id number] - Patient reports CLBP stable with current treatment and is able to work with his medication treatment. He indicates past use of TENS unit, and lidoderm patches provided no benefit. He is not very compliant with his HEP, occasionally doing stretching. He was recommended to be more compliant with his HEP. Most recent DARCY and UDS reviewed, no reported side effects with her medications, she reports decent pain control with her current analgesic regimen. He is to follow up in two months, will continue with his current analgesic regimen. We discussed injection treatment for his LBP but he declines. 11/07/2023 Other specified diabetes mellitus with diabetic neuropathy, unspecified (ICD-10 - E13.40) 11/07/23 Mr Hernandez is here for a follow up visit. Last NCS/EMG of his BLE revealed that he has a right Galvan's nerve compression and possible right tarsal tunnel syndrome. No evidence of peripheral polyneuropathy or myopathy or radiculopathy. He denies any changes to the character or intensity of his pain. He reports good pain control with his current analgesic regimen and no side effeccts. He is able to work and be active at home. Recent UDS and DARCY reviewed and appropriate. Will continue current treatment. He is not interested in further injection treatment. Continue gabapentin 400 mg 60 tablets (prescribed by outside provider) and also [place] 7.5/325. Denies side effects to medication. Denies other changes, UDS and Darcy review. Refills and F/U in 2 months. 04/25/2024 Other specified diabetes mellitus with diabetic neuropathy, unspecified (ICD-10 - E13.40) 04/25/2024 The patient presents to the [facility] office in [place], [place] for an audio telemedicine visit. The patient was evaluated by the medical safety director and a urine drug screen was obtained as well as vital signs. Portions of the physical examination were assisted by the medical safety director as instructed during the audio telemedicine visit. [...] pain and is seeing an Ortho in [place]. He reports that he may need to have hip surgery for replacement. He reports good pain control with his current analgesic regimen and no side effeccts. He is able to work and be active at home. Recent GENAROS and DARCY reviewed and appropriate. Will continue current treatment. He is not interested in further injection treatment. Continue gabapentin 300 mg 60 tablets (prescribed by outside provider) and also [place] 7.5/325. Denies side effects to medication. Denies other changes, SHENA and Darcy review. Refills and F/U in 2 months. 06/20/2024 Other specified diabetes mellitus with diabetic neuropathy, unspecified (ICD-10 - E13.40) 04/25/2024 The patient presents to the [facility] office in [place], [place] for an audio telemedicine visit. The patient was evaluated by the medical safety director and a urine drug screen was obtained as well as vital signs. Portions of the physical examination were assisted by the medical safety director as instructed during the audio telemedicine visit. [...] pain and is seeing an Ortho in [place]. He reports that he may need to [...] tablets (prescribed by outside provider) and also [place] 7.5/325. Denies side effects to medication. Denies other changes, UDS and Darcy review. Refills and F/U in 2 months. PLAN OF TREATMENT Pending Test Test Name Order Date DRUG TOXICOLOGY (URINE) 06/24/2016 DRUG TOXICOLOGY (URINE) 05/28/2016 Urine Test ANALYZER 06/20/2024 Insurance Providers Payer Name Payer Address Payer Phone Subscriber Number Group Number Insured Name Patient Relationship to Insured Coverage Start Date Coverage End Date [employer] Medicare [address] [place] [phone] [id number] Parish [employer] Self - patient is the insured 3 MEDICAL (GENERAL) HISTORY Medical History History ICD Code HTN managed by Vinnie Antunez MD 2015 Blood Clot managed by Vinnie Antunez MD 2015 GERD managed by Vinnie Antunez MD 2014 Asthma managed by Vinnie Antunez MD 2014 DM Type I managed by Vinnie Antunez MD 2013 Hyperlipidemia managed by Vinnie Antunez MD 2 016 Surgical History Surgery Date(Month/Year) Left elbow surgery / by Dr. Fishman / (OP) 03/2016 Vascular Surgery / [facility] / o vernight stay 2017 Right ear surgery / / (OP) 1989 Hospitalization History Reason Date(Month/Year) Pt went to ER [facility] shortnes s of breath ,COPD related 03/2023
--- NOTE | 2024-09-27 09:45 | MR_ITS ---
FINAL REPORT CLINICAL HISTORY: Right Knee Pain, mostly distal patella region. nki COMPARISON: None FINDINGS: Multi planar MR imaging was performed of the right knee knee. The anterior and posterior cruciate ligaments are intact. The quadriceps and patellar tendons are intact. The medial and lateral menisci are intact without evidence of tear. The medial and lateral collateral ligaments appear intact. There is stranding and fluid overlying the lateral retinaculum, that may be secondary to a strain. There is no evidence of bone marrow edema or osteochondral defect. No evidence of soft tissue inflammatory reaction. IMPRESSION: Stranding and fluid overlying the lateral retinaculum, that may be secondary to a strain. Otherwise, unremarkable MRI of the right knee. Reviewed, Interpreted and Dictated by Renan Winn MD Transcribed by Beverley Huang Authenticated and [facility]
== END 2024-09-27 23:59 | disposition home or self-care (01) ==
LOC: RAD 09:29
PROVIDERS: PCP Internal Medicine; Visit Provider Physician Assistant Surgical
DX: M25.461 Effusion, right knee (principal); M23.51 Chronic instability of knee, right knee; M25.561 Pain in right knee
CPT/HCPCS: 73721

== ENCOUNTER 2024-09-27 13:00 | Outpatient (RCR) | payer MEDICARE, MEDICAID, SELFPAY | END 2024-09-27 23:59 | disposition home or self-care (01) | LOC: PT 13:00 | PROVIDERS: Visit Provider Orthopaedic Surgery | DX: Z47.89 Encounter for other orthopedic aftercare (principal); Z96.641 Presence of right artificial hip joint | CPT/HCPCS: 97110; 97530 ==

== ENCOUNTER 2024-10-23 11:06 | Outpatient (CLI) | payer MEDICARE, MEDICAID, SELFPAY ==
--- OUTSIDE RECORDS SUMMARY | 2024-06-20 06:30 | XMS_ITS ---
Author Organization [facility] Address [address] [place] [address] Care Team Providers Care Wood Tile Installer Name Role Phone Kye LAKE -OrthoSebas LAKE, Manny Primary Care Provi lilo Unavailable Mike Vitale II Unavailable [phone] Glenna Sommer APRN, Mem Unavailable Unavailable Allergies [...] Active Encounters Encounter Location Date Provider Diagnosis 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 Refill [place] 7.5/325mg BID 2. Continue back brace prn 3. Follow up 2 months 4. Continue GBP (pcp) 04/25/2024 The patient presents to the [facility] office in [place], [place] for an audio telemedicine visit. The patient was evaluated by the medical insurance claims processor and a urine drug screen was obtained as well as vital signs. Portions of the physical examination were assisted by the medical insurance claims processor as instructed during the audio telemedicine visit. [...] pain and is seeing an Ortho in [place]. He reports that he may need to [...] tablets (prescribed by outside provider) and also [place] 7.5/325. Denies side effects to medication. Denies other changes, UDS and Darcy review. Refills and F/U in 2 months. 06/20/2024 Spondylosis without myelopathy or radiculopathy, lumbar region (ICD-10 - M47.816) 04/25/2024 The patient presents to the [facility] office in [place], [place] for an audio telemedicine visit. The patient was evaluated by the medical insurance claims processor and a urine drug screen was obtained as well as vital signs. Portions of the physical examination were assisted by the medical insurance claims processor as instructed during the audio telemedicine visit. [...] pain and is seeing an Ortho in [place]. He reports that he may need to [...] tablets (prescribed by outside provider) and also [place] 7.5/325. Denies side effects to medication. Denies other changes, UDS and Darcy review. Refills and F/U in 2 months. 06/20/2024 Low back pain (ICD-10 - M54.5) 04/25/2024 The patient presents to the [facility] office in [place], [place] for an audio telemedicine visit. The patient was evaluated by the medical insurance claims processor and a urine drug screen was obtained as well as vital signs. Portions of the physical examination were assisted by the medical insurance claims processor as instructed during the audio telemedicine visit. [...] pain and is seeing an Ortho in [place]. He reports that he may need to [...] tablets (prescribed by outside provider) and also [place] 7.5/325. Denies side effects to medication. Denies other changes, UDS and Darcy review. Refills and F/U in 2 months. 06/20/2024 Other specified diabetes mellitus with diabetic neuropathy, unspecified (ICD-10 - E13.40) 04/25/2024 The patient presents to the [facility] office in [place], [place] for an audio telemedicine visit. The patient was evaluated by the medical insurance claims processor and a urine drug screen was obtained as well as vital signs. Portions of the physical examination were assisted by the medical insurance claims processor as instructed during the audio telemedicine visit. [...] pain and is seeing an Ortho in [place]. He reports that he may need to [...] tablets (prescribed by outside provider) and also [place] 7.5/325. Denies side effects to medication. 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 Refill [place] 7.5/325mg BID 2. Continue back brace prn [...] Notes * Patrick HERNANDEZOB:1965 (59 yo M)Acc No.[id number]:06/20/2024 Patient: Parish CURRY Provider: Justin Vitale II, M.D. :1965 A ge:58 Y S ex:Male Date:06/20/2024 Address:[address], [id number] Pcp:Manny Fishman MD -Jordon mauro MD Subjective: * Chief Complaints: * 1 . Neck pain. 2. Low back pain. 3. DAVID leg pain. 4. DAVID Shoulder pain. 5. RT HIP . * HPI: T ODAYS PAIN EVALUATION: 58 year old male presents with c/o MEDICATION FOLLOW UP: T he patient is currently prescribed [place] 7.5/325 BID & Gabapentin 300mg TID (with [...] Interference: walking,standing,sitting,bending,lifting etc. P ERTINENT INFORMATION: P atient may have rt hip surgery soon. follow [...] Fishman / (OP) 03/2016, Vascular Surgery / [facility] / overnight stay 2017, Right ear surgery / / (OP) 1989. * Hospitalization/Major Diagno stic Procedure: Pt went to [facility] shortness of breath ,COPD related 03/2023. * [...] * Vitals: * Examination: G eneral Examination: Nurse/Barker Operator: Emeka Roberto ( MA-Lex) 04/25/2024 10:31:28 AM [...] . Assessment: * Assessment: 1. O ther skilled nursing (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 therapy - Z79.899 (Primary) 2 . S pondylosis without myelopathy or radiculopathy, lumbar region - M47.816 3 . L ow back pain - M54.5 4 . O ther specified diabetes mellitus with diabetic neuropathy, unspecified - E13.40 04/25/2024 The patient presents to the [facility] office in [place], [place] for an audio telemedicine visit. The patient was evaluated by the medical insurance claims processor and a urine drug screen was obtained as well as vital signs. Portions of the physical examination were assisted by the medical insurance claims processor as instructed during the audio telemedicine visit. [...] pain and is seeing an Ortho in [place]. He reports that he may need to [...] tablets (prescribed by outside provider) and also [place] 7.5/325. Denies side effects to medication. Denies other changes, UDS and Darcy review. Refills and F/U in 2 months. Plan: * Treatment: * Procedures: Erlin SANDERSON ENCOUNTER AND OVERSIGHT: Consult Performed By: Fior atwood(WELLNESS PROGRAM MANAGER-MARKUS),Nidia 04/25/2024 10:32:48 AM > . c ollaborated treatment plan with Justin Vitale M.D., supervising physician who was present in office during consultation. * Follow Up: 2 Months * * Electronic signature of Ruslan Vitale II, M.D. on 10/23/2024 at 10:09 AM CDT Sign off status: Pending * Provider: Justin Vitale II, M.D. Date: 0 06/20/2024 Generated for Stephanie anne/Lali/Tangela on: 0 10/23/2024 10:09 AM CDT History and Physical Notes * HPI (History [...] FOLLOW UP: The patient is currently prescribed [place] 7.5/325 BID & Gabapentin 300mg TID (with [...] wi th an antalgic gait, pitched forward Nurse/Barker Operator: Emeka Mosqueda ( MA-Lex) 04/25/2024 10:31:28 AM [...]
--- OUTSIDE RECORDS SUMMARY | 2024-10-23 11:10 | XMS_ITS | Clinical Summary ---
Author Organization [facility] Address [address] [place] [address] Care Team Providers Care Appraiser Land Name Role Phone Glenna Ayala FRANCK Primary Care Provider [phone] Allergies No known active allergies Medications Albuterol [...] day. Active ergocalciferol (Vitamin D-2) 1.25 MG (50673 UT) capsule Take 1 capsule (50,000 Units) [...] (one) time each day. Active HYDROcodone-ngozi taminophen (Palmer) 7.5-325 MG tablet Active lisinopril 2.5 MG [...] Diagnosed Date Coronary artery disease invo lving [place] coronary artery of [place] heart without angina pectoris 12/23/2023 Hypertensive chronic [...] Care Team (Late st Contact Info) Description 11/30/2024 11:40 AM EDT Office Visit [facility] [address] [place] [address] Raymon Chin MD [address] [place] [id number] Health Maintenance Due Date Last Done [...] - Risk 60-74 years 1-dose series) 2023 [id number] Vaccine (2 - season) 2023 06/25/2020 [facility]-Influenza Vaccine (#1) 12/17/202402/01, 02/04/2023, 01/29/2022, Additional history exists [facility]-DTaP,Tdap,and Td Vaccines (3 - Td or Tdap) 04/08/2030 04/08/2020, 08/17/2016 [facility]-Obesity Intervention Completed 12/23/2023 HPV Vaccines Aged Out No longer eligi [...] Date Last Indicated MRSA 12/25/2020 12/25/2020 Insurance [facility] MEDICARE Care Teams Appraiser Land Relationship Specialty Start Date End Date Glenna Ayala APRN [address] [place] [address] PCP - General 08/29/20
--- OUTSIDE RECORDS SUMMARY | 2024-10-23 11:10 | XMS_ITS | Patient Health Record ---
Author Organization [facility] Address [address] [place] [address] Care Team Providers Care Social Work Case Manager Name Role Phone Kye LAKE -OrthoSebas LAEK, Manny Primary Care Provi lilo Unavailable Bosomworth II, Mike Unavailable [phone] Lucy Soto Mem, Eugonda Unavailable Unavailable Allergies No Known Allergies Results Component Value Reference Range Notes Urine Test [...] Interpretation:+gbp+hyd 2/3 Performing Lab: Notes/Report: +gbp+hyd 2/3 Reason For Referral No Information Medications Medication SIG (Take, Route, Frequency, Duration) Notes Start Date End Date Status pioglitazone 15 mg 1 tab(s) orally once a day; Duration: 30 day(s) 05/31/2022 Active gemfibrozil 600 mg 1 tab(s) orally 2 times a day; Duration: 30 day(s) 05/31/2022 Active Furosemide 20 mg 1 tab qd; Duration: 30 days 05/17/2023 Active montelukast 10 mg 1 tab(s) orally once a day; Duration: 30 day(s) 03/25/2022 Active Atenolol 50 mg 1 tab PO qd; Duratio n: 30 days 05/17/2023 Active cetirizine 10 mg 1 tab(s) orally once a day 03/25/2022 Active Flovent 110 mcg 2 puffs As directed bid; Duration: 30 days 05/31/2022 Active lisinopril 2.5 mg 1 tab(s) orally once a day; [...] a day; Duration: 30 day(s) 05/17/2023 Active metFORMIN 500 mg 1 tab(s) orally 2 times a day; Duration: 30 day(s) 05/17/2023 Active Xarelto 2.5 mg [...] a day; Duration: 30 day(s) 05/31/2022 Active Plavix 75 mg 1 tablet orally QD Active tamsulosin 0.4 mg 1 cap(s) orally once a day; Duration: 30 day(s) 02/23/2024 Active gabapentin 400 mg [...] a day; Duration: 30 day(s) 03/25/2022 Active Jardiance 10 mg TAKE ONE TABLET BY MOUTH EVERY DAY; Duration: 30 Active atorvastatin 80 mg 1 tab(s) orally once a day; Duration: 30 day(s) 05/31/2022 Active Problems Problem Type SNOMED Code ICD Code Onset Dates Problem Status W/U Status Risk Notes Problem Diabetic neuropathy (355893895) Other specified diabetes mellitus with diabetic neuropathy, unspecified (E13.40) Active confirmed Problem Thoracic spondylosis without myelopathy (492394045) Spondylosis without myelopathy or radiculopathy, 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) Active confirmed Problem Lumbosacral spondylosis without myelopathy (10529781) Spondylosis without myelopathy or radiculopathy, lumbar region (M47.816) Active confirmed Problem Low back pain (973025331) Low back pain (M54.5) Active confirmed Problem Long-term current use of drug therapy (026157109) Other detention (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 therapy (Z79.899) Active confirmed Problem Lumbar spondylosis (161292724) lumbar spondylosis (M47.816) Active confirmed Vital Signs Heart Rate 78 /min 04/25/2024 Blood pressure diastolic 65 mm Hg 04/25/2024 Height 64.5 in 04/25/2024 Blood pressure systolic 106 mm Hg 04/25/2024 Weight 195 lbs 04/25/2024 BMI 32.95 kg/m2 04/25/2024 Encounters Encounter Location Date Provider Diagnosis [facility] [address] [place] [address] 11/07/2023 Mike Vitale Other detention (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 therapy Z79.899 ; Spondylosis without myelopathy or radiculopathy, lumbar region M47.816 ; Low back pain M54.5 and Other specified diabetes mellitus with diabetic neuropathy, unspecified E13.40 [facility] [address] [place] [address] 01/02/2024 Mike Vitale Other terminal operations manager (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 therapy Z79.899 ; Spondylosis without myelopathy or radiculopathy, lumbar region M47.816 ; Low back pain M54.5 and Other specified diabetes mellitus with diabetic neuropathy, unspecified E13.40 [facility] [address] [place] [address] 03/02/2024 Mike Vitale Other detention (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 therapy Z79.899 ; Spondylosis without myelopathy or radiculopathy, lumbar region M47.816 ; Low back pain M54.5 and Other specified diabetes mellitus with diabetic neuropathy, unspecified E13.40 [facility] [address] [place] [address] 04/25/2024 Mike Vitale Other detention (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 therapy Z79.899 ; Spondylosis without myelopathy or radiculopathy, lumbar region M47.816 ; Low back pain M54.5 and Other specified diabetes mellitus with diabetic neuropathy, unspecified E13.40 [facility] [address] [place] [address] 11/07/2023 Mike Vitale Other detention (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 therapy Z79.899 [facility] [address] [place] [address] 01/02/2024 Mike Vitale Other terminal operations manager (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 therapy Z79.899 [facility] [address] [place] [address] 03/02/2024 Mike Vitale Other terminal operations manager (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 therapy Z79.899 [facility] [address] [place] [address] 04/25/2024 Mike Vitale Other terminal operations manager (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 therapy Z79.899 Assessments Encounter Date Diagnosis (ICD Code) Assessment Notes Treatment Notes Treatment Clinical Notes Section Notes 11/07/2023 Spondylosis without myelopathy or radiculopathy, lumbar [...] tablets (prescribed by outside provider) and also [place] 7.5/325. Denies side effects to medication. Denies other changes, UDS and Darcy review. Refills and F/U in 2 months. 11/07/2023 Other terminal operations manager (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 therapy (ICD-10 - Z79.899) 11/07/23 1. Refill [place] 7.5/325mg BID - ERX 2. Continue back [...] tablets (prescribed by outside provider) and also [place] 7.5/325. Denies side effects to medication. Denies other changes, UDS and Darcy review. Refills and F/U in 2 months. 11/07/2023 Other terminal operations manager (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 therapy (ICD-10 - Z79.899) 01/02/2024 [...] previous. Requested results from Dr Mccarty at [facility] but not recieved. He reports good pain control with his current analgesic regimen and no side effeccts. He is able to work and be active at home. Recent UDS and DARCY reviewed and appropriate. Will continue current treatment. He is not interested in further injection treatment. Continue gabapentin 300 mg 60 tablets (prescribed by outside provider) and also [place] 7.5/325. Denies side effects to medication. Denies other changes, UDS and Darcy review. Refills and F/U in 2 months. [id number] - Patient reports CLBP stable with current [...] his LBP but he declines. 01/02/2024 Other terminal operations manager (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 therapy (ICD-10 - Z79.899) 01/02/2024 1. Refill [place] 7.5/325mg BID - ERX 2. Continue back [...] previous. Requested results from Dr Mccarty at [facility] but not recieved. He reports good pain control with his current analgesic regimen and no side effeccts. He is able to work and be active at home. Recent UDS and DARCY reviewed and appropriate. Will continue current treatment. He is not interested in further injection treatment. Continue gabapentin 300 mg 60 tablets (prescribed by outside provider) and also [place] 7.5/325. Denies side effects to medication. Denies other changes, UDS and Darcy review. Refills and F/U in 2 months. [id number] - Patient reports CLBP stable with current [...] his LBP but he declines. 01/02/2024 Other detention (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 therapy (ICD-10 - Z79.899) 03/02/2024 Spondylosis without myelopathy or radiculopathy, lumbar [...] tablets (prescribed by outside provider) and also [place] 7.5/325. Denies side effects to medication. Denies other changes, UDS and Darcy review. Refills and F/U in 2 months. 03/02/2024 Other terminal operations manager (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 therapy (ICD-10 - Z79.899) 03/02/2024 1. Refill [place] 7.5/325mg BID 2. Continue back brace prn [...] tablets (prescribed by outside provider) and also [place] 7.5/325. Denies side effects to medication. Denies other changes, UDS and Darcy review. Refills and F/U in 2 months. 03/02/2024 Other detention (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 therapy (ICD-10 - Z79.899) 04/25/2024 Spondylosis without myelopathy or radiculopathy, lumbar region (ICD-10 - M47.816) 04/25/2024 The patient presents to the [facility] office in [place], [place] for an audio telemedicine visit. The patient was evaluated by the medical claims examiner and a urine drug screen was obtained as well as vital signs. Portions of the physical examination were assisted by the medical claims examiner as instructed during the audio telemedicine visit. [...] pain and is seeing an Ortho in [place]. He reports that he may need to [...] tablets (prescribed by outside provider) and also [place] 7.5/325. Denies side effects to medication. Denies other changes, UDS and Darcy review. Refills and F/U in 2 months. 04/25/2024 Other terminal operations manager (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 therapy (ICD-10 - Z79.899) 04/25/2024 1. Refill [place] 7.5/325mg BID 2. Continue back brace prn 3. Follow up 2 months 4. Continue GBP (pcp) 04/25/2024 The patient presents to the [facility] office in [place], [place] for an audio telemedicine visit. The patient was evaluated by the medical claims examiner and a urine drug screen was obtained as well as vital signs. Portions of the physical examination were assisted by the medical claims examiner as instructed during the audio telemedicine visit. [...] pain and is seeing an Ortho in [place]. He reports that he may need to [...] tablets (prescribed by outside provider) and also [place] 7.5/325. Denies side effects to medication. Denies other changes, UDS and Darcy review. Refills and F/U in 2 months. 04/25/2024 Other terminal operations manager (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 therapy (ICD-10 - Z79.899) 04/25/2024 Low back pain (ICD-10 - M54.5) 04/25/2024 The patient presents to the [facility] office in [place], [place] for an audio telemedicine visit. The patient was evaluated by the medical claims examiner and a urine drug screen was obtained as well as vital signs. Portions of the physical examination were assisted by the medical claims examiner as instructed during the audio telemedicine visit. [...] pain and is seeing an Ortho in [place]. He reports that he may need to [...] tablets (prescribed by outside provider) and also [place] 7.5/325. Denies side effects to medication. Denies other changes, UDS and Darcy review. Refills and F/U in 2 months. 03/02/2024 Low back pain (ICD-10 - M54.5) [...] tablets (prescribed by outside provider) and also [place] 7.5/325. Denies side effects to medication. Denies [...] previous. Requested results from Dr Mccarty at [facility] but not recieved. He reports good pain control with his current analgesic regimen and no side effeccts. He is able to work and be active at home. Recent UDS and DARCY reviewed and appropriate. Will continue current treatment. He is not interested in further injection treatment. Continue gabapentin 300 mg 60 tablets (prescribed by outside provider) and also [place] 7.5/325. Denies side effects to medication. Denies other changes, UDS and Darcy review. Refills and F/U in 2 months. [id number] - Patient reports CLBP stable with current [...] for his LBP but he declines. 11/07/2023 Low back pain (ICD-10 - M54.5) 11/07/23 Mr Hernandze is here for a follow up visit. [...] tablets (prescribed by outside provider) and also [place] 7.5/325. Denies side effects to medication. Denies other changes, UDS and Darcy review. Refills and F/U in 2 months. 11/07/2023 Other specified diabetes mellitus with diabetic [...] tablets (prescribed by outside provider) and also [place] 7.5/325. Denies side effects to medication. Denies [...] previous. Requested results from Dr Mccarty at [facility] but not recieved. He reports good pain control with his current analgesic regimen and no side effeccts. He is able to work and be active at home. Recent UDS and DARCY reviewed and appropriate. Will continue current treatment. He is not interested in further injection treatment. Continue gabapentin 300 mg 60 tablets (prescribed by outside provider) and also [place] 7.5/325. Denies side effects to medication. Denies other changes, UDS and Darcy review. Refills and F/U in 2 months. [id number] - Patient reports CLBP stable with current [...] for his LBP but he declines. 03/02/2024 Other specified diabetes mellitus with diabetic [...] tablets (prescribed by outside provider) and also [place] 7.5/325. Denies side effects to medication. Denies other changes, UDS and Darcy review. Refills and F/U in 2 months. 04/25/2024 Other specified diabetes mellitus with diabetic neuropathy, unspecified (ICD-10 - E13.40) 04/25/2024 The patient presents to the [facility] office in [place], [place] for an audio telemedicine visit. The patient was evaluated by the medical claims examiner and a urine drug screen was obtained as well as vital signs. Portions of the physical examination were assisted by the medical claims examiner as instructed during the audio telemedicine visit. [...] pain and is seeing an Ortho in [place]. He reports that he may need to [...] tablets (prescribed by outside provider) and also [place] 7.5/325. Denies side effects to medication. Denies other changes, UDS and Darcy review. Refills and F/U in 2 months. 06/20/2024 04/25/2024 The patient presents to the [facility] office in [place], [place] for an audio telemedicine visit. The patient was evaluated by the medical claims examiner and a urine drug screen was obtained as well as vital signs. Portions of the physical examination were assisted by the medical claims examiner as instructed during the audio telemedicine visit. [...] pain and is seeing an Ortho in [place]. He reports that he may need to [...] tablets (prescribed by outside provider) and also [place] 7.5/325. Denies side effects to medication. Denies other changes, UDS and Darcy review. Refills and F/U in 2 months. Plan Of Treatment Pending Test Test Name Order Date DRUG TOXICOLOGY (URINE) 05/28/2016 Insurance Providers Payer Name Payer Address Payer Phone Subscriber Number Group Number Insured Name Patient Relationship to Insured Coverage Start Date Coverage End Date [employer] Medicare [address] [place] [phone] [id number] Parish [employer] Self - patient is the insured 3 Medical (General) History Medical History History ICD Code HTN managed [...] [place]man / (OP) 03/2016 Vascular Surgery / [facility] / o vernight stay 2017 Right ear surgery / / (OP) 1989 Hospitalization History Reason Date(Month/Year) Pt went to ER [facility] shortnes s of breath ,COPD related 03/2023
--- NOTE | 2024-10-23 11:30 | US_ITS ---
FINAL REPORT CLINICAL HISTORY: PAD, hx of fem-fem bypass, previous smoker, HTN, DM, HLD, CAD, bilateral rest pain, bilateral claudication. FINDINGS: ANKLE-BRACHIAL PRESSURE INDICES Pressure indices are as follows: RIGHT LOWER EXTREMITY: Ankle-brachial pressure index: 0.99 Comments: Normal LEFT LOWER EXTREMITY: Ankle-brachial pressure index: 0.99 Comments: Normal IMPRESSION: No evidence of significant obstructive peripheral vascular disease of the lower extremities Reviewed, Interpreted and Dictated by Renan Winn MD Transcribed by Willa Daniels Authenticated and [facility]
== END 2024-10-23 23:59 | disposition home or self-care (01) ==
LOC: RT 11:07
PROVIDERS: PCP Internal Medicine; Visit Provider Internal Medicine
DX: I73.9 Peripheral vascular disease, unspecified (principal); I10 Essential (primary) hypertension; E11.9 Type 2 diabetes mellitus without complications; E78.5 Hyperlipidemia, unspecified; I25.10 Atherosclerotic heart disease of native coronary artery without angina pectoris; M79.604 Pain in right leg; M79.605 Pain in left leg; Z98.890 Other specified postprocedural states
CPT/HCPCS: 93923

== ENCOUNTER 2024-11-27 11:49 | Outpatient (CLI) | payer MEDICARE, MEDICAID, SELFPAY ==
--- OUTSIDE RECORDS SUMMARY | 2024-11-27 11:52 | XMS_ITS | Clinical Summary ---
Author Organization [facility] Address [address] [place] [address] Care Team Providers Care Fireworks Display Specialist Name Role Phone Glenna Ayala FRANCK Primary Care Provider [phone]- [phone] Allergies No known active allergies Medications Albuterol Sulfate 108 (90 Base) MCG/ACT aerosol powder Inhale. Activ e aspirin 81 MG EC tablet Take 1 tablet (81 mg) by mouth 1 (one) time each day. Active atorvastatin (Lipitor) 80 MG tablet Take 1 tablet (80 mg) by mouth 1 (one) time each day. Active clopidogrel (Plavix) 75 MG tablet Take by mouth 1 (one) time each day. Active ergocalciferol (Vitamin D-2) 1.25 MG (55701 UT) capsule Take 1 capsule (50,000 Units) [...] (two) times a day before meals. Active hydroCHLOROthi azide (HYDRODiuril) 12.5 MG tablet Take 1 tablet (12.5 mg) by mouth 1 (one) time each day. Active HYDROcodone-ac etaminophen ([place]) 7.5-325 MG tablet Active lisinopril 2.5 MG [...] by mouth 1 (one) time each day. 12/24/19 21 Active FeroSul 325 (65 Fe) MG tablet Take 1 tablet (325 mg) by mouth 1 (one) time each day. 06/04/19 22 Active metFORMIN XR (Glucophage-XR ) 500 MG 24 hr tablet Take 2 tablets (1,000 mg) by mouth 2 (two) times a day. 05/25/19 22 Active furosemide (Lasix) 20 MG tablet 11/26/19 23 Active montelukast (Singulair) 10 MG tablet Take 1 tablet (10 mg) by mouth 1 (one) time each day in the evening. 09/23/19 23 Active Xarelto 2.5 MG tablet 11/26/19 23 Active cetirizine (ZyrTEC) 10 MG tablet Take 1 tablet (10 mg) by mouth 1 (one) time each day. 09/23/19 23 Active Symbicort 80-4.5 MCG/ACT inhaler INHALE TWO PUFFS BY MOUTH TWICE DAILY DIRECTED --RINSE MOUTH AFTER USE-- 11/16/19 23 Active atenolol (Tenormin) 50 MG tablet 12/21/19 24 Active ATENOLOL PO Take by mouth. Take 1 and 1/2 tabs daily 025 Discontinued Active Problems Problem Noted Date Diagnosed Date Coronary artery disease invo lving [place] coronary artery of [place] heart without angina pectoris 12/23/2023 Hypertensive chronic [...] 01/25/2019 Influenza, injectable, quadr ivalent, preservative free 02/04/2023,01/29/2022,02/04/2021,02/16,01/26/2017,01/28/2016 Influenza, seasonal, injecta ble, preservative free 02/02/2024,02/16/2018 Gurwinder COVID-19 Vaccine (Bl [place] Cap) 18+ [...] Description 11/30/2024 11:40 AM EDT Office Visit [facility] [address] [place] [address] Raymon Chin MD [address] [place] [address] Health Maintenance Due Date Last Done Comments [facility]-Depression Screening 1965 [facility]-Diabetes: Hemoglobin A1C 1965 [facility]-HIV Screening 1965 [facility]-Hepatitis C Screening 1965 [facility]-/Child/Adol SDOH Screenings 1965 Diabetes: Dental [...] - Risk 60-74 years 1-dose series) 2023 [id number] Vaccine (2 - 2023- season) 2023 06/25/2020 [facility]-Influenza Vaccine (#1) 12/17/202402/01, [...] Onset Date Last Indicated MRSA 12/25/2020 12/25/2020 Care Teams Fireworks Display Specialist Relationship Specialty Start Date End Date Glenna Ayala, FRANCK [address] [place], [place] [id number] PCP - General 08/29/20
[2024-11-27 11:56] LABS: Microscopic, Urine URINE MICROSCOPIC (MICROSCOPIC)
[2024-11-27 12:13] LABS: Bilirubin,Urine Negative (Negative); Color,Urine YELLOW (Yellow); Glucose,Urine (UA) 3+ (Negative); Ketones,Urine Negative (Negative); Leukocyte Esterase,Urine Negative (Negative); PH,Urine 6.0 (5.0-8.5); Protein,Urine Negative (Negative); Specific Gravity, Urine <= 1.005 (1.005-1.030); Urobilinogen,Urine 0.2 EU/dl (0.2)
[2024-11-27 12:24] LABS: Hematocrit 38.3 % (42.0-52.0); Hemoglobin 12.6 g/dL (14.1-18.0); Mean Corpuscular HGB Conc 32.9 g/dL (31.8-35.4); Mean Corpuscular Hemoglobin 32.5 pg (27.0-31.2); Mean Corpuscular Volume 98.7 fl (80-94); Nucleated Red Blood Cells % 0 %; Platelet Count 165 K/mm3 (142-424); Red Blood Count 3.88 M/mm3 (4.60-6.20); Red Cell Distribution Width-SD 51.4 fL; White Blood Count 3.8 K/mm3 (4.8-10.8)
[2024-11-27 12:42] LABS: Bacteria,Urine Trace /lpf; Squamous Epithelial Cell,Urine Occasional #/hpf (0-5)
[2024-11-27 13:00] LABS: Albumin Level 3.9 g/dl (3.5-5.0); Anion Gap 9.5 mEq/L (5-15); Blood Urea Nitrogen 12 mg/dl (9-20); Calcium 9.1 mg/dl (8.4-10.2); Carbon Dioxide 27 mmol/L (22.0-30.0); Chloride 104 mmol/L (98-107); Creatinine,Serum 0.80 mg/dl (0.66-1.25); Estimated Glomerular Filt Rate 98 ml/min (>60); GFR (African American) 119 ML/MIN (>60); Glucose 108 mg/dl (74-100); Phosphorous 3.6 mg/dl (2.5-4.5); Potassium 4.5 mmoL/L (3.5-5.1); Sodium 136 mmol/L (136-145)
[2024-11-27 13:16] LABS: 25-OH Vitamin D, Total 61.4 ng/mL (30-100)
== END 2024-11-27 23:59 | disposition home or self-care (01) ==
LOC: LAB 11:50
PROVIDERS: PCP Internal Medicine; Visit Provider Student in an Organized Health Care Education/Training Program
DX: E11.22 Type 2 diabetes mellitus with diabetic chronic kidney disease (principal); N18.2 Chronic kidney disease, stage 2 (mild); E83.9 Disorder of mineral metabolism, unspecified; M89.9 Disorder of bone, unspecified
CPT/HCPCS: 36415; 80069; 81001; 82043; 82306; 82570; 83970; 84156; 85027

== ENCOUNTER 2025-03-05 12:20 | Outpatient (CLI) | payer MEDICARE, MEDICAID, SELFPAY ==
--- NOTE | 2025-03-05 12:26 | XR_ITS ---
FINAL REPORT TECHNIQUE: 3 views right hip CLINICAL HISTORY: Fall, suspected fracture COMPARISON: None FINDINGS: RIGHT HIP: 3 images of the right hip were obtained. There is evidence of a prior right total hip arthroplasty. There is a small bone fragment noted lateral to the acetabulum, which appears chronic. There is no evidence of fracture or dislocation. The joint spaces are intact. There is no soft tissue abnormality identified. IMPRESSION: Prior total hip arthroplasty with intact hardware. Reviewed, Interpreted and Dictated by Renan Winn MD Transcribed by Beverley Huang Authenticated and . [facility]
== END 2025-03-05 23:59 | disposition home or self-care (01) ==
LOC: RAD 12:20
PROVIDERS: PCP Internal Medicine; Visit Provider Internal Medicine
DX: S79.911A Unspecified injury of right hip, initial encounter (principal); Z96.641 Presence of right artificial hip joint; W19.XXXA Unspecified fall, initial encounter
CPT/HCPCS: 73502

== ENCOUNTER 2025-04-16 11:09 | Outpatient (CLI) | payer MEDICARE, MEDICAID, SELFPAY ==
--- OUTSIDE RECORDS SUMMARY | 2024-06-20 05:30 | XMS_ITS ---
Author Organization [facility] Address [address] [place] [address] Care Team Providers Care Sheet Catcher Name Role Phone Kye LAKE -Manny Brown MD Primary Care Provider [phone] Mike Vitale II Unavailable Glenna Sommer APRN, Mem Unavailable Unavailable Allergies No Known Allergies REASON FOR VISIT Neck pain, Low back pain, DAVID leg pain, DAVID Shoulder pain, RT HIP Medications Medication SIG (Take, Route, Frequency, Duration) Notes Start Date End Date Status Xarelto 2.5 mg 1 tab(s) orally 2 times a day 05/31/2022 Active ranolazine 1000 mg 1 tab(s) orally 2 times a day; Duration: 30 day(s) 05/31/2022 Active furosemide 20 mg 1 tab(s) orally once a day; Duration: 30 day(s) 03/25/2022 Active atorvastatin 80 mg 1 tab(s) orally once a day; Duration: 30 day(s) 05/31/2022 Active omeprazole 20 mg 1 cap(s) orally once a day; Duration: 30 day(s) 05/31/2022 Active Acetaminophen-Hydroc odone Bitartrate 325 mg-7.5 mg 1 tab(s) orally two times a day; Duration: 28 days MARCH 2024 RX, DO NOT FILL SOONER THAN 28 DAYS, (OK TO FILL EARLY IF CLOSED) Active Acetaminophen-Hydroc odone Bitartrate 325 mg-7.5 mg 1 tab(s) orally two times a day; Duration: 28 days FEBRUARY 2024 RX, DO NOT FILL SOONER THAN 28 DAYS, (OK TO FILL EARLY IF CLOSED) Active Plavix 75 mg 1 tablet orally QD Active gabapentin 400 mg 1 cap(s) orally 3 times a day 03/25/2022 Active Jardiance 10 mg TAKE ONE TABLET BY MOUTH EVERY DAY; Duration: 30 Active metFORMIN 500 mg 1 tab(s) orally 2 times a day; Duration: 30 day(s) 05/17/2023 Active tamsulosin 0.4 mg 1 cap(s) orally once a day; Duration: 30 day(s) 02/23/2024 Active oxyBUTYnin 10 mg/24 hr 1 tab(s) orally once a day; Duration: 30 day(s) 02/23/2024 Active Ozempic 4 mg/3 mL as directed subcutaneously once a week 02/23/2024 Active Trelegy Ellipta 200 mcg-62.5 mcg-25 mcg/inh 1 INH inhaled once a day 02/23/2024 Active Symbicort 160 mcg-4.5 mcg/inh 2 puff(s) inhaled 2 times a day; Duration: 30 day(s) 05/17/2023 Active Encounters Encounter Location Date Provider Diagnosis [facility] [address] [place] [address] 06/20/2024 Mike Vitale Other fpc (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 therapy Z79.899 ; Spondylosis without myelopathy or radiculopathy, lumbar region M47.816 ; Low back pain M54.5 and Other specified diabetes mellitus with diabetic neuropathy, unspecified E13.40 Assessments Encounter Date Diagnosis (ICD Code) Assessment Notes Treatment Notes Treatment Clinical Notes Section Notes 06/20/2024 Other terminal block assembler (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 therapy (ICD-10 - Z79.899) 04/25/2024 1. Refill Virgie 7.5/325mg BID 2. Continue back brace prn 3. Follow up 2 months 4. Continue GBP (pcp) 04/25/2024 The patient presents to the [facility] office in [place], [place] for an audio telemedicine visit. The patient was evaluated by the medical concierge and a urine drug screen was obtained as well as vital signs. Portions of the physical examination were assisted by the medical concierge as instructed during the audio telemedicine visit. [...] pain and is seeing an Ortho in [place]. He reports that he may need to [...] tablets (prescribed by outside provider) and also Virgie 7.5/325. Denies side effects to medication. Denies other changes, UDS and Darcy review. Refills and F/U in 2 months. 06/20/2024 Spondylosis without myelopathy or radiculopathy, lumbar region (ICD-10 - M47.816) 04/25/2024 The patient presents to the [facility] office in [place], [place] for an audio telemedicine visit. The patient was evaluated by the medical concierge and a urine drug screen was obtained as well as vital signs. Portions of the physical examination were assisted by the medical concierge as instructed during the audio telemedicine visit. [...] pain and is seeing an Ortho in [place]. He reports that he may need to [...] tablets (prescribed by outside provider) and also Virgie 7.5/325. Denies side effects to medication. Denies other changes, UDS and Darcy review. Refills and F/U in 2 months. 06/20/2024 Low back pain (ICD-10 - M54.5) 04/25/2024 The patient presents to the [facility] office in [place], [place] for an audio telemedicine visit. The patient was evaluated by the medical concierge and a urine drug screen was obtained as well as vital signs. Portions of the physical examination were assisted by the medical concierge as instructed during the audio telemedicine visit. [...] pain and is seeing an Ortho in [place]. He reports that he may need to [...] tablets (prescribed by outside provider) and also Virgie 7.5/325. Denies side effects to medication. Denies other changes, UDS and Darcy review. Refills and F/U in 2 months. 06/20/2024 Other specified diabetes mellitus with diabetic neuropathy, unspecified (ICD-10 - E13.40) 04/25/2024 The patient presents to the [facility] office in [place], [place] for an audio telemedicine visit. The patient was evaluated by the medical concierge and a urine drug screen was obtained as well as vital signs. Portions of the physical examination were assisted by the medical concierge as instructed during the audio telemedicine visit. Patient consented to telemed visit. Mr Heranndez is here for a follow up visit. [...] pain and is seeing an Ortho in [place]. He reports that he may need to [...] tablets (prescribed by outside provider) and also Virgie 7.5/325. Denies side effects to medication. Denies other changes, UDS and Darcy review. Refills and F/U in 2 months. Plan Of Treatment Medication Medication Name Sig Start Date Stop Date Notes Acetaminophen-Hydrocodon e Bitartrate 325 mg-7.5 mg 1 tab(s) orally two times a day; Duration: 28 days MARCH 2024 RX, DO NOT FILL SOONER THAN 28 DAYS, (OK TO FILL EARLY IF CLOSED) Acetaminophen-Hydrocodon e Bitartrate 325 mg-7.5 mg 1 tab(s) orally two times a day; Duration: 28 days FEBRUARY 2024 RX, DO NOT FILL SOONER THAN 28 DAYS, (OK TO FILL EARLY IF CLOSED) Treatment Notes Assessment Notes Other fpc (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 therapy 04/25/2024 1. Refill Virgie 7.5/325mg BID 2. Continue back brace prn 3. Follow up 2 months 4. Continue GBP (pcp) Pending Test Test Name Order Date Urine Test ANALYZER 06/20/2024 Next Appt Details Follow Up: 2 Months, Reason: Procedure Notes * Category Sub-Category Detail Notes PROVIDER ENCOUNTER AND OVERSIGHT Consult Performed By: Mihai(SLIME-MARKUS)Nidia 04/25 10:32:48 AM > collaborated treatment plan with Mike dickson M.D., supervising physician who was present in office during consultation Progress Notes * Patrick HERNANDEZOB:1965 (59 yo M)Acc No.[id number]:06/20/2024 Patient: Parish CURRY Provider: Justin Vitale II, M.D. :1965 A ge:58 Y S ex:Male Date:06/20/2024 Address:[place], [id number] Pcp:Manny Fishman MD -Lizet Drake MD Subjective: * Chief Complaints: * 1 . Neck pain. 2. Low back pain. 3. DAVID leg pain. 4. DAVID Shoulder pain. 5. RT HIP . * HPI: T ODAYS PAIN EVALUATION: 58 year old male presents with c/o MEDICATION FOLLOW UP: T he patient is currently prescribed Virgie 7.5/325 BID & Gabapentin 300mg TID (with PCP), which provides 60% relief of pain symptoms for 1-2 hours. The last dose was taken 0 04/25/2024 The patient denies any side effects or adverse reactions to the current medications prescribed. . CURRENT PAIN SYMPTOMS: L ocation of Worst Pain: N carole, Low Back, Leg(s), Shoulder(s), P ain Frequency: c onstant, always, usually, P ain Description: a harriet, burning, cramping, sharp, stabbing, numb, tingling, A verage Pain Score VAS: 6.5, P ain Exacerbation: Everything, P ain Alleviation: m edications, A DL/Quality of Life Interference: walking,standing,sitting,bending,lifting etc. P ERTINENT INFORMATION: P prabhu may have rt hip surgery soon. follow up with doctor 05/01/2024. P AIN MANAGEMENT TREATMENT HISTORY: IMAGING HISTORY: 0 09/09/2015 MRI LUMBAR:L5-S1 degenerative disc space narrowing [...] Mild facet hypertrophy & mild foraminal encroachment. 1 05/21/2018 XR LUMBAR:Degenerative Disc disease L5-S1 0 12/10/2021 EMG:The patient appears to have a right Galvan's nerve compression and possible right tarsal tunnel syndrome. Otherwise there was no evidence of peripheral polyneuropathy or myopathy or radiculopathy. I recommend clinical correlation in this patient. . P REVIOUS INJECTION\PROCEDURE HISTORY:? 0 01/08/2020 #1 DAVID LMBB L3 L4 L5 80% relief for 1 day 1 #2 DAVID LMBB L3 L4 L5 80% relief for 1 day 1 05/04/2019 #1 RFA DAVID L3 L4 L5 0% relief . P HYSICAL/AQUA THERAPY/DME/OTHER HISTORY: N o therapies reported B ack Brace dispensed 08/29/2020 . P ERTINENT SURGICAL EVALUATIONS/SPECIALIST CONSULTS N o prior surgical consult . P REVIOUS PAIN CLINIC CARE: 2 020 - Dr Feliciano Pavon, discharged due to abnormal UDS 4 -[address] Leroy . S MARY OF INITIAL EVALUATION: 0 12/10/2019new patient consult referred by Dr. Membreno f or chronic low back pain. onset 1988 with incident. Most severe pain is Low back pain with pain radiating down BLE to toes. 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 Secondary pain in neck with pain radiating down into BUE. Former pt of Dr. Feliciano Pavon. Denies bowel or bladder incontinence. Denies saddle anesthesia. . C OMPLIANCE: RISK ASSESSMENT AND STRATIFICATION: R ISK GROUP: MODERATE RISK D ue to: membrane stabilizer . U RINE DRUG TESTIN 05/23/2023 Screen Expected 0 07/15/2023 Screen Expected Definitive Expected 0 09/09/2023 Screen Expected 1 05/02/2023 Screen Expected ; Definitive Expected 0 04/25/2024 Screen Expected . M ONITORING: M orphine Equivalent (MME): 15 K ASPER reviewed today and appropriate . T ESTING/RISK ASSESSMENTS O RT Score/Result: 0. * ROS: G ENERAL: Fever . , Denies. H EENT: Sore throat Denies. C ARDIOVASCULAR: Positive for b lood thinner (Plavix) for: Blood clots. R ESPIRATORY: Positive for denies respiratory issues. ? G ASTROINTESTINAL: Positive for h eartburn. G ENITOURINARY: Positive for . , denies genitourinary issues. ? M USCULOSKELETAL: Positive for . , back pain, leg pain, shoulder pain. ? N EUROLOGICAL: Positive for n umbness, tingling. P SYCHIATRIC: Positive for d enies psychological issues. E NDOCRINE: Positive for A bnormal blood sugars. * Medical History: H TN managed by Vinnie Antunez MD 2015, Blood Clot managed by Vinnie Antunez MD 2015, GERD managed by Vinnie Antunez MD 2014, Asthma managed by Vinnie Antunez MD 2014, DM Type I managed by Vinnie Antunez MD 2013, Hyperlipidemia managed by Vinnie Antunez MD 2015. * Surgical History: L eft elbow surgery / by Dr. Fishman / (OP) 03/2016, Vascular Surgery / [facility] / overnight stay 2017, Right ear surgery / / (OP) 1989. * Hospitalization/Major Diagno stic Procedure: Pt went to [facility] shortness of breath ,COPD related 03/2023. * Family History: N on-Contributory. Family history of substance abuse: denies. * Social History: S moking: no . P ersonal History Drug Use: No. Alcohol: Yes. * Medications: T aking Plavix 75 mg tablet 1 tablet orally QD , Taking gabapentin 400 mg capsule 1 cap(s) orally 3 times a day , Taking furosemide 20 mg tablet 1 tab(s) orally once a day , Taking atorvastatin 80 mg tablet 1 tab(s) orally once a day , Taking omeprazole 20 mg delayed release capsule 1 cap(s) orally once a day , Taking Xarelto 2.5 mg tablet 1 tab(s) orally 2 times a day , Taking ranolazine 1000 mg tablet, extended release 1 tab(s) orally 2 times a day , Taking Symbicort 160 mcg-4.5 mcg/inh aerosol 2 puff(s) inhaled 2 times a day , Taking metFORMIN 500 mg tablet 1 tab(s) orally 2 times a day , Taking Ozempic 4 mg/3 mL solution as directed subcutaneously once a week , Taking Trelegy Ellipta 200 mcg-62.5 mcg-25 mcg/inh powder 1 INH inhaled once a day , Taking tamsulosin 0.4 mg capsule 1 cap(s) orally once a day , Taking oxyBUTYnin 10 mg/24 hr tablet, extended release 1 tab(s) orally once a day , Taking Jardiance 10 mg tablet TAKE ONE TABLET BY MOUTH EVERY DAY , Taking Acetaminophen-Hydrocodone Bitartrate 325 mg-7.5 mg tablet 1 tab(s) orally two times a day , Medication List reviewed and reconciled with the patient * Allergies: N .K.D.A. Objective: * Vitals: * Examination: G eneral Examination: Nurse/Manager Chemistry: Emeka Roberto ( MA-Lex) 04/25/2024 10:31:28 AM > . General Appearance: w ell-nourished individual in no acute distress. The patient is alert and oriented and cooperative for evaluation. HEENT: unremarkable. Neck, Thyroid : supple. Neurologic Exam: P atient ambulates with an antalgic gait, pitched forward. Skin normal, no rash. Extremities: no clubbing, no edema. ? L umbar Spine/Lower Back: Palpation: L T < RT, paraspinal tenderness. Inspection: Spinal alignment no abnormal curvature noted.? Straight leg raising test: negative bilaterally. Sensory exam: s ensation intact to light touch throughout bilateral lower extremities, no edema or discoloration noted. Motor system: m otor strength 5/5 in all muscle groups bilaterally. Range of motion: R OM moderately limited, moderate pain induced. Hyperextension - Pain with Facet loading, Flexion: 45 degrees, with pain, Extension: 10 degrees, pain with 10 degree DAVID side bending . Assessment: * Assessment: 1. O ther fpc (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 therapy - Z79.899 (Primary) 2 . S pondylosis without myelopathy or radiculopathy, lumbar region - M47.816 3 . L ow back pain - M54.5 4 . O ther specified diabetes mellitus with diabetic neuropathy, unspecified - E13.40 04/25/2024 The patient presents to the [facility] office in [place], [place] for an audio telemedicine visit. The patient was evaluated by the medical concierge and a urine drug screen was obtained as well as vital signs. Portions of the physical examination were assisted by the medical concierge as instructed during the audio telemedicine visit. [...] pain and is seeing an Ortho in [place]. He reports that he may need to [...] tablets (prescribed by outside provider) and also Virgie 7.5/325. Denies side effects to medication. Denies other changes, UDS and Darcy review. Refills and F/U in 2 months. Plan: * Treatment: * Procedures: Erlin SANDERSON ENCOUNTER AND OVERSIGHT: Consult Performed By: Fior atwood(RATE CLERK-MARKUS),Nidia 04/25/2024 10:32:48 AM > . c ollaborated treatment plan with Justin Vitale M.D., supervising physician who was present in office during consultation. * Follow Up: 2 Months * * Electronic signature of Ruslan Vitale II, M.D. on 04/16/2025 at 10:26 AM SAND SIFTER Sign off status: Pending * Provider: Justin Vitale II, M.D. Date: 0 06/20/2024 Generated for Stephanie anne/Lali/Tangela on: 1 10:26 AM SAND SIFTER History and Physical Notes * HPI (History [...] L5 0% relief PREVIOUS PAIN CLINIC CARE: 2020 - Dr Feliciano Pavon, discharged due to [...] FOLLOW UP: The patient is currently prescribed Virgie 7.5/325 BID & Gabapentin 300mg TID (with [...] surgery soon. follow up with doctor 05/01/2024 Examination Category Sub-Category Detail Notes Category Not es General Examination HEENT: unremarkable Neck, Thyroid : supple Extremities: no clubbing, no marine a General Appearance: well-nourished indiv idual in no acute distress. The patient is alert and oriented and cooperative for evaluation Skin normal, no rash Neurologic Exam: Patient ambulates wi th an antalgic gait, pitched forward Nurse/Manager Chemistry: Jaylin Adams MA-Emeka Crespo 04/25/2024 10:31:28 AM > Lumbar Spine/Lower Back [...]
--- OUTSIDE RECORDS SUMMARY | 2025-04-16 11:26 | XMS_ITS | Clinical Summary ---
Author Organization [facility] Address [address] [place] [address] Care Team Providers Care Mixer Operator Raw Salt Name Role Phone Glenna calderon FRANCK Primary Care Provider [phone]- [phone] Allergies No known active allergies Medications Albuterol [...] day. Active ergocalciferol (Vitamin D-2) 1.25 MG (97463 UT) capsule Take 1 capsule (50,000 Units) [...] (one) time each day. Active HYDROcodone-ngozi taminophen ([place]) 7.5-325 MG tablet Active lisinopril 2.5 MG [...] DIRECTED --RINSE MOUTH AFTER USE-- 3 Active atenolol (Tenormin) 50 MG tablet 4 Active doxycycline (Adoxa) 100 MG tablet Take 1 tablet by mouth 2 times a day. Take with a full glass of water and do not lie down for at least 30 minutes after Active empagliflozin (Jardiance) 25 MG Take 1 tablet by mouth daily. Active Active Problems Problem Noted Date Diagnosed Date Coronary artery disease invo lving [place] coronary artery of [place] heart without angina pectoris 12/23/2023 Hypertensive chronic [...] Influenza, seasonal, injecta ble, preservative free 02/02/2024,02/16/2018 [employer] COVID-19 Vaccine (Bl [place] Cap) 18+ 06/25/2020 [...] Sign Reading Time Taken Comments Blood Pressure 107/55 11/30/2024 11:34 AM EDT Pulse 83 11/30/2024 11:34 AM EDT Temperature 35.6 C (96.1 F) 12/23/2023 12:34 PM EDT Respiratory Rate 18 11/30/2024 11:34 AM EDT Oxygen Saturation 99% 11/30/2024 11:34 AM EDT Inhaled Oxygen Concentration - - Weight 83.9 kg (185 lb) 11/30/2024 11:34 AM EDT Height 162.6 cm (5' 4 ) 11/30/2024 11:34 AM EDT Body Mass Index 31.76 11/30/2024 11:34 AM EDT Plan of Treatment Health Maintenance Due Date Last Done Comments [facility]-Depression Screening 1965 [facility]-Diabetes: Hemoglobin A1C 1965 [facility]-HIV Screening 1965 [facility]-Hepatitis C Screening 1965 [facility]-Medicare Annual Wellness (AWV) 1965 [facility]-/Child/Adol SDOH Screenings 1965 Diabetes: Dental Exam 06/26/1973 [facility]- SDOH Screenings 06/26/1981 [facility]-Adult SDOH Screenings 06/26/1981 CT Colonography 06/26/2008 Colonoscopy 06/26/2008 FIT-DNA 06/26/2008 FIT 06/26/2008 FOBT 06/26/2008 Sigmoidoscopy 06/26/2008 [facility]-Colorectal Cancer Screening 06/26/2008 [facility]-RSV Vaccine: 60+ Years or (1 - Risk 50-74 years 1-dose series) 06/26/2013 [facility]-Zoster Vaccines (1 of 2) 06/26/2013 [facility]-Pneumococcal Vaccine: 50+ Years (3 of 3 - PCV20 or PCV21) 01/26/2022 01/26/2017, 01/26/2017 [id number] Vaccine (2 - season) 2024 06/25/2020 [facility]-Influenza Vaccine (#1) 12/17/202402/01, 02/04/2023, 01/29/2022, Additional history exists [facility]-DTaP,Tdap,and Td Vaccines (3 - Td or Tdap) 04/08/2030 04/08/2020, 08/17/2016 [facility]-Obesity Intervention Completed 11/30/2024, 09/2023 HPV Vaccines (No Doses Required) Completed [facility]-HIB Vaccines Aged Out No longer e [...] Date Last Indicated MRSA 12/25/2020 12/25/[address] [address] MEDICARE Care Teams Mixer Operator Raw Salt Relationship Specialty Start Date End Date Glenna Ayala APRN [address] [place], [place] [phone] PCP - General 08/29/20
--- OUTSIDE RECORDS SUMMARY | 2025-04-16 11:27 | XMS_ITS ---
Laboratory report Created on: March 19, 2025 MARY TY : 1965 Sex: Male Author Name MCKINLEY HELTON Organization Unknown PROBLEMS Problems List Code Description Z01.812 Z01.818 Z13.89 R79.1 R73.09 M89.9 E74.10 E55.9 RESULTS Laboratory Orders Date Order Code Test 2024-06-14 [id number] NICOTINE AND MET ABOLITE, QUANT 2024-06-14 [id number] COMP. METABOLIC PANEL (14) 2024-06-14 [id number] PROTHROMBIN TIME (PT) 2024-06-14 [id number] VITAMIN D, 25-HY DROXY 2024-06-14 [id number] FRUCTOSAMINE 2024-06-14 [id number] MRSA BY EVAN 2024-06-14 [id number] HEMOGLOBIN A1C 2024-06-14 [id number] PTT, ACTIVATED 2024-06-14 [id number] CBC WITH DIFFERE NTIAL/PLATELET 2024-06-14 [id number] PREALBUMIN Laboratory Results Date LOINC Test Value Unit Reference Range Interpre tation 2024-06-14 3853-9 NICOTINE <1.0 NG/ML 2024-06-14 62477-7 COTININE <1.0 NG/ML 2024-06-14 2345-7 GLUCOSE 131 MG/DL 70-99 H 2024-06-14 3094-0 BUN 15 MG/DL 8-2024-06-14 2160-0 CREATININE 1.42 MG/DL 0.76-1.27 H 2024-06-14 52490-9 EGFR 57 ML/MIN/1.73 >59 L 2024-06-14 3097-3 BUN/CREATININE RATIO 11 10-24 2024-06-14 2951-2 SODIUM 142 MMOL/L 869-950 4154-02-27 2823-3 POTASSIUM 5.5 MMOL/L 3.5-5.2 H 2024-06-14 2075-0 CHLORIDE 101 MMOL/L 96-106 2024-06-14 2028-9 CARBON DIOXIDE, TOTAL 25 MMOL/L 20-29 2024-06-14 66353-3 CALCIUM 10.1 MG/DL 8.6-10.2 2024-06-14 2885-2 PROTEIN, TOTAL 6.5 G/DL 6.0-8.5 2024-06-14 1751-7 ALBUMIN 4.4 G/DL 3.8-4.9 2024-06-14 31876-3 GLOBULIN, TOTAL 2.1 G/DL 1.5-4.5 2024-06-14 1975-2 BILIRUBIN, TOTAL .3 MG/DL 0.0-1.2 2024-06-14 6768-6 ALKALINE PHOSPHATASE 97 IU/L 44-121 2024-06-14 1920-8 AST (SGOT) 17 IU/L 0-40 2024-06-14 1742-6 ALT (SGPT) 14 IU/L 0-44 2024-06-14 6301-6 INR 1 0.9-1.2 2024-06-14 5902-2 PROTHROMBIN TIME 11.1 SEC 9.1-12.0 2024-06-14 72272-5 VITAMIN D, 25-HYDROXY 71.4 NG/ML 30.0-100.0 2024-06-14 38538-3 FRUCTOSAMINE 233 UMOL/L 0-285 2024-06-14 93199-3 MRSA BY EVAN N NEGATIVE 2024-06-14 4548-4 HEMOGLOBIN A1C 6.2 % 4.8-5.6 H 2024-06-14 21426-9 APTT 33 SEC 24-33 2024-06-14 6690-2 WBC 5.8 X10E3/UL 3.4-10.8 2024-06-14 789-8 RBC 4.02 X10E6/UL 4.14-5.80 L 2024-06-14 718-7 HEMOGLOBIN 13.3 G/DL 13.0-17.7 2024-06-14 4544-3 HEMATOCRIT 39.7 % 37.5-51.0 2024-06-14 787-2 MCV 99 FL 79-97 H 2024-06-14 785-6 MCH 33.1 PG 26.6-33.0 H 2024-06-14 786-4 MCHC 33.5 G/DL 31.5-35.7 2024-06-14 788-0 RDW 13 % 11.6-15.4 2024-06-14 777-3 PLATELETS 195 X10E3/UL 764-223 8952-02-27 770-8 NEUTROPHILS 55 % 2024-06-14 736-9 LYMPHS 31 % 2024-06-14 5905-5 MONOCYTES 10 % 2024-06-14 713-8 EOS 3 % 2024-06-14 706-2 BASOS 1 % 2024-06-14 751-8 NEUTROPHILS (ABSOLUTE) 3.2 X10E3/UL 1.4-7.0 2024-06-14 731-0 LYMPHS (ABSOLUTE) 1.8 X10E3/UL 0.7-3.1 2024-06-14 742-7 MONOCYTES(ABSOLUTE) .6 X10E3/UL 0.1-0.9 2024-06-14 711-2 EOS (ABSOLUTE) .2 X10E3/UL 0.0-0.4 2024-06-14 704-7 BASO (ABSOLUTE) 0 X10E3/UL 0.0-0.2 2024-06-14 14944-8 IMMATURE GRANULOCYTES 0 % 2024-06-14 38190-2 IMMATURE GRANS (ABS) 0 X10E3/UL 0.0-0.1 2024-06-14 72143-4 PREALBUMIN 28 MG/DL 10-36
--- OUTSIDE RECORDS SUMMARY | 2025-04-16 11:27 | XMS_ITS ---
Laboratory report Created on: March 19, 2025 MARY TY : 1965 Sex: Male Author Organization Unknown PROBLEMS Problems List Code Description RESULTS Laboratory Orders Date Order Code Test 2023-10-26 [id number] PSA TOTAL+% FREE Laboratory Results Date LOINC Test Value Unit Reference Range Interpre tation 2023-10-26 2857-1 PROSTATE SPECIFIC AG .5 NG/ML 0.0-4.0 2023-10-26 93946-3 PSA, FREE .09 NG/ML N/A 2023-10-26 75744-1 % FREE PSA 18 %
--- OUTSIDE RECORDS SUMMARY | 2025-04-16 11:27 | XMS_ITS | Patient Health Record ---
Author Organization [facility] Address [address] [place] [address] Care Team Providers Care Accounting Tutor Name Role Phone Kye LAKE -Manny Brown MD Primary Care Provider [phone] Mike Vitale II Unavailable [phone] Lucy Soto Mem Eugondguerrero Unavailable Unavailable Allergies No Known Allergies Results Component Value Reference Range Notes Urine Test ANALYZER Reviewed date:04/25/2024 02:22:33 PM Interpretation:+HYD+OPI Performing Lab: Notes/Report: +HYD+OPI Heroin Metabolite (6AM) NEG Amphetamine (AMP) NEG Benzodiazepine (DEX) NEG Buprenorphine NEG Cocaine (MICHAEL) NEG Hydrocodone (HYD) POS Methadone (MTD) NEG Opiate (OPI) POS Oxycodone (OXY) NEG Reason For Referral No Information Medications Medication [...] W/U Status Risk Notes Problem Diabetic neuropathy (900897151) Other specified diabetes mellitus with diabetic neuropathy, unspecified (E13.40) Active confirmed Problem Thoracic spondylosis without myelopathy (424418448) Spondylosis without myelopathy or radiculopathy, 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) Active confirmed Problem Lumbosacral spondylosis without myelopathy (56162933) Spondylosis without myelopathy or radiculopathy, lumbar region (M47.816) Active confirmed Problem Low back pain (912553197) Low back pain (M54.5) Active confirmed Problem Long-term current use of drug therapy (694172169) Other mcc (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 therapy (Z79.899) Active confirmed Problem Lumbar spondylosis (761556547) lumbar spondylosis (M47.816) Active confirmed Vital Signs Heart Rate 78 /min 04/25/2024 Blood pressure diastolic 65 mm Hg 04/25/2024 Height 64.5 in 04/25/2024 Blood pressure systolic 106 mm Hg 04/25/2024 Weight 195 lbs 04/25/2024 BMI 32.95 kg/m2 04/25/2024 Encounters Encounter Location Date Provider Diagnosis [facility] [address] [place] [address] 04/25/2024 Mike Vitale Other mcc (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 therapy Z79.899 ; Spondylosis without myelopathy or radiculopathy, lumbar region M47.816 ; Low back pain M54.5 and Other specified diabetes mellitus with diabetic neuropathy, unspecified E13.40 [facility] [address] [place] [address] 04/25/2024 Mike Vitale Other mcc (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 therapy Z79.899 Assessments Encounter Date Diagnosis (ICD Code) Assessment Notes Treatment Notes Treatment Clinical Notes Section Notes 04/25/2024 Spondylosis without myelopathy or radiculopathy, lumbar region (ICD-10 - M47.816) 04/25/2024 The patient presents to the [facility] office in [place], [place] for an audio telemedicine visit. The patient was evaluated by the medical officer psychiatry and a urine drug screen was obtained as well as vital signs. Portions of the physical examination were assisted by the medical officer psychiatry as instructed during the audio telemedicine visit. [...] pain and is seeing an Ortho in [place]. He reports that he may need to [...] tablets (prescribed by outside provider) and also [place] 7.5/325. Denies side effects to medication. Denies other changes, UDS and Darcy review. Refills and F/U in 2 months. 04/25/2024 Other mcc (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 therapy (ICD-10 - Z79.899) 04/25/2024 1. Refill [place] 7.5/325mg BID 2. Continue back brace prn 3. Follow up 2 months 4. Continue GBP (pcp) 04/25/2024 The patient presents to the [facility] office in [place], [place] for an audio telemedicine visit. The patient was evaluated by the medical officer psychiatry and a urine drug screen was obtained as well as vital signs. Portions of the physical examination were assisted by the medical officer psychiatry as instructed during the audio telemedicine visit. [...] pain and is seeing an Ortho in [place]. He reports that he may need to [...] tablets (prescribed by outside provider) and also [place] 7.5/325. Denies side effects to medication. Denies other changes, UDS and Darcy review. Refills and F/U in 2 months. 04/25/2024 Other parts interpreter (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 therapy (ICD-10 - Z79.899) 04/25/2024 Low back pain (ICD-10 - M54.5) 04/25/2024 The patient presents to the [facility] office in [place], [place] for an audio telemedicine visit. The patient was evaluated by the medical officer psychiatry and a urine drug screen was obtained as well as vital signs. Portions of the physical examination were assisted by the medical officer psychiatry as instructed during the audio telemedicine visit. [...] pain and is seeing an Ortho in [place]. He reports that he may need to [...] tablets (prescribed by outside provider) and also [place] 7.5/325. Denies side effects to medication. Denies other changes, UDS and Darcy review. Refills and F/U in 2 months. 04/25/2024 Other specified diabetes mellitus with diabetic neuropathy, unspecified (ICD-10 - E13.40) 04/25/2024 The patient presents to the [facility] office in [place], [place] for an audio telemedicine visit. The patient was evaluated by the medical officer psychiatry and a urine drug screen was obtained as well as vital signs. Portions of the physical examination were assisted by the medical officer psychiatry as instructed during the audio telemedicine visit. [...] pain and is seeing an Ortho in [place]. He reports that he may need to [...] tablets (prescribed by outside provider) and also [place] 7.5/325. Denies side effects to medication. Denies other changes, UDS and Darcy review. Refills and F/U in 2 months. 06/20/2024 04/25/2024 The patient presents to the [facility] office in [place], [place] for an audio telemedicine visit. The patient was evaluated by the medical officer psychiatry and a urine drug screen was obtained as well as vital signs. Portions of the physical examination were assisted by the medical officer psychiatry as instructed during the audio telemedicine visit. [...] pain and is seeing an Ortho in [place]. He reports that he may need to [...] tablets (prescribed by outside provider) and also [place] 7.5/325. Denies side effects to medication. Denies other changes, UDS and Darcy review. Refills and F/U in 2 months. Plan Of Treatment Pending Test Test Name Order Date DRUG TOXICOLOGY (URINE) 05/28/2016 Insurance Providers Payer Name Payer Address Payer Phone Subscriber Number Group Number Insured Name Patient Relationship to Insured Coverage Start Date Coverage End Date [employer] [address] [place] [address] [id number] [employer] Self - patient is the [...] MD 2 016 Surgical History Surgery Date(Month/Year) Right ear surgery / [facility] / (OP) 1989 Left elbow surgery / by Dr. Fishman / (OP) 03/2016 Vascular Surgery / [facility] / o vernight stay 2018 Hospitalization History Reason Date(Month/Year) [facility]23
--- NOTE | 2025-04-16 11:30 | FL_ITS ---
FINAL REPORT CLINICAL HISTORY: dysphagia, regurgitation FLUORO TIME 1:20 38.57 mGy FINDINGS: ESOPHAGRAM HISTORY: Dysphagia. PROCEDURE: The patient ingested barium. Effervescent crystals were also administered. Spot and overhead films were obtained. FINDINGS: The esophagus is normal. There is no hiatal hernia. There is no gastroesophageal reflux . Peristalsis is normal. Fluoroscopy exposure time: 1 minute 20 seconds Radiation exposure in reference to air kerma: 38.57 mGy IMPRESSION: Normal esophagram. Reviewed, Interpreted and Dictated by Blanca Forbes MD Transcribed by HIRA Hutton Authenticated and [facility]
[2025-04-16] MEDS: BARIUM SULFATE (E-Z-HD 340GM);135ML BOTTLE 135 ML PO (11:58)
[2025-04-16] MEDS: BARIUM SULFATE(LIQUID E-Z-PAQUE);355ML BOTTLE 355 ML PO (11:58)
[2025-04-16] MEDS: E-Z-GASII EFFERVESCENT GRANULES;1PK 1 EACH PO (11:59)
== END 2025-04-16 23:59 | disposition home or self-care (01) ==
LOC: RAD 11:10
PROVIDERS: PCP Internal Medicine; Visit Provider Internal Medicine
DX: R13.10 Dysphagia, unspecified (principal); R11.10 Vomiting, unspecified
CPT/HCPCS: 74220